=== PATIENT | female | born 1945 | race Caucasian/White ===

== ENCOUNTER 2016-10-18 11:57 | Inpatient (IN) | payer OTHER ==
[~2016-10-18] VITALS: Ht 162.6 cm; Wt 90.0 kg
[2016-10-18 09:30] VITALS: BP 124/61; PULSE 76
--- NOTE | 2016-10-18 12:21 | EMERGENCY ROOM VISIT NOTE ---
History Report prepared by Dar: Henrik Patel Under the Supervision of: Dr. Vadim Hernandez M.D. First contact with patient: 12:12 Chief Complaint: WOUND INFECTION Stated Complaint: WOUND ON RT FOOT History of Present Illness The patient is a 71 year old female who presents to the Emergency Room with complaints of a persistent left foot infection that started a month ago. Per the patient's family, the patient just arrived from [place] 3 days ago. The patient has been on an antibiotic (Ceftin) for 15 days, but the infection is not getting any better. The patient has the foot wrapped, and the last time it was re-wrapped was 5 days ago. She is diabetic. The patient's blood sugar this morning was 300, and she states that this is very high for her. She has been using her insulin twice per day. Source of History: patient, family Onset: A month ago Position: foot (left) Quality: other (infection) Timing: other (persistent) Note: Associated symptoms: High blood sugar this morning. Otherwise, no symptoms noted. Review of Systems See HPI for pertinent positives & negatives. A total of 10 systems reviewed and were otherwise negative. Past Medical & Surgical Medical Problems: (1) Diabetes (2) Diabetes mellitus, type II (3) Hyperlipidemia (4) Hypertension (5) Obesity (BMI 30.0-34.9) (6) Osteomyelitis Family History Diabetes mellitus Social History Smoking Status: Never Smoker Smokeless Tobacco Use: No Alcohol Use: none Occupation Status: unemployed Current/Historical Medications Scheduled Amlodipine Besylate (Amlodipine Besylate), 5 MG PO DAILY Atorvastatin (Lipitor), 1 TAB PO DAILY Cefuroxime Axetil (Cefuroxime Axetil), 1 TAB PO BID Hydrochlorothiazide (Hctz), 1 CAP PO DAILY Insulin Isophan/Regular (Novolin 70/30), 0 SC BID Lisinopril (Lisinopril), 5 MG PO DAILY Simvastatin (Simvastatin), 20 MG PO HS Scheduled PRN Ibuprofen (Motrin), 800 MG PO Q8 PRN for Pain Allergies Coded Allergies: No Known Allergies (Unverified , 10/18/16) Physical Exam Vital Signs Date Time Temp Pulse Resp B/P Pulse Ox O2 Delivery O2 Flow Rate FiO2 10/18/16 14:02 68 16 157/71 Room Air 10/18/16 12:00 36.6 74 20 172/85 98 Physical Exam GENERAL: Patient is chronically unwell appearing, overweight, in mild distress. HEENT: No acute trauma, normocephalic atraumatic, mucous membranes moist, no nasal congestion, no scleral icterus. NECK: No stridor, no adenopathy, no meningismus, trachea is midline. LUNGS: No dyspnea. Clear to auscultation and equal bilaterally. No wheeze, no rhonchi. HEART: Regular rate and rhythm. No murmurs, rubs, gallops appreciated. ABDOMEN: Soft, nontender, bowel sounds positive, no masses appreciated, no peritonitis. BACK: No midline tenderness, no CVA tenderness EXTREMITIES: Severely malodorous wound between 4th and 5th digits of right foot with active drainage, gangrenous findings and swelling of entire right foot. Erythema over most of right foot. NEUROLOGIC: Alert and oriented, no acute motor or sensory deficits, no focal weakness, cranial nerves grossly intact. SKIN: No rash, no jaundice, no diaphoresis. Medical Decision & Procedures ER Provider Diagnostic Interpretation: X ray results are stated below per my interpretation and the radiologist's interpretation. RIGHT FOOT MIN 3 VIEWS ROUTINE CLINICAL HISTORY: right foot infection (4th/5th digits) Right infection. Pain. COMPARISON: None. DISCUSSION: Destructive changes involving the metatarsophalangeal joint of the fourth toe. Generalized soft tissue edema about the fifth toe considerable degenerative change throughout all remaining osseous structures. Pars planus deformity of the ankle. Heel spur. Generalized soft tissue edema. IMPRESSION: Destructive changes involving the distal aspect of the fourth metatarsal as well as metatarsophalangeal joint. 2. No definite bony destructive change involving the fifth toe, although a component of osteopenia involving the distal fifth metatarsals present. 3. The appearance is consistent with that of degenerative change with superimposed osteomyelitis of the fourth toe. Electronically signed by: Florentino Maurice M.D. 10/18/2016 1:39 PM Dictated Date/Time: 10/18/2016 1:37 PM Laboratory Results 10/18/16 12:50 Red Blood Count 4.71, Mean Corpuscular Volume 78.6, Mean Corpuscular Hemoglobin 25.1, Mean Corpuscular Hemoglobin Concent 31.9, Mean Platelet Volume 10.5, Neutrophils (%) (Auto) 56.2, Lymphocytes (%) (Auto) 29.9, Monocytes (%) (Auto) 8.2, Eosinophils (%) (Auto) 4.5, Basophils (%) (Auto) 0.9, Neutrophils # (Auto) 3.79, Lymphocytes # (Auto) 2.01, Monocytes # (Auto) 0.55, Eosinophils # (Auto) 0.30, Basophils # (Auto) 0.06 10/18/16 12:50 Test 10/18/16 12:32 10/18/16 12:50 10/18/16 13:17 Bedside Glucose 250 mg/dl (70-90) White Blood Count 6.73 K/uL (4.8-10.8) Red Blood Count 4.71 M/uL (4.2-5.4) Hemoglobin 11.8 g/dL (12.0-16.0) Hematocrit 37.0 % (37-47) Mean Corpuscular Volume 78.6 fL (80-100) Mean Corpuscular Hemoglobin 25.1 pg (25-34) Mean Corpuscular Hemoglobin Concent 31.9 g/dl (32-36) Platelet Count 501 K/uL (130-400) Mean Platelet Volume 10.5 fL (7.4-10.4) Neutrophils (%) (Auto) 56.2 % Lymphocytes (%) (Auto) 29.9 % Monocytes (%) (Auto) 8.2 % Eosinophils (%) (Auto) 4.5 % Basophils (%) (Auto) 0.9 % Neutrophils # (Auto) 3.79 K/uL (1.4-6.5) Lymphocytes # (Auto) 2.01 K/uL (1.2-3.4) Monocytes # (Auto) 0.55 K/uL (0.11-0.59) Eosinophils # (Auto) 0.30 K/uL (0-0.5) Basophils # (Auto) 0.06 K/uL (0-0.2) RDW Standard Deviation 47.7 fL (36.4-46.3) RDW Coefficient of Variation 16.7 % (11.5-14.5) Immature Granulocyte % (Auto) 0.3 % Immature Granulocyte # (Auto) 0.02 K/uL (0.00-0.02) Erythrocyte Sedimentation Rate 62 mm/hr (0-21) Prothrombin Time 10.9 SECONDS (9.0-12.0) Prothromb Time International Ratio 1.0 (0.9-1.1) Activated Partial Thromboplast Time 22.4 SECONDS (21.0-31.0) Partial Thromboplastin Ratio 0.9 Anion Gap 3.0 mmol/L (3-11) Est Creatinine Clear Calc Drug Dose 58.5 ml/min Estimated GFR () 71.7 Estimated GFR (Non- 61.9 BUN/Creatinine Ratio 10.7 (10-20) Estimated Average Glucose 212 mg/dl Hemoglobin A1c 9.0 % (4.5-5.6) Calcium Level 8.9 mg/dl (8.5-10.1) C-Reactive Protein 1.46 mg/dl (0-0.29) Bedside Lactic Acid Venous 1.84 mmol/L (0.90-1.70) Laboratory results as reviewed by me. Medications Administered Medications (Trade) Dose Ordered Sig/Christen Route Start Time Stop Time Status Last Admin Dose Admin Sodium Chloride (Nss 500ml) 500 ml @ 999 mls/hr Q31M STAT IV 10/18/16 13:33 10/18/16 14:03 DC 10/18/16 13:33 999 MLS/HR Piperacillin Sod/ Tazobactam Sod 4.5 gm 4.5 gm NOW STAT IV 10/18/16 13:51 10/18/16 13:53 DC 10/18/16 13:59 4.5 GM Vancomycin HCl/ Sodium Chloride (Vancomycin Inj/ Nss 500ml) 540 ml @ 200 mls/hr ONE STAT IV 10/18/16 13:51 10/18/16 16:32 DC 10/18/16 14:49 200 MLS/HR ED Course 1213: The patient was evaluated in room B3B. A complete history and physical exam was performed. 1333: Ordered NSS 500 ml @ 999 mls/hr IV. 1351: Ordered Vancomycin HCl 2000 mg/Sodium Chloride 540 ml @ 200 mls/hr IV, Zosyn IV 4.5 gm IV. 1353: Upon reevaluation, the patient is resting comfortably. Discussed results and treatment plan with the patient. She verbalized understanding and agreement with the treatment plan. The patient will be evaluated for further management. 1403: I discussed the patient with Dr. Duke - [facility] [place] laboratory machinist - he will evaluate the patient for further treatment. Medical Decision Differential: DVT, CHF, Arterial Occlusion, Infectious, Joint Effusion, Trauma, Lymphedema, Idiopathic, Trauma, amongst other pathologies entertained. 71 yr old female with uncontrolled DMII arrives with right 4th/5th digits of foot infection spreading up over foot. Wound in gangrenous and imaging reveals underlying osteomyelitis. On abx as outpatient for last 2 weeks with no improvement in symptoms. Empirically given broad spectrum abx. She has no outpatient follow up and will need admission for treatment of this. Consults Time Called: [phone] Consulting Physician: Dr. Srikanth BRONSON laboratory machinist Returned Call: [phone] I discussed the patient with Dr. Srikanth BRONSON laboratory machinist - he will evaluate the patient for further treatment. Impression Primary Impression: Gangrene of foot Additional Impressions: Osteomyelitis of right foot Diabetes mellitus, insulin dependent (IDDM), uncontrolled Scribe Attestation The scribe's documentation has been prepared under my direction and personally reviewed by me in its entirety. I confirm that the note above accurately reflects all work, treatment, procedures, and medical decision making performed by me. Departure Information Dispostion Being Evaluated By Hospitalist Referrals No Doctor, Assigned (PCP) Patient Instructions My [facility] Problem Qualifiers Additional Impressions: Osteomyelitis of right foot Osteomyelitis type: other acute Qualified Codes: M86.171 - Other acute osteomyelitis, right ankle and foot Diabetes mellitus, insulin dependent (IDDM), uncontrolled Diabetes mellitus complication status: with skin complications Diabetes mellitus complication detail: with foot ulcer Qualified Codes: E10.621 - Type 1 diabetes mellitus with foot ulcer; L97.509 - Non-pressure chronic ulcer of other part of unspecified foot with unspecified severity; E10.65 - Type 1 diabetes mellitus with hyperglycemia
[2016-10-18 13:23] LABS: BASO % 0.9 %; BASO ABS # 0.06 K/uL (0-0.2); COMPLETE YES; EOS % 4.5 %; IG% 0.3 %; LYMPH % 29.9 %; LYMPH ABS # 2.01 K/uL (1.2-3.4); MEAN CELL VOLUME 78.6 fL (80-100); MEAN CORPUSCULAR HEMOGLOBIN 25.1 pg (25-34); MEAN CORPUSCULAR HGB CONC 31.9 g/dl (32-36); MEAN PLATELET VOLUME 10.5 fL (7.4-10.4); MONO % 8.2 %; NEUT % 56.2 %; PLATELET COUNT 501 K/uL (130-400); RED BLOOD COUNT 4.71 M/uL (4.2-5.4); WHITE BLOOD COUNT 6.73 K/uL (4.8-10.8)
[2016-10-18] MEDS ORDERED: SODIUM CHLORIDE 0.9% 500ML 500 ML IV STA (13:33)
--- NOTE | 2016-10-18 13:41 | DIAGNOSTIC IMAGING REPORT ---
RIGHT FOOT MIN 3 VIEWS ROUTINE CLINICAL HISTORY: right foot infection (4th/5th digits) Right infection. Pain. COMPARISON: None. DISCUSSION: Destructive changes involving the metatarsophalangeal joint of the fourth toe. Generalized soft tissue edema about the fifth toe considerable degenerative change throughout all remaining osseous structures. Pars planus deformity of the ankle. Heel spur. Generalized soft tissue edema. IMPRESSION: Destructive changes involving the distal aspect of the fourth metatarsal as well as metatarsophalangeal joint. 2. No definite bony destructive change involving the fifth toe, although a component of osteopenia involving the distal fifth metatarsals present. 3. The appearance is consistent with that of degenerative change with superimposed osteomyelitis of the fourth toe. Electronically signed by: Florentino Maurice M.D. 10/18/2016 1:39 PM Dictated Date/Time: 10/18/2016 1:37 PM
[2016-10-18] MEDS ORDERED: INSU70IN2 SC (13:44)
[2016-10-18] MEDS ORDERED: CEFU1TAB36 PO (13:44)
[2016-10-18] MEDS ORDERED: PIPERACILLIN/TAZOBACTAM 4.5 GM/100ML D5W IV STA (13:51)
[2016-10-18] MEDS ORDERED: VANCOMYCIN INJ 2,000 MG in SODIUM CHLORIDE 0.9% 500ML 500 ML IV STA (13:51)
[2016-10-18 13:58] LABS: BLOOD UREA NITROGEN 10 mg/dl (7-18); BUN/CREATININE RATIO 10.7 (10-20); C-REACTIVE PROTEIN 1.46 mg/dl (0-0.29); CALCIUM 8.9 mg/dl (8.5-10.1); CARBON DIOXIDE 31 mmol/L (21-32); CHLORIDE 104 mmol/L (98-107); CREATININE 0.94 mg/dl (0.60-1.20); GLUCOSE 274 mg/dl (70-99); SODIUM 138 mmol/L (136-145)
[2016-10-18] MEDS ORDERED: DEXTROSE 50% 50 ML SYR IV PRN (14:45)
[2016-10-18] MEDS ORDERED: PHARMACY GLYCEMIC MGMT CONSULT PRN (14:45)
[2016-10-18] MEDS ORDERED: GLUCOSE 10 TABS/TUBE PO PRN (14:45)
[2016-10-18] MEDS ORDERED: GLUCAGON FOR INJ 1 MG VIAL SQ PRN (14:45)
[2016-10-18] MEDS ORDERED: GLUCOSE 40% GEL 15 GM TUBE PO PRN (14:45)
--- NOTE | 2016-10-18 15:07 | Pharmacy Progress Note ---
Glycemic Control Intl Consult Date of Service Oct 18, 2016. Scope Glycemic Pharmacist consulted by Dr Ghada Duke on 10/18/16 for glycemic control and to write orders per [facility] inpatient glycemic control protocol Objective Weight (Kilograms): 82.000 Accuchecks BSG (last 24hrs): Test 10/18/16 12:32 10/18/16 12:50 Bedside Glucose 250 mg/dl (70-90) Random Glucose 274 mg/dl (70-99) Laboratory Data (last 24hrs) Test 10/18/16 12:50 Anion Gap 3.0 mmol/L BUN/Creatinine Ratio 10.7 Blood Urea Nitrogen 10 mg/dl Creatinine 0.94 mg/dl Potassium Level mmol/L Sodium Level 138 mmol/L White Blood Count 6.73 K/uL Red Blood Count 4.71 M/uL Hemoglobin 11.8 g/dL Hematocrit 37.0 % Mean Corpuscular Volume 78.6 fL Mean Corpuscular Hemoglobin 25.1 pg Mean Corpuscular Hemoglobin Concent 31.9 g/dl Platelet Count 501 K/uL Mean Platelet Volume 10.5 fL Neutrophils (%) (Auto) 56.2 % Lymphocytes (%) (Auto) 29.9 % Monocytes (%) (Auto) 8.2 % Eosinophils (%) (Auto) 4.5 % Basophils (%) (Auto) 0.9 % Neutrophils # (Auto) 3.79 K/uL Lymphocytes # (Auto) 2.01 K/uL Monocytes # (Auto) 0.55 K/uL Eosinophils # (Auto) 0.30 K/uL Basophils # (Auto) 0.06 K/uL HbA1c Test 10/18/16 12:50 Recent Pertinent Medications Outpatient Anti-diabetic Regimen: * Novolin 70/30 BID w/ breakfast and dinner; 20 units if BSG in 200's; 30 units if BSG in the 300s * A1c = ? Results are pending Risk Factors for Insulin Resistance: * Steroids: n/a * Infection: R diabetic foot infection, osteomyelitis, possible gangrene; ordered Vancomycin + Zosyn in the ER * Pressors: n/a * IVF: none currently * Recent Surgery: n/a * Diet: has not yet been ordered * Mechanical Ventilation: n/a Assessment & Plan ASSESSMENT: 10/18/16 * Diabetic (type 2?) presented to the ER today for worsening R foot infection despite 15 days of treatment w/ Ceftin. Note, she is visiting from [place]. * Patient's Ukrainian limited and information obtained through conversation w/ patient via son interpreting. She states she uses only the 70/30 insulin for glycemic control, twice daily with doses ranging 20-30units per dose. It does not sound as though her BSGs are well controlled. A1c has been added to existing labs - awaiting results to be reported. * Will begin a basal/bolus regimen in this patient as it is unclear as to the type of DM she was diagnosed with. The regimen will be based upon an anticipated total daily insulin requirement of ~50-60 units based upon her reported outpt doses and likely poor control on this regimen. Lantus and Novolog will be used rather than split-mixed 70/30 insulin due to potential need for NPO status for procedures and higher hypoglycemia risk with this insulin while hospitalized. We can transition back to 70/30 insulin closer to discharge if this is desired. PLAN FOR INPATIENT GLYCEMIC CONTROL: * Basal insulin with LANTUS 13 units SQ BID * Correctional Insulin with NOVOLOG / REGULAR per scale ACHS or Q6hrs while NPO * Goal Range: Low 120 mg/dL - High 150 mg/dL * Correction Factor: 25 mg/dL/unit * Nutritional / Prandial insulin per carb ratio of 1 unit per 9 grams CHO consumed * Please note that the plan above was derived based on current level of insulin resistance and hospital stress. These recommendations are appropriate for inpatient admission only. Plan of care upon discharge will need to be reassessed to avoid potential outpatient hypo/hyperglycemia. Thank you.
[2016-10-18 15:23] LABS: ESTIMATED AVERAGE GLUCOSE 212 mg/dl; HA1C FLAG Normal (Normal)
[2016-10-18] MEDS ORDERED: ATOR-54 PO (15:27)
[2016-10-18] MEDS ORDERED: NRV5 PO (15:27)
[2016-10-18] MEDS ORDERED: IBUP-1428 PO (15:27)
[2016-10-18] MEDS ORDERED: LSN5 PO (15:27)
[2016-10-18] MEDS ORDERED: SIMV-151 PO (15:27)
[2016-10-18] MEDS ORDERED: HYDR12.56 PO (15:27)
[2016-10-18] MEDS ORDERED: ACETAMINOPHEN 325 MG TAB PO PRN (15:30)
[2016-10-18] MEDS ORDERED: IBUPROFEN 800 MG TAB PO PRN (15:30)
[2016-10-18] MEDS ORDERED: ONDANSETRON INJ 2 MG/ML 2 ML VIAL IV PRN (15:30)
[2016-10-18] MEDS ORDERED: TRAMADOL HCL 50 MG TAB PO PRN (15:30)
--- NOTE | 2016-10-18 15:54 | History and Physical ---
History & Physical Date & Time of Service: Oct 18, 2016 at 15:33 Chief Complaint: Wound On Rt Foot Primary Care Physician: No Doctor, Assigned History of Present Illness Source: patient This is a 71-year-old female with a past medical history of hypertension, hyperlipidemia, diabetes type 2, and obesity who presents to the ER with a right foot wound between the fourth and fifth toe. States that she has recently traveled from [place] 3 days ago. Her son is present here with her and is acting as a painter foreman, as her [place] is minimal. Patient has a green card and had been visiting her daughter who lives in [place] a few weeks ago. The patient reports the wound between her toes has been present for 2 years now, and hasn't seen a physician regularly for this toe wound before. Her daughter works as a physician in [place], and pt got a prescription for Ceftin 500 mg BID when the toe wound opened approximately 2 weeks ago. She is on day 12 of antibiotics. Patient notes she has been wrapping it with a dry gauze, and that it was last wrapped 5 days ago. She normally and has been wearing sandals because a closed shoe was not tolerable due to pain. The pain has been well controlled, with ibuprofen 800 mg every 8 hours as needed. She denies diabetic neuropathy, and states her sensation to her feet bilaterally is present. Patient denies having any fevers, chills, sweats, lightheadedness, dizziness, shortness of breath, chest pain. Discussion was held with son and patient bedside regarding IV antibiotics and possibility of needing surgery, the patient is not presently wanting to have any surgical procedure. In the ER, labs to note are the following; no leukocytosis, Hgb =11.2, glucose is elevated > 250s, ESR=62, CRP= 1.46, POC lactic acid=1.84. X-ray R foot showing osteomyelitis of the fourth toe. Past Medical/Surgical History Medical Problems: (1) Diabetes Status: Chronic Family History Diabetes mellitus Social History Smoking Status: Never Smoker Smokeless Tobacco Use: No Alcohol Use: none Drug Use: none Marital Status: Housing status: lives with family Occupational Status: unemployed Allergies Coded Allergies: No Known Allergies (Unverified , 10/18/16) Home Medications Scheduled Amlodipine Besylate (Amlodipine Besylate), 5 MG PO DAILY Atorvastatin (Lipitor), 1 TAB PO DAILY Cefuroxime Axetil (Cefuroxime Axetil), 1 TAB PO BID Hydrochlorothiazide (Hctz), 1 CAP PO DAILY Insulin Isophan/Regular (Novolin 70/30), 0 SC BID Lisinopril (Lisinopril), 5 MG PO DAILY Simvastatin (Simvastatin), 20 MG PO HS Scheduled PRN Ibuprofen (Motrin), 800 MG PO Q8 PRN for Pain Review of Systems Constitutional: No chills, No fatigue, No fever, No sweats, No weakness Eyes: No diplopia, No worsening of vision ENT: No sore throat, No trouble swallowing Respiratory: No dyspnea at rest, No dyspnea on exertion, No shortness of breath Cardiovascular: No chest pain, No palpitations Abdomen: No constipation, No diarrhea, No nausea, No pain, No vomiting Musculoskeletal: No calf pain, No joint pain, No swelling Genitourinary - Female: No dysuria Neurologic: No balance problems, No numbness/tingling, No weakness Endocrine: No fatigue Integumentary: No itch, No rash Physical Exam Vital Signs Date Time Temp Pulse Resp B/P Pulse Ox O2 Delivery O2 Flow Rate FiO2 10/18/16 14:02 68 16 157/71 Room Air 10/18/16 12:00 36.6 74 20 172/85 98 General Appearance: WD/WN, no apparent distress, + obese, + pertinent finding ( ) Head: normocephalic, atraumatic Eyes: PERRL, EOMI ENT: hearing grossly normal, pharynx normal Neck: supple, no JVD Respiratory/Chest: chest non-tender, lungs clear, no respiratory distress, no accessory muscle use Cardiovascular: regular rate, rhythm, no JVD, normal peripheral pulses, + systolic murmur Abdomen/GI: normal bowel sounds, non tender, soft Extremities/Musculoskelatal: no calf tenderness, + pedal edema (2+ pitting in RLE, 1+ pitting in the LLE, +open toe wound on right foot between 4th and 5th toe, foul smelling, purulent material oozing from wound, no surrounding erythema.) Neurologic/Psych: alert, normal mood/affect, oriented x 3 Skin: normal color, warm/dry Diagnostics Laboratory Results Results Past 24 Hours Test 10/18/16 12:32 10/18/16 12:50 10/18/16 13:17 Range/Units Bedside Glucose 250 70-90 mg/dl White Blood Count 6.73 4.8-10.8 K/uL Red Blood Count 4.71 4.2-5.4 M/uL Hemoglobin 11.8 12.0-16.0 g/dL Hematocrit 37.0 37-47 % Mean Corpuscular Volume 78.6 80-100 fL Mean Corpuscular Hemoglobin 25.1 25-34 pg Mean Corpuscular Hemoglobin Concent 31.9 32-36 g/dl Platelet Count 501 130-400 K/uL Mean Platelet Volume 10.5 7.4-10.4 fL Neutrophils (%) (Auto) 56.2 % Lymphocytes (%) (Auto) 29.9 % Monocytes (%) (Auto) 8.2 % Eosinophils (%) (Auto) 4.5 % Basophils (%) (Auto) 0.9 % Neutrophils # (Auto) 3.79 1.4-6.5 K/uL Lymphocytes # (Auto) 2.01 1.2-3.4 K/uL Monocytes # (Auto) 0.55 0.11-0.59 K/uL Eosinophils # (Auto) 0.30 0-0.5 K/uL Basophils # (Auto) 0.06 0-0.2 K/uL RDW Standard Deviation 47.7 36.4-46.3 fL RDW Coefficient of Variation 16.7 11.5-14.5 % Immature Granulocyte % (Auto) 0.3 % Immature Granulocyte # (Auto) 0.02 0.00-0.02 K/uL Erythrocyte Sedimentation Rate 62 0-21 mm/hr Sodium Level 138 136-145 mmol/L Potassium Level 3.5-5.1 mmol/L Chloride Level 104 98-107 mmol/L Carbon Dioxide Level 31 21-32 mmol/L Anion Gap 3.0 3-11 mmol/L Blood Urea Nitrogen 10 7-18 mg/dl Creatinine 0.94 0.60-1.20 mg/dl Est Creatinine Clear Calc Drug Dose 58.5 ml/min Estimated GFR () 71.7 Estimated GFR (Non- 61.9 BUN/Creatinine Ratio 10.7 10-20 Random Glucose 274 70-99 mg/dl Estimated Average Glucose 212 mg/dl Hemoglobin A1c 9.0 4.5-5.6 % Calcium Level 8.9 8.5-10.1 mg/dl C-Reactive Protein 1.46 0-0.29 mg/dl Bedside Lactic Acid Venous 1.84 0.90-1.70 mmol/L Microbiology Results 10/18/16 Blood Culture, Received Pending 10/18/16 Blood Culture, Received Pending Diagnostic Radiology RIGHT FOOT MIN 3 VIEWS ROUTINE CLINICAL HISTORY: right foot infection (4th/5th digits) Right infection. Pain. COMPARISON: None. DISCUSSION: Destructive changes involving the metatarsophalangeal joint of the fourth toe. Generalized soft tissue edema about the fifth toe considerable degenerative change throughout all remaining osseous structures. Pars planus deformity of the ankle. Heel spur. Generalized soft tissue edema. IMPRESSION: Destructive changes involving the distal aspect of the fourth metatarsal as well as metatarsophalangeal joint. 2. No definite bony destructive change involving the fifth toe, although a component of osteopenia involving the distal fifth metatarsals present. 3. The appearance is consistent with that of degenerative change with superimposed osteomyelitis of the fourth toe. Impression Assessment and Plan This is a 71-year-old female with a past medical history of hypertension, hyperlipidemia, diabetes type 2, and obesity who presents to the ER with a right foot wound between the fourth and fifth toe. Osteomyelitis the right foot, fourth toe - Ad[facility] to [facility] - Ortho consulted - Patient has been taking Ceftin 500 mg twice a day 12 days, will hold; Started on vancomycin and Zosyn IV in the ER, will continue IV antibiotics. Patient has been afebrile and has no leukocytosis - X-ray reviewed showing osteomyelitis; MRI of the foot ordered, follow results for severity of osteomyelitis - ESR and CRP are elevated - Pain control with ibuprofen, Tylenol, [id number] mg Q4H prn - Will need PT and OT after/if surgical procedure - Will make nothing by mouth after midnight except for meds Diabetes type 2 - Check hemoglobin A1c - Takes NovoLog 70/30 mix as outpatient: 20 U for blood sugars in 200s and 30 U for blood sugar in the 300s, will hold for now diabetic regimen per pharmacy - Insulin sliding scale with Accu-Cheks before meals at bedtime Obesity - Encourage weight loss and exercise Hypertension - Systolic has been elevated around 150s, will order hydralazine 10 mg prn with holding parameters - Continue on lisinopril 5 mg daily, hydrochlorothiazide 12.5 mg daily, amlodipine 5 mg daily as per her outpatient regimen - may need adjusted as patient reports systolic chronically being between 120 and 170s Hyperlipidemia - Check a lipid panel in the morning - Continue atorvastatin 20 mg daily for now. Patient also takes simvastatin 20 mg daily QHS as an outpatient along with atorvastatin. DVT prophylaxis: Teds, SCDs, Lovenox 40 mg subq CODE STATUS: Full code Disposition: Patient living with son in [place], does not have a PCP and will need to have one established prior to discharge, CM to assist with discharge planning Level of Care Med/Surg Advanced Directives Existing Advance Directive: No Existing Living Will: No Existing Power of Railroad Hand: No Existing Health Care Proxy: No Resuscitation Status FULL RESUSCITATION VTE Prophylaxis VTE Risk Assessment Done? Y/N: Yes Risk Level: Low Given or contraindicated: Enoxaparin (Lovenox)SQ, T.E.D. Stockings, SCD's
[2016-10-18 16:01] LABS: PARTIAL THROMBOPLASTIN RATIO 0.9; PROTHROMBIN TIME (PATIENT) 10.9 SECONDS (9.0-12.0)
[2016-10-18 16:28] VITALS: BP 178/83; PULSE 74; TEMP 36.6; O2SAT 97; BMI 34.1
[2016-10-18] MEDS ORDERED: VANCOMYCIN CONSULT ACTIVE PRN (16:30)
[2016-10-18] MEDS ORDERED: PIPERACILL/TAZOBAC CONSULT ACTIVE PRN (16:30)
[2016-10-18] MEDS ORDERED: VANCOMYCIN INJ 2,050 MG in SODIUM CHLORIDE 0.9% 500ML 500 ML IV ONE (16:30)
--- NOTE | 2016-10-18 16:33 | Pharmacy Progress Note ---
Pharmacy Antibiotic Consult Date of Service: Oct 18, 2016. Pharmacy Dosing Scope Pharmacy is consulted to initiate Zosyn and Vancomycin IV dosing therapy, order appropriate labs and adjust drug dose/frequency. Subjective The patient is a 71 year old female admitted on . Objective Height (Feet): 5 Height (Inches): 4.00 Weight (Kilograms): 82.000 Lab Results (24hrs): Laboratory Tests Test 10/18/16 12:50 BUN/Creatinine Ratio 10.7 Blood Urea Nitrogen 10 mg/dl Creatinine 0.94 mg/dl White Blood Count 6.73 K/uL Red Blood Count 4.71 M/uL Hemoglobin 11.8 g/dL Hematocrit 37.0 % Mean Corpuscular Volume 78.6 fL Mean Corpuscular Hemoglobin 25.1 pg Mean Corpuscular Hemoglobin Concent 31.9 g/dl Platelet Count 501 K/uL Mean Platelet Volume 10.5 fL Neutrophils (%) (Auto) 56.2 % Lymphocytes (%) (Auto) 29.9 % Monocytes (%) (Auto) 8.2 % Eosinophils (%) (Auto) 4.5 % Basophils (%) (Auto) 0.9 % Neutrophils # (Auto) 3.79 K/uL Lymphocytes # (Auto) 2.01 K/uL Monocytes # (Auto) 0.55 K/uL Eosinophils # (Auto) 0.30 K/uL Basophils # (Auto) 0.06 K/uL Micro Results: Item Value Date Time Blood Culture Received 10/18/16 1235 Blood Pending Blood Culture Received 10/18/16 1235 Blood Pending Assessment & Plan * 71 yo female patient admitted with osteomyelitis of foot. Pt has uncontrolled DM (A1c = 9.0%) thus complicating wound healing. Vancomycin * Pt ordered a loading dose of Vancomycin 2gm IV x 1 in the ED * Pt's estimated half life is ~14 hours. * Will begin maintenance dose of Vancomycin 1200 mg IV [id number]. * Goal trough level is 15-20 mcg/ml. Will obtain a trough level prior to the 3rd maintenance dose on 10/20 at 0900. * Pt's body habitus increases the risk for Vancomycin drug accumulation. Zosyn * Pt received a bolus of Zosyn 4.5gm IV x 1 in the ED. * D/t severity of osteomyelitis infection will continue Zosyn 4.5gm IV q8 hours EI. Pharmacy will continue to follow and will adjust dose/frequency as necessary. Thank you
[2016-10-18] MEDS: INSULIN ASPART 100 UNITS/ML 3 ML PEN SC SCH ×2 (18:30→21:00)
[2016-10-18] MEDS ORDERED: GADAVIST IV PRN (19:30)
[2016-10-18] MEDS: PIPERACILL/TAZOBAC IV 4.5 GM in DEXTROSE 5% 100ML 100 ML IV SCH (20:00)
[2016-10-18 20:02] VITALS: BP_SYST 165; BP_SYST 182; BP_DIAS 82; BP_DIAS 90; PULSE 69; PULSE 73
[2016-10-18] MEDS: HydrALAZINE HCL 20 MG/ML VIAL IV. PRN (20:05)
--- NOTE | 2016-10-18 20:31 | DIAGNOSTIC IMAGING REPORT ---
MRI OF THE RIGHT FOREFOOT COMBO CLINICAL HISTORY: Fourth and fifth toe infections. COMPARISON STUDY: Radiographs of the right foot dated 10/18/2016. TECHNIQUE: MRI of the right forefoot is performed utilizing various T1 and T2-weighted sequences in the axial, sagittal, and coronal planes. Contrast-enhanced sequences were acquired following the IV administration of 8 cc of Gadavist. The examination is degraded by motion artifact. FINDINGS: There is erosion of the fourth metatarsal head as well as the base of the fourth proximal phalanx. There is significant drop in T1 signal involving the distal shaft of the fourth metatarsal and the fourth proximal phalanx with associated marrow edema on the STIR sequences. The appearance is consistent with osteomyelitis. The fourth middle and distal phalanges are diminutive and fused. These demonstrate normal marrow signal intensity. There is also marrow edema identified within the fifth proximal phalanx. This demonstrates drop in signal on the T1 sequences and is also consistent with osteomyelitis. Osteomyelitis also involves the fused fifth middle and distal phalanges. No marrow signal change is identified in the fifth metatarsal or the first through third toes. There is diffuse soft tissue edema identified in the lateral forefoot, greatest around the fourth and fifth toes. There is nonspecific patchy abnormal enhancement on the postcontrast images, and the appearance is consistent with overlying cellulitis. A small peripherally enhancing fluid collection is identified at the eroded fourth metatarsophalangeal joint. This measures up to 13 mm as seen on axial image 15 of 32, and likely represents an abscess. There is diffuse myositis of the musculature in the forefoot. IMPRESSION: 1. There is bony erosion identified involving the head of the fourth metatarsal and the base of the fourth proximal phalanx with marrow changes consistent with osteomyelitis involving both of these bones. 2. There is also evidence of osteomyelitis involving the phalanges of the fifth toe as detailed above. 3. Findings are consistent with cellulitis of the forefoot, greatest laterally. 4. A small abscess is suspected at the site of the eroded fourth metatarsophalangeal joint. Dictated: 10/18/2016 7:38 PM Transcribed: 10/18/2016 8:30 PM [place] Electronically signed by: Cash Chinchilla M.D. 10/18/2016 8:48 PM Dictated Date/Time: 10/18/2016 7:38 PM
[2016-10-18] MEDS ORDERED: INSULIN GLARGINE SOLOSTAR 100 UNITS/ML 3 ML PEN SC SCH (21:00)
[2016-10-18 21:30] VITALS: BP 124/61; PULSE 76
[2016-10-18] MEDS: ENOXAPARIN 40 MG/0.4 ML SYR SQ SCH (22:07)
[2016-10-18 23:25] VITALS: BP 122/64; PULSE 74; TEMP 36.9; O2SAT 95
[2016-10-18 23:35] VITALS: O2SAT 95
[2016-10-19] VITALS (9 sets, daily range): BP systolic 135–159; BP diastolic 61–84; PULSE 74–87; TEMP 36.6–36.9; O2SAT 90–96
[2016-10-19] MEDS ORDERED: INSULIN ASPART 100 UNITS/ML 3 ML PEN SC ONE (02:00)
[2016-10-19] MEDS: PIPERACILL/TAZOBAC IV 4.5 GM in DEXTROSE 5% 100ML 100 ML IV SCH ×3 (03:39→23:16)
[2016-10-19] MEDS: VANCOMYCIN INJ 1,200 MG in SODIUM CHLORIDE 0.9% 250ML 250 ML IV SCH ×2 (05:29→19:47)
[2016-10-19 06:05] LABS: BASO % 0.7 %; BASO ABS # 0.05 K/uL (0-0.2); COMPLETE YES; EOS % 4.8 %; IG% 0.3 %; LYMPH % 24.6 %; LYMPH ABS # 1.64 K/uL (1.2-3.4); MEAN CORPUSCULAR HEMOGLOBIN 24.3 pg (25-34); MEAN CORPUSCULAR HGB CONC 31.1 g/dl (32-36); MEAN PLATELET VOLUME 10.2 fL (7.4-10.4); MONO % 7.2 %; NEUT % 62.4 %; PLATELET COUNT 481 K/uL (130-400); RED BLOOD COUNT 4.49 M/uL (4.2-5.4); WHITE BLOOD COUNT 6.67 K/uL (4.8-10.8)
[2016-10-19 06:32] LABS: BUN/CREATININE RATIO 9.3 (10-20); CALCIUM 8.2 mg/dl (8.5-10.1); CREATININE 0.79 mg/dl (0.60-1.20); POTASSIUM 3.8 mmol/L (3.5-5.1)
[2016-10-19 06:35] LABS: CHOLESTEROL/HDL RATIO 4.8
[2016-10-19] MEDS ORDERED: NURSING VERBAL MED ORDER ONE (07:00)
[2016-10-19] MEDS: INSULIN ASPART 100 UNITS/ML 3 ML PEN SC SCH ×3 (08:33→21:18)
[2016-10-19] MEDS: HYDROCHLOROTHIAZIDE 25 MG TAB PO SCH (09:00)
[2016-10-19] MEDS: ATORVASTATIN 20 MG TAB PO SCH (09:00)
[2016-10-19] MEDS: AMLODIPINE BESYLATE 5 MG TAB PO SCH (09:32)
[2016-10-19] MEDS: LISINOPRIL 5 MG TAB PO SCH (09:32)
--- NOTE | 2016-10-19 09:38 | Medical Consult ---
Consultation Date of Consultation: Oct 19, 2016. Attending Physician: Hood Duke D.O. Reason for Consultation: Right foot osteomyelitis History of Present Illness Patient is a pleasant 71 year old female with a history of diabetes complaining of changes to the right foot over the past 2 years. Recently prescribed oral antibiotics after an open wound appeared in the 4th webspace of the right foot. Denies improvements with treatment. Denies any specific injury or significant pain. No numbness or tingling. Denies any calf pain. Past Medical/Surgical History Medical Problems: (1) Diabetes Status: Chronic (2) Diabetes mellitus, insulin dependent (IDDM), uncontrolled Status: Acute (3) Gangrene of foot Status: Acute (4) Osteomyelitis of right foot Status: Acute Family History Diabetes mellitus Social History Smoking Status: Never Smoker Smokeless Tobacco Use: No Alcohol Use: none Drug Use: none Marital Status: Occupation Status: unemployed Allergies Coded Allergies: No Known Allergies (Unverified , 10/18/16) Home Medications Home Meds and Scripts Medications Dose Route/Sig Max Daily Dose Days Date Category Dose Instructions Motrin (Ibuprofen) 800 Mg Tab 800 Mg PO Q8 PRN 10/18/16 Reported Amlodipine Besylate 5 Mg Tab 5 Mg PO DAILY 10/18/16 Reported Hctz (Hydrochlorothiazide) 12.5 Mg Cap 1 Cap PO DAILY 90 10/18/16 Reported Simvastatin 20 Mg Tab 20 Mg PO HS 10/18/16 Reported Lipitor (Atorvastatin) 20 Mg Tab 1 Tab PO DAILY 90 10/18/16 Reported Lisinopril 5 Mg Tab 5 Mg PO DAILY 10/18/16 Reported Novolin 70/30 (Insulin Human Isoph/Insulin Regular) Susp 0 SC BID 10/18/16 Reported 20 units if BSG in 200's 30 units if BSG in 300's Cefuroxime Axetil 500 Mg Tab 1 Tab PO BID 7 10/18/16 Reported Current Inpatient Medications Current Inpatient Medications Medications (Trade) Dose Ordered Sig/Christen Route Start Time Stop Time Status Last Admin Dose Admin Miscellaneous Information (Consult Glycemic Management Pharmacy) 1 ea UD PRN N/A 10/18/16 14:45 11/17/16 14:44 Insulin Glargine (Lantus Solostar Pen) 13 unit BID SC 10/18/16 21:00 11/17/16 20:59 Future Hold 10/18/16 22:03 13 UNIT Glucose (Glucose 40% Gel) 15-30 GRAMS 15 GRAMS... UD PRN PO 10/18/16 14:45 11/17/16 14:44 Glucose (Glucose Chew Tab) 4-8 Tablets 4 Tabl... UD PRN PO 10/18/16 14:45 11/17/16 14:44 Dextrose (Dextrose 50% 50ML Syringe) 25-50ML OF 50% DW IV FOR... UD PRN IV 10/18/16 14:45 11/17/16 14:44 Glucagon (Glucagon Inj) 1 mg UD PRN SQ 10/18/16 14:45 11/17/16 14:44 Enoxaparin Sodium (Lovenox Inj) 40 mg HS SQ 10/18/16 21:00 11/17/16 20:59 10/18/16 22:07 40 MG Acetaminophen (Tylenol Tab) 650 mg Q4H PRN PO 10/18/16 15:30 11/17/16 15:29 Ondansetron HCl (Zofran Inj) 4 mg Q6H PRN IV 10/18/16 15:30 11/17/16 15:29 Amlodipine Besylate (Norvasc Tab) 5 mg DAILY PO 10/19/16 09:00 11/18/16 08:59 Atorvastatin Calcium (Lipitor Tab) 20 mg DAILY PO 10/19/16 09:00 11/18/16 08:59 Hydrochlorothiazide (Hydrochlorothiazide Tab) 12.5 mg DAILY PO 10/19/16 09:00 11/18/16 08:59 Ibuprofen (Motrin Tab) 800 mg Q8 PRN PO 10/18/16 15:30 11/17/16 15:29 Lisinopril 5 mg 5 mg DAILY PO 10/19/16 09:00 11/18/16 08:59 Vancomycin HCl 1200 mg/Sodium Chloride 274 ml @ 125 mls/hr Q14H IV 10/19/16 05:00 11/30/16 04:59 10/19/16 05:29 125 MLS/HR Piperacillin Sod/ Tazobactam Sod/ Dextrose (Zosyn Iv/D5 100ml) 120 ml @ 30 mls/hr Q8H IV 10/18/16 20:00 11/29/16 19:59 10/19/16 03:39 30 MLS/HR Tramadol HCl (Ultram Tab) 50 mg Q4H PRN PO 10/18/16 15:30 11/17/16 15:29 Hydralazine HCl (HydrALAZINE INJ) 10 mg Q4 PRN IV. 10/18/16 16:00 11/17/16 15:59 10/18/16 20:05 10 MG Vancomycin HCl (Consult) 1 ea UD PRN N/A 10/18/16 16:30 11/17/16 16:29 Piperacillin Sod/ Tazobactam Sod (Consult) 1 ea UD PRN N/A 10/18/16 16:30 11/17/16 16:29 Gadobutrol (Gadavist) 8 mmol UD PRN IV 10/18/16 19:30 10/22/16 19:29 Insulin Aspart (novoLOG ASPART) SLIDING SCALE Q6H SC 10/19/16 12:00 11/18/16 11:59 Review of Systems Constitutional: No chills, No fatigue, No fever, No problem reported, No sweats , No weakness, No weight loss Respiratory: No cough, No dyspnea at rest, No dyspnea on exertion, No hemoptysis, No problem reported, No shortness of breath, No sputum, No wheezing Cardiovascular: No PND, No chest pain, No claudication, No edema, No orthopnea , No palpitations, No problem reported Abdomen: No GI bleeding, No constipation, No diarrhea, No nausea, No pain, No problem reported, No vomiting Musculoskeletal: + problem reported (wound of the right foot), No calf pain, No joint pain, No muscle pain, No swelling Neurologic: No numbness/tingling, No weakness Integumentary: + problem reported (right foot wound 4th webspace ) Physical Exam Date Time Temp Pulse Resp B/P Pulse Ox O2 Delivery O2 Flow Rate FiO2 10/19/16 07:03 36.8 74 16 154/78 96 Room Air 10/18/16 23:35 95 Room Air 10/18/16 23:25 36.9 74 18 122/64 95 Room Air 10/18/16 21:30 76 124/61 10/18/16 20:02 69 165/82 10/18/16 20:02 73 182/90 10/18/16 16:40 Room Air 10/18/16 16:28 36.6 74 16 178/83 97 Room Air 10/18/16 16:09 78 12 184/87 95 10/18/16 14:02 68 16 157/71 Room Air 10/18/16 12:00 36.6 74 20 172/85 98 General Appearance: WD/WN, no apparent distress Head: normocephalic, atraumatic Eyes: normal inspection ENT: hearing grossly normal Respiratory/Chest: lungs clear, normal breath sounds, no respiratory distress Cardiovascular: regular rate, rhythm, + systolic murmur Abdomen/GI: normal bowel sounds, non tender, soft Extremities/Musculoskelatal: no calf tenderness, + pertinent finding (the is a wound noted of the 4th webspace of the right foot, skin appears to be sloughing off in this location, maceration and mild swelling noted) Neurologic/Psych: no motor/sensory deficits, alert, normal mood/affect, oriented x 3 Laboratory Results Last 24 Hours Test 10/18/16 12:32 10/18/16 12:50 10/18/16 13:17 10/18/16 17:15 Bedside Glucose 250 mg/dl 125 mg/dl White Blood Count 6.73 K/uL Red Blood Count 4.71 M/uL Hemoglobin 11.8 g/dL Hematocrit 37.0 % Mean Corpuscular Volume 78.6 fL Mean Corpuscular Hemoglobin 25.1 pg Mean Corpuscular Hemoglobin Concent 31.9 g/dl Platelet Count 501 K/uL Mean Platelet Volume 10.5 fL Neutrophils (%) (Auto) 56.2 % Lymphocytes (%) (Auto) 29.9 % Monocytes (%) (Auto) 8.2 % Eosinophils (%) (Auto) 4.5 % Basophils (%) (Auto) 0.9 % Neutrophils # (Auto) 3.79 K/uL Lymphocytes # (Auto) 2.01 K/uL Monocytes # (Auto) 0.55 K/uL Eosinophils # (Auto) 0.30 K/uL Basophils # (Auto) 0.06 K/uL RDW Standard Deviation 47.7 fL RDW Coefficient of Variation 16.7 % Immature Granulocyte % (Auto) 0.3 % Immature Granulocyte # (Auto) 0.02 K/uL Erythrocyte Sedimentation Rate 62 mm/hr Prothrombin Time 10.9 SECONDS Prothromb Time International Ratio 1.0 Activated Partial Thromboplast Time 22.4 SECONDS Partial Thromboplastin Ratio 0.9 Sodium Level 138 mmol/L Potassium Level mmol/L Chloride Level 104 mmol/L Carbon Dioxide Level 31 mmol/L Anion Gap 3.0 mmol/L Blood Urea Nitrogen 10 mg/dl Creatinine 0.94 mg/dl Est Creatinine Clear Calc Drug Dose 58.5 ml/min Estimated GFR () 71.7 Estimated GFR (Non- 61.9 BUN/Creatinine Ratio 10.7 Random Glucose 274 mg/dl Estimated Average Glucose 212 mg/dl Hemoglobin A1c 9.0 % Calcium Level 8.9 mg/dl C-Reactive Protein 1.46 mg/dl Bedside Lactic Acid Venous 1.84 mmol/L Test 10/18/16 20:59 10/19/16 01:51 10/19/16 05:26 10/19/16 08:05 Bedside Glucose 114 mg/dl 109 mg/dl 105 mg/dl White Blood Count 6.67 K/uL Red Blood Count 4.49 M/uL Hemoglobin 10.9 g/dL Hematocrit 35.0 % Mean Corpuscular Volume 78.0 fL Mean Corpuscular Hemoglobin 24.3 pg Mean Corpuscular Hemoglobin Concent 31.1 g/dl Platelet Count 481 K/uL Mean Platelet Volume 10.2 fL Neutrophils (%) (Auto) 62.4 % Lymphocytes (%) (Auto) 24.6 % Monocytes (%) (Auto) 7.2 % Eosinophils (%) (Auto) 4.8 % Basophils (%) (Auto) 0.7 % Neutrophils # (Auto) 4.16 K/uL Lymphocytes # (Auto) 1.64 K/uL Monocytes # (Auto) 0.48 K/uL Eosinophils # (Auto) 0.32 K/uL Basophils # (Auto) 0.05 K/uL RDW Standard Deviation 47.8 fL RDW Coefficient of Variation 16.9 % Immature Granulocyte % (Auto) 0.3 % Immature Granulocyte # (Auto) 0.02 K/uL Sodium Level 143 mmol/L Potassium Level 3.8 mmol/L Chloride Level 107 mmol/L Carbon Dioxide Level 29 mmol/L Anion Gap 7.0 mmol/L Blood Urea Nitrogen 7 mg/dl Creatinine 0.79 mg/dl Est Creatinine Clear Calc Drug Dose 73.0 ml/min Estimated GFR () 88.5 Estimated GFR (Non- 76.4 BUN/Creatinine Ratio 9.3 Random Glucose 108 mg/dl Calcium Level 8.2 mg/dl Triglycerides Level 90 mg/dl Cholesterol Level 143 mg/dl HDL Cholesterol 30 mg/dl LDL Cholesterol, Calculated 95 mg/dl VLDL Cholesterol, Calculated 18 mg/dl Cholesterol/HDL Ratio 4.8 Hepatitis C Antibody Screen NEG Assessment & Plan IMPRESSION: Right foot 4th ray osteomyelitis PLAN: Awatif will undergo a Right foot, irrigation and debridement, possible fourth ray resection, possible wound vac placement by Dr. Donis from [facility] that is scheduled for 10/19/16 at the [facility]. All consents and forms completed and singed. Patient and her family are aware of the risks of surgery. The patient has been NPO except meds. All findings have been discussed with the patient and her son and agree to proceed accordingly. We will continue to follow post-operatively. No other questions or concerns, if so, please notify [facility] at [phone], thank you. I, Dr. Donis, saw and examined the patient and agree with the above findings and plan of care.
--- NOTE | 2016-10-19 10:28 | Medical Consult ---
Consultation Date of Consultation: Oct 19, 2016. Attending Physician: Hood Duke D.O. Reason for Consultation: osteo r foot, uncontrolled osteo History of Present Illness Patient is a 71-year-old female that speaks Danish and very limited Monegasque who presented to the emergency department with complaints persistent right foot infection that started approximately 2 years ago. She states that she has had problems with this foot for 2 years. Her Monegasque is broken, so conversation is limited. The eye pad dice manager was not working well in her room. Her son was not available at the time of my exam. Her records were however reviewed, and further information was taken previous records and admission H&P. The patient does have history of diabetes as well. She recently traveled from [place] 3 days ago. The patient apparently has been on 12 days of antibiotic therapy with p.o. Ceftin. On admission, the patient did have a lower extremity MRI done of the right foot which showed bony erosion of the head of the 4th metatarsal and base of the 4th proximal phalanx with marrow changes consistent with osteomyelitis and evidence of osteomyelitis involving the 5th phalanges as well. Findings of cellulitis of the forefoot and a small abscess is suspected at the site of the eroded 4th MTP joint Were also noted. Her white blood cell count on admission was 6.73. ESR was 62. C reactive protein was 0.46. Her creatinine was noted to be 0.79. She was started on IV vancomycin and Zosyn. She is anticipated to have a 4th and 5th ray resection or I and D of the area. I did discuss this patient briefly with Chao Del Valle PA-C as well. Past Medical/Surgical History Medical Problems: (1) Diabetes Status: Chronic (2) Diabetes mellitus, insulin dependent (IDDM), uncontrolled Status: Acute (3) Gangrene of foot Status: Acute (4) Osteomyelitis of right foot Status: Acute Medical Problems: (1) Diabetes (2) Diabetes mellitus, type II (3) Hyperlipidemia (4) Hypertension (5) Obesity (BMI 30.0-34.9) (6) Osteomyelitis Family History Diabetes mellitus Noncontributory Social History Smoking Status: Never Smoker Smokeless Tobacco Use: No Alcohol Use: none Drug Use: none Marital Status: Occupation Status: unemployed Allergies Coded Allergies: No Known Allergies (Unverified , 10/18/16) Home Medications Reported Home Medications Medications Dose Route/Sig Max Daily Dose Days Date Category Dose Instructions Motrin (Ibuprofen) 800 Mg Tab 800 Mg PO Q8 PRN 10/18/16 Reported Amlodipine Besylate 5 Mg Tab 5 Mg PO DAILY 10/18/16 Reported Hctz (Hydrochlorothiazide) 12.5 Mg Cap 1 Cap PO DAILY 90 10/18/16 Reported Simvastatin 20 Mg Tab 20 Mg PO HS 10/18/16 Reported Lipitor (Atorvastatin) 20 Mg Tab 1 Tab PO DAILY 90 10/18/16 Reported Lisinopril 5 Mg Tab 5 Mg PO DAILY 10/18/16 Reported Novolin 70/30 (Insulin Human Isoph/Insulin Regular) Susp 0 SC BID 10/18/16 Reported 20 units if BSG in 200's 30 units if BSG in 300's Cefuroxime Axetil 500 Mg Tab 1 Tab PO BID 7 10/18/16 Reported Current Inpatient Medications Current Inpatient Medications Medications (Trade) Dose Ordered Sig/Christen Route Start Time Stop Time Status Last Admin Dose Admin Miscellaneous Information (Consult Glycemic Management Pharmacy) 1 ea UD PRN N/A 10/18/16 14:45 11/17/16 14:44 Insulin Glargine (Lantus Solostar Pen) 13 unit BID SC 10/18/16 21:00 11/17/16 20:59 Future Hold 10/18/16 22:03 13 UNIT Glucose (Glucose 40% Gel) 15-30 GRAMS 15 GRAMS... UD PRN PO 10/18/16 14:45 11/17/16 14:44 Glucose (Glucose Chew Tab) 4-8 Tablets 4 Tabl... UD PRN PO 10/18/16 14:45 11/17/16 14:44 Dextrose (Dextrose 50% 50ML Syringe) 25-50ML OF 50% DW IV FOR... UD PRN IV 10/18/16 14:45 11/17/16 14:44 Glucagon (Glucagon Inj) 1 mg UD PRN SQ 10/18/16 14:45 11/17/16 14:44 Enoxaparin Sodium (Lovenox Inj) 40 mg HS SQ 10/18/16 21:00 11/17/16 20:59 10/18/16 22:07 40 MG Acetaminophen (Tylenol Tab) 650 mg Q4H PRN PO 10/18/16 15:30 11/17/16 15:29 Ondansetron HCl (Zofran Inj) 4 mg Q6H PRN IV 10/18/16 15:30 11/17/16 15:29 Amlodipine Besylate (Norvasc Tab) 5 mg DAILY PO 10/19/16 09:00 11/18/16 08:59 10/19/16 09:32 5 MG Atorvastatin Calcium (Lipitor Tab) 20 mg DAILY PO 10/19/16 09:00 11/18/16 08:59 Hydrochlorothiazide (Hydrochlorothiazide Tab) 12.5 mg DAILY PO 10/19/16 09:00 11/18/16 08:59 Ibuprofen (Motrin Tab) 800 mg Q8 PRN PO 10/18/16 15:30 11/17/16 15:29 Lisinopril 5 mg 5 mg DAILY PO 10/19/16 09:00 11/18/16 08:59 10/19/16 09:32 5 MG Vancomycin HCl 1200 mg/Sodium Chloride 274 ml @ 125 mls/hr Q14H IV 10/19/16 05:00 11/30/16 04:59 10/19/16 05:29 125 MLS/HR Piperacillin Sod/ Tazobactam Sod/ Dextrose (Zosyn Iv/D5 100ml) 120 ml @ 30 mls/hr Q8H IV 10/18/16 20:00 11/29/16 19:59 10/19/16 03:39 30 MLS/HR Tramadol HCl (Ultram Tab) 50 mg Q4H PRN PO 10/18/16 15:30 11/17/16 15:29 Hydralazine HCl (HydrALAZINE INJ) 10 mg Q4 PRN IV. 10/18/16 16:00 11/17/16 15:59 10/18/16 20:05 10 MG Vancomycin HCl (Consult) 1 ea UD PRN N/A 10/18/16 16:30 11/17/16 16:29 Piperacillin Sod/ Tazobactam Sod (Consult) 1 ea UD PRN N/A 10/18/16 16:30 11/17/16 16:29 Gadobutrol (Gadavist) 8 mmol UD PRN IV 10/18/16 19:30 10/22/16 19:29 Insulin Aspart (novoLOG ASPART) SLIDING SCALE Q6H SC 10/19/16 12:00 11/18/16 11:59 Review of Systems ROS limited due to language barrier- dice manager Ipad was not working well in room, so minimal meaningful review of systems obtained. Physical Exam Date Time Temp Pulse Resp B/P Pulse Ox O2 Delivery O2 Flow Rate FiO2 10/19/16 09:31 76 142/84 10/19/16 07:03 36.8 74 16 154/78 96 Room Air 10/18/16 23:35 95 Room Air 10/18/16 23:25 36.9 74 18 122/64 95 Room Air 10/18/16 21:30 76 124/61 10/18/16 20:02 69 165/82 10/18/16 20:02 73 182/90 10/18/16 16:40 Room Air 10/18/16 16:28 36.6 74 16 178/83 97 Room Air 10/18/16 16:09 78 12 184/87 95 10/18/16 14:02 68 16 157/71 Room Air 10/18/16 12:00 36.6 74 20 172/85 98 General Appearance: no apparent distress, + obese Head: normocephalic, atraumatic Eyes: normal inspection, sclerae normal ENT: hearing grossly normal Neck: supple, trachea midline Respiratory/Chest: chest non-tender, no respiratory distress, no accessory muscle use, + crackles (very mild right base) Cardiovascular: regular rate, rhythm, + systolic murmur Abdomen/GI: normal bowel sounds, non tender, soft Back: normal inspection Extremities/Musculoskelatal: + pertinent finding (right foot with induration, edema, and large ulceration between the 4th and 5th toes) Neurologic/Psych: alert, normal mood/affect Skin: warm/dry, no rash, + pertinent finding (yellow drainage noted on exam of right toe ulceration, surrounding edema/erythema) Laboratory Results MRI OF THE RIGHT FOREFOOT COMBO CLINICAL HISTORY: Fourth and fifth toe infections. COMPARISON STUDY: Radiographs of the right foot dated 10/18/2016. TECHNIQUE: MRI of the right forefoot is performed utilizing various T1 and T2-weighted sequences in the axial, sagittal, and coronal planes. Contrast-enhanced sequences were acquired following the IV administration of 8 cc of Gadavist. The examination is degraded by motion artifact. FINDINGS: There is erosion of the fourth metatarsal head as well as the base of the fourth proximal phalanx. There is significant drop in T1 signal involving the distal shaft of the fourth metatarsal and the fourth proximal phalanx with associated marrow edema on the STIR sequences. The appearance is consistent with osteomyelitis. The fourth middle and distal phalanges are diminutive and fused. These demonstrate normal marrow signal intensity. There is also marrow edema identified within the fifth proximal phalanx. This demonstrates drop in signal on the T1 sequences and is also consistent with osteomyelitis. Osteomyelitis also involves the fused fifth middle and distal phalanges. No marrow signal change is identified in the fifth metatarsal or the first through third toes. There is diffuse soft tissue edema identified in the lateral forefoot, greatest around the fourth and fifth toes. There is nonspecific patchy abnormal enhancement on the postcontrast images, and the appearance is consistent with overlying cellulitis. A small peripherally enhancing fluid collection is identified at the eroded fourth metatarsophalangeal joint. This measures up to 13 mm as seen on axial image 15 of 32, and likely represents an abscess. There is diffuse myositis of the musculature in the forefoot. IMPRESSION: 1. There is bony erosion identified involving the head of the fourth metatarsal and the base of the fourth proximal phalanx with marrow changes consistent with osteomyelitis involving both of these bones. 2. There is also evidence of osteomyelitis involving the phalanges of the fifth toe as detailed above. 3. Findings are consistent with cellulitis of the forefoot, greatest laterally. 4. A small abscess is suspected at the site of the eroded fourth metatarsophalangeal joint. Item Value Date Time Blood Culture Received 10/18/16 1235 Blood Pending Blood Culture Received 10/18/16 1235 Blood Pending Last 24 Hours Test 10/18/16 12:32 10/18/16 12:50 10/18/16 13:17 10/18/16 17:15 Bedside Glucose 250 mg/dl 125 mg/dl White Blood Count 6.73 K/uL Red Blood Count 4.71 M/uL Hemoglobin 11.8 g/dL Hematocrit 37.0 % Mean Corpuscular Volume 78.6 fL Mean Corpuscular Hemoglobin 25.1 pg Mean Corpuscular Hemoglobin Concent 31.9 g/dl Platelet Count 501 K/uL Mean Platelet Volume 10.5 fL Neutrophils (%) (Auto) 56.2 % Lymphocytes (%) (Auto) 29.9 % Monocytes (%) (Auto) 8.2 % Eosinophils (%) (Auto) 4.5 % Basophils (%) (Auto) 0.9 % Neutrophils # (Auto) 3.79 K/uL Lymphocytes # (Auto) 2.01 K/uL Monocytes # (Auto) 0.55 K/uL Eosinophils # (Auto) 0.30 K/uL Basophils # (Auto) 0.06 K/uL RDW Standard Deviation 47.7 fL RDW Coefficient of Variation 16.7 % Immature Granulocyte % (Auto) 0.3 % Immature Granulocyte # (Auto) 0.02 K/uL Erythrocyte Sedimentation Rate 62 mm/hr Prothrombin Time 10.9 SECONDS Prothromb Time International Ratio 1.0 Activated Partial Thromboplast Time 22.4 SECONDS Partial Thromboplastin Ratio 0.9 Sodium Level 138 mmol/L Potassium Level mmol/L Chloride Level 104 mmol/L Carbon Dioxide Level 31 mmol/L Anion Gap 3.0 mmol/L Blood Urea Nitrogen 10 mg/dl Creatinine 0.94 mg/dl Est Creatinine Clear Calc Drug Dose 58.5 ml/min Estimated GFR () 71.7 Estimated GFR (Non- 61.9 BUN/Creatinine Ratio 10.7 Random Glucose 274 mg/dl Estimated Average Glucose 212 mg/dl Hemoglobin A1c 9.0 % Calcium Level 8.9 mg/dl C-Reactive Protein 1.46 mg/dl Bedside Lactic Acid Venous 1.84 mmol/L Test 10/18/16 20:59 10/19/16 01:51 10/19/16 05:26 10/19/16 08:05 Bedside Glucose 114 mg/dl 109 mg/dl 105 mg/dl White Blood Count 6.67 K/uL Red Blood Count 4.49 M/uL Hemoglobin 10.9 g/dL Hematocrit 35.0 % Mean Corpuscular Volume 78.0 fL Mean Corpuscular Hemoglobin 24.3 pg Mean Corpuscular Hemoglobin Concent 31.1 g/dl Platelet Count 481 K/uL Mean Platelet Volume 10.2 fL Neutrophils (%) (Auto) 62.4 % Lymphocytes (%) (Auto) 24.6 % Monocytes (%) (Auto) 7.2 % Eosinophils (%) (Auto) 4.8 % Basophils (%) (Auto) 0.7 % Neutrophils # (Auto) 4.16 K/uL Lymphocytes # (Auto) 1.64 K/uL Monocytes # (Auto) 0.48 K/uL Eosinophils # (Auto) 0.32 K/uL Basophils # (Auto) 0.05 K/uL RDW Standard Deviation 47.8 fL RDW Coefficient of Variation 16.9 % Immature Granulocyte % (Auto) 0.3 % Immature Granulocyte # (Auto) 0.02 K/uL Sodium Level 143 mmol/L Potassium Level 3.8 mmol/L Chloride Level 107 mmol/L Carbon Dioxide Level 29 mmol/L Anion Gap 7.0 mmol/L Blood Urea Nitrogen 7 mg/dl Creatinine 0.79 mg/dl Est Creatinine Clear Calc Drug Dose 73.0 ml/min Estimated GFR () 88.5 Estimated GFR (Non- 76.4 BUN/Creatinine Ratio 9.3 Random Glucose 108 mg/dl Calcium Level 8.2 mg/dl Triglycerides Level 90 mg/dl Cholesterol Level 143 mg/dl HDL Cholesterol 30 mg/dl LDL Cholesterol, Calculated 95 mg/dl VLDL Cholesterol, Calculated 18 mg/dl Cholesterol/HDL Ratio 4.8 Hepatitis C Antibody Screen NEG Assessment & Plan Diabetic female with osteomyelitis of the 4th and 5th right distal metatarsal and phalanges with chronic ulceration between the 4th and 5th toes along with surrounding cellulitis. Blood cultures pending. Will order wound culture as well. Anticipating surgical debridement this afternoon potentially. She is currently on IV Vancomycin and Zosyn which is appropriate pending workup. We will follow. PROVIDER ADDENDUM: Pt. examined and reviewed with Ms. Giraldo. Agree with above assessment and Rx.
[2016-10-19] MEDS ORDERED: DEXAMETHASONE SOD INJ 4 MG/ML VIAL ONE (10:55)
[2016-10-19] MEDS ORDERED: LIDOCAINE HCL 2% 2 ML VIAL (20MG/ML) ONE (10:55)
[2016-10-19] MEDS ORDERED: PROPOFOL IV EMULSION 10 MG/ML 20 ML VIAL IV ONE ×2 (10:55→13:23)
[2016-10-19] MEDS ORDERED: ONDANSETRON INJ 2 MG/ML 2 ML VIAL ONE (10:55)
[2016-10-19] MEDS ORDERED: MIDAZOLAM HCL 1 MG/ML 2ML VIAL ONE (10:56)
[2016-10-19] MEDS ORDERED: FENTANYL CITRATE INJ 50 MCG/1 ML 2 ML VIAL ONE ×3 (10:56→14:06)
[2016-10-19] MEDS ORDERED: LIDOCAINE/EPINEPHRINE 1% 20 ML VIAL ONE (11:10)
[2016-10-19] MEDS ORDERED: BUPIVACAINE 0.5 % 5 MG/1 ML MPF 30ML VIAL ONE (11:10)
--- NOTE | 2016-10-19 11:54 | Pharmacy Progress Note ---
Glycemic Control: Progress Nt Date of Service Oct 19, 2016. Scope Glycemic Pharmacist consulted by Dr Breanne Duke on 10/18/16 for glycemic control and to write orders per [facility] inpatient glycemic control protocol. Objective Accuchecks BSG (last 24hrs): Test 10/18/16 12:32 10/18/16 12:50 10/18/16 17:15 10/18/16 20:59 Bedside Glucose 250 mg/dl (70-90) 125 mg/dl (70-90) 114 mg/dl (70-90) Random Glucose 274 mg/dl (70-99) Test 10/19/16 01:51 10/19/16 05:26 10/19/16 08:05 Bedside Glucose 109 mg/dl (70-90) 105 mg/dl (70-90) Random Glucose 108 mg/dl (70-99) HbA1c: Test 10/18/16 12:50 Hemoglobin A1c 9.0 % (4.5-5.6) H Recent Pertinent Medications Outpatient Anti-diabetic Regimen: * Novolin 70/30 BID w/ breakfast and dinner; 20 units if BSG in 200's; 30 units if BSG in the 300s * A1c = ? Results are pending The patient is currently receiving: * Basal insulin: Lantus 13 units every 12 hours * Correctional Insulin: Novolog Correction per scale ACHS Goal Range: Low 120 mg/dL - High 150 mg/dL Correction Factor: 25 mg/dL/unit * Prandial insulin: Per carb ratio of 1 unit per 9 grams CHO consumed Risk Factors for Insulin Resistance: * Infection: R diabetic foot infection, osteomyelitis, possible gangrene; ordered Vancomycin + Zosyn in the ER * Recent Surgery: POD#0 s/p I&D * Diet: NPO Assessment & Plan ASSESSMENT: 10/18/16 * Diabetic (type 2?) presented to the ER today for worsening R foot infection despite 15 days of treatment w/ Ceftin. Note, she is visiting from [place]. * Patient's Bangladeshi limited and information obtained through conversation w/ patient via son interpreting. She states she uses only the 70/30 insulin for glycemic control, twice daily with doses ranging 20-30units per dose. It does not sound as though her BSGs are well controlled. A1c has been added to existing labs - awaiting results to be reported. * Will begin a basal/bolus regimen in this patient as it is unclear as to the type of DM she was diagnosed with. The regimen will be based upon an anticipated total daily insulin requirement of ~50-60 units based upon her reported outpt doses and likely poor control on this regimen. Lantus and Novolog will be used rather than split-mixed 70/30 insulin due to potential need for NPO status for procedures and higher hypoglycemia risk with this insulin while hospitalized. We can transition back to 70/30 insulin closer to discharge if this is desired. 10/19/16: * Patient is currently receiving ~20 units of insulin per day * 13 units of basal insulin * 7 units of prandial/correctional insulin * BSGs ranging 105- 125mg/dl over the past 24hrs * Anticipating insulin regimen will need adjusted for the next 24hrs d/t : * AM Fasting BSG = 105mg/dl, this is slightly below goal range for inpatient targets. Additionally, Pt is NPO for OR this morning. Will hold basal insulin this morning to prevent hypo in OR and re-evaluate dosing post-operatively based on BSG trends. * Post-prandial BSGs are in range --> no changes needed to Novolog parameters ( CF/CR). Current NovoLog parameters are weight based and consistent with total daily outpatient dosing of ~ 50-60 units per day. No need to adjust these parameters for NPO as CHO coverage will be omitted when not consuming any carbs PLAN FOR INPATIENT GLYCEMIC CONTROL: * Pt NPO this AM for OR; AM fasting BSG = 105mg/dl * HOLD basal insulin this morning. Will resume this evening after surgery. May need reduced dosing if diet not fully resumed/tolerated. Consider Lantus 10 units SQ BID starting tomorrow AM * NovoLog per scale ACHS or Q6hrs while NPO * Goal Range: Low 120 mg/dL - High 150 mg/dL * Correction Factor: 25 mg/dL/unit * Nutritional / Prandial insulin per carb ratio of 1 unit per 9 grams CHO consumed * Please note that the plan above was derived based on current level of insulin resistance and hospital stress. These recommendations are appropriate for inpatient admission only. Plan of care upon discharge will need to be reassessed to avoid potential outpatient hypo/hyperglycemia. Thank you.
[2016-10-19] MEDS ORDERED: INSULIN ASPART 100 UNITS/ML 3 ML PEN SC SCH (12:00)
[2016-10-19] MEDS ORDERED: VANCOMYCIN HCL 1000MG/20ML VIAL ONE (12:03)
[2016-10-19] MEDS ORDERED: LABETALOL HCL IV 5 MG/ML 20ML IV ONE (12:05)
[2016-10-19] MEDS ORDERED: EpHEDrine SULFATE 50MG/5ML SYR ONE (12:05)
--- NOTE | 2016-10-19 13:15 | Hospitalist Progress Note ---
Hospitalist Progress Note Date of Service Oct 19, 2016. (Edwige Clements, NADEGE) Medications Current Inpatient Medications Medications (Trade) Dose Ordered Sig/Christen Route Start Time Stop Time Status Last Admin Dose Admin Miscellaneous Information (Consult Glycemic Management Pharmacy) 1 ea UD PRN N/A 10/18/16 14:45 11/17/16 14:44 Insulin Glargine (Lantus Solostar Pen) 13 unit BID SC 10/18/16 21:00 11/17/16 20:59 Future Hold 10/18/16 22:03 13 UNIT Glucose (Glucose 40% Gel) 15-30 GRAMS 15 GRAMS... UD PRN PO 10/18/16 14:45 11/17/16 14:44 Glucose (Glucose Chew Tab) 4-8 Tablets 4 Tabl... UD PRN PO 10/18/16 14:45 11/17/16 14:44 Dextrose (Dextrose 50% 50ML Syringe) 25-50ML OF 50% DW IV FOR... UD PRN IV 10/18/16 14:45 11/17/16 14:44 Glucagon (Glucagon Inj) 1 mg UD PRN SQ 10/18/16 14:45 11/17/16 14:44 Enoxaparin Sodium (Lovenox Inj) 40 mg HS SQ 10/18/16 21:00 11/17/16 20:59 10/18/16 22:07 40 MG Acetaminophen (Tylenol Tab) 650 mg Q4H PRN PO 10/18/16 15:30 11/17/16 15:29 Ondansetron HCl (Zofran Inj) 4 mg Q6H PRN IV 10/18/16 15:30 11/17/16 15:29 Amlodipine Besylate (Norvasc Tab) 5 mg DAILY PO 10/19/16 09:00 11/18/16 08:59 10/19/16 09:32 5 MG Atorvastatin Calcium (Lipitor Tab) 20 mg DAILY PO 10/19/16 09:00 11/18/16 08:59 Hydrochlorothiazide (Hydrochlorothiazide Tab) 12.5 mg DAILY PO 10/19/16 09:00 11/18/16 08:59 Ibuprofen (Motrin Tab) 800 mg Q8 PRN PO 10/18/16 15:30 11/17/16 15:29 Lisinopril 5 mg 5 mg DAILY PO 10/19/16 09:00 11/18/16 08:59 10/19/16 09:32 5 MG Vancomycin HCl 1200 mg/Sodium Chloride 274 ml @ 125 mls/hr Q14H IV 10/19/16 05:00 11/30/16 04:59 10/19/16 05:29 125 MLS/HR Piperacillin Sod/ Tazobactam Sod/ Dextrose (Zosyn Iv/D5 100ml) 120 ml @ 30 mls/hr Q8H IV 10/18/16 20:00 11/29/16 19:59 10/19/16 03:39 30 MLS/HR Tramadol HCl (Ultram Tab) 50 mg Q4H PRN PO 10/18/16 15:30 11/17/16 15:29 Hydralazine HCl (HydrALAZINE INJ) 10 mg Q4 PRN IV. 10/18/16 16:00 11/17/16 15:59 10/18/16 20:05 10 MG Vancomycin HCl (Consult) 1 ea UD PRN N/A 10/18/16 16:30 11/17/16 16:29 Piperacillin Sod/ Tazobactam Sod (Consult) 1 ea UD PRN N/A 10/18/16 16:30 11/17/16 16:29 Gadobutrol (Gadavist) 8 mmol UD PRN IV 10/18/16 19:30 10/22/16 19:29 Insulin Aspart (novoLOG ASPART) SLIDING SCALE Q6H SC 10/19/16 12:00 11/18/16 11:59 (Edwige Clements, PALilianeC) Objective Vital Signs Date Time Temp Pulse Resp B/P Pulse Ox O2 Delivery O2 Flow Rate FiO2 10/19/16 11:14 36.8 70 18 192/73 96 Room Air 10/19/16 09:31 76 142/84 10/19/16 08:00 Room Air 10/19/16 07:03 36.8 74 16 154/78 96 Room Air 10/18/16 23:35 95 Room Air 10/18/16 23:25 36.9 74 18 122/64 95 Room Air 10/18/16 21:30 76 124/61 10/18/16 20:02 69 165/82 10/18/16 20:02 73 182/90 4/18/17 16:40 Room Air 10/18/16 16:28 36.6 74 16 178/83 97 Room Air 10/18/16 16:09 78 12 184/87 95 10/18/16 14:02 68 16 157/71 Room Air (Edwige Clements PA-C) Laboratory Results Last 24 Hours Test 10/18/16 13:17 10/18/16 17:15 10/18/16 20:59 10/19/16 01:51 Bedside Lactic Acid Venous 1.84 mmol/L Bedside Glucose 125 mg/dl 114 mg/dl 109 mg/dl Test 10/19/16 05:26 10/19/16 08:05 White Blood Count 6.67 K/uL Red Blood Count 4.49 M/uL Hemoglobin 10.9 g/dL Hematocrit 35.0 % Mean Corpuscular Volume 78.0 fL Mean Corpuscular Hemoglobin 24.3 pg Mean Corpuscular Hemoglobin Concent 31.1 g/dl Platelet Count 481 K/uL Mean Platelet Volume 10.2 fL Neutrophils (%) (Auto) 62.4 % Lymphocytes (%) (Auto) 24.6 % Monocytes (%) (Auto) 7.2 % Eosinophils (%) (Auto) 4.8 % Basophils (%) (Auto) 0.7 % Neutrophils # (Auto) 4.16 K/uL Lymphocytes # (Auto) 1.64 K/uL Monocytes # (Auto) 0.48 K/uL Eosinophils # (Auto) 0.32 K/uL Basophils # (Auto) 0.05 K/uL RDW Standard Deviation 47.8 fL RDW Coefficient of Variation 16.9 % Immature Granulocyte % (Auto) 0.3 % Immature Granulocyte # (Auto) 0.02 K/uL Sodium Level 143 mmol/L Potassium Level 3.8 mmol/L Chloride Level 107 mmol/L Carbon Dioxide Level 29 mmol/L Anion Gap 7.0 mmol/L Blood Urea Nitrogen 7 mg/dl Creatinine 0.79 mg/dl Est Creatinine Clear Calc Drug Dose 73.0 ml/min Estimated GFR () 88.5 Estimated GFR (Non- 76.4 BUN/Creatinine Ratio 9.3 Random Glucose 108 mg/dl Calcium Level 8.2 mg/dl Triglycerides Level 90 mg/dl Cholesterol Level 143 mg/dl HDL Cholesterol 30 mg/dl LDL Cholesterol, Calculated 95 mg/dl VLDL Cholesterol, Calculated 18 mg/dl Cholesterol/HDL Ratio 4.8 Hepatitis C Antibody Screen NEG Bedside Glucose 105 mg/dl (Edwige Clements PA-C) Assessment and Plan This is a 71-year-old female with a past medical history of hypertension, hyperlipidemia, diabetes type 2, and obesity who presents to the ER with a right foot wound between the fourth and fifth toe. R 4-5th Toe Osteomyelitis and Abscess: - Outpatient Ceftin 500 mg BID x 12 days - D/C - Zosyn and vancomycin per pharmacy dosing - Pain management with ibuprofen, Tylenol, tramadol - Orthopedic surgery following - reviewed recommendations - plan for irrigation/ debridement and possible dissection and wound vac - Infectious disease following - reviewed recommendations - obtain culture and continue antibiotic therapy as is until reevaluation - Wound care - appreciate recommendations T2DM: HbA1c 9 - Pharmacy for assistance with glycemic control - Current recommendations of Lantus 10 units SC BID pending diet and SSI 120-150 ; correction factor 25; CR 1:9 Obesity: - Encourage weight loss and exercise Hypertension: - Norvasc 5 mg daily, HCTZ 12.5 mg daily, Lisinopril 5 mg daily - Hydralazine 10 mg IV PRN Hyperlipidemia: - Lipid panel - WNL - Atorvastatin 20 mg daily -- Patient also takes simvastatin 20 mg daily QHS as an outpatient along with atorvastatin DVT Prophylaxis: DEB/SCDs, Lovenox 40 mg SC daily Code Status: FULL RESUSCITATION Disposition: - PT/OT evaluations - Patient living with son in [place] - discussed with nurse navigator to establish PCP - Need to discuss her medications - question on who the prescribing provider is... Possibly daughter? - Pending culture results - question of need of PICC line - need to establish medical assistance - patient here on green card Continued [facility] stay due to: multiple IV medications needed (Edwige Clements PA-C) PA Physician Supervision Note: I interviewed and examined the patient. Discussed with Edwige Clements PAC and agree with findings and plan as documented in the note. Any exceptions or clarifications are listed here: None PT admitted with a diabetic foot infection and osteomyelitis, taken to the OR for wound debridement will continue on vancomycin and zosyn with ID evaluation for duration and route of antibiotic treatment glucose is high, will have to have better control to promote healing Documented By: Srikanth Michel (Srikanth Michel M.D.)
--- NOTE | 2016-10-19 14:13 | [facility] Post Operative Brief Note ---
Immediate Operative Summary Operative Date Oct 19, 2016. Pre-Operative Diagnosis Osteomyelitis Right foot Post-Operative Diagnosis Same as preoperative Procedure(s) Performed 1) Right Foot Incision and Drainage. 2) Fourth Ray resection. 3) Fourth and Fifth toe amputation. 4) Incisional Wound Vac Placement. Surgeon Dr. Donis Bear Keeper Surgeon(s) Chao Del Valle-PAC Estimated Blood Loss 40 cc Findings Full thickness skin loss 4th & 5th webspace, 4th & 5th toes. Edematous soft tissues and granulation tissue surrounding the 4th Metatarsal. [place] skin. Soft 4th Metatarsal with purulent drainage, soft proximal phalanx 4th digit. Fluids (cc crystalloids) 700 Specimens B: Fourth and Fifth toes of Right Foot Drains Incisional Wound vac Anesthesia GEN Complication(s) None Disposition Recovery Room / PACU (Stable)
--- NOTE | 2016-10-19 14:14 | [facility] Operative Report ---
Operative Report Operative Date Oct 19, 2016. Pre-Operative Diagnosis Osteomyelitis Right foot Post-Operative Diagnosis Same Procedure(s) Performed 1) Right Foot Incision and Drainage. 2) Fourth Ray resection. 3) Fourth and Fifth toe amputation. 4) Incisional Wound Vac Placement. Surgeon Dr. Donis Geophysical Prospecting Surveyor Surgeon(s) Chao Del Valle-PAC Estimated Blood Loss 40 cc Findings Full thickness skin loss 4th & 5th webspace, 4th & 5th toes. Edematous soft tissues and granulation tissue surrounding the 4th Metatarsal. [place] skin. Soft 4th Metatarsal with purulent drainage, soft proximal phalanx 4th digit. Fluids 700 Specimens B: Fourth and Fifth toes of Right Foot Drains Incisional Wound vac Anesthesia GEN Complication(s) None Disposition Recovery Room / PACU (Stable) Indications The patient has a draining wound from there right foot for the last 2 weeks and had been started on antibiotics by her daughter who is a physician in [place]. She was admitted last evening and made nothing by mouth after having x-rays and MRI which were concerning for osteomyelitis of the fourth metatarsal as well as involving the fourth and fifth digits. The patient and her family understands the risks of surgery, which include but are not limited to: bleeding, infection , re-operation, damage to nerves and arteries, continued pain and DVT. The patient understands all of these instructions and explanations, all of their questions have been satisfactorily addressed. The patient and her family has elected to proceed with surgery and the informed consent was signed. Description of Procedure The patient was taken to the Operating Room and placed in the supine position on the operating table. After general anesthetic was administered a multidisciplinary time-out was performed identifying my initials on the [right] limb as the correct and operative limb. Antibiotics were held until cultures were obtained. The right leg was prepped and draped in the usual Orthopaedic sterile fashion. The planned incision overlying the fourth metatarsal and racquet-type incisions around the fourth and later the fifth digit were marked. The skin edges were injected with a 50:50 mixture of 1% lidocaine and 0.5 % Marcaine with epi for a total of 6cc. The skin edges near the open wounds between the fourth and fifth webspace as well as the fifth toe were freshened up and excised with a scalpel. The wound over the fifth toe was full-thickness and exposed the PIP joint and bone which felt soft. It was decided at that point to also amputate the fifth toe as well as. There was significant soft tissue hypertrophy, and devitalized granulation tissue near the fourth metatarsal head and continued into the fourth and fifth webspace. There also appeared to be purulent drainage which was cultured from the soft fourth metatarsal. The fourth ray was removed. Deep cultures were also obtained. The non-viable skin, soft tissue down and including the fourth metatarsal was removed with a combination of sharp dissection with the scalpel, curette, rongeur, the Versajet rontori. The wound was copiously irrigated with 6 L normal saline. Following irrigation and debridement there was healthy viable red beefy tissue that was bleeding. The skin were closed with 0 & 2-0 Prolene. The wound was covered incisional wound VAC, ABDs, sterile cast padding, and an ADRIANO. The sponge and needle counts were correct. POST-OP: Patient will be re-admitted to the medicine service, continued on IV antibiotic regime until seen by Dr. Odonnell, infectious diseases. She will be weightbearing as tolerated through her heel. I attest to the content of the Intraoperative Record and any orders documented therein. Any exceptions are noted below.
[2016-10-19] MEDS ORDERED: ONDANSETRON INJ 2 MG/ML 2 ML VIAL IV PRN (14:30)
[2016-10-19] MEDS ORDERED: ATROPINE SULFATE 0.1 MG/ML 5ML SYR IV PRN (14:30)
[2016-10-19] MEDS ORDERED: PROMETHAZINE HCL INJ 12.5 MG in SODIUM CHLORIDE 0.9% 50ML 50 ML IV PRN (14:30)
[2016-10-19] MEDS ORDERED: LABETALOL HCL IV 5 MG/ML 20ML IV PRN (14:30)
[2016-10-19] MEDS ORDERED: NALOXONE HCL 0.4 MG/1 ML VIAL/CARP IV PRN (14:30)
[2016-10-19] MEDS ORDERED: EpHEDrine SULFATE INJ 50 MG/ML AMP IV PRN (14:30)
[2016-10-19] MEDS ORDERED: FENTANYL CITRATE INJ 50 MCG/1 ML 2 ML VIAL IV PRN (14:30)
[2016-10-19] MEDS ORDERED: MoRPHine SULFATE 2 MG/ML CARP IV PRN (14:45)
--- NOTE | 2016-10-19 14:55 | [facility] Operative Report ---
Operative Report Operative Date Oct 19, 2016. Pre-Operative Diagnosis Osteomyelitis Right foot Post-Operative Diagnosis Same Procedure(s) Performed Right foot 4th and 5th toe removal, 4th ray resection, I&D, wound vac application Surgeon Dr. Donis Barrel Rifler Operator Surgeon(s) Chao Del Valle-PAC Estimated Blood Loss 40 cc Findings same Fluids 700 Specimens B: Fourth and Fifth toes of Right Foot Drains Incisional Wound vac Anesthesia GEN Complication(s) None Disposition Recovery Room / PACU (Stable) Indications failed conservative management of right foot wound, MRI and xrays obtained, surgery recommended, consents signed Description of Procedure taken to the OR, prepped and draped, I was present the entire case, please see Dr. Donis's op note for further detail. I attest to the content of the Intraoperative Record and any orders documented therein. Any exceptions are noted below.
--- NOTE | 2016-10-19 14:58 | Anesthesiology Progress Note ---
Anesthesia Post Op Note Date & Time Oct 19, 2016 at 14:57 Vital Signs Pain Intensity: 0 Vital Signs Past 12 Hours Date Time Temp Pulse Resp B/P Pulse Ox O2 Delivery O2 Flow Rate FiO2 10/19/16 14:48 36.3 75 20 155/59 94 Nasal Cannula 2 10/19/16 14:41 75 19 148/62 93 10/19/16 14:41 75 19 10/19/16 14:36 75 22 94 10/19/16 14:36 76 22 10/19/16 14:35 145/61 10/19/16 14:31 76 22 10/19/16 14:31 76 22 94 10/19/16 14:30 136/87 10/19/16 14:26 76 27 10/19/16 14:26 76 27 142/54 94 10/19/16 14:21 75 23 142/53 94 10/19/16 14:21 76 23 10/19/16 14:17 142/59 10/19/16 14:16 76 24 10/19/16 14:16 36.0 75 16 142/59 95 Mask 10 10/19/16 14:16 75 24 94 10/19/16 11:14 36.8 70 18 192/73 96 Room Air 10/19/16 09:31 76 142/84 10/19/16 08:00 Room Air 10/19/16 07:03 36.8 74 16 154/78 96 Room Air Notes Mental Status: alert / awake / arousable, participated in evaluation Pt Amnestic to Procedure: Yes Nausea / Vomiting: adequately controlled Pain: adequately controlled Airway Patency, RR, SpO2: stable & adequate BP & HR: stable & adequate Hydration State: stable & adequate Anesthetic Complications: no major complications apparent
[2016-10-19] MEDS ORDERED: INSULIN GLARGINE SOLOSTAR 100 UNITS/ML 3 ML PEN SC SCH (16:45)
--- NOTE | 2016-10-19 18:12 | DIAGNOSTIC IMAGING REPORT ---
RIGHT FOOT MIN 3 VIEWS ROUTINE CLINICAL HISTORY: s/p right foot, 4th/5th toe amp, 4th ray resection Right postoperative evaluation COMPARISON: None. DISCUSSION: Evidence for resection of the fourth metatarsal and associated phalanges. Resection of the phalanges of the fifth toe. Expected soft tissue postoperative change. There is no evidence for soft tissue swelling. IMPRESSION: Postoperative resection at the level of the fourth and fifth toes as described. Electronically signed by: Florentino Maurice M.D. 10/19/2016 6:10 PM Dictated Date/Time: 10/19/2016 6:09 PM
[2016-10-19] MEDS: POTASSIUM CHLORIDE INJ 10 MEQ in SODIUM CHLORIDE 0.9% 1000ML 1,000 ML IV SCH (18:23)
[2016-10-19] MEDS: DOCUSATE SODIUM 100 MG CAP PO SCH (21:00)
[2016-10-19] MEDS: SENNA 8.6 MG TAB PO SCH (21:00)
[2016-10-19] MEDS ORDERED: INSULIN GLARGINE SOLOSTAR 100 UNITS/ML 3 ML PEN SC ONE (21:15)
[2016-10-19] MEDS: ENOXAPARIN 40 MG/0.4 ML SYR SQ SCH (21:23)
[2016-10-20] VITALS (7 sets, daily range): BP systolic 136–178; BP diastolic 69–83; PULSE 73–78; TEMP 36.4–36.8; O2SAT 88–95; Ht 162.6 cm; Wt 90.0 kg
[2016-10-20] MEDS: INSULIN ASPART 100 UNITS/ML 3 ML PEN SC SCH ×6 (00:51→20:45)
[2016-10-20] MEDS: PIPERACILL/TAZOBAC IV 4.5 GM in DEXTROSE 5% 100ML 100 ML IV SCH ×3 (03:56→20:39)
[2016-10-20] MEDS: POTASSIUM CHLORIDE INJ 10 MEQ in SODIUM CHLORIDE 0.9% 1000ML 1,000 ML IV SCH ×2 (05:48→14:07)
--- NOTE | 2016-10-20 07:44 | Orthopedic Progress Note ---
Orthopedic Progress Note Date of Service Oct 20, 2016. Subjective Post OP Day: 1 Reports: feeling well, Denies: complaints Objective calves soft nontender, dressing C/D/I, A&O x3 Date Time Temp Pulse Resp B/P Pulse Ox O2 Delivery O2 Flow Rate FiO2 10/20/16 00:57 95 Nasal Cannula 2.0 10/20/16 00:55 Room Air 10/20/16 00:55 88 Room Air 10/19/16 23:25 36.9 83 16 138/71 90 Room Air 10/19/16 18:34 36.6 80 20 135/62 93 Nasal Cannula 3.0 10/19/16 17:37 36.6 87 20 149/61 93 Nasal Cannula 3.0 10/19/16 16:31 36.6 76 20 159/62 93 Nasal Cannula 3.0 10/19/16 16:30 93 Nasal Cannula 3.0 10/19/16 16:00 36.7 76 20 154/63 93 Nasal Cannula 3.0 10/19/16 15:44 92 Nasal Cannula 3.0 10/19/16 15:22 75 21 10/19/16 15:22 75 21 91 10/19/16 15:20 139/66 10/19/16 15:17 75 21 90 10/19/16 15:17 75 21 10/19/16 15:15 139/61 10/19/16 15:12 74 18 91 10/19/16 15:12 75 18 10/19/16 15:11 137/65 10/19/16 15:07 75 22 10/19/16 15:07 75 22 91 10/19/16 15:05 143/61 10/19/16 15:02 75 23 10/19/16 15:02 75 23 91 10/19/16 15:00 144/56 10/19/16 14:57 75 22 91 10/19/16 14:57 75 22 10/19/16 14:55 140/70 10/19/16 14:52 75 23 91 10/19/16 14:52 75 23 10/19/16 14:51 144/58 10/19/16 14:48 36.3 75 20 155/59 94 Nasal Cannula 2 10/19/16 14:47 75 22 10/19/16 14:47 75 22 91 10/19/16 14:45 155/59 10/19/16 14:42 75 22 93 10/19/16 14:42 75 22 10/19/16 14:41 75 19 148/62 93 10/19/16 14:41 75 19 10/19/16 14:36 75 22 94 10/19/16 14:36 76 22 10/19/16 14:35 145/61 10/19/16 14:31 76 22 10/19/16 14:31 76 22 94 10/19/16 14:30 136/87 10/19/16 14:26 76 27 10/19/16 14:26 76 27 142/54 94 10/19/16 14:21 75 23 142/53 94 10/19/16 14:21 76 23 10/19/16 14:17 142/59 10/19/16 14:16 76 24 10/19/16 14:16 36.0 75 16 142/59 95 Mask 10 10/19/16 14:16 75 24 94 10/19/16 11:14 36.8 70 18 192/73 96 Room Air 10/19/16 09:31 76 142/84 10/19/16 08:00 Room Air Laboratory Results 24 Hours: Test 10/20/16 04:44 Additional Notes: RADIOGRAPHS: 3 Views Right foot show post-surgical changes of 4th & 5th toe amputation & 4th metatarsal resection. Small portion of proximal aspect 4th metatarsal remains noted on oblique. Assessment & Plan Assessment: POD #1 s/p right 4th ray resection and 4th & 5th toe amputation secondarily to osteomyelitis, doing well. Plan: Continue pain control. WBAT through heel. Continue IV Abx per ID, awaiting C&S results. Check labs. Continue Wound vac. Will evaluate foot tomorrow will remove wound vac and consider changing vs repeat I&D vs D/C wound vac. NPO after midnight. DVT Prophylaxis: Lovenox 40 mg subq daily. Continue Care per primary service.
--- NOTE | 2016-10-20 08:15 | Anesthesiology Progress Note ---
Anesthesia Post Op Note Date & Time Oct 20, 2016 at 08:14 Vital Signs Pain Intensity: 0.0 Vital Signs Past 12 Hours Date Time Temp Pulse Resp B/P Pulse Ox O2 Delivery O2 Flow Rate FiO2 10/20/16 07:40 36.8 75 17 147/69 94 Room Air 10/20/16 00:57 95 Nasal Cannula 2.0 10/20/16 00:55 Room Air 10/20/16 00:55 88 Room Air 10/19/16 23:25 36.9 83 16 138/71 90 Room Air Notes Mental Status: alert / awake / arousable, participated in evaluation Pt Amnestic to Procedure: Yes Nausea / Vomiting: adequately controlled Pain: adequately controlled Airway Patency, RR, SpO2: stable & adequate BP & HR: stable & adequate Hydration State: stable & adequate Anesthetic Complications: no major complications apparent
[2016-10-20 08:27] LABS: BASO % 0.2 %; BASO ABS # 0.02 K/uL (0-0.2); COMPLETE YES; EOS % 0.3 %; HEMATOCRIT 32.1 % (37-47); IG% 0.3 %; LYMPH % 10.1 %; LYMPH ABS # 1.17 K/uL (1.2-3.4); MEAN CELL VOLUME 77.5 fL (80-100); MEAN CORPUSCULAR HEMOGLOBIN 25.4 pg (25-34); MEAN CORPUSCULAR HGB CONC 32.7 g/dl (32-36); MEAN PLATELET VOLUME 10.3 fL (7.4-10.4); MONO % 7.1 %; PLATELET COUNT 474 K/uL (130-400); RED BLOOD COUNT 4.14 M/uL (4.2-5.4); WHITE BLOOD COUNT 11.62 K/uL (4.8-10.8)
[2016-10-20] MEDS ORDERED: VANCOMYCIN TROUGH ONE ×2 (08:30→09:30)
[2016-10-20] MEDS: LISINOPRIL 5 MG TAB PO SCH (08:44)
[2016-10-20] MEDS: ATORVASTATIN 20 MG TAB PO SCH (08:44)
[2016-10-20] MEDS: AMLODIPINE BESYLATE 5 MG TAB PO SCH (08:44)
[2016-10-20] MEDS: HYDROCHLOROTHIAZIDE 25 MG TAB PO SCH (08:44)
[2016-10-20] MEDS: DOCUSATE SODIUM 100 MG CAP PO SCH ×2 (08:45→20:39)
[2016-10-20] MEDS: VANCOMYCIN INJ 1,200 MG in SODIUM CHLORIDE 0.9% 250ML 250 ML IV SCH (08:45)
[2016-10-20 08:48] LABS: BUN/CREATININE RATIO 10.6 (10-20); CREATININE 0.98 mg/dl (0.60-1.20); POTASSIUM 4.1 mmol/L (3.5-5.1)
[2016-10-20 08:49] LABS: CALCIUM 8.2 mg/dl (8.5-10.1)
[2016-10-20] MEDS ORDERED: ENOXAPARIN 40 MG/0.4 ML SYR SQ SCH (09:00)
[2016-10-20] MEDS ORDERED: INSULIN GLARGINE SOLOSTAR 100 UNITS/ML 3 ML PEN SC SCH (09:00)
--- NOTE | 2016-10-20 09:40 | Pharmacy Progress Note ---
Pharmacy Antibiotic Prog Note Date of Service Oct 20, 2016. Subjective The patient is currently receiving vancomycin 1200 mg iv q 14 hrs and zosyn 4.5 gm iv q 8 hrs for osteomyelitis infection. The patient is currently on day # 3 of IV therapy. Objective Height (Feet): 5 Height (Inches): 4.00 Weight (Kilograms): 90.000 Levels: Item Value Date Time Vancomycin Level Trough 20.1 mcg/ml 10/20/16 0815 Lab Results (24hrs): Laboratory Tests Test 10/20/16 08:15 BUN/Creatinine Ratio 10.6 Blood Urea Nitrogen 10 mg/dl Creatinine 0.98 mg/dl White Blood Count 11.62 K/uL Red Blood Count 4.14 M/uL Hemoglobin 10.5 g/dL Hematocrit 32.1 % Mean Corpuscular Volume 77.5 fL Mean Corpuscular Hemoglobin 25.4 pg Mean Corpuscular Hemoglobin Concent 32.7 g/dl Platelet Count 474 K/uL Mean Platelet Volume 10.3 fL Neutrophils (%) (Auto) 82.0 % Lymphocytes (%) (Auto) 10.1 % Monocytes (%) (Auto) 7.1 % Eosinophils (%) (Auto) 0.3 % Basophils (%) (Auto) 0.2 % Neutrophils # (Auto) 9.54 K/uL Lymphocytes # (Auto) 1.17 K/uL Monocytes # (Auto) 0.82 K/uL Eosinophils # (Auto) 0.04 K/uL Basophils # (Auto) 0.02 K/uL Assessment & Plan Patient receiving vancomycin and zosyn for osteomyelitis. BC on 10/18 are no growth, drainage/bone cultures are pending. ID is following the patient. Vancomycin: * Trough this am was therapeutic at ~20 mcg/ml (goal 15-20 mcg/ml for osteomyelitis) ; however level collected before steady state so true level probably higher * Will slightly decrease dose to 1000 mg to ensure true trough 15-20 mcg/ml * Will plan to obtain repeat trough prior to the 1700 dose on 10/22 * Scr slight increase today from 0.79 to 0.98 mg/dL (CrCl ~59 ml/min) ; could consider rechecking trough sooner if Scr continues to rise Zosyn: * 4.5 gm iv q 8 hrs ; appropriate for CrCl >20 ml/min/dose appropriate for more severe infections - no changes necessary Pharmacy will continue to follow and will adjust dose/frequency as necessary. Thank you
--- NOTE | 2016-10-20 12:11 | Infectious Disease Progress Nt ---
Progress Note Date of Service Oct 20, 2016. Subjective Pt evaluation today including: conversation w/ patient, conversation w/ family , physical exam, chart review, lab review, review of studies, conversation w/ finance consultant (Chao Del Valle PA-C- ortho), review of inpatient medication list Patient's white blood cell count this morning was 11.62. Her creatinine was stable at 0.98. She continues on IV vancomycin and Zosyn. Multiple surgical cultures were taken yesterday during her operation and are pending. Her bone culture is growing gram-negative bacilli, and 1 of her wound cultures is growing a Staph species pending identification. Her blood cultures are showing no growth date. She states that she is doing well, and she overall complains of no pain. Her operative record was reviewed today as well. It is noted that she had a 4th ray resection, 4th and 5th toe amputation, and wound VAC placement. I did also talk to the patient's son today. All Other Systems: Reviewed and Negative Medications Current Inpatient Medications Medications (Trade) Dose Ordered Sig/Christen Route Start Time Stop Time Status Last Admin Dose Admin Miscellaneous Information (Consult Glycemic Management Pharmacy) 1 ea UD PRN N/A 10/18/16 14:45 11/17/16 14:44 Glucose (Glucose 40% Gel) 15-30 GRAMS 15 GRAMS... UD PRN PO 10/18/16 14:45 11/17/16 14:44 Glucose (Glucose Chew Tab) 4-8 Tablets 4 Tabl... UD PRN PO 10/18/16 14:45 11/17/16 14:44 Dextrose (Dextrose 50% 50ML Syringe) 25-50ML OF 50% DW IV FOR... UD PRN IV 10/18/16 14:45 11/17/16 14:44 Glucagon (Glucagon Inj) 1 mg UD PRN SQ 10/18/16 14:45 11/17/16 14:44 Enoxaparin Sodium (Lovenox Inj) 40 mg HS SQ 10/18/16 21:00 11/17/16 20:59 10/19/16 21:23 40 MG Acetaminophen (Tylenol Tab) 650 mg Q4H PRN PO 10/18/16 15:30 11/17/16 15:29 Ondansetron HCl (Zofran Inj) 4 mg Q6H PRN IV 10/18/16 15:30 11/17/16 15:29 Amlodipine Besylate (Norvasc Tab) 5 mg DAILY PO 10/19/16 09:00 11/18/16 08:59 10/20/16 08:44 5 MG Atorvastatin Calcium (Lipitor Tab) 20 mg DAILY PO 10/19/16 09:00 11/18/16 08:59 10/20/16 08:44 20 MG Hydrochlorothiazide (Hydrochlorothiazide Tab) 12.5 mg DAILY PO 10/19/16 09:00 11/18/16 08:59 10/20/16 08:44 12.5 MG Ibuprofen (Motrin Tab) 800 mg Q8 PRN PO 10/18/16 15:30 11/17/16 15:29 Lisinopril 5 mg 5 mg DAILY PO 10/19/16 09:00 11/18/16 08:59 10/20/16 08:44 5 MG Piperacillin Sod/ Tazobactam Sod/ Dextrose (Zosyn Iv/D5 100ml) 120 ml @ 30 mls/hr Q8H IV 10/18/16 20:00 11/29/16 19:59 10/20/16 03:56 30 MLS/HR Tramadol HCl (Ultram Tab) 50 mg Q4H PRN PO 10/18/16 15:30 11/17/16 15:29 Hydralazine HCl (HydrALAZINE INJ) 10 mg Q4 PRN IV. 10/18/16 16:00 11/17/16 15:59 10/18/16 20:05 10 MG Vancomycin HCl (Consult) 1 ea UD PRN N/A 10/18/16 16:30 11/17/16 16:29 Piperacillin Sod/ Tazobactam Sod (Consult) 1 ea UD PRN N/A 10/18/16 16:30 11/17/16 16:29 Gadobutrol (Gadavist) 8 mmol UD PRN IV 10/18/16 19:30 10/22/16 19:29 Insulin Glargine (Lantus Solostar Pen) 10 unit BID SC 10/20/16 09:00 11/19/16 08:59 10/20/16 08:51 10 UNIT Insulin Aspart SLIDING SCALE ACHS SC 10/19/16 17:15 5/19/17 17:14 10/20/16 08:52 7 UNITS Potassium Chloride/Sodium Chloride (KCl Inj/Nss 1000ml) 1,005 ml @ 100 mls/hr Q10H3M IV 10/19/16 18:30 11/18/16 18:29 10/20/16 05:48 100 MLS/HR Oxycodone HCl (Roxicodone Immediate Rel Tab) 1-2 TABS FOR PAIN 1 TABLET ... Q4H PRN PO 10/19/16 14:45 11/02/16 14:44 Morphine Sulfate (MoRPHine SULFATE INJ) 2 mg Q2HWA PRN IV 10/19/16 14:45 11/02/16 14:44 Senna (Senokot Tab) 17.2 mg HS PO 10/19/16 21:00 11/18/16 20:59 Docusate Sodium 100 mg 100 mg BID PO 10/19/16 21:00 11/18/16 20:59 10/20/16 08:45 100 MG Vancomycin HCl/ Sodium Chloride (Vancomycin Inj/ Nss 250ml) 270 ml @ 125 mls/hr Q14H IV 10/20/16 23:00 11/30/16 22:59 Objective Vital Signs Date Time Temp Pulse Resp B/P Pulse Ox O2 Delivery O2 Flow Rate FiO2 10/20/16 07:50 Room Air 10/20/16 07:40 36.8 75 17 147/69 94 Room Air 10/20/16 00:57 95 Nasal Cannula 2.0 10/20/16 00:55 Room Air 10/20/16 00:55 88 Room Air 10/19/16 23:25 36.9 83 16 138/71 90 Room Air 10/19/16 18:34 36.6 80 20 135/62 93 Nasal Cannula 3.0 10/19/16 17:37 36.6 87 20 149/61 93 Nasal Cannula 3.0 10/19/16 16:31 36.6 76 20 159/62 93 Nasal Cannula 3.0 10/19/16 16:30 93 Nasal Cannula 3.0 10/19/16 16:00 36.7 76 20 154/63 93 Nasal Cannula 3.0 10/19/16 15:44 92 Nasal Cannula 3.0 10/19/16 15:22 75 21 10/19/16 15:22 75 21 91 10/19/16 15:20 139/66 10/19/16 15:17 75 21 90 10/19/16 15:17 75 21 10/19/16 15:15 139/61 10/19/16 15:12 74 18 91 10/19/16 15:12 75 18 10/19/16 15:11 137/65 10/19/16 15:07 75 22 10/19/16 15:07 75 22 91 10/19/16 15:05 143/61 10/19/16 15:02 75 23 10/19/16 15:02 75 23 91 10/19/16 15:00 144/56 10/19/16 14:57 75 22 91 10/19/16 14:57 75 22 10/19/16 14:55 140/70 10/19/16 14:52 75 23 91 10/19/16 14:52 75 23 10/19/16 14:51 144/58 10/19/16 14:48 36.3 75 20 155/59 94 Nasal Cannula 2 10/19/16 14:47 75 22 10/19/16 14:47 75 22 91 10/19/16 14:45 155/59 10/19/16 14:42 75 22 93 10/19/16 14:42 75 22 10/19/16 14:41 75 19 148/62 93 10/19/16 14:41 75 19 10/19/16 14:36 75 22 94 10/19/16 14:36 76 22 10/19/16 14:35 145/61 10/19/16 14:31 76 22 10/19/16 14:31 76 22 94 10/19/16 14:30 136/87 10/19/16 14:26 76 27 10/19/16 14:26 76 27 142/54 94 10/19/16 14:21 75 23 142/53 94 10/19/16 14:21 76 23 10/19/16 14:17 142/59 10/19/16 14:16 76 24 10/19/16 14:16 36.0 75 16 142/59 95 Mask 10 10/19/16 14:16 75 24 94 Physical Exam General Appearance: no apparent distress, + obese Eyes: normal inspection, sclerae normal ENT: hearing grossly normal Neck: supple, trachea midline Respiratory/Chest: no respiratory distress, no accessory muscle use Cardiovascular: regular rate, rhythm Extremities: + pertinent finding (Wound VAC and a large dressing on right foot currently. Mild edema of the right lower extremity otherwise) Neurologic/Psychiatric: alert, normal mood/affect Skin: normal color, warm/dry, no rash Laboratory Results Item Value Date Time Gram Stain - Final Resulted 10/19/16 1329 Drainage-Deep Toe Right 4 Gram Stain - Final Resulted 10/19/16 1230 Bone Foot Right Gram Stain - Final Resulted 10/19/16 1225 Drainage-Deep Toe Right 4 Gram Stain - Final Resulted 10/19/16 1222 Abscess Toe Right 4 Gram Stain - Final Resulted 10/19/16 1108 Ulcer Toe Right 5 Blood Culture - Preliminary Resulted 10/18/16 1235 Blood NO GROWTH TO DATE. Blood Culture - Preliminary Resulted 10/18/16 1235 Blood NO GROWTH TO DATE. Last 24 Hours Test 10/19/16 14:25 10/19/16 17:05 10/19/16 20:39 10/20/16 00:46 Bedside Glucose 207 mg/dl 292 mg/dl 357 mg/dl 293 mg/dl Test 10/20/16 04:01 10/20/16 08:15 10/20/16 08:18 10/20/16 11:56 Bedside Glucose 267 mg/dl 161 mg/dl 248 mg/dl White Blood Count 11.62 K/uL Red Blood Count 4.14 M/uL Hemoglobin 10.5 g/dL Hematocrit 32.1 % Mean Corpuscular Volume 77.5 fL Mean Corpuscular Hemoglobin 25.4 pg Mean Corpuscular Hemoglobin Concent 32.7 g/dl Platelet Count 474 K/uL Mean Platelet Volume 10.3 fL Neutrophils (%) (Auto) 82.0 % Lymphocytes (%) (Auto) 10.1 % Monocytes (%) (Auto) 7.1 % Eosinophils (%) (Auto) 0.3 % Basophils (%) (Auto) 0.2 % Neutrophils # (Auto) 9.54 K/uL Lymphocytes # (Auto) 1.17 K/uL Monocytes # (Auto) 0.82 K/uL Eosinophils # (Auto) 0.04 K/uL Basophils # (Auto) 0.02 K/uL RDW Standard Deviation 48.6 fL RDW Coefficient of Variation 17.1 % Immature Granulocyte % (Auto) 0.3 % Immature Granulocyte # (Auto) 0.03 K/uL Sodium Level 141 mmol/L Potassium Level 4.1 mmol/L Chloride Level 106 mmol/L Carbon Dioxide Level 25 mmol/L Anion Gap 10.0 mmol/L Blood Urea Nitrogen 10 mg/dl Creatinine 0.98 mg/dl Est Creatinine Clear Calc Drug Dose 58.9 ml/min Estimated GFR () 68.2 Estimated GFR (Non- 58.9 BUN/Creatinine Ratio 10.6 Random Glucose 172 mg/dl Calcium Level 8.2 mg/dl Vancomycin Level Trough 20.1 mcg/ml Assessment and Plan Diabetic female with osteomyelitis of the 4th and 5th right distal metatarsal and phalanges with chronic ulceration between the 4th and 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 Surgical cultures pending. She is currently on IV Vancomycin and Zosyn which is appropriate pending culture results. Patient likely will need a couple days of IV therapy pending wound healing, but may be able to transition to PO therapy if major improvement is seen. We will follow. PROVIDER ADDENDUM: Patient reviewed with Ms. Giraldo. Agree with above assessment.
--- NOTE | 2016-10-20 12:44 | Hospitalist Progress Note ---
Hospitalist Progress Note Date of Service Oct 20, 2016. (Edwige Clements PA-C) Subjective Pt evaluation today including: conversation w/ patient, conversation w/ family , physical exam, chart review, lab review, review of studies, review of inpatient medication list Patient seen and evaluated. She is S/P 4th-5th toe amputation and I&D of right foot. She is with limited Romansh & son largely translates. Discussed medications in which he reports a doctor in [place] prescribes. She verbalizes no acute complaints. Pain is adequately controlled. Plan is for foot evaluation tomorrow. Cultures largely pending with one growing gram-negative bacilli Additional Comments: REVIEW OF SYSTEMS: General/Constitutional: Denies fever/chills, fatigue, weakness, weight gain/loss ENT: Denies visual changes, nasal drainage, hearing loss, sore throat, trouble swallowing Cardiovascular: Denies chest pain, palpitations, edema Respiratory: Denies cough, sputum, SOB, wheezing, orthopnea GI: Denies nausea, vomiting, abdominal pain, constipation, diarrhea, melena/ hematochezia : Denies dysuria, frequency, hematuria Musculoskeletal: Denies joint/muscle aches, weakness, swelling Neurologic: Denies dizziness/lightheadedness, numbness/tingling, weakness Psychiatric: Deferred Endocrine: Deferred Hematologic/Lymphatic: Denies bleeding/clotting abnormalities Skin: Denies rash, itch, new skin changes, easy bruising Allergy/Immunologic: Deferred (Edwige Clements, PA-C) Medications Current Inpatient Medications Medications (Trade) Dose Ordered Sig/Christen Route Start Time Stop Time Status Last Admin Dose Admin Miscellaneous Information (Consult Glycemic Management Pharmacy) 1 ea UD PRN N/A 10/18/16 14:45 11/17/16 14:44 Glucose (Glucose 40% Gel) 15-30 GRAMS 15 GRAMS... UD PRN PO 10/18/16 14:45 11/17/16 14:44 Glucose (Glucose Chew Tab) 4-8 Tablets 4 Tabl... UD PRN PO 10/18/16 14:45 11/17/16 14:44 Dextrose (Dextrose 50% 50ML Syringe) 25-50ML OF 50% DW IV FOR... UD PRN IV 10/18/16 14:45 11/17/16 14:44 Glucagon (Glucagon Inj) 1 mg UD PRN SQ 10/18/16 14:45 11/17/16 14:44 Enoxaparin Sodium (Lovenox Inj) 40 mg HS SQ 10/18/16 21:00 11/17/16 20:59 10/19/16 21:23 40 MG Acetaminophen (Tylenol Tab) 650 mg Q4H PRN PO 10/18/16 15:30 11/17/16 15:29 Ondansetron HCl (Zofran Inj) 4 mg Q6H PRN IV 10/18/16 15:30 11/17/16 15:29 Amlodipine Besylate (Norvasc Tab) 5 mg DAILY PO 10/19/16 09:00 11/18/16 08:59 10/20/16 08:44 5 MG Atorvastatin Calcium (Lipitor Tab) 20 mg DAILY PO 10/19/16 09:00 11/18/16 08:59 10/20/16 08:44 20 MG Hydrochlorothiazide (Hydrochlorothiazide Tab) 12.5 mg DAILY PO 10/19/16 09:00 11/18/16 08:59 10/20/16 08:44 12.5 MG Ibuprofen (Motrin Tab) 800 mg Q8 PRN PO 10/18/16 15:30 11/17/16 15:29 Lisinopril 5 mg 5 mg DAILY PO 10/19/16 09:00 11/18/16 08:59 10/20/16 08:44 5 MG Piperacillin Sod/ Tazobactam Sod/ Dextrose (Zosyn Iv/D5 100ml) 120 ml @ 30 mls/hr Q8H IV 10/18/16 20:00 11/29/16 19:59 10/20/16 03:56 30 MLS/HR Tramadol HCl (Ultram Tab) 50 mg Q4H PRN PO 10/18/16 15:30 11/17/16 15:29 Hydralazine HCl (HydrALAZINE INJ) 10 mg Q4 PRN IV. 10/18/16 16:00 11/17/16 15:59 10/18/16 20:05 10 MG Vancomycin HCl (Consult) 1 ea UD PRN N/A 10/18/16 16:30 11/17/16 16:29 Piperacillin Sod/ Tazobactam Sod (Consult) 1 ea UD PRN N/A 10/18/16 16:30 11/17/16 16:29 Gadobutrol (Gadavist) 8 mmol UD PRN IV 10/18/16 19:30 10/22/16 19:29 Insulin Glargine (Lantus Solostar Pen) 10 unit BID SC 10/20/16 09:00 11/19/16 08:59 10/20/16 08:51 10 UNIT Insulin Aspart SLIDING SCALE ACHS SC 10/19/16 17:15 11/18/16 17:14 10/20/16 08:52 7 UNITS Potassium Chloride/Sodium Chloride (KCl Inj/Nss 1000ml) 1,005 ml @ 100 mls/hr Q10H3M IV 10/19/16 18:30 11/18/16 18:29 10/20/16 05:48 100 MLS/HR Oxycodone HCl (Roxicodone Immediate Rel Tab) 1-2 TABS FOR PAIN 1 TABLET ... Q4H PRN PO 10/19/16 14:45 11/02/16 14:44 Morphine Sulfate (MoRPHine SULFATE INJ) 2 mg Q2HWA PRN IV 10/19/16 14:45 11/02/16 14:44 Senna (Senokot Tab) 17.2 mg HS PO 10/19/16 21:00 11/18/16 20:59 Docusate Sodium 100 mg 100 mg BID PO 10/19/16 21:00 11/18/16 20:59 10/20/16 08:45 100 MG Vancomycin HCl/ Sodium Chloride (Vancomycin Inj/ Nss 250ml) 270 ml @ 125 mls/hr Q14H IV 10/20/16 23:00 11/30/16 22:59 (Edwige Clements, PA-C) Objective Vital Signs Date Time Temp Pulse Resp B/P Pulse Ox O2 Delivery O2 Flow Rate FiO2 10/20/16 12:23 36.4 73 16 161/75 94 Room Air 10/20/16 07:50 Room Air 10/20/16 07:40 36.8 75 17 147/69 94 Room Air 10/20/16 00:57 95 Nasal Cannula 2.0 10/20/16 00:55 Room Air 10/20/16 00:55 88 Room Air 10/19/16 23:25 36.9 83 16 138/71 90 Room Air 10/19/16 18:34 36.6 80 20 135/62 93 Nasal Cannula 3.0 10/19/16 17:37 36.6 87 20 149/61 93 Nasal Cannula 3.0 10/19/16 16:31 36.6 76 20 159/62 93 Nasal Cannula 3.0 10/19/16 16:30 93 Nasal Cannula 3.0 10/19/16 16:00 36.7 76 20 154/63 93 Nasal Cannula 3.0 10/19/16 15:44 92 Nasal Cannula 3.0 10/19/16 15:22 75 21 10/19/16 15:22 75 21 91 10/19/16 15:20 139/66 10/19/16 15:17 75 21 90 10/19/16 15:17 75 21 10/19/16 15:15 139/61 10/19/16 15:12 74 18 91 10/19/16 15:12 75 18 10/19/16 15:11 137/65 10/19/16 15:07 75 22 10/19/16 15:07 75 22 91 10/19/16 15:05 143/61 10/19/16 15:02 75 23 10/19/16 15:02 75 23 91 10/19/16 15:00 144/56 10/19/16 14:57 75 22 91 10/19/16 14:57 75 22 10/19/16 14:55 140/70 10/19/16 14:52 75 23 91 10/19/16 14:52 75 23 10/19/16 14:51 144/58 10/19/16 14:48 36.3 75 20 155/59 94 Nasal Cannula 2 10/19/16 14:47 75 22 10/19/16 14:47 75 22 91 10/19/16 14:45 155/59 10/19/16 14:42 75 22 93 10/19/16 14:42 75 22 10/19/16 14:41 75 19 148/62 93 10/19/16 14:41 75 19 10/19/16 14:36 75 22 94 10/19/16 14:36 76 22 10/19/16 14:35 145/61 10/19/16 14:31 76 22 10/19/16 14:31 76 22 94 10/19/16 14:30 136/87 10/19/16 14:26 76 27 10/19/16 14:26 76 27 142/54 94 10/19/16 14:21 75 23 142/53 94 10/19/16 14:21 76 23 10/19/16 14:17 142/59 10/19/16 14:16 76 24 10/19/16 14:16 36.0 75 16 142/59 95 Mask 10 10/19/16 14:16 75 24 94 (Edwige Clements PALilianeC) Physical Exam Notes: PHYSICAL EXAM:: General Appearance: WDWN in NAD who is A&O x 3 HEENT: Head is normocephalic/atraumatic; EOMI; PERRLA; Hearing grossly intact; Mucous membranes moist; Pharynx negative for exudate/lesions Neck: Supple; Trachea midline; Neg JVD; Neg lymphadenopathy Heart: RRR with systolic murmur but no M/G/R Lungs: CTA in all lung rowell bilaterally; Respirations unlabored; Neg accessory muscle use Abdomen: Soft, non-tender, non-distended; Positive BS x 4 quadrants; Neg organomegaly Extremities: R foot with jesse bandage that appears clean/dry/intact with wound vac in place and boot Neurological: Speech clear; Gross motor/sensory function intact; Neg focal neurologic deficits Psychiatric: Appropriate mood/affect Skin: Normal Color; Warm/Dry; Neg rashes, ecchymosis, lacerations/ulcerations (Edwige Clements, PA-C) Laboratory Results Last 24 Hours Test 10/19/16 14:25 10/19/16 17:05 10/19/16 20:39 10/20/16 00:46 Bedside Glucose 207 mg/dl 292 mg/dl 357 mg/dl 293 mg/dl Test 10/20/16 04:01 10/20/16 08:15 10/20/16 08:18 10/20/16 11:56 Bedside Glucose 267 mg/dl 161 mg/dl 248 mg/dl White Blood Count 11.62 K/uL Red Blood Count 4.14 M/uL Hemoglobin 10.5 g/dL Hematocrit 32.1 % Mean Corpuscular Volume 77.5 fL Mean Corpuscular Hemoglobin 25.4 pg Mean Corpuscular Hemoglobin Concent 32.7 g/dl Platelet Count 474 K/uL Mean Platelet Volume 10.3 fL Neutrophils (%) (Auto) 82.0 % Lymphocytes (%) (Auto) 10.1 % Monocytes (%) (Auto) 7.1 % Eosinophils (%) (Auto) 0.3 % Basophils (%) (Auto) 0.2 % Neutrophils # (Auto) 9.54 K/uL Lymphocytes # (Auto) 1.17 K/uL Monocytes # (Auto) 0.82 K/uL Eosinophils # (Auto) 0.04 K/uL Basophils # (Auto) 0.02 K/uL RDW Standard Deviation 48.6 fL RDW Coefficient of Variation 17.1 % Immature Granulocyte % (Auto) 0.3 % Immature Granulocyte # (Auto) 0.03 K/uL Sodium Level 141 mmol/L Potassium Level 4.1 mmol/L Chloride Level 106 mmol/L Carbon Dioxide Level 25 mmol/L Anion Gap 10.0 mmol/L Blood Urea Nitrogen 10 mg/dl Creatinine 0.98 mg/dl Est Creatinine Clear Calc Drug Dose 58.9 ml/min Estimated GFR () 68.2 Estimated GFR (Non- 58.9 BUN/Creatinine Ratio 10.6 Random Glucose 172 mg/dl Calcium Level 8.2 mg/dl Vancomycin Level Trough 20.1 mcg/ml (Edwige Clements, ROSEANNC) Assessment and Plan This is a 71-year-old female with a past medical history of hypertension, hyperlipidemia, diabetes type 2, and obesity who presents to the ER with a right foot wound between the fourth and fifth toe. R 4-5th Toe Osteomyelitis and Abscess S/P I&D/Amputation: Failed Outpatient Ceftin 500 mg BID x 12 days - Zosyn and vancomycin per pharmacy dosing - Pain management with ibuprofen, Tylenol, tramadol - Orthopedic surgery following - reviewed recommendations - foot evacuation tomorrow - nothing by mouth at midnight - Infectious disease following - reviewed recommendations - awaiting culture results for further antibiotic adjustments T2DM: HbA1c 9 - Pharmacy for assistance with glycemic control - Current recommendations of Lantus 10 units SC BID and SSI 120-150; correction factor 20; CR 1:9 Hypertension: - Norvasc 5 mg daily, HCTZ 12.5 mg daily, Lisinopril 5 mg daily - Hydralazine 10 mg IV PRN Hyperlipidemia: - Lipid panel - WNL - Atorvastatin 20 mg daily -- Patient also takes simvastatin 20 mg daily QHS as an outpatient along with atorvastatin - plan to just continue Atorvastatin DVT Prophylaxis: DEB/SCDs, Lovenox 40 mg SC daily Code Status: FULL RESUSCITATION Disposition: - PT/OT evaluations - Patient living with son in [place] - discussed with nurse navigator to establish PCP - Medications prescribed by doctor in [place] per patient with son translating - Pending culture results - question of need of PICC line - need to establish medical assistance - patient here on green card Continued [facility] stay due to: multiple IV medications needed Discharge planning: uncertain (Edwige Clements, PA-C) PA Physician Supervision Note: I interviewed and examined the patient. Discussed with Edwige Clements PAC and agree with findings and plan as documented in the note. Any exceptions or clarifications are listed here: None PT admitted with a diabetic foot infection and osteomyelitis, taken to the OR for wound debridement, has wound vac and will return to the or 10/21 will continue on vancomycin and zosyn with ID evaluation for duration and route of antibiotic treatment based on culture results Pt has understanding of course will require prolongued attention to blood glucose and wound care vitals stable car reg lungs clear continue antibiotics and glucose management and teaching pending further surgical revision of wound Documented By: Srikanth Michel (Srikanth Michel M.D.)
[2016-10-20] MEDS ORDERED: NURSING DECISION MEDICATION ORDER SCH ×2 (14:00→15:45)
[2016-10-20] MEDS ORDERED: CHLORASEPTIC 1.4% SOLN 180 ML BTL MT PRN (14:15)
--- NOTE | 2016-10-20 15:31 | Pharmacy Progress Note ---
Glycemic Control: Progress Nt Date of Service Oct 20, 2016. Scope Glycemic Pharmacist consulted by Dr Duke on 10/18/16 for glycemic control and to write orders per [facility] inpatient glycemic control protocol. Objective Accuchecks BSG (last 24hrs): Test 10/19/16 17:05 10/19/16 20:39 10/20/16 00:46 10/20/16 04:01 Bedside Glucose 292 mg/dl (70-90) 357 mg/dl (70-90) 293 mg/dl (70-90) 267 mg/dl (70-90) Test 10/20/16 08:15 10/20/16 08:18 10/20/16 11:56 Random Glucose 172 mg/dl (70-99) Bedside Glucose 161 mg/dl (70-90) 248 mg/dl (70-90) Laboratory Data (last 24hrs) Test 10/20/16 08:15 Anion Gap 10.0 mmol/L BUN/Creatinine Ratio 10.6 Blood Urea Nitrogen 10 mg/dl Creatinine 0.98 mg/dl Potassium Level 4.1 mmol/L Sodium Level 141 mmol/L White Blood Count 11.62 K/uL Red Blood Count 4.14 M/uL Hemoglobin 10.5 g/dL Hematocrit 32.1 % Mean Corpuscular Volume 77.5 fL Mean Corpuscular Hemoglobin 25.4 pg Mean Corpuscular Hemoglobin Concent 32.7 g/dl Platelet Count 474 K/uL Mean Platelet Volume 10.3 fL Neutrophils (%) (Auto) 82.0 % Lymphocytes (%) (Auto) 10.1 % Monocytes (%) (Auto) 7.1 % Eosinophils (%) (Auto) 0.3 % Basophils (%) (Auto) 0.2 % Neutrophils # (Auto) 9.54 K/uL Lymphocytes # (Auto) 1.17 K/uL Monocytes # (Auto) 0.82 K/uL Eosinophils # (Auto) 0.04 K/uL Basophils # (Auto) 0.02 K/uL HbA1c: Test 10/18/16 12:50 Hemoglobin A1c 9.0 % (4.5-5.6) H Recent Pertinent Medications Outpatient Anti-diabetic Regimen: * Novolin 70/30 BID w/ breakfast and dinner; 20 units if BSG in 200's; 30 units if BSG in the 300s * A1c = 9.0% Risk Factors for Insulin Resistance: * Infection * Recent Surgery * Diet Assessment & Plan ASSESSMENT: 10/20/16 * 71 yo diabetic F visiting from [place], admitted on 10/18 with worsening R foot infection despite ~2 weeks of antibiotic treatment * Patient's Russian limited and information obtained through conversation w/ patient via son interpreting. * She states she uses only the 70/30 insulin for glycemic control, twice daily with doses ranging 20-30units per dose. It does not sound as though her BSGs are well controlled. * A1c of 9.0% indicative of suboptimal glycemic control as an outpatient * Given patient's age, comorbidities, and other factors, an A1c of ~8.0 % would be a realistic goal for her * Pre-mixed insulin is difficult to titrate since it is already in a fixed distribution of basal:prandial insulin. Continuing pre-mixed insulin for admission typically lead to hypoglycemia d/t changing PO status but rapid acting insulin is unable to be held. * Home regimen will be held for admission per pharmacy consult. Will utilize recommended regimen of SQ basal bolus insulin regimen with Lantus + NovoLog (CF+ CR) * On 10/18: patient was initiated on a basal/bolus regimen that was both weight- based and took into consideration outpatient insulin requirements * On 10/19: patient was NPO for I&D, Lantus was held, and PO Decadron given * Patient then experienced severe hyperglycemia with BSGs >350 mg/dL due to lack of basal and steroids * Additional Lantus given and Novolog tightened * Fasting BSG this AM 161 mg/dL (after two additional checks overnight requiring insulin) * Further tighten Novolog * Increase Lantus 20% * I hesitate to be much more aggressive as effects of Decadron should start to dissipate this evening into tomorrow PLAN FOR INPATIENT GLYCEMIC CONTROL: * Increase Basal insulin to Lantus 12 units BID starting tonight * Tighten NovoLog per scale ACHS or Q6hrs while NPO * Goal Range: Low 110 mg/dL - High 140 mg/dL * Correction Factor: 20 mg/dL/unit * Nutritional / Prandial insulin per carb ratio of 1 unit per 7 grams CHO consumed * Please note that the plan above was derived based on current level of insulin resistance and hospital stress. These recommendations are appropriate for inpatient admission only. Plan of care upon discharge will need to be reassessed to avoid potential outpatient hypo/hyperglycemia. Thank you.
[2016-10-20] MEDS: OXYCODONE HCL IR 5 MG TAB (IMMEDIATE RELEASE) PO PRN (17:56)
[2016-10-20] MEDS: SENNA 8.6 MG TAB PO SCH (20:39)
[2016-10-20] MEDS: ENOXAPARIN 40 MG/0.4 ML SYR SQ SCH (20:40)
[2016-10-20] MEDS: INSULIN GLARGINE SOLOSTAR 100 UNITS/ML 3 ML PEN SC SCH (20:44)
[2016-10-21] MEDS: POTASSIUM CHLORIDE INJ 10 MEQ in SODIUM CHLORIDE 0.9% 1000ML 1,000 ML IV SCH ×3 (00:19→21:11)
[2016-10-21] MEDS: VANCOMYCIN INJ 1,000 MG in SODIUM CHLORIDE 0.9% 250ML 250 ML IV SCH ×2 (01:00→12:56)
[2016-10-21] MEDS ORDERED: INSULIN ASPART 100 UNITS/ML 3 ML PEN SC SCH (02:00)
[2016-10-21] MEDS: PIPERACILL/TAZOBAC IV 4.5 GM in DEXTROSE 5% 100ML 100 ML IV SCH (04:02)
[2016-10-21 06:30] VITALS: BP 172/75; PULSE 73; TEMP 36.7; O2SAT 95
[2016-10-21] MEDS: HydrALAZINE HCL 20 MG/ML VIAL IV. PRN (06:34)
[2016-10-21 06:42] VITALS: BP 147/73
--- NOTE | 2016-10-21 07:05 | Orthopedic Progress Note ---
Orthopedic Progress Note Date of Service Oct 21, 2016. Subjective Post OP Day: 2 Reports: feeling well, Denies: complaints Objective calves soft nontender, A&O x3 Incision/Wound: C/I with minimal bloody ooze from distal aspect. unable to express or feel any fluid collection. Date Time Temp Pulse Resp B/P Pulse Ox O2 Delivery O2 Flow Rate FiO2 10/21/16 06:42 147/73 10/21/16 06:30 36.7 73 16 172/75 95 Room Air 10/21/16 01:00 Room Air 10/20/16 23:31 36.4 73 16 155/83 93 Room Air 10/20/16 20:45 Room Air 10/20/16 15:52 136/70 10/20/16 15:25 Room Air 10/20/16 15:16 36.7 78 18 178/73 93 Room Air 10/20/16 12:23 36.4 73 16 161/75 94 Room Air 10/20/16 07:50 Room Air 10/20/16 07:40 36.8 75 17 147/69 94 Room Air Laboratory Results 24 Hours: Test 10/20/16 08:15 10/21/16 04:44 White Blood Count 11.62 K/uL Red Blood Count 4.14 M/uL Hemoglobin 10.5 g/dL Hematocrit 32.1 % Mean Corpuscular Volume 77.5 fL Mean Corpuscular Hemoglobin 25.4 pg Mean Corpuscular Hemoglobin Concent 32.7 g/dl Platelet Count 474 K/uL Mean Platelet Volume 10.3 fL Neutrophils (%) (Auto) 82.0 % Lymphocytes (%) (Auto) 10.1 % Monocytes (%) (Auto) 7.1 % Eosinophils (%) (Auto) 0.3 % Basophils (%) (Auto) 0.2 % Neutrophils # (Auto) 9.54 K/uL Lymphocytes # (Auto) 1.17 K/uL Monocytes # (Auto) 0.82 K/uL Eosinophils # (Auto) 0.04 K/uL Basophils # (Auto) 0.02 K/uL Additional Notes: GRAM STAIN Final 10/20/16 RESULT FEW WBCs SEEN RARE GRAM POSITIVE COCCI OR AER/ANGELIQUE CULT Preliminary 10/20/16 Organism 1 GRAM NEGATIVE BACILLI QUANITY FEW SENS SENSITIVITY TO FOLLOW GRAM STAIN Final 10/20/16 RESULT RARE WBCs SEEN NO ORGANISMS SEEN OR AER/ANGELIQUE CULT Preliminary 10/20/16-1420 Organism 1 COAG NEG STAPHYLOCOCCUS QUANITY FEW SENS NO SENSITIVITY TO FOLLOW Organism 2 COAG NEG STAPHYLOCOCCUS#2 QUANITY FEW SENS NO SENSITIVITY TO FOLLOW Assessment & Plan Assessment: POD #2 s/p right 4th ray resection and 4th & 5th toe amputation secondarily to osteomyelitis, doing well. Plan: Continue pain control. WBAT through heel. Continue IV Abx per ID, awaiting Sensitives results. Check labs. D/C Wound vac, keep wound covered, change daily/PRN. Resume diet. DVT Prophylaxis: Lovenox 40 mg subq daily. Continue Care per primary service.
[2016-10-21 07:28] VITALS: BP 148/80; PULSE 76; TEMP 36.9; O2SAT 93
[2016-10-21] MEDS: LISINOPRIL 5 MG TAB PO SCH (09:00)
[2016-10-21] MEDS: AMLODIPINE BESYLATE 5 MG TAB PO SCH (09:01)
[2016-10-21] MEDS: HYDROCHLOROTHIAZIDE 25 MG TAB PO SCH (09:01)
[2016-10-21] MEDS: DOCUSATE SODIUM 100 MG CAP PO SCH ×2 (09:02→21:05)
[2016-10-21] MEDS: ATORVASTATIN 20 MG TAB PO SCH (09:02)
[2016-10-21] MEDS: INSULIN ASPART 100 UNITS/ML 3 ML PEN SC SCH ×4 (09:11→21:04)
[2016-10-21] MEDS: INSULIN GLARGINE SOLOSTAR 100 UNITS/ML 3 ML PEN SC SCH ×2 (09:12→21:03)
--- NOTE | 2016-10-21 09:49 | Pharmacy Progress Note ---
Glycemic Control: Progress Nt Date of Service Oct 21, 2016. Scope Glycemic Pharmacist consulted by Dr Ghada Duke on 10/18/16 for glycemic control and to write orders per [facility] inpatient glycemic control protocol. Objective Accuchecks BSG (last 24hrs): Test 10/20/16 11:56 10/20/16 16:56 10/20/16 20:40 10/21/16 01:58 Bedside Glucose 248 mg/dl (70-90) 219 mg/dl (70-90) 220 mg/dl (70-90) 193 mg/dl (70-90) Test 10/21/16 08:02 Bedside Glucose 141 mg/dl (70-90) Laboratory Data (last 24hrs) Test 10/21/16 04:44 HbA1c: Test 10/18/16 12:50 Hemoglobin A1c 9.0 % (4.5-5.6) H Recent Pertinent Medications Outpatient Anti-diabetic Regimen: * Novolin 70/30 BID w/ breakfast and dinner; 20 units if BSG in 200's; 30 units if BSG in the 300s * A1c = 9% 10/18/16 Risk Factors for Insulin Resistance: * Steroids: n/a * Infection: R diabetic foot infection, osteomyelitis; ordered Vancomycin + Zosyn * Pressors: n/a * IVF: NS + 10mEq KCl @100cc/hr * Recent Surgery: POD #2 * Diet: ordered T2DM / AHA diet and tolerating well * Mechanical Ventilation: n/a Assessment & Plan ASSESSMENT: 10/18/16 * Diabetic (type 2?) presented to the ER today for worsening R foot infection despite 15 days of treatment w/ Ceftin. Note, she is visiting from [place]. * Patient's Mauritanian limited and information obtained through conversation w/ patient via son interpreting. She states she uses only the 70/30 insulin for glycemic control, twice daily with doses ranging 20-30units per dose. It does not sound as though her BSGs are well controlled. A1c has been added to existing labs - awaiting results to be reported. * Will begin a basal/bolus regimen in this patient as it is unclear as to the type of DM she was diagnosed with. The regimen will be based upon an anticipated total daily insulin requirement of ~50-60 units based upon her reported outpt doses and likely poor control on this regimen. Lantus and Novolog will be used rather than split-mixed 70/30 insulin due to potential need for NPO status for procedures and higher hypoglycemia risk with this insulin while hospitalized. We can transition back to 70/30 insulin closer to discharge if this is desired. 10/19/16 * Fasting BSG 105 w/ 13 units of Lantus on hold from prior evening; Lantus was held secondary to scheduled OR, but then restarted at a reduced dose later in the day * The patient received dexamethasone IV in the ER which led to significant insulin resistance and hyperglycemia the remainder of the day - additional BSG checks and Novolog coverage were added along w/ increased correctional insulin doses 10/20/16 * BSGs improved overnight w/ additional correctional insulin; effects of pre-op dexamethasone likely beginning to wear off in the next 24-48 hrs * Basal insulin dose titrated upward again given last 24 hr insulin requirements and elevated fasting BSGs despite correctional insulin * Post-prandial BSGs were elevated the prior day, CR was adjusted to allow for larger prandial doses 10/21/16 * Insulin sensitivity continues to improve; BSGs ranged 141-248 over the last 24 hrs; Dexamethasone given over 48 hrs ago * Fasting BSG 141 this AM w/ 22 units of Lantus on board as well as 2 units of correctional insulin given overnight. Will continue the current Lantus dose for another 24 hrs, however would have a low threshold for increasing the dose tomorrow if FBS again elevated * Carb ratio was changed w/ dinner yesterday to allow for larger doses; will continue the adjusted dose this AM and follow post-prandial trend * Consider converting back to 70/30 insulin tomorrow? PLAN FOR INPATIENT GLYCEMIC CONTROL: * Basal insulin with LANTUS 12 units SQ BID * Correctional Insulin with NOVOLOG per scale ACHS or Q6hrs while NPO * Goal Range: Low 110 mg/dL - High 140 mg/dL * Correction Factor: 20 mg/dL/unit * Nutritional / Prandial insulin per carb ratio of 1 unit per 7 grams CHO consumed * Please note that the plan above was derived based on current level of insulin resistance and hospital stress. These recommendations are appropriate for inpatient admission only. Plan of care upon discharge will need to be reassessed to avoid potential outpatient hypo/hyperglycemia. Thank you.
[2016-10-21 11:03] LABS: HEMATOCRIT 31.5 % (37-47); MEAN CELL VOLUME 78.6 fL (80-100); MEAN CORPUSCULAR HEMOGLOBIN 24.4 pg (25-34); MEAN CORPUSCULAR HGB CONC 31.1 g/dl (32-36); MEAN PLATELET VOLUME 10.2 fL (7.4-10.4); PLATELET COUNT 439 K/uL (130-400); RED BLOOD COUNT 4.01 M/uL (4.2-5.4); WHITE BLOOD COUNT 7.17 K/uL (4.8-10.8)
[2016-10-21 11:29] LABS: CREATININE 0.78 mg/dl (0.60-1.20)
[2016-10-21 11:30] LABS: ANISOCYTOSIS PRESENT; BASO % 1.1 %; BASO ABS # 0.08 K/uL (0-0.2); COMPLETE YES; EOS % 6.3 %; HYPOCHROMIA PRESENT; IG% 0.1 %; LYMPH % 30.5 %; LYMPH ABS # 2.19 K/uL (1.2-3.4); MONO % 7.4 %; NEUT % 54.6 %
--- NOTE | 2016-10-21 12:46 | Infectious Disease Progress Nt ---
Progress Note Date of Service Oct 21, 2016. Subjective Pt evaluation today including: conversation w/ patient, conversation w/ family (son), physical exam, chart review, lab review, review of studies, conversation w/ outside sales consultant, review of inpatient medication list Patient's WBC count this morning was 7.17. She states that she is "good". Her son states that she is feeling better. Her operative cultures are growing many different bacteria including very resistant Proteus, staph aureus, and strep species pending sensitivies. She is currently on IV Zosyn and Vancomycin. Reviewed ortho note, discontinued wound vac and recommended daily dressing changes. Blood cultures continue to show no growth. I did also discuss this patient with Dr. Michel. All Other Systems: Reviewed and Negative Medications Current Inpatient Medications Medications (Trade) Dose Ordered Sig/Christen Route Start Time Stop Time Status Last Admin Dose Admin Miscellaneous Information (Consult Glycemic Management Pharmacy) 1 ea UD PRN N/A 10/18/16 14:45 11/17/16 14:44 Glucose (Glucose 40% Gel) 15-30 GRAMS 15 GRAMS... UD PRN PO 10/18/16 14:45 11/17/16 14:44 Glucose (Glucose Chew Tab) 4-8 Tablets 4 Tabl... UD PRN PO 10/18/16 14:45 11/17/16 14:44 Dextrose (Dextrose 50% 50ML Syringe) 25-50ML OF 50% DW IV FOR... UD PRN IV 10/18/16 14:45 11/17/16 14:44 Glucagon (Glucagon Inj) 1 mg UD PRN SQ 10/18/16 14:45 11/17/16 14:44 Enoxaparin Sodium (Lovenox Inj) 40 mg HS SQ 10/18/16 21:00 11/17/16 20:59 10/20/16 20:40 40 MG Acetaminophen (Tylenol Tab) 650 mg Q4H PRN PO 10/18/16 15:30 11/17/16 15:29 Ondansetron HCl (Zofran Inj) 4 mg Q6H PRN IV 10/18/16 15:30 11/17/16 15:29 Amlodipine Besylate (Norvasc Tab) 5 mg DAILY PO 10/19/16 09:00 11/18/16 08:59 10/21/16 09:01 5 MG Atorvastatin Calcium (Lipitor Tab) 20 mg DAILY PO 10/19/16 09:00 11/18/16 08:59 10/21/16 09:02 20 MG Hydrochlorothiazide (Hydrochlorothiazide Tab) 12.5 mg DAILY PO 10/19/16 09:00 11/18/16 08:59 10/21/16 09:01 12.5 MG Ibuprofen (Motrin Tab) 800 mg Q8 PRN PO 10/18/16 15:30 11/17/16 15:29 Lisinopril (Zestril Tab) 5 mg DAILY PO 10/19/16 09:00 11/18/16 08:59 10/21/16 09:00 5 MG Tramadol HCl (Ultram Tab) 50 mg Q4H PRN PO 10/18/16 15:30 11/17/16 15:29 Hydralazine HCl (HydrALAZINE INJ) 10 mg Q4 PRN IV. 10/18/16 16:00 11/17/16 15:59 10/21/16 06:34 10 MG Vancomycin HCl (Consult) 1 ea UD PRN N/A 10/18/16 16:30 11/17/16 16:29 Gadobutrol (Gadavist) 8 mmol UD PRN IV 10/18/16 19:30 10/22/16 19:29 Insulin Aspart SLIDING SCALE ACHS SC 10/19/16 17:15 11/18/16 17:14 10/21/16 09:11 6 UNITS Potassium Chloride/Sodium Chloride (KCl Inj/Nss 1000ml) 1,005 ml @ 100 mls/hr Q10H3M IV 10/19/16 18:30 11/18/16 18:29 10/21/16 10:34 100 MLS/HR Oxycodone HCl (Roxicodone Immediate Rel Tab) 1-2 TABS FOR PAIN 1 TABLET ... Q4H PRN PO 10/19/16 14:45 11/02/16 14:44 10/20/16 17:56 5 MG Morphine Sulfate (MoRPHine SULFATE INJ) 2 mg Q2HWA PRN IV 10/19/16 14:45 11/02/16 14:44 Senna (Senokot Tab) 17.2 mg HS PO 10/19/16 21:00 11/18/16 20:59 10/20/16 20:39 17.2 MG Docusate Sodium 100 mg 100 mg BID PO 10/19/16 21:00 11/18/16 20:59 10/21/16 09:02 100 MG Vancomycin HCl/ Sodium Chloride (Vancomycin Inj/ Nss 250ml) 270 ml @ 125 mls/hr Q14H IV 10/20/16 23:00 11/30/16 22:59 10/21/16 01:00 125 MLS/HR Insulin Glargine 12 unit 12 unit BID SC 10/20/16 21:00 11/19/16 20:59 10/21/16 09:12 12 UNIT Ertapenem/Sodium Chloride (Invanz Iv/Nss Ad-Van 50ml) 50 ml @ 120 mls/hr DAILY IV 10/21/16 13:00 12/02/16 12:59 Objective Vital Signs Date Time Temp Pulse Resp B/P Pulse Ox O2 Delivery O2 Flow Rate FiO2 10/21/16 07:50 Room Air 10/21/16 07:28 36.9 76 18 148/80 93 Room Air 10/21/16 06:42 147/73 10/21/16 06:30 36.7 73 16 172/75 95 Room Air 10/21/16 01:00 Room Air 10/20/16 23:31 36.4 73 16 155/83 93 Room Air 10/20/16 20:45 Room Air 10/20/16 15:52 136/70 10/20/16 15:25 Room Air 10/20/16 15:16 36.7 78 18 178/73 93 Room Air Physical Exam General Appearance: no apparent distress, + obese Eyes: normal inspection, sclerae normal ENT: hearing grossly normal Neck: supple, trachea midline Respiratory/Chest: no respiratory distress, no accessory muscle use Cardiovascular: regular rate, rhythm Extremities: + pertinent finding (dressing in place on right foot.) Neurologic/Psychiatric: alert, normal mood/affect Skin: warm/dry, no rash Laboratory Results RUN DATE: 10/21/16 [facility] PAGE 1 RUN TIME: 948 Specimen Inquiry PATIENT: MORENA LOJA LOC: DONALDO U # : [id number] AGE/SX: 71/F ROOM: [facility], [place] REG : 10/18/[address]: Srikanth Michel M : 1945 BED: 1 DIS : STATUS: ADM IN TLOC: SPEC #: [id number] AVA: 10/19/16 STATUS: RES REQ #: [id number] RECD: 10/19/161401 RADHA DR: Annmarie Giraldo PA-C SOURCE: [facility]LCER ENTR: 10/19/16-[address] [facility] [address]: Etinene Donis MD SPDESC: TOE R5 No Doctor, Assigned Hood Duke D.OShannan ORDERED: SURF JAMES DE JESUS/REENA COMMENTS: Has Specimen Been Obtained/Collected? Y Procedure Result Verified Site GRAM STAIN Final 10/20/16-701 RESULT FEW WBCs SEEN FEW GRAM POSITIVE COCCI RARE GRAM POSITIVE BACILLI SURFACE WOUND CULTURE Preliminary 10/21/16-948 Organism 1 PROTEUS MIRABILIS QUANITY FEW SENS SENSITIVITY TO FOLLOW Organism 2 STAPHYLOCOCCUS AUREUS QUANITY FEW SENS SENSITIVITY TO FOLLOW Organism 3 STREPTOCOCCUS SPECIES QUANITY FEW SENS SENSITIVITY TO FOLLOW SENSITIVITY RESULT INDICATES AN ORGANISM WITH AN EXTENDED SPECTRUM BETA LACTAMASE.THIS IS CONSIDERED A MULTIDRUG RESISTANT ORGANISM.PHONED TO OLVIN MINOR ON 10/21/16 AT 0711 BY Miguel Baeza. Results were verbalized back to NAKUL. RESULTS WERE ALSO CALLED TO [facility] INFECTION CONTROL ANSWERING MACHINE ON 10/21/16 BY NAKUL. 1. PROTEUS MIRABILIS Target Route Dose RX AB Cost M.I.C. IQ ------ ----- ------ -- ------ -------- - ------ TRIMET/SULFA R >2/38 AMPICILLIN R >16 AMPICILLIN/SUL S <=8/4 CEFAZOLIN R >16 CEFOTAXIME R >32 CEFTRIAXONE R >32 CEFEPIME R >16 CEFUROXIME R >16 GENTAMICIN R >8 TOBRAMYCIN R >8 AMIKACIN S <=16 CONTINUED ON NEXT PAGE RUN DATE: 10/21/16 [facility] PAGE 2 RUN TIME: 948 Specimen Inquiry SPEC: [id number] PATIENT: MORENA LOJA [id number] ( Continued) Procedure Result Verified Site SURFACE WOUND CULTURE Preliminary (continued) 10/21/16-948 1. PROTEUS MIRABILIS (continued) Target Route Dose RX AB Cost M.I.C. IQ ------ ----- ------ -- ------ -------- - ------ CIPROFLOXACIN R >2 LEVOFLOXACIN R >4 ERTAPENEM S <=1 PIP/TAZO S <=16 S = SENSITIVE I = INTERMEDIATE R = RESISTANT Item Value Date Time Gram Stain - Final Resulted 10/19/16 1329 Drainage-Deep Toe Right 4 Gram Stain - Final Resulted 10/19/16 1230 Bone Foot Right Gram Stain - Final Resulted 10/19/16 1225 Drainage-Deep Toe Right 4 Gram Stain - Final Resulted 10/19/16 1222 Abscess Toe Right 4 Gram Stain - Final Resulted 10/19/16 1108 Ulcer Toe Right 5 Blood Culture - Preliminary Resulted 10/18/16 1235 Blood NO GROWTH TO DATE. Blood Culture - Preliminary Resulted 10/18/16 1235 Blood NO GROWTH TO DATE. Last 24 Hours Test 10/20/16 16:56 10/20/16 20:40 10/21/16 01:58 10/21/16 08:02 Bedside Glucose 219 mg/dl 220 mg/dl 193 mg/dl 141 mg/dl Test 10/21/16 10:45 10/21/16 12:21 White Blood Count 7.17 K/uL Red Blood Count 4.01 M/uL Hemoglobin 9.8 g/dL Hematocrit 31.5 % Mean Corpuscular Volume 78.6 fL Mean Corpuscular Hemoglobin 24.4 pg Mean Corpuscular Hemoglobin Concent 31.1 g/dl Platelet Count 439 K/uL Mean Platelet Volume 10.2 fL Neutrophils (%) (Auto) 54.6 % Lymphocytes (%) (Auto) 30.5 % Monocytes (%) (Auto) 7.4 % Eosinophils (%) (Auto) 6.3 % Basophils (%) (Auto) 1.1 % Neutrophils # (Auto) 3.91 K/uL Lymphocytes # (Auto) 2.19 K/uL Monocytes # (Auto) 0.53 K/uL Eosinophils # (Auto) 0.45 K/uL Basophils # (Auto) 0.08 K/uL RDW Standard Deviation 49.5 fL RDW Coefficient of Variation 17.4 % Immature Granulocyte % (Auto) 0.1 % Immature Granulocyte # (Auto) 0.01 K/uL Hypochromasia PRESENT Anisocytosis PRESENT Creatinine 0.78 mg/dl Est Creatinine Clear Calc Drug Dose 74.0 ml/min Estimated GFR () 89.9 Estimated GFR (Non- 77.6 Bedside Glucose 127 mg/dl Assessment and Plan Diabetic female 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 Surgical cultures final identification and sensitivities. She is currently on IV Vancomycin and Zosyn. Zosyn is appropriate for Proteus, but will change to IV Ertapenem in anticipation that she will be going home with IV therapy for ease of use. Pending other cultures, likely will also transition to IV Daptomycin for once daily therapy. Because this patient was on PO abx therapy prior to admission, it's difficult to say whether or not she could have previously had positive blood cultures. With the severity and chronicity of her disease, recommend at least 2 weeks of continued IV therapy but ultimately she may require up to 6. She will need a PICC line. We will follow. Plan: 1. Continue IV Vanco pending cultures 2. Transition from IV Zosyn to IV Ertapenem (ease of use) 3. PICC line PROVIDER ADDENDUM: Patient reviewed with Ms. Giraldo. Agree with above assessment.
[2016-10-21] MEDS: ERTAPENEM IV 1 GM in SODIUM CHLOR 0.9% AD-VAN 50ML 50 ML IV SCH (13:13)
[2016-10-21 15:14] VITALS: BP 136/80; PULSE 101; TEMP 36.6; O2SAT 93
[2016-10-21] MEDS: OXYCODONE HCL IR 5 MG TAB (IMMEDIATE RELEASE) PO PRN (15:50)
--- NOTE | 2016-10-21 16:24 | Progress Note ---
Subjective Date of Service: Oct 21, 2016. 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 Problem List Medical Problems: (1) Diabetes Status: Chronic (2) Diabetes mellitus, insulin dependent (IDDM), uncontrolled Status: Acute (3) Gangrene of foot Status: Acute (4) Osteomyelitis of right foot Status: Acute Review of Systems Constitutional: No chills, No fatigue, No fever, No weakness Respiratory: No cough, No shortness of breath Cardiac: No chest pain, No edema Abdomen: No diarrhea, No nausea, No pain, No vomiting Musculoskeletal: + calf pain, + joint pain, + muscle pain, + swelling Female : No dysuria, No urinary frequency Psychiatric: No anhedonism, No depression symptoms Objective Vital Signs Date Time Temp Pulse Resp B/P Pulse Ox O2 Delivery O2 Flow Rate FiO2 10/21/16 15:14 36.6 101 18 136/80 93 Room Air 10/21/16 07:50 Room Air 10/21/16 07:28 36.9 76 18 148/80 93 Room Air 10/21/16 06:42 147/73 10/21/16 06:30 36.7 73 16 172/75 95 Room Air 10/21/16 01:00 Room Air 10/20/16 23:31 36.4 73 16 155/83 93 Room Air 10/20/16 20:45 Room Air Physical Exam General Appearance: WD/WN, + mild distress Eyes: PERRL, EOMI Neck: supple, no JVD Respiratory/Chest: chest non-tender, lungs clear, normal breath sounds Cardiovascular: regular rate, rhythm, no murmur Abdomen: normal bowel sounds, non tender, soft Extremities: no pedal edema, no calf tenderness Neurologic/Psychiatric: alert, oriented x 3 Laboratory Results Last 24 Hours Test 10/20/16 16:56 10/20/16 20:40 10/21/16 01:58 10/21/16 08:02 Bedside Glucose 219 mg/dl 220 mg/dl 193 mg/dl 141 mg/dl Test 10/21/16 10:45 10/21/16 12:21 White Blood Count 7.17 K/uL Red Blood Count 4.01 M/uL Hemoglobin 9.8 g/dL Hematocrit 31.5 % Mean Corpuscular Volume 78.6 fL Mean Corpuscular Hemoglobin 24.4 pg Mean Corpuscular Hemoglobin Concent 31.1 g/dl Platelet Count 439 K/uL Mean Platelet Volume 10.2 fL Neutrophils (%) (Auto) 54.6 % Lymphocytes (%) (Auto) 30.5 % Monocytes (%) (Auto) 7.4 % Eosinophils (%) (Auto) 6.3 % Basophils (%) (Auto) 1.1 % Neutrophils # (Auto) 3.91 K/uL Lymphocytes # (Auto) 2.19 K/uL Monocytes # (Auto) 0.53 K/uL Eosinophils # (Auto) 0.45 K/uL Basophils # (Auto) 0.08 K/uL RDW Standard Deviation 49.5 fL RDW Coefficient of Variation 17.4 % Immature Granulocyte % (Auto) 0.1 % Immature Granulocyte # (Auto) 0.01 K/uL Hypochromasia PRESENT Anisocytosis PRESENT Creatinine 0.78 mg/dl Est Creatinine Clear Calc Drug Dose 74.0 ml/min Estimated GFR () 89.9 Estimated GFR (Non- 77.6 Bedside Glucose 127 mg/dl Assessment and Plan This is a 71-year-old female with a past medical history of hypertension, hyperlipidemia, diabetes type 2, and obesity who presents to the ER with a right foot wound between the fourth and fifth toe. R 4-5th Toe Osteomyelitis and Abscess S/P I&D/Amputation: Failed Outpatient Ceftin - Zosyn and vancomycin per pharmacy dosing, MDR proteus and awaiting strep/ staph sensitivities, hopeful daptomycin may be a unifying med - Orthopedic surgery following - did have local debridement - Infectious disease following -recommend picc placement will perfrom T2DM: HbA1c 9 Lantus 10 units SC BID and SSI 120-150; correction factor 20; CR 1 :9 Hypertension:- Norvasc 5 mg daily, HCTZ 12.5 mg daily, Lisinopril 5 mg daily - Hydralazine 10 mg IV PRN Hyperlipidemia: - Atorvastatin 20 mg daily DVT Prophylaxis: DEB/SCDs, Lovenox 40 mg SC daily Code Status: FULL RESUSCITATION Documented By: Srikanth Michel Continued [facility] stay due to: multiple IV medications needed Discharge planning: uncertain
[2016-10-21] MEDS: ENOXAPARIN 40 MG/0.4 ML SYR SQ SCH (21:05)
[2016-10-21] MEDS: SENNA 8.6 MG TAB PO SCH (21:05)
[2016-10-22 00:28] VITALS: BP 128/64; PULSE 75; TEMP 37.1; O2SAT 94
[2016-10-22] MEDS: VANCOMYCIN INJ 1,000 MG in SODIUM CHLORIDE 0.9% 250ML 250 ML IV SCH ×2 (03:01→17:11)
[2016-10-22] MEDS: POTASSIUM CHLORIDE INJ 10 MEQ in SODIUM CHLORIDE 0.9% 1000ML 1,000 ML IV SCH ×2 (05:47→16:16)
[2016-10-22 06:24] LABS: CREATININE 0.72 mg/dl (0.60-1.20)
[2016-10-22 07:20] VITALS: BP 158/61; PULSE 73; TEMP 36.9; O2SAT 92
[2016-10-22] MEDS: ERTAPENEM IV 1 GM in SODIUM CHLOR 0.9% AD-VAN 50ML 50 ML IV SCH (08:55)
[2016-10-22] MEDS: DOCUSATE SODIUM 100 MG CAP PO SCH ×2 (08:56→20:57)
[2016-10-22] MEDS: ATORVASTATIN 20 MG TAB PO SCH (08:56)
[2016-10-22] MEDS: LISINOPRIL 5 MG TAB PO SCH (08:56)
[2016-10-22] MEDS: HYDROCHLOROTHIAZIDE 25 MG TAB PO SCH (08:56)
[2016-10-22] MEDS: AMLODIPINE BESYLATE 5 MG TAB PO SCH (08:56)
[2016-10-22] MEDS: INSULIN ASPART 100 UNITS/ML 3 ML PEN SC SCH ×4 (09:09→20:45)
[2016-10-22] MEDS: INSULIN GLARGINE SOLOSTAR 100 UNITS/ML 3 ML PEN SC SCH ×2 (09:12→20:52)
--- NOTE | 2016-10-22 09:16 | Orthopedic Progress Note ---
Orthopedic Progress Note Date of Service Oct 22, 2016. Subjective Post OP Day: 3 Denies: complaints Objective calves soft nontender, incision C/D/I, A&O x3 Date Time Temp Pulse Resp B/P Pulse Ox O2 Delivery O2 Flow Rate FiO2 10/22/16 07:20 36.9 73 16 158/61 92 Room Air 10/22/16 00:28 37.1 75 16 128/64 94 Room Air 10/22/16 00:20 Room Air 10/21/16 15:30 Room Air 10/21/16 15:14 36.6 101 18 136/80 93 Room Air Laboratory Results 24 Hours: Test 10/21/16 10:45 White Blood Count 7.17 K/uL Red Blood Count 4.01 M/uL Hemoglobin 9.8 g/dL Hematocrit 31.5 % Mean Corpuscular Volume 78.6 fL Mean Corpuscular Hemoglobin 24.4 pg Mean Corpuscular Hemoglobin Concent 31.1 g/dl Platelet Count 439 K/uL Mean Platelet Volume 10.2 fL Neutrophils (%) (Auto) 54.6 % Lymphocytes (%) (Auto) 30.5 % Monocytes (%) (Auto) 7.4 % Eosinophils (%) (Auto) 6.3 % Basophils (%) (Auto) 1.1 % Neutrophils # (Auto) 3.91 K/uL Lymphocytes # (Auto) 2.19 K/uL Monocytes # (Auto) 0.53 K/uL Eosinophils # (Auto) 0.45 K/uL Basophils # (Auto) 0.08 K/uL Assessment & Plan Assessment: POD #3 s/p right 4th ray resection and 4th & 5th toe amputation secondarily to osteomyelitis, doing well. Plan: Continue pain control. WBAT through heel. Continue IV Abx per ID, awaiting remaining Sensitives results on polymicrobial infection. PICC line in place. D/C Wound vac on 10/21/16, keep wound covered, change daily/PRN. Resume ADA diet. DVT Prophylaxis: Lovenox 40 mg subq daily. Continue Care per primary service.
--- NOTE | 2016-10-22 13:11 | Pharmacy Progress Note ---
Glycemic: Assessment & Plan Date of Service Oct 22, 2016. Assessment & Plan The patient is currently receiving 43 units of insulin per day. BSGs ranging 80 - 169 mg/dl over the past 24hrs. * Basal insulin: Lantus 12 units every 12 hours * Correctional Insulin: Novolog Correction per scale ACHS Goal Range: Low 110 mg/dL - High 140 mg/dL Correction Factor: 20 mg/dL/unit * Prandial insulin: Per carb ratio of 1 unit per 7 grams CHO consumed ASSESSMENT: * BSGs looked great yesterday but fasting has fallen further this AM (161 -> 141 -> 80) * I rec'd a call from the nurse this AM about her fasting BSG so I reduced the basal dose by ~20% * No change necessary for CF/CR at this time since it has continued to work well w/o steroids on board PLAN FOR INPATIENT GLYCEMIC CONTROL: * Decrease Lantus to 10 units BID * Continue Novolog ACHS * Goal 110-140 * CF 20 * CR 7 RECOMMENDATIONS FOR DISCHARGE: * A1c elevated but per CDE note, patient reports reasonable BSGs - unsure if A1c inaccurate or patient not reporting true BSGs * Since patient already takes set doses depending on BSG, would recommend for patient to continue outpatient regimen w/ close f/u on discharge * Of note, since Lantus being dosed BID, will be able to transition back to 70/ 30 on discharge without altering regimen Pharmacy will continue to monitor patient daily and write orders per [facility] inpatient glycemic control protocol. Thanks.
[2016-10-22 15:10] VITALS: BP 165/86; PULSE 76; TEMP 36.7; O2SAT 97
[2016-10-22 15:26] VITALS: BP 153/48
--- NOTE | 2016-10-22 15:33 | Progress Note ---
Subjective Date of Service: Oct 22, 2016. Subjective pt has no complaints, she seems unphased by her issue and i wonder if she comprehends the seriousness of her infection Problem List Medical Problems: (1) Diabetes Status: Chronic (2) Diabetes mellitus, insulin dependent (IDDM), uncontrolled Status: Acute (3) Gangrene of foot Status: Acute (4) Osteomyelitis of right foot Status: Acute Review of Systems Constitutional: + weakness, No chills, No fever Respiratory: No cough, No shortness of breath Cardiac: + edema, No chest pain Abdomen: No diarrhea, No nausea, No pain Female : No dysuria, No urinary frequency Objective Vital Signs Date Time Temp Pulse Resp B/P Pulse Ox O2 Delivery O2 Flow Rate FiO2 10/22/16 15:26 153/48 10/22/16 15:10 36.7 76 16 165/86 97 Room Air 10/22/16 07:20 36.9 73 16 158/61 92 Room Air 10/22/16 00:28 37.1 75 16 128/64 94 Room Air 10/22/16 00:20 Room Air 10/21/16 15:30 Room Air Physical Exam General Appearance: WD/WN, + mild distress Eyes: PERRL, EOMI Neck: supple, no JVD Respiratory/Chest: chest non-tender, lungs clear, normal breath sounds Cardiovascular: regular rate, rhythm, no murmur Abdomen: soft Extremities: + pedal edema, + swelling Neurologic/Psychiatric: alert, oriented x 3 Laboratory Results Last 24 Hours Test 10/21/16 17:08 10/21/16 20:40 10/22/16 05:21 10/22/16 08:18 Bedside Glucose 120 mg/dl 169 mg/dl 80 mg/dl Creatinine 0.72 mg/dl Est Creatinine Clear Calc Drug Dose 80.1 ml/min Estimated GFR () 99.0 Estimated GFR (Non- 85.4 Test 10/22/16 12:10 Bedside Glucose 143 mg/dl Assessment and Plan This is a 71-year-old female with a past medical history of hypertension, hyperlipidemia, diabetes type 2, and obesity who presents to the ER with a right foot wound between the fourth and fifth toe. Infection is MDR proteus, MRSA and enterococcus R 4-5th Toe Osteomyelitis and Abscess S/P I&D/Amputation: Failed Outpatient Ceftin - Zosyn and vancomycin per pharmacy dosing, MDR proteus and awaiting enterococcus plus MRSA will discuss with ID but hopeful daptomycin may be a unifying med - Orthopedic surgery following - did have local debridement - Infectious disease following picc placement final duration and med choice to come T2DM: HbA1c 9 , inpatient bsg controlled, Lantus 10 units SC BID and SSI 120-150 ; correction factor 20; CR 1:9 Hypertension:-stable Norvasc 5 mg daily, HCTZ 12.5 mg daily, Lisinopril 5 mg daily - Hydralazine 10 mg IV PRN Hyperlipidemia: - Atorvastatin 20 mg daily DVT Prophylaxis: DEB/SCDs, Lovenox 40 mg SC daily Code Status: FULL RESUSCITATION Documented By: Srikanth Michel Continued [facility] stay due to: multiple IV medications needed Discharge planning: uncertain
[2016-10-22] MEDS ORDERED: VANCOMYCIN TROUGH ONE (16:30)
[2016-10-22] MEDS: ENOXAPARIN 40 MG/0.4 ML SYR SQ SCH (20:56)
[2016-10-22] MEDS: SENNA 8.6 MG TAB PO SCH (20:56)
[2016-10-22 22:52] VITALS: BP 151/78; PULSE 81; TEMP 36.7; O2SAT 93
[2016-10-23] MEDS: POTASSIUM CHLORIDE INJ 10 MEQ in SODIUM CHLORIDE 0.9% 1000ML 1,000 ML IV SCH ×3 (02:08→22:48)
[2016-10-23 06:44] LABS: CREATININE 0.68 mg/dl (0.60-1.20)
[2016-10-23 07:39] VITALS: BP 166/78; PULSE 82; TEMP 37.2; O2SAT 93
--- NOTE | 2016-10-23 09:04 | Pharmacy Progress Note ---
Pharmacy Antibiotic Prog Note Date of Service Oct 23, 2016. Subjective The patient is currently receiving Vancomycin 1gm IV q14h. The patient is currently on day #6 of IV therapy (level was drawn on day #5). Objective Height (Feet): 5 Height (Inches): 4.00 Weight (Kilograms): 90.000 Levels: Item Value Date Time Vancomycin Level Trough 20.9 mcg/ml 10/22/16 1615 Vancomycin Level Trough 20.1 mcg/ml 10/20/16 0815 Lab Results (24hrs): Laboratory Tests Test 10/23/16 06:00 Creatinine 0.68 mg/dl Micro Results: Item Value Date Time Blood Culture - Preliminary Resulted 10/18/16 1235 Blood NO GROWTH TO DATE. Blood Culture - Preliminary Resulted 10/18/16 1235 Blood NO GROWTH TO DATE. Gram Stain - Final Complete 10/19/16 1108 Ulcer Toe Right 5 RUN DATE: 10/22/16 [facility] PAGE 1 RUN TIME: 1256 Specimen Inquiry PATIENT: MORENA LOJA LOC: W U # : [id number] AGE/SX: 71/F ROOM: [facility] REG : 10/18/[address]: Srikanth Michel M : 1945 BED: 1 DIS : STATUS: ADM IN TLOC: SPEC #: [id number] AVA: 10/19/16 STATUS: COMP REQ #: [id number] RECD: 10/19/[address]: Annmarie Giraldo , NADEGE SOURCE: ULCER ENTR: 10/19/[address]: Etienne Donis MD SPDESC: TOE R5 No Doctor, Hood Ramos D.OShannan ORDERED: SURF JAMES DE JESUS/REENA COMMENTS: Has Specimen Been Obtained/Collected? Y Procedure Result Verified Site GRAM STAIN Final 10/20/16-07 RESULT FEW WBCs SEEN FEW GRAM POSITIVE COCCI RARE GRAM POSITIVE BACILLI SURFACE WOUND CULTURE Final 10/22/16-1256 Organism 1 PROTEUS MIRABILIS QUANITY FEW SENS SENSITIVITY TO FOLLOW Organism 2 STAPHYLOCOCCUS AUREUS QUANITY FEW SENS SENSITIVITY TO FOLLOW Organism 3 ENTEROCOCCUS FAECALIS QUANITY FEW SENS SENSITIVITY TO FOLLOW SENSITIVITY RESULT INDICATES AN ORGANISM WITH AN EXTENDED SPECTRUM BETA LACTAMASE.THIS IS CONSIDERED A MULTIDRUG RESISTANT ORGANISM.PHONED TO OLVIN MINOR ON 10/21/16 AT 0711 BY Miguel Baeza. Results were verbalized back to WALKRA. RESULTS WERE ALSO CALLED TO [facility] INFECTION CONTROL ANSWERING MACHINE ON 10/21/16 BY NAKUL. SENSITIVITY RESULT INDICATES A METHICILLIN RESISTANT STAPH. AUREUS. PHONED TO [facility] (HERMILA MINOR) ON 10/22/16 AT 0983 BY Antonio Thornton. Results were verbalized back to KATIE. RESULTS WERE ALSO CALLED TO [facility] INFECTION CONTROL ANSWERING MACHINE ON 10/22/16 BY KATIE. CONTINUED ON NEXT PAGE RUN DATE: 10/22/16 [facility] PAGE 2 RUN TIME: 1256 Specimen Inquiry SPEC: [id number] PATIENT: MORENA LOJA [id number] ( Continued) Procedure Result Verified Site SURFACE WOUND CULTURE Final (continued) 10/22/16-1256 P. MIRABIL STAPH AUR E FAECALIS M.I.C. RX M.I.C. RX M.I.C. RX --------- ------ --------- ------ --------- ------ TRIMET/SULFA >2/38 R <=0.5/9.5 S AMPICILLIN >16 R <=2 S * OXACILLIN >2 R AMPICILLIN/SUL <=8/4 S CEFAZOLIN >16 R CEFOTAXIME >32 R CEFTRIAXONE >32 R CEFEPIME >16 R CEFUROXIME >16 R GENT SYNERGY <=500 S VANCOMYCIN 1 S 2 S PENICILLIN 2 S GENTAMICIN >8 R TOBRAMYCIN >8 R ERYTHROMYCIN <=0.5 S TETRACYCLINE >8 R AMIKACIN <=16 S CIPROFLOXACIN >2 R LEVOFLOXACIN >4 R CLINDAMYCIN <=0.5 S ERTAPENEM <=1 S DAPTOMYCIN 1 S 2 S PIP/TAZO <=16 S RIFAMPIN <=1 S STREP SYNERGY <=1000 S ENTEROCOCCUS FAECALIS: POSITIVE COMBO 33 Streptomycin Synergy Screen S Gentamicin Synergy Screen S 1. PROTEUS MIRABILIS Target Route Dose RX AB Cost M.I.C. IQ ------ ----- ------ -- ------ -------- - ------ TRIMET/SULFA R >2/38 AMPICILLIN R >16 AMPICILLIN/SUL S <=8/4 CEFAZOLIN R >16 CEFOTAXIME R >32 CEFTRIAXONE R >32 CEFEPIME R >16 CEFUROXIME R >16 GENTAMICIN R >8 TOBRAMYCIN R >8 AMIKACIN S <=16 CIPROFLOXACIN R >2 LEVOFLOXACIN R >4 CONTINUED ON NEXT PAGE RUN DATE: 10/22/16 [facility] PAGE 3 RUN TIME: 1256 Specimen Inquiry SPEC: [id number] PATIENT: MORENA LOJA [id number] ( Continued) Procedure Result Verified Site SURFACE WOUND CULTURE Final (continued) 10/22/16-1256 1. PROTEUS MIRABILIS (continued) Target Route Dose RX AB Cost M.I.C. IQ ------ ----- ------ -- ------ -------- - ------ ERTAPENEM S <=1 PIP/TAZO S <=16 2. STAPHYLOCOCCUS AUREUS Target Route Dose RX AB Cost M.I.C. IQ ------ ----- ------ -- ------ -------- - ------ TRIMET/SULFA S <=0.5/ 9.5 * OXACILLIN R * >2 VANCOMYCIN S 1 ERYTHROMYCIN S <=0.5 TETRACYCLINE R >8 CLINDAMYCIN S <=0.5 DAPTOMYCIN S 1 RIFAMPIN S <=1 3. ENTEROCOCCUS FAECALIS Target Route Dose RX AB Cost M.I.C. IQ ------ ----- ------ -- ------ -------- - ------ AMPICILLIN S <=2 GENT SYNERGY S <=500 VANCOMYCIN S 2 PENICILLIN S 2 DAPTOMYCIN S 2 STREP SYNERGY S <=1000 Streptomycin Synergy Screen S Gentamicin Synergy Screen S S = SENSITIVE I = INTERMEDIATE R = RESISTANT Item Value Date Time Gram Stain - Final Resulted 10/19/16 1222 Abscess Toe Right 4 Gram Stain - Final Resulted 10/19/16 1225 Drainage-Deep Toe Right 4 Gram Stain - Final Resulted 10/19/16 1230 Bone Foot Right RUN DATE: 10/22/16 [facility] PAGE 1 RUN TIME: 1603 Specimen Inquiry PATIENT: MORENA LOJA LOC: DONALDO U # : [id number] AGE/SX: 71/F ROOM: [facility] REG : 10/18/[address]: Srikanth Michel M : 1945 BED: 1 DIS : STATUS: ADM IN TLOC: SPEC #: [id number] AVA: 10/19/16-1230 STATUS: RES REQ #: [id number] RECD: 10/19/[address]: Hood Duke, D.O. SOURCE: BONE ENTR: 10/19/[address]: Etienne Donis MD [facility]: FOOT RIGHT Annmarie Giraldo . , PALilianeC No Doctor, Assigned ORDERED: AER/ANGELIQUE CULTSMR COMMENTS: CULTURE #3 RIGHT FOOT DEEP TISSUE AND BONE Procedure Result Verified Site GRAM STAIN Final 10/20/16-916 RESULT FEW WBCs SEEN RARE GRAM POSITIVE COCCI OR AER/ANGELIQUE CULT Preliminary 10/22/16-1602 Organism 1 PROTEUS MIRABILIS QUANITY FEW SENS SENSITIVITY TO FOLLOW Organism 2 STREPTOCOCCUS SPECIES QUANITY RARE SENS SENSITIVITY TO FOLLOW Organism 3 COAG NEG STAPHYLOCOCCUS QUANITY FEW SENS NO SENSITIVITY TO FOLLOW Organism 4 STAPH SPECIES QUANITY RARE SENS SENSITIVITY TO FOLLOW SENSITIVITY RESULT INDICATES AN ORGANISM WITH AN EXTENDED SPECTRUM BETA LACTAMASE.THIS IS CONSIDERED A MULTIDRUG RESISTANT ORGANISM.PHONED TO OLVIN MINOR ON 10/21/16 AT 0711 BY Miguel Baeza. Results were verbalized back to NAKUL. RESULTS WERE ALSO CALLED TO [facility] INFECTION CONTROL ANSWERING MACHINE ON 10/21/16 BY NAKUL. 1. PROTEUS MIRABILIS Target Route Dose RX AB Cost M.I.C. IQ ------ ----- ------ -- ------ -------- - ------ TRIMET/SULFA R >2/38 AMPICILLIN R >16 AMPICILLIN/SUL S <=8/4 CEFAZOLIN R >16 CEFOTAXIME R >32 CEFTRIAXONE R >32 CEFEPIME R >16 CEFUROXIME R >16 GENTAMICIN R >8 CONTINUED ON NEXT PAGE RUN DATE: 10/22/16 [facility] PAGE 2 RUN TIME: 1603 Specimen Inquiry SPEC: [id number] PATIENT: MORENA LOJA [id number] ( Continued) Procedure Result Verified Site OR AER/ANGELIQUE CULT Preliminary (continued) 10/22/16-160 1. PROTEUS MIRABILIS (continued) Target Route Dose RX AB Cost M.I.C. IQ ------ ----- ------ -- ------ -------- - ------ TOBRAMYCIN R >8 AMIKACIN S <=16 CIPROFLOXACIN R >2 LEVOFLOXACIN R >4 ERTAPENEM S <=1 PIP/TAZO S <=16 S = SENSITIVE I = INTERMEDIATE R = RESISTANT Item Value Date Time Gram Stain - Final Resulted 10/19/16 1329 Drainage-Deep Toe Right 4 Recent Pertinent Medications Item Value Date Time Vancomycin HCl 540 ml @ 200 mls/hr 10/18/16 1351 2000 mg/Sodium ONE STAT/IV 10/18/16 1449 Chloride Vancomycin HCl 274 ml @ 125 mls/hr 10/19/16 0500 1200 mg/Sodium Q14H/IV 10/20/16 0845 Chloride Vancomycin HCl 270 ml @ 125 mls/hr 10/20/16 2300 1000 mg/Sodium Q14H/IV 10/22/16 1711 Chloride Vancomycin HCl 270 ml @ 125 mls/hr 10/23/16 1200 1000 mg/Sodium Q18H/IV Chloride Item Value Date Time Piperacillin Sod/ 4.5 gm 10/18/16 1351 Tazobactam Sod NOW STAT/IV 10/18/16 1359 (Zosyn Iv) Piperacillin Sod/ 120 ml @ 30 mls/hr 10/18/16 2000 Tazobactam Sod Q8H/IV 10/21/16 0402 4.5 gm/Dextrose Item Value Date Time Ertapenem 1 gm/ 50 ml @ 120 mls/hr 10/21/16 1300 Sodium Chloride DAILY/IV 10/22/16 0855 Assessment & Plan Vancomycin * 71 yo F with osteomyelitis of R 4th & 5th toe s/p I&D & amputation * Goal trough level: 15-20mcg/mL * Last 2 levels slightly above goal range * Decrease dose again to Vancomycin 1gm IV q18h * Repeat trough level ordered for: 10/25/16 midnight dose Pharmacy will continue to follow and will adjust dose/frequency as necessary. Thank you
[2016-10-23] MEDS: INSULIN ASPART 100 UNITS/ML 3 ML PEN SC SCH ×4 (09:31→21:00)
[2016-10-23] MEDS: INSULIN GLARGINE SOLOSTAR 100 UNITS/ML 3 ML PEN SC SCH ×2 (09:32→21:38)
[2016-10-23] MEDS: DOCUSATE SODIUM 100 MG CAP PO SCH ×2 (09:33→21:26)
[2016-10-23] MEDS: ERTAPENEM IV 1 GM in SODIUM CHLOR 0.9% AD-VAN 50ML 50 ML IV SCH (09:33)
[2016-10-23] MEDS: ATORVASTATIN 20 MG TAB PO SCH (09:33)
[2016-10-23] MEDS: HYDROCHLOROTHIAZIDE 25 MG TAB PO SCH (09:34)
[2016-10-23] MEDS: AMLODIPINE BESYLATE 5 MG TAB PO SCH (09:35)
[2016-10-23] MEDS: LISINOPRIL 5 MG TAB PO SCH (09:35)
--- NOTE | 2016-10-23 09:46 | Pharmacy Progress Note ---
Glycemic: Assessment & Plan Date of Service Oct 23, 2016. Assessment & Plan The patient is currently receiving an ave of 40 units of insulin per day. BSGs ranging 80 - 143 mg/dl over the past 24hrs. * Basal insulin: Lantus 10 units every 12 hours * Correctional Insulin: Novolog Correction per scale ACHS Goal Range: Low 110 mg/dL - High 140 mg/dL Correction Factor: 20 mg/dL/unit * Prandial insulin: Per carb ratio of 1 unit per 7 grams CHO consumed BSGs continue to improve on reduced basal dose, no changes needed to inpatient regimen at this time. Pharmacy will continue to monitor patient daily and write orders per [facility] inpatient glycemic control protocol. Thanks. DISCHARGE RECOMMENDATIONS: * Please refer to note on 10/22
--- NOTE | 2016-10-23 10:27 | Orthopedic Progress Note ---
Orthopedic Progress Note Date of Service Oct 23, 2016. Subjective Post OP Day: 4 Denies: complaints Objective calves soft nontender, incision C/D/I, A&O x3 Dressing with mild serous & bloody drainage. Date Time Temp Pulse Resp B/P Pulse Ox O2 Delivery O2 Flow Rate FiO2 10/23/16 07:39 37.2 82 16 166/78 93 Room Air 10/22/16 23:50 Room Air 10/22/16 22:52 36.7 81 16 151/78 93 Room Air 10/22/16 15:26 153/48 10/22/16 15:15 Room Air 10/22/16 15:10 36.7 76 16 165/86 97 Room Air Assessment & Plan Assessment: POD #4 s/p right 4th ray resection and 4th & 5th toe amputation secondarily to osteomyelitis, doing well. Plan: Continue pain control. WBAT through heel. Continue IV Abx per ID, awaiting remaining Sensitives results on polymicrobial infection. OK to discharge from Ortho stand point once Abx coverage is established. F/U with Dr. Donis later this week for wound check. Will continue to follow while in hospital. PICC line in place. D/C Wound vac on 10/21/16, keep wound covered, change daily/PRN. Resume ADA diet. DVT Prophylaxis: Lovenox 40 mg subq daily. Continue Care per primary service.
[2016-10-23] MEDS: VANCOMYCIN INJ 1,000 MG in SODIUM CHLORIDE 0.9% 250ML 250 ML IV SCH (13:18)
[2016-10-23 15:39] VITALS: BP 162/85; PULSE 83; TEMP 36.7; O2SAT 99
--- NOTE | 2016-10-23 15:45 | Progress Note ---
Subjective Date of Service: Oct 23, 2016. Subjective pt is in good spirits, ortho will follow up as outpt, disposition will rely on ability to secure outpt antibiotic treatment, will discuss with case management Problem List Medical Problems: (1) Diabetes Status: Chronic (2) Diabetes mellitus, insulin dependent (IDDM), uncontrolled Status: Acute (3) Gangrene of foot Status: Acute (4) Osteomyelitis of right foot Status: Acute Review of Systems Constitutional: No chills, No fever ENT: No hearing loss, No sore throat Respiratory: No cough, No shortness of breath Cardiac: + edema, No chest pain Abdomen: No diarrhea, No nausea, No pain, No vomiting Musculoskeletal: + joint pain, + muscle pain Neurologic: No memory loss, No paralysis Objective Vital Signs Date Time Temp Pulse Resp B/P Pulse Ox O2 Delivery O2 Flow Rate FiO2 10/23/16 15:39 36.7 83 16 162/85 99 Room Air 10/23/16 07:39 37.2 82 16 166/78 93 Room Air 10/22/16 23:50 Room Air 10/22/16 22:52 36.7 81 16 151/78 93 Room Air Physical Exam General Appearance: WD/WN, + mild distress Eyes: PERRL, EOMI Neck: supple, thyroid normal Respiratory/Chest: chest non-tender, lungs clear, normal breath sounds Cardiovascular: regular rate, rhythm, no JVD, no murmur Abdomen: normal bowel sounds, non tender, soft Neurologic/Psychiatric: alert, oriented x 3 Laboratory Results Last 24 Hours Test 10/22/16 16:15 10/22/16 17:21 10/22/16 20:30 10/23/16 06:00 Vancomycin Level Trough 20.9 mcg/ml Bedside Glucose 80 mg/dl 133 mg/dl Creatinine 0.68 mg/dl Est Creatinine Clear Calc Drug Dose 84.9 ml/min Estimated GFR () 103.4 Estimated GFR (Non- 89.2 Test 10/23/16 07:37 10/23/16 12:01 Bedside Glucose 108 mg/dl 124 mg/dl Assessment and Plan This is a 71-year-old female with a past medical history of hypertension, hyperlipidemia, diabetes type 2, and obesity who presents to the ER with a right foot wound between the fourth and fifth toe. Infection is MDR proteus, MRSA and enterococcus R 4-5th Toe Osteomyelitis and Abscess S/P I&D/Amputation: Failed Outpatient Ceftin - ertapenem and vancomycin per pharmacy dosing, MDR proteus and awaiting case management to determine if able to secure outpt treatment payment, will discuss with ID but hopeful daptomycin may be a unifying med along with ertapenem - Orthopedic surgery following - did have local debridement, will request office follow up this week - Infectious disease following picc placement final duration and med choice to come T2DM: HbA1c 9 , inpatient bsg controlled, Lantus 10 units SC BID and SSI 120-150 ; correction factor 20; CR 1:9, pt requests to consider return to 70/30 as outpt Hypertension:-continues to be stable Norvasc 5 mg daily, HCTZ 12.5 mg daily, Lisinopril 5 mg daily - Hydralazine 10 mg IV PRN Hyperlipidemia: - Atorvastatin 20 mg daily DVT Prophylaxis: DEB/SCDs, Lovenox 40 mg SC daily Code Status: FULL RESUSCITATION Documented By: Srikanth Michel Continued [facility] stay due to: multiple IV medications needed Discharge planning: uncertain
[2016-10-23 18:29] VITALS: BP 152/81
[2016-10-23] MEDS: ENOXAPARIN 40 MG/0.4 ML SYR SQ SCH (21:26)
[2016-10-23] MEDS: SENNA 8.6 MG TAB PO SCH (21:26)
[2016-10-23 23:02] VITALS: BP 167/73; PULSE 81; TEMP 36.7; O2SAT 96
[2016-10-24 01:31] VITALS: BP 149/70
[2016-10-24] MEDS: VANCOMYCIN INJ 1,000 MG in SODIUM CHLORIDE 0.9% 250ML 250 ML IV SCH (05:57)
[2016-10-24 06:54] LABS: CREATININE 0.75 mg/dl (0.60-1.20)
[2016-10-24 07:13] VITALS: BP 158/61; PULSE 80; TEMP 37; O2SAT 94
[2016-10-24] MEDS: POTASSIUM CHLORIDE INJ 10 MEQ in SODIUM CHLORIDE 0.9% 1000ML 1,000 ML IV SCH ×2 (08:44→19:06)
[2016-10-24] MEDS: INSULIN ASPART 100 UNITS/ML 3 ML PEN SC SCH ×4 (08:49→21:25)
[2016-10-24] MEDS: INSULIN GLARGINE SOLOSTAR 100 UNITS/ML 3 ML PEN SC SCH ×2 (08:50→21:26)
[2016-10-24] MEDS: AMLODIPINE BESYLATE 5 MG TAB PO SCH (08:51)
[2016-10-24] MEDS: ATORVASTATIN 20 MG TAB PO SCH (08:51)
[2016-10-24] MEDS: DOCUSATE SODIUM 100 MG CAP PO SCH ×2 (08:51→21:27)
[2016-10-24] MEDS: LISINOPRIL 5 MG TAB PO SCH (08:52)
[2016-10-24] MEDS: HYDROCHLOROTHIAZIDE 25 MG TAB PO SCH (08:52)
--- NOTE | 2016-10-24 08:59 | Pharmacy Progress Note ---
Glycemic: Assessment & Plan Date of Service Oct 24, 2016. Assessment & Plan The patient is currently receiving 40 units of insulin per day. BSGs ranging 107 - 185 mg/dl over the past 24hrs. * Basal insulin: Lantus 10 units every 12 hours * Correctional Insulin: Novolog Correction per scale ACHS Goal Range: Low 110 mg/dL - High 140 mg/dL Correction Factor: 20 mg/dL/unit * Prandial insulin: Per carb ratio of 1 unit per 7 grams CHO consumed BSGs remain stable, no changes needed to inpatient regimen at this time. Pharmacy will continue to monitor patient daily and write orders per [facility] inpatient glycemic control protocol. Thanks. RECOMMENDATIONS FOR DISCHARGE: * A1c elevated but per CDE note, patient reports reasonable BSGs - unsure if A1c inaccurate or patient not reporting true BSGs * Since patient already takes set doses depending on BSG, would recommend for patient to continue outpatient regimen w/ close f/u on discharge * Of note, since Lantus being dosed BID, will be able to transition back to 70/ 30 on discharge without altering regimen
[2016-10-24] MEDS: ERTAPENEM IV 1 GM in SODIUM CHLOR 0.9% AD-VAN 50ML 50 ML IV SCH (10:50)
[2016-10-24 15:08] VITALS: BP 155/81; PULSE 81; TEMP 36.8; O2SAT 97
--- NOTE | 2016-10-24 16:12 | Infectious Disease Progress Nt ---
Progress Note Date of Service Oct 24, 2016. Subjective Pt evaluation today including: conversation w/ patient, physical exam, chart review, lab review, review of studies, review of inpatient medication list Patients final cultures growing Enterococcus Faecalis, Proteus, Coag-negative staph, alpha strep, and MRSA. Her son is not in the room during my exam, so the conversation is limited but the patients states that she is OK and good. She also states that she has no pain. She is currently on IV Vancomycin and Ertapenem. Note that OK for D/C from ortho perspective All Other Systems: Reviewed and Negative Medications Current Inpatient Medications Medications (Trade) Dose Ordered Sig/Christen Route Start Time Stop Time Status Last Admin Dose Admin Miscellaneous Information (Consult Glycemic Management Pharmacy) 1 ea UD PRN N/A 10/18/16 14:45 11/17/16 14:44 Glucose (Glucose 40% Gel) 15-30 GRAMS 15 GRAMS... UD PRN PO 10/18/16 14:45 11/17/16 14:44 Glucose (Glucose Chew Tab) 4-8 Tablets 4 Tabl... UD PRN PO 10/18/16 14:45 11/17/16 14:44 Dextrose (Dextrose 50% 50ML Syringe) 25-50ML OF 50% DW IV FOR... UD PRN IV 10/18/16 14:45 11/17/16 14:44 Glucagon (Glucagon Inj) 1 mg UD PRN SQ 10/18/16 14:45 11/17/16 14:44 Enoxaparin Sodium (Lovenox Inj) 40 mg HS SQ 10/18/16 21:00 11/17/16 20:59 10/23/16 21:26 40 MG Acetaminophen (Tylenol Tab) 650 mg Q4H PRN PO 10/18/16 15:30 11/17/16 15:29 Ondansetron HCl (Zofran Inj) 4 mg Q6H PRN IV 10/18/16 15:30 11/17/16 15:29 Amlodipine Besylate (Norvasc Tab) 5 mg DAILY PO 10/19/16 09:00 11/18/16 08:59 10/24/16 08:51 5 MG Atorvastatin Calcium (Lipitor Tab) 20 mg DAILY PO 10/19/16 09:00 11/18/16 08:59 10/24/16 08:51 20 MG Hydrochlorothiazide (Hydrochlorothiazide Tab) 12.5 mg DAILY PO 10/19/16 09:00 11/18/16 08:59 10/24/16 08:52 12.5 MG Ibuprofen (Motrin Tab) 800 mg Q8 PRN PO 10/18/16 15:30 11/17/16 15:29 Lisinopril (Zestril Tab) 5 mg DAILY PO 10/19/16 09:00 11/18/16 08:59 10/24/16 08:52 5 MG Tramadol HCl (Ultram Tab) 50 mg Q4H PRN PO 10/18/16 15:30 11/17/16 15:29 Hydralazine HCl (HydrALAZINE INJ) 10 mg Q4 PRN IV. 10/18/16 16:00 11/17/16 15:59 10/21/16 06:34 10 MG Vancomycin HCl (Consult) 1 ea UD PRN N/A 10/18/16 16:30 11/17/16 16:29 Insulin Aspart SLIDING SCALE ACHS SC 10/19/16 17:15 11/18/16 17:14 10/24/16 13:20 6 UNITS Potassium Chloride/Sodium Chloride (KCl Inj/Nss 1000ml) 1,005 ml @ 100 mls/hr Q10H3M IV 10/19/16 18:30 11/18/16 18:29 10/24/16 08:44 100 MLS/HR Oxycodone HCl (Roxicodone Immediate Rel Tab) 1-2 TABS FOR PAIN 1 TABLET ... Q4H PRN PO 10/19/16 14:45 11/02/16 14:44 10/21/16 15:50 10 MG Morphine Sulfate (MoRPHine SULFATE INJ) 2 mg Q2HWA PRN IV 10/19/16 14:45 11/02/16 14:44 Senna (Senokot Tab) 17.2 mg HS PO 10/19/16 21:00 11/18/16 20:59 10/23/16 21:26 17.2 MG Docusate Sodium 100 mg 100 mg BID PO 10/19/16 21:00 11/18/16 20:59 10/24/16 08:51 100 MG Ertapenem/Sodium Chloride (Invanz Iv/Nss Ad-Van 50ml) 50 ml @ 120 mls/hr DAILY IV 10/21/16 13:00 12/02/16 12:59 10/24/16 10:50 120 MLS/HR Insulin Glargine 10 unit 10 unit BID SC 10/22/16 09:00 11/21/16 08:59 10/24/16 08:50 10 UNIT Vancomycin HCl/ Sodium Chloride (Vancomycin Inj/ Nss 250ml) 270 ml @ 125 mls/hr Q18H IV 10/23/16 12:00 11/30/16 23:59 10/24/16 05:57 125 MLS/HR Objective Vital Signs Date Time Temp Pulse Resp B/P Pulse Ox O2 Delivery O2 Flow Rate FiO2 10/24/16 15:08 36.8 81 18 155/81 97 Room Air 10/24/16 07:51 Room Air 10/24/16 07:13 37.0 80 18 158/61 94 Room Air 10/24/16 01:31 149/70 10/23/16 23:55 Room Air 10/23/16 23:02 36.7 81 16 167/73 96 Room Air 10/23/16 18:29 152/81 Physical Exam General Appearance: no apparent distress, + obese Eyes: normal inspection, sclerae normal ENT: hearing grossly normal Neck: supple, trachea midline Respiratory/Chest: no respiratory distress, no accessory muscle use Cardiovascular: regular rate, rhythm Neurologic/Psychiatric: alert, normal mood/affect Skin: normal color, warm/dry, no rash Laboratory Results RUN DATE: 10/24/16 [facility] PAGE 1 RUN TIME: 7290 Specimen Inquiry PATIENT: MORENA LOJA LOC: DONALDO U # : [id number] AGE/SX: 71/F ROOM: [facility] REG : 10/18/[address]: Srikanth Michel M : 1945 BED: 1 DIS : STATUS: ADM IN TLOC: SPEC #: [id number] AVA: 10/19/16 STATUS: COMP REQ #: [id number] RECD: 10/19/[address]: Hood Duke, D.OShannan SOURCE: BONE ENTR: 10/19/[address]: Etienne Donis MD SPDESC: FOOT RIGHT Annmarie Giraldo , NADEGE No Doctor, Assigned ORDERED: AER/ANGELIQUE CULTSMR COMMENTS: CULTURE #3 RIGHT FOOT DEEP TISSUE AND BONE Procedure Result Verified Site GRAM STAIN Final 10/20/16-0917 RESULT FEW WBCs SEEN RARE GRAM POSITIVE COCCI OR AER/ANGELIQUE CULT Final 10/24/16-1235 Organism 1 PROTEUS MIRABILIS QUANITY FEW SENS SENSITIVITY TO FOLLOW ANAS NO ANAEROBES ISOLATED. Organism 2 ENTEROCOCCUS FAECALIS QUANITY RARE SENS SENSITIVITY TO FOLLOW Organism 3 COAG NEG STAPHYLOCOCCUS QUANITY FEW SENS NO SENSITIVITY TO FOLLOW Organism 4 STAPHYLOCOCCUS AUREUS QUANITY RARE SENS SENSITIVITY TO FOLLOW SENSITIVITY RESULT INDICATES A METHICILLIN RESISTANT STAPH. AUREUS. PHONED TO Astrid COLEMAN ON 10/24/16 AT 0752 BY Graciela Delgado. Results were verbalized back to ALEYDA. RESULTS WERE ALSO CALLED TO [facility] INFECTION CONTROL ANSWERING MACHINE ON 10/24/16 BY ALEYDA. SENSITIVITY RESULT INDICATES AN ORGANISM WITH AN EXTENDED SPECTRUM BETA LACTAMASE.THIS IS CONSIDERED A MULTIDRUG RESISTANT ORGANISM.PHONED TO OLVIN MINOR ON 10/21/16 AT 0706 BY Miguel Baeza. Results were verbalized back to NAKUL. RESULTS WERE ALSO CALLED TO [facility] INFECTION CONTROL ANSWERING MACHINE ON 10/21/16 BY NAKUL. CONTINUED ON NEXT PAGE RUN DATE: 10/24/16 [facility] PAGE 2 RUN TIME: 1235 Specimen Inquiry SPEC: [id number] PATIENT: MORENA LOJA [id number] ( Continued) Procedure Result Verified Site OR AER/ANGELIQUE CULT Final (continued) 10/24/16-1235 P. MIRABIL E FAECALIS FREDERICK TILLMAN M.I.C. RX M.I.C. RX M.I.C. RX --------- ------ --------- ------ --------- ------ TRIMET/SULFA >2/38 R <=0.5/9.5 S AMPICILLIN >16 R <=2 S * OXACILLIN >2 R AMPICILLIN/SUL <=8/4 S CEFAZOLIN >16 R CEFOTAXIME >32 R CEFTRIAXONE >32 R CEFEPIME >16 R CEFUROXIME >16 R GENT SYNERGY <=500 S VANCOMYCIN 2 S 1 S PENICILLIN 2 S GENTAMICIN >8 R TOBRAMYCIN >8 R ERYTHROMYCIN <=0.5 S TETRACYCLINE >8 R AMIKACIN <=16 S CIPROFLOXACIN >2 R LEVOFLOXACIN >4 R CLINDAMYCIN <=0.5 S ERTAPENEM <=1 S DAPTOMYCIN 1 S 1 S PIP/TAZO <=16 S RIFAMPIN <=1 S STREP SYNERGY <=1000 S ENTEROCOCCUS FAECALIS: POSITIVE COMBO 33 Streptomycin Synergy Screen S Gentamicin Synergy Screen S 1. PROTEUS MIRABILIS Target Route Dose RX AB Cost M.I.C. IQ ------ ----- ------ -- ------ -------- - ------ TRIMET/SULFA R >2/38 AMPICILLIN R >16 AMPICILLIN/SUL S <=8/4 CEFAZOLIN R >16 CEFOTAXIME R >32 CEFTRIAXONE R >32 CEFEPIME R >16 CEFUROXIME R >16 GENTAMICIN R >8 TOBRAMYCIN R >8 AMIKACIN S <=16 CIPROFLOXACIN R >2 LEVOFLOXACIN R >4 CONTINUED ON NEXT PAGE RUN DATE: 10/24/16 [facility] PAGE 3 RUN TIME: 1235 Specimen Inquiry SPEC: [id number] PATIENT: MORENA LOJA [id number] ( Continued) Procedure Result Verified Site OR AER/ANGELIQUE [place] Final (continued) 10/24/16-1235 1. PROTEUS MIRABILIS (continued) Target Route Dose RX AB Cost M.I.C. IQ ------ ----- ------ -- ------ -------- - ------ ERTAPENEM S <=1 PIP/TAZO S <=16 2. ENTEROCOCCUS FAECALIS Target Route Dose RX AB Cost M.I.C. IQ ------ ----- ------ -- ------ -------- - ------ AMPICILLIN S <=2 GENT SYNERGY S <=500 VANCOMYCIN S 2 PENICILLIN S 2 DAPTOMYCIN S 1 STREP SYNERGY S <=1000 Streptomycin Synergy Screen S Gentamicin Synergy Screen S 4. STAPHYLOCOCCUS AUREUS Target Route Dose RX AB Cost M.I.C. IQ ------ ----- ------ -- ------ -------- - ------ TRIMET/SULFA S <=0.5/ 9.5 * OXACILLIN R * >2 VANCOMYCIN S 1 ERYTHROMYCIN S <=0.5 TETRACYCLINE R >8 CLINDAMYCIN S <=0.5 DAPTOMYCIN S 1 RIFAMPIN S <=1 S = SENSITIVE I = INTERMEDIATE R = RESISTANT END OF REPORT Item Value Date Time Gram Stain - Final Complete 10/19/16 1329 Drainage-Deep Toe Right 4 Gram Stain - Final Complete 10/19/16 1230 Bone Foot Right Gram Stain - Final Complete 10/19/16 1225 Drainage-Deep Toe Right 4 Gram Stain - Final Complete 10/19/16 1222 Abscess Toe Right 4 Gram Stain - Final Complete 10/19/16 1108 Ulcer Toe Right 5 Last 24 Hours Test 10/23/16 17:22 10/23/16 20:44 10/24/16 05:59 10/24/16 08:04 Bedside Glucose 185 mg/dl 114 mg/dl 107 mg/dl Creatinine 0.75 mg/dl Est Creatinine Clear Calc Drug Dose 76.9 ml/min Estimated GFR () 94.3 Estimated GFR (Non- 81.3 Test 10/24/16 11:52 Bedside Glucose 138 mg/dl Assessment and Plan Diabetic female 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 Surgical cultures growing multiple organisms including Enterococcus, MRSA, and MDR proteus. She is currently on IV Vancomycin and Ertapenem. Will transition to IV Daptomycin so that she has IV Daptomycin and IV Ertapenem which will both be once daily dosing for MTU. She likely will need at least 2-4 more weeks of abx therapy pending improvement of wound and probably repeat MRI/imaging of her foot. Once abx are in place, patient will be OK for D/C from ID perspective as well. We will follow as outpatient. PROVIDER ADDENDUM: Pt. reviewed with Ms. Giraldo. Agree with above assessment.
--- NOTE | 2016-10-24 17:18 | Progress Note ---
Orthopedic SOAP Note Subjective Date of Service: Oct 24, 2016. Post OP Day: 5 Reports: feeling well, pain controlled w PO medications, Denies: SOB, calf pain , chest pain, complaints, light headedness, nausea / vomiting, using [employer] Problem List Medical Problems: (1) Diabetes Status: Chronic (2) Diabetes mellitus, insulin dependent (IDDM), uncontrolled Status: Acute (3) Gangrene of foot Status: Acute (4) Osteomyelitis of right foot Status: Acute Objective calves soft nontender, N/V intact, capillary refill less than 2 sec. (remaining toes 1-3), dressing C/D/I (some bloody drainage on dressing but nothing infectious in appearance), incision C/D/I, A&O x3, toes mobile (remaining toes) I changed dressing. Tolerated well. Date Time Temp Pulse Resp B/P Pulse Ox O2 Delivery O2 Flow Rate FiO2 10/24/16 15:08 36.8 81 18 155/81 97 Room Air 10/24/16 07:51 Room Air 10/24/16 07:13 37.0 80 18 158/61 94 Room Air 10/24/16 01:31 149/70 10/23/16 23:55 Room Air 10/23/16 23:02 36.7 81 16 167/73 96 Room Air 10/23/16 18:29 152/81 Assessment POD #5 s/p right 4th ray resection and 4th & 5th toe amputation secondarily to osteomyelitis, doing well. Plan Continue pain control. WBAT through heel. Continue IV Abx per ID, awaiting remaining Sensitives results on polymicrobial infection. OK to discharge from Ortho stand point once Abx coverage is established. F/U with Dr. Donis later this week for wound check. Will continue to follow while in hospital. PICC line in place. D/C Wound vac on 10/21/16, keep wound covered, change daily/PRN. Resume ADA diet. DVT Prophylaxis: Lovenox 40 mg subq daily. Continue Care per primary service. Will discuss further with Dr. Donis I, Dr. Donis, saw and examined the patient and discussed the management with my PA. I reviewed my PAs note and agree with the documented findings and the plan of care I developed.
--- NOTE | 2016-10-24 19:30 | Hospitalist Progress Note ---
Hospitalist Progress Note Date of Service Oct 24, 2016. Subjective Pt evaluation today including: conversation w/ patient, physical exam, chart review Objective Vital Signs Date Time Temp Pulse Resp B/P Pulse Ox O2 Delivery O2 Flow Rate FiO2 10/24/16 16:15 Room Air 10/24/16 15:08 36.8 81 18 155/81 97 Room Air 10/24/16 07:51 Room Air 10/24/16 07:13 37.0 80 18 158/61 94 Room Air 10/24/16 01:31 149/70 10/23/16 23:55 Room Air 10/23/16 23:02 36.7 81 16 167/73 96 Room Air Physical Exam General Appearance: WD/WN Eyes: normal inspection ENT: normal ENT inspection Neck: supple, thyroid normal Respiratory/Chest: chest non-tender, lungs clear Cardiovascular: regular rate, rhythm, no edema, no gallop, no murmur Abdomen: normal bowel sounds, non tender, soft Extremities: normal range of motion Neurologic/Psychiatric: software engineer II-XII nml as tested, alert, oriented x 3 Laboratory Results Last 24 Hours Test 10/23/16 20:44 10/24/16 05:59 10/24/16 08:04 10/24/16 11:52 Bedside Glucose 114 mg/dl 107 mg/dl 138 mg/dl Creatinine 0.75 mg/dl Est Creatinine Clear Calc Drug Dose 76.9 ml/min Estimated GFR () 94.3 Estimated GFR (Non- 81.3 Test 10/24/16 17:09 Bedside Glucose 105 mg/dl Assessment and Plan This is a 71-year-old female with a past medical history of hypertension, hyperlipidemia, diabetes type 2, and obesity who presents to the ER with a right foot wound between the fourth and fifth toe. Infection is MDR proteus, MRSA and enterococcus R 4-5th Toe Osteomyelitis and Abscess S/P I&D/Amputation: Failed Outpatient Ceftin - ertapenem and Daptomycin per ID, MDR proteus and awaiting case management to determine if able to secure outpt treatment payment, will discuss with ID but hopeful daptomycin may be a unifying med along with ertapenem. Likely dc tomorrow with IV antibiotic administration as OP at infusion center. - Orthopedic surgery following - did have local debridement, will request office follow up this week - Infectious disease following picc placement final duration and med choice to come T2DM: HbA1c 9 , inpatient bsg controlled, Lantus 10 units SC BID and SSI 120-150 ; correction factor 20; CR 1:9, pt requests to consider return to 70/30 as outpt Hypertension:-continues to be stable Norvasc 5 mg daily, HCTZ 12.5 mg daily, Lisinopril 5 mg daily - Hydralazine 10 mg IV PRN Hyperlipidemia: - Atorvastatin 20 mg daily DVT Prophylaxis: DEB/SCDs, Lovenox 40 mg SC daily Code Status: FULL RESUSCITATION
[2016-10-24] MEDS: ENOXAPARIN 40 MG/0.4 ML SYR SQ SCH (21:27)
[2016-10-24] MEDS: SENNA 8.6 MG TAB PO SCH (21:27)
[2016-10-24 22:55] VITALS: BP 139/77; PULSE 74; TEMP 36.9; O2SAT 93
[2016-10-24] MEDS ORDERED: VANCOMYCIN TROUGH SCH (23:30)
[2016-10-25] MEDS: POTASSIUM CHLORIDE INJ 10 MEQ in SODIUM CHLORIDE 0.9% 1000ML 1,000 ML IV SCH (04:55)
[2016-10-25 06:02] LABS: BASO % 0.7 %; BASO ABS # 0.05 K/uL (0-0.2); COMPLETE YES; EOS % 6.6 %; HEMATOCRIT 32.3 % (37-47); IG% 0.3 %; LYMPH % 26.3 %; LYMPH ABS # 1.87 K/uL (1.2-3.4); MEAN CORPUSCULAR HEMOGLOBIN 24.9 pg (25-34); MEAN CORPUSCULAR HGB CONC 31.6 g/dl (32-36); MEAN PLATELET VOLUME 10.3 fL (7.4-10.4); MONO % 6.9 %; NEUT % 59.2 %; PLATELET COUNT 404 K/uL (130-400); RED BLOOD COUNT 4.09 M/uL (4.2-5.4); WHITE BLOOD COUNT 7.11 K/uL (4.8-10.8)
[2016-10-25 06:40] LABS: CREATININE 0.88 mg/dl (0.60-1.20)
[2016-10-25 06:45] VITALS: BP 181/116; PULSE 77; TEMP 36.9; O2SAT 94
[2016-10-25 08:40] VITALS: BP 146/84; PULSE 81
[2016-10-25] MEDS: DOCUSATE SODIUM 100 MG CAP PO SCH ×2 (09:00→10:09)
[2016-10-25] MEDS ORDERED: DAPTOmycin IV 540 MG in SODIUM CHLORIDE 0.9% 50ML 50 ML IV SCH (09:00)
[2016-10-25] MEDS: INSULIN ASPART 100 UNITS/ML 3 ML PEN SC SCH ×2 (10:07→13:28)
[2016-10-25] MEDS: INSULIN GLARGINE SOLOSTAR 100 UNITS/ML 3 ML PEN SC SCH (10:08)
[2016-10-25] MEDS: AMLODIPINE BESYLATE 5 MG TAB PO SCH (10:09)
[2016-10-25] MEDS: HYDROCHLOROTHIAZIDE 25 MG TAB PO SCH (10:10)
[2016-10-25] MEDS: LISINOPRIL 5 MG TAB PO SCH (10:10)
[2016-10-25] MEDS: ATORVASTATIN 20 MG TAB PO SCH (10:10)
[2016-10-25] MEDS: ERTAPENEM IV 1 GM in SODIUM CHLOR 0.9% AD-VAN 50ML 50 ML IV SCH (10:18)
--- NOTE | 2016-10-25 11:45 | Infectious Disease Progress Nt ---
Progress Note Date of Service Oct 25, 2016. Subjective Pt evaluation today including: conversation w/ patient, conversation w/ family (son), physical exam, chart review, lab review, review of studies, conversation w/ database reporting consultant (NICHOLAS Angeles), review of inpatient medication list Patient's WBC count today was 7.11. Noted that orthopedics changed her dressing and noted bloody drainage but no purulence from the wound. The patient states that she is "good". She offers no complaints. Denies N/V/D. Cultures showing polymicrobial infection. She is tolerating IV abx well. All Other Systems: Reviewed and Negative Medications Current Inpatient Medications Medications (Trade) Dose Ordered Sig/Christen Route Start Time Stop Time Status Last Admin Dose Admin Miscellaneous Information (Consult Glycemic Management Pharmacy) 1 ea UD PRN N/A 10/18/16 14:45 11/17/16 14:44 Glucose (Glucose 40% Gel) 15-30 GRAMS 15 GRAMS... UD PRN PO 10/18/16 14:45 11/17/16 14:44 Glucose (Glucose Chew Tab) 4-8 Tablets 4 Tabl... UD PRN PO 10/18/16 14:45 11/17/16 14:44 Dextrose (Dextrose 50% 50ML Syringe) 25-50ML OF 50% DW IV FOR... UD PRN IV 10/18/16 14:45 11/17/16 14:44 Glucagon (Glucagon Inj) 1 mg UD PRN SQ 10/18/16 14:45 11/17/16 14:44 Enoxaparin Sodium (Lovenox Inj) 40 mg HS SQ 10/18/16 21:00 11/17/16 20:59 10/24/16 21:27 40 MG Acetaminophen (Tylenol Tab) 650 mg Q4H PRN PO 10/18/16 15:30 11/17/16 15:29 Ondansetron HCl (Zofran Inj) 4 mg Q6H PRN IV 10/18/16 15:30 11/17/16 15:29 Amlodipine Besylate (Norvasc Tab) 5 mg DAILY PO 10/19/16 09:00 11/18/16 08:59 10/25/16 10:09 5 MG Atorvastatin Calcium (Lipitor Tab) 20 mg DAILY PO 10/19/16 09:00 11/18/16 08:59 10/25/16 10:10 20 MG Hydrochlorothiazide (Hydrochlorothiazide Tab) 12.5 mg DAILY PO 10/19/16 09:00 11/18/16 08:59 10/25/16 10:10 12.5 MG Ibuprofen (Motrin Tab) 800 mg Q8 PRN PO 10/18/16 15:30 11/17/16 15:29 Lisinopril (Zestril Tab) 5 mg DAILY PO 10/19/16 09:00 11/18/16 08:59 10/25/16 10:10 5 MG Tramadol HCl (Ultram Tab) 50 mg Q4H PRN PO 10/18/16 15:30 11/17/16 15:29 Hydralazine HCl (HydrALAZINE INJ) 10 mg Q4 PRN IV. 10/18/16 16:00 11/17/16 15:59 10/21/16 06:34 10 MG Insulin Aspart SLIDING SCALE ACHS SC 10/19/16 17:15 11/18/16 17:14 10/25/16 10:07 12 UNITS Potassium Chloride/Sodium Chloride (KCl Inj/Nss 1000ml) 1,005 ml @ 100 mls/hr Q10H3M IV 10/19/16 18:30 11/18/16 18:29 10/25/16 04:55 100 MLS/HR Oxycodone HCl (Roxicodone Immediate Rel Tab) 1-2 TABS FOR PAIN 1 TABLET ... Q4H PRN PO 10/19/16 14:45 11/02/16 14:44 10/21/16 15:50 10 MG Morphine Sulfate (MoRPHine SULFATE INJ) 2 mg Q2HWA PRN IV 10/19/16 14:45 11/02/16 14:44 Senna (Senokot Tab) 17.2 mg HS PO 10/19/16 21:00 11/18/16 20:59 10/24/16 21:27 17.2 MG Docusate Sodium 100 mg 100 mg BID PO 10/19/16 21:00 11/18/16 20:59 10/24/16 21:27 100 MG Ertapenem/Sodium Chloride (Invanz Iv/Nss Ad-Van 50ml) 50 ml @ 120 mls/hr DAILY IV 10/21/16 13:00 12/02/16 12:59 10/25/16 10:18 120 MLS/HR Insulin Glargine 10 unit 10 unit BID SC 10/22/16 09:00 11/21/16 08:59 10/25/16 10:08 10 UNIT Daptomycin/Sodium Chloride (Cubicin IV/Nss 50ml) 60.8 ml @ 100 mls/hr DAILY IV 10/25/16 09:00 12/06/16 08:59 10/25/16 10:18 100 MLS/HR Objective Vital Signs Date Time Temp Pulse Resp B/P Pulse Ox O2 Delivery O2 Flow Rate FiO2 10/25/16 08:40 81 146/84 10/25/16 06:45 36.9 77 16 181/116 94 Room Air 10/24/16 23:50 Room Air 10/24/16 22:55 36.9 74 16 139/77 93 Room Air 10/24/16 16:15 Room Air 10/24/16 15:08 36.8 81 18 155/81 97 Room Air Physical Exam General Appearance: no apparent distress, + obese Eyes: normal inspection, sclerae normal ENT: hearing grossly normal Neck: supple, trachea midline Respiratory/Chest: no respiratory distress, no accessory muscle use Cardiovascular: regular rate, rhythm Extremities: + swelling (trace to 1+ pitting edema right lower extremity), + pertinent finding (right foot with dressing in place C/D/I) Neurologic/Psychiatric: alert, normal mood/affect Skin: warm/dry, no rash Laboratory Results Item Value Date Time Gram Stain - Final Complete 10/19/16 1329 Drainage-Deep Toe Right 4 Gram Stain - Final Complete 10/19/16 1230 Bone Foot Right Gram Stain - Final Complete 10/19/16 1225 Drainage-Deep Toe Right 4 Gram Stain - Final Complete 10/19/16 1108 Ulcer Toe Right 5 Gram Stain - Final Complete 10/19/16 1222 Abscess Toe Right 4 Last 24 Hours Test 10/24/16 11:52 10/24/16 17:09 10/24/16 20:35 10/25/16 05:05 Bedside Glucose 138 mg/dl 105 mg/dl 188 mg/dl White Blood Count 7.11 K/uL Red Blood Count 4.09 M/uL Hemoglobin 10.2 g/dL Hematocrit 32.3 % Mean Corpuscular Volume 79.0 fL Mean Corpuscular Hemoglobin 24.9 pg Mean Corpuscular Hemoglobin Concent 31.6 g/dl Platelet Count 404 K/uL Mean Platelet Volume 10.3 fL Neutrophils (%) (Auto) 59.2 % Lymphocytes (%) (Auto) 26.3 % Monocytes (%) (Auto) 6.9 % Eosinophils (%) (Auto) 6.6 % Basophils (%) (Auto) 0.7 % Neutrophils # (Auto) 4.21 K/uL Lymphocytes # (Auto) 1.87 K/uL Monocytes # (Auto) 0.49 K/uL Eosinophils # (Auto) 0.47 K/uL Basophils # (Auto) 0.05 K/uL RDW Standard Deviation 50.2 fL RDW Coefficient of Variation 17.7 % Immature Granulocyte % (Auto) 0.3 % Immature Granulocyte # (Auto) 0.02 K/uL Creatinine 0.88 mg/dl Est Creatinine Clear Calc Drug Dose 65.6 ml/min Estimated GFR () 77.7 Estimated GFR (Non- 67.0 Test 10/25/16 06:52 Bedside Glucose 170 mg/dl Assessment and Plan Diabetic female 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 Surgical cultures growing multiple organisms including Enterococcus, MRSA, and MDR proteus. She is currently on IV Daptomycin and Ertapenem. She likely will need at least 2-4 more weeks of abx therapy pending improvement of wound and probably repeat MRI/imaging of her foot. Once abx are in place, patient will be OK for D/C from ID perspective as well. We will follow as outpatient. PROVIDER ADDENDUM: Pt. reviewed with Ms. Giraldo. Agree with above assessment.
--- NOTE | 2016-10-25 12:57 | Progress Note ---
Orthopedic SOAP Note Subjective Date of Service: Oct 25, 2016. Post OP Day: 6 Reports: feeling well, pain controlled w PO medications, Denies: SOB, calf pain , chest pain, complaints, light headedness, nausea / vomiting, using [employer] Problem List Medical Problems: (1) Diabetes Status: Chronic (2) Diabetes mellitus, insulin dependent (IDDM), uncontrolled Status: Acute (3) Gangrene of foot Status: Acute (4) Osteomyelitis of right foot Status: Acute Objective calves soft nontender, N/V intact, capillary refill less than 2 sec., dressing C /D/I (some serous drainage on outter bandage but inner ABD is blood only. Appears patient has been sitting bedside only and not elevating, creating more drainage. Discussed with patient and son in depth about elevating. Understands and agrees. ), incision C/D/I (looks great, small amount of blood around incision which looks healthy, nothing overly serous, no active drainage.) , A&O x3, toes mobile (toes 1-3), CMS intact (toes 1-3 ) spoke with patient's son and advised an appointment is to be scheduled this week with Dr. Donis for post-operative check and evaluation. Information has been provided to call for appointment, aware and agrees. Date Time Temp Pulse Resp B/P Pulse Ox O2 Delivery O2 Flow Rate FiO2 10/25/16 10:00 Room Air 10/25/16 08:40 81 146/84 10/25/16 06:45 36.9 77 16 181/116 94 Room Air 10/24/16 23:50 Room Air 10/24/16 22:55 36.9 74 16 139/77 93 Room Air 10/24/16 16:15 Room Air 10/24/16 15:08 36.8 81 18 155/81 97 Room Air Laboratory Results 24 Hours: Test 10/25/16 05:05 White Blood Count 7.11 K/uL Red Blood Count 4.09 M/uL Hemoglobin 10.2 g/dL Hematocrit 32.3 % Mean Corpuscular Volume 79.0 fL Mean Corpuscular Hemoglobin 24.9 pg Mean Corpuscular Hemoglobin Concent 31.6 g/dl Platelet Count 404 K/uL Mean Platelet Volume 10.3 fL Neutrophils (%) (Auto) 59.2 % Lymphocytes (%) (Auto) 26.3 % Monocytes (%) (Auto) 6.9 % Eosinophils (%) (Auto) 6.6 % Basophils (%) (Auto) 0.7 % Neutrophils # (Auto) 4.21 K/uL Lymphocytes # (Auto) 1.87 K/uL Monocytes # (Auto) 0.49 K/uL Eosinophils # (Auto) 0.47 K/uL Basophils # (Auto) 0.05 K/uL Assessment POD #6 s/p right 4th ray resection and 4th & 5th toe amputation secondarily to osteomyelitis, doing well. Plan Continue pain control. WBAT through heel. Continue IV Abx per ID, awaiting remaining Sensitives results on polymicrobial infection. OK to discharge from Ortho stand point once Abx coverage is established. F/U with Dr. Donis later this week for wound check. Please call [facility] for appt [phone] D/C Wound vac on 10/21/16, keep wound covered, change daily/PRN. Resume ADA diet. DVT Prophylaxis: Lovenox 40 mg subq daily. Continue Care per primary service. Patient being discharged today. Reinforced elevating. Will discuss further with Dr. Donis
--- NOTE | 2016-10-25 13:39 | Discharge Instructions ---
Discharge Instructions Date of Service Oct 25, 2016. Admission Reason for Admission: Osteomyelitis Discharge Discharge Diagnosis / Problem: Osteomyelitis foot. Diabetes mellitus type 2. Discharge Goals Goal(s): Improve function Activity Recommendations Activity Limitations: per Instructions/Follow-up section Lifting Limitations: gradually increase as tolerated Exercise/Sports Limitations: until after follow-up appointment Shower/Bathe: keep incision dry . Current Hospital Diet Patient's current hospital diet: AHA Diet (Heart Healthy), Diabetes Type 2 Diet Discharge Diet Recommended Diet: AHA Diet (Heart Healthy), Diabetes Type 2 Diet Procedures Procedures Performed: 1) Right Foot Incision and Drainage. 2) Fourth Ray resection. 3) Fourth and Fifth toe amputation. 4) Incisional Wound Vac Placement. Pending Studies Studies pending at discharge: no Laboratory Results Hemoglobin A1c Test 10/18/16 12:50 Range/Units Estimated Average Glucose 212 mg/dl Hemoglobin A1c 9.0 H 4.5-5.6 % Lipid Panel Test 10/19/16 05:26 Range/Units Triglycerides Level 90 0-150 mg/dl Cholesterol Level 143 0-200 mg/dl HDL Cholesterol 30 mg/dl Cholesterol/HDL Ratio 4.8 LDL Cholesterol, Calculated 95 mg/dl Medical Emergencies . Who to Call and When: Medical Emergencies: If at any time you feel your situation is an emergency, please call 911 immediately. . Non-Emergent Contact Non-Emergency issues call your: Primary Care Provider . Past History Medical & Surgical History: (1) Gangrene of foot (2) Osteomyelitis of right foot (3) Hypertension (4) Hyperlipidemia (5) Obesity (BMI 30.0-34.9) (6) Diabetes mellitus, type II . "Provider Documentation" section prepared by Cheyenne Lee. . Associate Manager Affiliate Marketing Recommendations Associate Manager Affiliate Marketing Recommendations: FOLLOW-UP APPOINTMENT: *Please call Dr. Donis's office at [facility] for an appointment next week, either 10/25/16 or 10/26/16, for a post-operative wound check. Call [phone] for appointment. WEIGHTBEARING: *You are permitted to weightbear through your heal while walking. Please use your walker and post-op shoe. DRESSING CHANGES: *Please perform daily dry sterile dressing changes to the right foot. DIET: * Resume previous diet. MEDICATIONS: * Please take your prescriptions as instructed, see medication discharge instructions listed above. * Lovenox is an injectable blood thinner that is to be used daily for 2 weeks after surgery to reduce your risk of blood clots after surgery. After 2 weeks of using Lovenox, please use Aspirin 325mg every AM & PM for an additional 2 weeks. * If concerns develop, call your physician's office at . SPECIAL CARE INSTRUCTIONS: * Ice/Elevate as instructed. * Keep dressing clean, dry, intact. * Your surgical extremity may be discolored due to prepping agents used on the skin. A bluish-green tint is a normal variant and should not cause alarm. Call your doctor at [phone] if: * Temperature above 101 degrees * Pain not relieved by pain medicine ordered * There is increased drainage or redness from any incision * You have any unanswered questions, problems or concerns. VTE Core Measure Inpt VTE Proph given/why not?: Enoxaparin (Lovenox)SQ, T.E.D. Stockings, SCD's
[2016-10-25 14:50] VITALS: BP 146/84; PULSE 81; TEMP 36.9; O2SAT 94
--- NOTE | 2016-10-26 16:15 | Discharge Summary ---
Discharge Summary Date of Service Oct 25, 2016. Discharge Summary Admission Date: Oct 18, 2016 at 15:32 Discharge Date: Oct 25, 2016 Discharge Disposition: Home Principal Diagnosis: Osteomyelitis foot Problems/Secondary Diagnoses: (1) Diabetes Status: Chronic Consultations: Infectious diseases Orthopedics Medication Reconciliation Continued Medications: Amlodipine Besylate (Amlodipine Besylate) 5 Mg Tab 5 MG PO DAILY, TAB Atorvastatin (Lipitor) 20 Mg Tab 1 TAB PO DAILY for 90 Days, #90 TAB 1 Refill Hydrochlorothiazide (Hctz) 12.5 Mg Cap 1 CAP PO DAILY for 90 Days, #90 CAP 1 Refill Ibuprofen (Motrin) 800 Mg Tab 800 MG PO Q8 PRN for Pain, TAB Insulin Isophan/Regular (Novolin 70/30) Susp 0 SC BID, BTL 20 units if BSG in 200's 30 units if BSG in 300's Lisinopril (Lisinopril) 5 Mg Tab 5 MG PO DAILY Simvastatin (Simvastatin) 20 Mg Tab 20 MG PO HS Discontinued Medications: Cefuroxime Axetil (Cefuroxime Axetil) 500 Mg Tab 1 TAB PO BID for 7 Days, #14 TAB Discharge Exam Physical Exam: General Appearance: WD/WN Eyes: PERRL ENT: normal ENT inspection Neck: supple, no JVD Respiratory/Chest: chest non-tender, lungs clear Cardiovascular: regular rate, rhythm, + systolic murmur Abdomen / GI: normal bowel sounds, non tender, soft Extremities: normal inspection, no calf tenderness Neurologic/Psychiatric: grade recorder II-XII nml as tested, oriented x 3 Skin: normal color Hospital Course This is a 71-year-old female with a past medical history of hypertension, hyperlipidemia, diabetes type 2, and obesity who presents to the ER with a right foot wound between the fourth and fifth toe. Infection is MDR proteus, MRSA and enterococcus R 4-5th Toe Osteomyelitis and Abscess S/P I&D/Amputation: Failed Outpatient Ceftin - ertapenem and Daptomycin per ID, MDR proteus and awaiting case management to determine if able to secure outpt treatment payment, will discuss with ID but hopeful daptomycin may be a unifying med along with ertapenem. Likely dc tomorrow with IV antibiotic administration as OP at infusion center. - Orthopedic surgery following - did have local debridement, will request office follow up this week - Infectious disease following picc placement final duration and med choice to come T2DM: HbA1c 9 , inpatient bsg controlled, Lantus 10 units SC BID and SSI 120-150 ; correction factor 20; CR 1:9, pt requests to consider return to 70/30 as outpt Hypertension:-continues to be stable Norvasc 5 mg daily, HCTZ 12.5 mg daily, Lisinopril 5 mg daily - Hydralazine 10 mg IV PRN Hyperlipidemia: - Atorvastatin 20 mg daily DVT Prophylaxis: DEB/SCDs, Lovenox 40 mg SC daily Code Status: FULL RESUSCITATION Total Time Spent: Greater than 30 minutes This includes examination of the patient, discharge planning, medication reconciliation, and communication with other providers. Discharge Instructions Please refer to the electronic Patient Visit Report (Discharge Instructions) for additional information.
== END 2016-10-25 16:05 | disposition home or self-care (01) | DRG 617 ==
LOC: ENRESERVDT → ENRESERVTM → C.EDB 11:59 → C.MSW 15:32 → EDBEDREQ 15:37
PROVIDERS: ADMIT Internal Medicine; ATTEND Internal Medicine
PROC: 02HV33Z Insertion of Infusion Device into Superior Vena Cava, Percutaneous Approach (ICD-10-PCS; 2016-10-17)
PROC: 0Y6X0Z0 Detachment at Right 5th Toe, Complete, Open Approach (ICD-10-PCS; principal; 2016-10-19 11:30)
PROC: 0JBQ0ZZ Excision of Right Foot Subcutaneous Tissue and Fascia, Open Approach (ICD-10-PCS; principal; 2016-10-19 11:30)
PROC: 0Y6V0Z0 Detachment at Right 4th Toe, Complete, Open Approach (ICD-10-PCS; principal; 2016-10-19 11:30)
DX: E11.69 Type 2 diabetes mellitus with other specified complication (principal); M86.171 Other acute osteomyelitis, right ankle and foot; L03.116 Cellulitis of left lower limb; I10 Essential (primary) hypertension; E11.52 Type 2 diabetes mellitus with diabetic peripheral angiopathy with gangrene; E66.9 Obesity, unspecified; Z68.30 Body mass index [BMI] 30.0-30.9, adult; E78.5 Hyperlipidemia, unspecified

== ENCOUNTER 2016-11-15 11:00 | Emergency (ER) | payer OTHER ==
[~2016-11-15 11:00] MED LIST: ATOR-54 PO; HYDR12.56 PO; IBUP-1428 PO; INSU70IN2 SC; LSN5 PO; NRV5 PO; SIMV-151 PO
[2016-11-15 11:05] VITALS: TEMP 36.7
--- NOTE | 2016-11-15 12:25 | DIAGNOSTIC IMAGING REPORT ---
RIGHT HAND 3 VIEWS CLINICAL HISTORY: Fall with right hand pain. FINDINGS: 3 views of the right hand are obtained. No prior studies are available for comparison at the time of dictation. The skeletal structures are osteopenic. No fracture is seen. Moderate osteoarthritic change is present at the first carpometacarpal joint. Osteoarthritic change is also present at the first metacarpophalangeal joint and the interphalangeal joints. No bony erosion is identified. The overlying soft tissues are within normal limits. IMPRESSION: Osteopenia and arthritic change as above. No fracture is seen. Electronically signed by: Cash Chinchilla M.D. 11/15/2016 12:24 PM Dictated Date/Time: 11/15/2016 12:22 PM
--- NOTE | 2016-11-15 12:27 | DIAGNOSTIC IMAGING REPORT ---
LEFT WRIST MIN 3 VIEWS ROUTINE CLINICAL HISTORY: mild pain l distal rad COMPARISON: None. DISCUSSION: The bones and joint spaces appear intact. There is no evidence of fracture, dislocation or bony disease. There is no evidence for soft tissue swelling. IMPRESSION: Negative study. Electronically signed by: Florentino Maurice M.D. 11/15/2016 12:25 PM Dictated Date/Time: 11/15/2016 12:25 PM
--- NOTE | 2016-11-15 12:29 | DIAGNOSTIC IMAGING REPORT ---
LEFT HAND MIN 3 VIEWS ROUTINE CLINICAL HISTORY: 2/3 mc pain. Trauma. COMPARISON: None. DISCUSSION: Moderate generalized degenerative change throughout. Mild soft tissue edema. No evidence for acute bony abnormality. IMPRESSION: Moderate degenerative change. No acute bony abnormality. Electronically signed by: Florentino Maurice M.D. 11/15/2016 12:27 PM Dictated Date/Time: 11/15/2016 12:26 PM
[2016-11-15 12:40] VITALS: BP 149/71; PULSE 75; O2SAT 97
--- NOTE | 2016-11-15 14:09 | EMERGENCY ROOM VISIT NOTE ---
History Report prepared by Dar: Anayeli Pereyra Under the Supervision of: Dr. Bogdan Negrete D.O. First contact with patient: 11:08 Chief Complaint: FALL Stated Complaint: FALL YESTERDAY HIT HEAD, BILATERAL HANDS HURT History of Present Illness The patient is a 71 year old female who presents to the Emergency Room with complaints of a sudden fall that occurred yesterday. The patient understands some [place], but her son is at bedside translating for her. The patient's son states that the patient fell in the bathroom yesterday and landed on her hands. She hit the left side of her head, but states that it is not painful and she denies any headaches. She never had a headache you when she initially hit her head. She also denies any neck pain. The patient is experiencing pain in her bilateral hands and fingers. The pain in her hands is worse with movement of her fingers. The patient has a walking boot on her right foot because she had surgery done 3 weeks ago. She states that the boot is what caused her to fall. The patient is not on any blood thinners. Source of History: patient, family (son) Onset: yesterday Position: other (global) Quality: other (fall) Timing: other (sudden) Associated Symptoms: No headache, No neck pain Note: pain in bilateral hands and fingers, no head pain Review of Systems See HPI for pertinent positives & negatives. A total of 10 systems reviewed and were otherwise negative. Past Medical & Surgical Medical Problems: (1) Diabetes (2) Diabetes mellitus, type II (3) Hyperlipidemia (4) Hypertension (5) Obesity (BMI 30.0-34.9) (6) Osteomyelitis Family History Diabetes mellitus Social History Smoking Status: Never Smoker Alcohol Use: none Drug Use: none Marital Status: Occupation Status: unemployed Current/Historical Medications Scheduled Amlodipine Besylate (Amlodipine Besylate), 5 MG PO DAILY Atorvastatin (Lipitor), 1 TAB PO DAILY Hydrochlorothiazide (Hctz), 1 CAP PO DAILY Insulin Isophan/Regular (Novolin 70/30), 0 SC BID Scheduled PRN Ibuprofen (Motrin), 800 MG PO Q8 PRN for Pain Allergies Coded Allergies: No Known Allergies (Unverified , 11/08/16) Physical Exam Vital Signs Date Time Temp Pulse Resp B/P Pulse Ox O2 Delivery O2 Flow Rate FiO2 11/15/16 12:40 75 16 149/71 97 11/15/16 11:05 36.7 80 18 158/83 98 Room Air Physical Exam GENERAL: alert, well appearing, well nourished, no distress, non-toxic HEAD: normal cephalic, atraumatic EYE EXAM: normal conjunctiva, PERRL and EOM's grossly intact OROPHARYNX: no exudate, no erythema, lips, buccal mucosa, and tongue normal and mucous membranes are moist EARS: TMs clear b/l NECK: supple, no nuchal rigidity, no adenopathy, non-tender CHEST: stable to compression anteriorly and posteriorly LUNGS: clear to auscultation. Normal chest wall mechanics HEART: no murmurs, S1 normal and S2 normal ABDOMEN: abdomen soft, non-tender, normo-active bowel sounds, no masses, no rebound or guarding. PELVIS: stable to compression anteriorly and posteriorly BACK: Back is symmetrical on inspection and there is no deformity, no midline tenderness, no CVA tenderness. UPPER EXTREMITIES: minimal tenderness over left distal radius, right second through fourth MCPs, and throughout the right digits, faint bruising over right dorsal MCPs, radial pulse 2/4 bilaterally, tenderness over left dorsal surface and left third and fourth MCPs, abduction of digits along with grasp and gross sensation intact bilaterally, full active and passive range of motion of wrist, elbow, and shoulder LOWER EXTREMITIES: full active and passive range of motion of all joints without tenderness to palpation NEURO EXAM: Normal sensorium, cranial nerves II-XII grossly intact, normal speech interpreted through son, no gross weakness of arms, no gross weakness of legs with the exception of plantar and dorsiflexion in the right lower extremity secondary to foot immobilizer. GCS: 15. Medical Decision & Procedures ER Provider Diagnostic Interpretation: Radiology results as stated below per my review and the radiologist's interpretation: RIGHT HAND 3 VIEWS FINDINGS: 3 views of the right hand are obtained. No prior studies are available for comparison at the time of dictation. The skeletal structures are osteopenic. No fracture is seen. Moderate osteoarthritic change is present at the first carpometacarpal joint. Osteoarthritic change is also present at the first metacarpophalangeal joint and the interphalangeal joints. No bony erosion is identified. The overlying soft tissues are within normal limits. IMPRESSION: Osteopenia and arthritic change as above. No fracture is seen. Electronically signed by: Cash Chinchilla M.D. 11/15/2016 12:24 PM Dictated Date/Time: 11/15/2016 12:22 PM LEFT HAND MIN 3 VIEWS ROUTINE DISCUSSION: Moderate generalized degenerative change throughout. Mild soft tissue edema. No evidence for acute bony abnormality. IMPRESSION: Moderate degenerative change. No acute bony abnormality. Electronically signed by: Florentino Maurice M.D. 11/15/2016 12:27 PM Dictated Date/Time: 11/15/2016 12:26 PM LEFT WRIST MIN 3 VIEWS ROUTINE DISCUSSION: The bones and joint spaces appear intact. There is no evidence of fracture, dislocation or bony disease. There is no evidence for soft tissue swelling. IMPRESSION: Negative study. Electronically signed by: Florentino Maurice M.D. 11/15/2016 12:25 PM Dictated Date/Time: 11/15/2016 12:25 PM ED Course ED COURSE: Vital signs were reviewed and showed normal. The patients medical record was reviewed The above diagnostic studies were performed and reviewed. ED treatments and interventions as stated above. 1115: The patient was evaluated in room B9. A complete history and physical examination was performed. 1244: Upon reevaluation, the patient is doing well. I discussed my findings with the patient and she understands and agrees with the treatment plan. Based on the patients age, coexisting illnesses, exam and lab findings the decision to treat as an outpatient was made. The patient remained stable while under my care. The patient appeared well at the time of discharge. Medical Decision Differential diagnoses include major intracranial, cervical, spinal, thoracic, abdominal, pelvic and neurologic injury. Fracture, contusion, sprain, strain, laceration, abrasions included as well. Patient is a 71-year-old female who presents the ER following a mechanical fall yesterday. She notes that she did hit her head but did not lose consciousness and notes that her head just grazed the ground. There is no signs of trauma on her head. She denied any headache from the impact and has no complaints at this time. She has no neck pain. She has minimal tenderness in her bilateral hands which were x-rayed and showed no acute fractures. She was updated in regards to these findings. She was discharged to follow-up with primary care doctor. She had no scaphoid tenderness and consequently no splint was placed. Discussed with Pt concerning signs and symptoms to watch out for. Pt was instructed to follow up with their PCP and discussed with the patient their option to return to the ED at anytime for persistent or worsening symptoms. The appropriate anticipatory guidance and out-patient management, including indications for return to the emergency department, were explained at length to the patient and understood. Impression Primary Impression: Contusion of hand(s) Scribe Attestation The scribe's documentation has been prepared under my direction and personally reviewed by me in its entirety. I confirm that the note above accurately reflects all work, treatment, procedures, and medical decision making performed by me. Departure Information Dispostion Home / Self-Care Referrals No Doctor, Assigned (PCP) Forms HOME CARE DOCUMENTATION FORM, IMPORTANT VISIT INFORMATION Patient Instructions ED Contusion Hand, [facility] Additional Instructions Please follow up with your primary care doctor with in the next 24 hours. Any worsening of your symptoms, please return to the ED immediately. This includes any worsening pain, weakness or numbness in your arms or legs, confusion, or any other concerning signs or symptoms from your standpoint. If you continue to have pain over the next 5 days she will need repeat x-rays to make sure there is no occult fracture.
== END 2016-11-15 12:50 | disposition home or self-care (01) ==
LOC: C.EDB 11:03
DX: S60.221A Contusion of right hand, initial encounter (principal); S60.222A Contusion of left hand, initial encounter; W18.30XA Fall on same level, unspecified, initial encounter; W22.8XXA Striking against or struck by other objects, initial encounter; E11.9 Type 2 diabetes mellitus without complications; E78.5 Hyperlipidemia, unspecified; I10 Essential (primary) hypertension; Z79.899 Other long term (current) drug therapy

== ENCOUNTER → 2017-01-23 | Outpatient (CLI) | payer OTHER ==
[~2017-01-23] MED LIST changes: -LSN5 PO; -SIMV-151 PO
--- NOTE | 2017-01-26 09:23 | POLYSOMNOGRAPH REPORT ---
CLINICAL DATA: A 71-year-old female with BMI of 37.24 referred for evaluation of sleep apnea. The patient had a recent hospital stay and the nursing staff noted gasping episodes while sleeping. Her daughter who is a physician stated she has witnessed the same thing associated with snoring at night. On the evening of 01/24/2017, home sleep apnea test was performed using a Phenomix type 3 monitor. RECORDING RESULTS: Total recording time was 10 hours. The patient's monitoring time and estimated sleep time was 5.8 hours. RESPIRATORY DATA: Severe sleep apnea was documented. The BIGG was 37. There were 87 obstructive and 23 mixed apneic episodes. There were 103 hypopneic episodes. The longest respiratory event was 76 seconds. OXIMETRY DATA: Severe nocturnal hypoxemia was seen. Oxygen addie was 56%. Mean saturation was 91%. Time below 89% was 70 minutes. HEART RATE DATA: Heart rates ranged from 60-73 beats per minute. MILKING MACHINE MECHANIC'S COMMENTS: The patient had snoring throughout the test. There were hypopneas and apneas seen frequently with profound desaturations throughout the entire test. IMPRESSION: Severe sleep apnea/hypopnea with severe nocturnal hypoxemia. RECOMMENDATIONS: The patient may benefit from a repeat sleep study with CPAP or use of auto CPAP. MTDD
== END | disposition home or self-care (01) ==
LOC: C.NEUR 14:49
PROVIDERS: ATTEND Physician Assistant Medical
DX: R06.83 Snoring (principal); R06.81 Apnea, not elsewhere classified

== ENCOUNTER → 2017-02-02 | Outpatient (CLI) | payer OTHER ==
--- NOTE | 2017-02-03 13:21 | MAMMOGRAPHY REPORT ---
BILATERAL DIGITAL SCREENING MAMMOGRAM WITH CAD: 02/02/2017 CLINICAL HISTORY: Routine screening. Baseline exam. Patient has no complaints. TECHNIQUE: Current study was also evaluated with a Computer Aided Detection (CAD) system. Bilateral CC and MLO views were obtained. COMPARISON: No prior exams were available for comparison. BREAST COMPOSITION: There are scattered areas of fibroglandular density in both breasts. FINDINGS: No suspicious masses, calcifications, or areas of architectural distortion are noted in ei ther breast. Scattered bilateral benign-appearing calcifications are noted. IMPRESSION: ACR BI-RADS CATEGORY 2: BENIGN There is no mammographic evidence of malignancy. A 1 year screening mammogram is recommended. The pa tient will receive written notification of the results. Approximately 10% of breast cancers are not detected with mammography. A negative mammographic report should not delay biopsy if a clinically suggestive mass is present. Halle Main M.D. ah/:02/02/2017 15:30:39 Attending Technologist: Mindy Alston, [facility] Vp Scientific: Holly ARNOLD,R, M, [facility] letter sent: Normal 1/2 BI-RADS Code: ACR BI-RADS Category 2: Benign
== END | disposition home or self-care (01) ==
LOC: C.MAMM 14:47
PROVIDERS: ATTEND Family Medicine
DX: Z12.31 Encounter for screening mammogram for malignant neoplasm of breast (principal); M85.851 Other specified disorders of bone density and structure, right thigh; M85.852 Other specified disorders of bone density and structure, left thigh

== ENCOUNTER → 2017-03-09 | Outpatient (CLI) | payer OTHER ==
--- NOTE | 2017-03-10 05:54 | PAP/PSG TECHNICIAN REPORT ---
[facility] Guard Sergeant Polysomnogram Report Study name: None Report date: 03/10/2017 Study date: 03/09/2017 Referring Physician: Mandeep Messina M.D. Name: MORENA JOSEPH Interpreting Physician: Mandeep Messina M.D. Date of : 1945 Guard Sergeant: Ena Sen RPSGT. Sex: Female Age: 71 Study Type: PSG PAP Weight: 217 lbs 15.5 in Height: 71 years, Height 5' 4" Neck Circum: BMI: 37.24 Medications: ASPIRIN 81 MG, HYDROCHLOROTHIAZIDE 12.5 MG, LANTUS 100 UNIT/ML, LIPITOR 20 MG, LISINOPRIL 5 MG, METFORMIN 500 MG, NOVOLOG 100 UNIT/ML, SIMVASTATIN 20 MG Patient History 71 yr-old female here for a new CPAP treatment study. She was found to be positive for ALEXANDRA via a home sleep study. She chose a Mirage FX Soft edge nasal mask size wide from [employer]. The test was started on room air and 4 CMH2O. ETCO2 testing was not utilized during this study. Room 7 Parameters Monitored NPSG: E1-M2, E2-M1, Fp1-M2, Fp2-M1, F3-M2, F4-M2, F4-M1, C3-M2, C4-M2, C4-M1, O1-M2, O2-M2, O2-M1, T3-M2, T4-M1, P3-M2, P4-M1, CHIN1, CHIN2, HR, EKG, Legs, PFLOW, SNOR, FLOW, CFLOW, Tidal Volume, THOR, ABDO, SpO2, PLTH, CPRESS, ETCO2 Wave, ETCO2, pH Sleep Architecture Sleep Stages Time at Lights Off 11:07:04 PM STAGES Time (min.) TST (%) Time at Lights On 5:30:04 AM Wake 67.5 -- Total Recording Time (TRT) 383.00 min. N1 16.0 5 Total Sleep Period (TSP) 329.5 min. N2 196.0 62 Total Sleep Time (TST) 315.5min. N3 36.0 11 Awake Time 67.5 min. REM 67.5 21 Wake after Sleep Onset 14.0 min. Sleep Efficiency (SE) 82 % Sleep Onset Latency (KARI) 53.5 min. Number of Stage 1 Shifts None Awakenings 5 Stage Changes 57 Number of REM periods 4 REM 67.5 21 REM Latency 67.0 min. NREM 248.0 79 Body Position Analysis Supine Right Left Side Prone Vertical Total Sleep Time (min.) 383.0 0.0 0.0 0.00 0.0 0.0 Total Sleep Time (%) 100% 0% 0% 0 0% N/A% Total Sleep Time REM (min.) 67.5 0.0 0.0 None 0.0 0.0 Total Sleep Time NREM (min.) 248.0 0.0 0.0 None 0.0 0.0 Intermittent Wake (min.) 67.5 0.0 0.0 None 0.0 0.0 Total Sleep Period (%) 100% None None None None None Arousals Myoclonus (PLM) * Events Count Index Events Count Index Spontaneous 13 2 Events Awake (PLMW) 45 40.0 Respiratory 4 1.0 Events Asleep w/ Arousal (PLMA) 11 2.1 PLM 11 2 Events Asleep w/o Arousal (PLMS) 349 66.4 Snoring 0 0 Total Asleep 360 68.5 Total 28 5 Total 405 63 Respiratory Analysis * CA OA MA CH H RERA Total Count 7 14 0 0 37 1 58 Index 1.3 2.7 0.0 0 7.0 0 11.2 Mean Duration 15.7 15.9 0.0 0.00 19.2 17.5 17.9 Longest Duration 21.2 25.4 0.0 0.00 0.0 17.5 29.0 Respiratory Event Summary Total Supine ~Supine Right Left Prone REM NREM Apneas Count 21 21 N/A N/A N/A N/A 0 21 Index 4.0 4 N/A N/A N/A N/A 0 5 Hypopneas (4% Desat) Count 37 37 N/A N/A N/A N/A 2 35 Index 7.0 7.0 N/A N/A N/A N/A 1.8 8.5 Apneas & All Hypopneas Count 58 58 N/A N/A N/A N/A 2 56 Index 11.0 11 N/A N/A N/A N/A 1.8 13.5 Respiratory Events (Ball Truing Machine Operator+All Hyp+RERA) Count 58 59 N/A N/A N/A N/A 2 56 Index 11.2 11 N/A N/A N/A N/A 1.8 13.8 Respiratory Related Arousal Count 4 59 N/A N/A N/A N/A 0 5 Index 1.0 1 N/A N/A N/A N/A 0 1 Snoring Analysis Supine Right Left Prone REM NREM Total Snore duration 0.7 min Snores count 34 N/A N/A N/A 1 33 34 Snore mean duration 1.3 Sec Snores index 6 N/A N/A N/A 0.9 8.0 6.5 TST with snoring (%) 0.2% Desaturation Event Summary: Minimum %SpO2 Event Count Mean/Min/Max Duration(sec.) Desaturation Index % Time In Bed > 90 74 23.3 / 9.0 / 55.5 15.6 75.1 86 - 90 3 25.1 / 14.3 / 31.5 1.9 24.5 81 - 85 0 N/A 0.0 0.3 76 - 80 0 N/A 0.0 0.0 71 - 75 0 N/A 0.0 0.1 66 - 70 0 N/A 0.0 0.0 61 - 65 0 N/A 0.0 0.0 56 - 60 0 N/A 0.0 0.0 51 - 55 0 N/A 0.0 0.0 < 50 0 N/A 0.0 0.0 Total REM NREM Awake <50% 0.0 min. 0.0 min. 0.0 min. 0.0 min. 51 - 60% 0.0 min. 0.0 min. 0.0 min. 0.0 min. 61 - 70% 0.0 min. 0.0 min. 0.0 min. 0.0 min. 71 - 80% 0.4 min. 0.4 min. 0.0 min. 0.0 min. 81 - 90% 93.7 min. 21.7 min. 71.5 min. 0.6 min. 91 - 100% 283.7 min. 45.4 min. 176.5 min. 61.8 min. Average 92 91 92 97 Minimum SpO2 71 71 81 81 Desaturation Event Index 11.9 2.7 16.5 4.4 # Desat. Events below 89% 10 3 7 0 Time(%) with Saturation below 89% 2.7 1.5 1.1 0.1 Time(min.) with Saturation below 89% 10.3 5.7 4.1 0.5 Time (mins) REM (mins) NREM (mins) % of TST SpO2 Below 90% 33 3 N30 11.3 SpO2 Below 88% 5 0 0 2 Heart Rate Analysis Min (bpm) Max (bpm) Average (bpm) Awake 63 75 67 NREM 59 71 63 REM 60 74 65 Overall 59 74 63 Supplemental O2 Values Minimum O2 level: None Value Start Time End Time Guard Sergeant Comments Ms. Joseph slept only in the supine position with the head of the bed slightly elevated. No cardiac arrhythmias were noted. PLMs were noted. No bruxism noted. CPAP was initiated at +4 CMH2O and up-titrated to a level of +10 CMH2O, Cflex 2. A Mirage FX Soft edge nasal mask size wide from [employer] was used during titration. She awoke to use the restroom one time during the night. Ms. Joseph stated that she slept ok. The final report will be interpreted and signed by a sleep physician. The completed physician report will then be placed in the patient medical record. Therapy Event: Therapy (cm H20) 4 6 8 9 10 Total Time at Pressure (min.) 81.1 13.0 75.0 106.6 107.3 TST at Pressure (min.) 22.6 13.0 67.5 106.6 105.8 # Periods 1 1 1 1 1 Sleep Onset (min.) 53.5 0.0 0.0 0.0 0.0 REM Onset (min.) N/A N/A 26.5 85.4 0.0 Sleep Efficiency % 27 100 90 100 98 Wakefulness (%) 72.2 0.0 10.0 0.0 1.4 Wakefulness (min.) 58.5 0.0 7.5 0.0 1.5 NREM 1 (%) 9.3 3.9 4.0 0.0 4.7 NREM 1 (min.) 7.5 0.5 3.0 0.0 5.0 NREM 2 (%) 18.6 96.1 42.7 60.9 66.6 NREM 2 (min.) 15.1 12.5 32.0 64.9 71.5 NREM 3 (%) 0.0 0.0 16.7 19.2 2.8 NREM 3 (min.) 0.0 0.0 12.5 20.5 3.0 REM (%) 0.0 0.0 26.6 19.9 24.5 REM (min.) 0.0 0.0 20.0 21.2 26.3 # Arousals 11 4 2 4 7 Arousal Index 29.2 18.5 1.8 2.3 4.0 # Snore 10 16 3 2 3 Snore Index 26.6 74.1 2.7 1.1 1.7 AHI 53.2 55.6 8.9 5.1 4.0 AHI Supine 53.2 55.6 8.9 5.1 4.0 AHI Non-Supine N/A N/A N/A N/A N/A NREM AHI 53.2 55.6 10.1 6.3 5.3 REM AHI N/A N/A 6.0 0.0 0.0 RDI 53.2 60.2 8.9 5.1 4.0 # Obstructive 9 2 0 0 3 # Central Ap 1 1 3 1 1 # Mixed 0 0 0 0 0 # Hypopneas 10 9 7 8 3 RERAS 0 1 0 0 0 Total Respiratory Events 20 13 10 9 7 Time Below SpO2 89.00% (min.) 0.1 0.2 8.6 0.6 0.3 Mean NREM SpO2 (%) 95 95 91 90 92 Mean REM SpO2 (%) N/A N/A 89 91 92 Mean Sleep SpO2 (%) 95 95 91 91 92 Min NREM SpO2 (%) 88 84 88 81 81 Min REM SpO2 (%) N/A N/A 71 89 89 Position Supine (min.) 22.6 13.0 67.5 106.6 105.8 Position Non-supine (min.) 0.0 0.0 0.0 0.0 0.0 LM Index Sleep 95.7 50.9 60.4 103.6 34.6 LM Index NREM 95.7 50.9 77.0 127.1 43.8 LM Index REM N/A N/A 21.0 8.5 6.8 Mean Heart Rate (bpm) 64 63 64 62 64 Min Heart Rate (bpm) 61 61 60 59 60
--- NOTE | 2017-03-11 13:25 | POLYSOMNOGRAPH REPORT ---
CLINICAL DATA: A 71-year-old female with BMI of 37.3 referred for a CPAP titration study. She had a home sleep study which showed severe sleep apnea. She used a Mirage FX soft nasal mask size wide from [employer]. SLEEP ARCHITECTURE: Total recording time was 383 minutes. Total sleep period was 329.5 minutes. Total sleep time was 315.5 minutes divided between 248 minutes of non-REM sleep and 67.5 minutes of REM sleep. Sleep onset latency was 53.5 minutes. REM latency was 7 minutes. Sleep efficiency was 82%. Wake after sleep onset was 14 minutes. Sleep consisted of stage N1 5%, N2 62%, N3 11%, and REM 21%. AROUSAL DATA: Twenty-eight arousals were recorded for an index of 5 per hour. PLM DATA: Significantly elevated limb movements during sleep were noted. There were 360 limb movements during sleep noted for an index of 68.5 per hour with arousal index of 2.1 per hour. RESPIRATORY DATA: The AHI was 11. There were 7 central and 14 obstructive apneic episodes. The longest apneic episode was 25.4 seconds. There were 37 hypopneic episodes with a mean duration of 19.2 seconds. OXIMETRY DATA: Nocturnal hypoxemia was seen. The oxygen addie of 71% during REM. The mean saturation was 92%. Time below 88% was 5 minutes. EKG: Heart rates ranged from 59 to 74 beats per minute. No arrhythmias were noted. FLOOR INSTALLATION MECHANIC'S COMMENTS: The patient slept supine with head of the bed elevated. She was started on CPAP using a Mirage FX soft edge nasal mask size wide from [employer] and was titrated up to her final pressure setting CPAP 10 cm of water, C-Flex setting #2. At her final pressure setting, the patient slept for 105.8 minutes with an AHI of 4 with resolution of her nocturnal hypoxemia. IMPRESSION: Severe sleep apnea/hypopnea corrected with CPAP 10 cm of water pressure, C-Flex setting #2 utilizing a Mirage FX soft edge nasal mask size wide from [employer]. RECOMMENDATIONS: The patient should be seen back in followup and started on CPAP at the above noted pressure settings. Followup within 90 days to document efficacy and compliance was recommended. [facility]
== END | disposition home or self-care (01) ==
LOC: C.NEUR 20:00
PROVIDERS: ATTEND Physician Assistant Medical
DX: G47.33 Obstructive sleep apnea (adult) (pediatric) (principal)

== ENCOUNTER 2017-11-04 10:57 | Emergency (ER) | payer OTHER ==
[~2017-11-04] VITALS: Ht 165.1 cm; Wt 90.0 kg
[2017-11-04 11:06] VITALS: TEMP 37; Ht 165.1 cm; Wt 90.0 kg
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
--- NOTE | 2017-11-04 11:56 | EMERGENCY ROOM VISIT NOTE ---
ED Visit Note First contact with patient: 11:09 I did evaluate and examine this patient myself. I did guide management for the patient. I agree with the PA's assessment as discussed. Please see the PAs dictation for further details. I did independently review the x-rays, ultrasound and blood work.
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
--- NOTE | 2017-11-04 13:19 | DIAGNOSTIC IMAGING REPORT ---
L VENOUS DOPP LOWER EXT UNILAT CLINICAL HISTORY: 72 years-old Female presenting with left calf pain, swelling, recent long travel. TECHNIQUE: Real-time grayscale and color and spectral Doppler ultrasound imaging of the veins of the left lower extremity was performed. Compression and augmentation were also utilized. COMPARISON: None. FINDINGS: Left: Common femoral vein: Patent. Greater saphenous vein: Patent. Deep femoral vein: Patent. Femoral vein: Patent. Popliteal vein: Patent. Calf veins: Limited visualization. Other: None. IMPRESSION: No evidence of deep venous thrombosis. Electronically signed by: Tera Kerr M.D. 11/04/2017 1:17 PM Dictated Date/Time: 11/04/2017 1:17 PM
[2017-11-04 14:05] LABS: BASO % 0.5 %; BASO ABS # 0.04 K/uL (0-0.2); EOS % 4.8 %; EOS ABS # 0.37 K/uL (0-0.5); HEMATOCRIT 33.7 % (37-47); HEMOGLOBIN 10.9 g/dL (12.0-16.0); IG# 0.02 K/uL (0.00-0.02); LYMPH % 20.8 %; LYMPH ABS # 1.59 K/uL (1.2-3.4); MEAN CELL VOLUME 76.6 fL (80-100); MEAN CORPUSCULAR HEMOGLOBIN 24.8 pg (25-34); MEAN CORPUSCULAR HGB CONC 32.3 g/dl (32-36); MEAN PLATELET VOLUME 10.3 fL (7.4-10.4); MONO % 9.3 %; MONO ABS # 0.71 K/uL (0.11-0.59); NEUT % 64.3 %; NEUT ABS # 4.91 K/uL (1.4-6.5); PLATELET COUNT 456 K/uL (130-400); RED CELL DISTRIBUTION WIDTH CV 17.1 % (11.5-14.5); RED CELL DISTRIBUTION WIDTH SD 48.5 fL (36.4-46.3); WHITE BLOOD COUNT 7.64 K/uL (4.8-10.8)
[2017-11-04 14:26] LABS: ALBUMIN 3.5 gm/dl (3.4-5.0); CALCIUM 9.3 mg/dl (8.5-10.1); CREATININE 0.91 mg/dl (0.60-1.20)
[2017-11-04 14:29] LABS: TOTAL PROTEIN 8.6 gm/dl (6.4-8.2)
[2017-11-04 16:02] VITALS: BP 196/81; PULSE 75; O2SAT 98
== END 2017-11-04 16:02 | disposition home or self-care (01) ==
LOC: C.EDB 10:59 → C.EDC 16:02
DX: M79.672 Pain in left foot (principal); M79.605 Pain in left leg; E11.9 Type 2 diabetes mellitus without complications; I10 Essential (primary) hypertension; E78.5 Hyperlipidemia, unspecified

== ENCOUNTER 2020-11-26 21:43 | Inpatient (IN) ==
[2020-11-26] MEDS ORDERED: fentaNYL citrate 100 MCG/2 ML VIAL IV PRN (22:02)
[2020-11-26 22:15] LABS: Mean Corpuscular Hgb Conc 31.9 g/dL (32-36); Mean Platelet Volume 10.2 fL (7.4-10.4); Platelet Count 414 K/uL (130-400)
[2020-11-26 22:22] LABS: Alanine Aminotransferase 12 U/L (12-78); Albumin Level 3.5 gm/dl (3.4-5.0); Aspartate Aminotransferase 13 U/L (15-37); BUN Creatinine Ratio 20.1 (10-20); Blood Urea Nitrogen 18 mg/dl (7-18); Calcium 9.3 mg/dl (8.5-10.1); Carbon Dioxide 27 mmol/L (21-32); Chloride 106 mmol/L (98-107); Creatinine Clr Calc Pharmacy 66.3 ml/min; Est GFR (African American) 75.5 ml/min; Est GFR (Non-African American) 65.2 ml/min; Glucose 140 mg/dl (70-99); Lipase 79 U/L (73-393); Potassium 3.9 mmol/L (3.5-5.1); Sodium 138 mmol/L (136-145)
[2020-11-26] MEDS ORDERED: MoRPHine SULFATE 2 MG/ML CARP IV PRN (22:22)
[2020-11-26 22:27] LABS: Albumin Globulin Ratio 0.7 (0.9-2); Alkaline Phosphatase 78 U/L (45-117); Bilirubin,Total 0.4 mg/dl (0.2-1); Total Protein 8.5 gm/dl (6.4-8.2); Troponin I < 0.015 ng/ml (0-0.045)
[2020-11-26] MEDS ORDERED: SODIUM CHLORIDE 0.9% 1000ML 1,000 ML IV SCH (22:30)
[2020-11-26 22:46] LABS: Hemoglobin 11.8 g/dL (12.0-16.0); Mean Corpuscular Hemoglobin 24.2 pg (25-34); RDW Coefficient of Variation 16.2 % (11.5-14.5); RDW Standard Deviation 44.9 fL (36.4-46.3); Red Blood Count 4.87 M/uL (4.2-5.4); White Blood Count 8.83 K/uL (4.8-10.8)
[2020-11-26 22:48] LABS: Partial Thromboplastin Ratio 0.8; Partial Thromboplastin Time 21.1 Seconds (21.0-31.0); Prothrombin Time 10.4 Seconds (9.0-12.0)
[2020-11-26 22:48] LABS: Basophils # (auto) 0.03 K/uL (0-0.2); Basophils % (auto) 0.3 %; Eosinophils # (auto) 0.34 K/uL (0-0.5); Eosinophils % (auto) 3.9 %; Immature Granulocytes # (auto) 0.04 K/uL (0.00-0.02); Immature Granulocytes % (auto) 0.5 %; Lymphocytes # (auto) 1.72 K/uL (1.2-3.4); Lymphocytes % (auto) 19.5 %; Monocytes # (auto) 0.49 K/uL (0.11-0.59); Monocytes % (auto) 5.5 %; Neutrophils # (auto) 6.21 K/uL (1.4-6.5); Neutrophils % (auto) 70.3 %
--- NOTE | 2020-11-26 22:57 | Emergency Department Note ---
History of Present Illness General Chief complaint: Fall Stated complaint: FALL, LEG/HIP PAIN Time Seen by Provider: 11/26/20 22:21 Source: patient and family Mode of arrival: EMS Limitations: language barrier History of Present Illness Provider complaint: Fall, right hip pain Onset (ago): hour(s) Location: hip Radiation: non-radiation Severity: severe Pain Consistency: + constant Maximum Pain Intensity: 9 Quality: + constant Relieved By: + none Exacerbated By: + movement Associated symptoms: + denies other symptoms This is a 75-year-old female brought in by ambulance from home after an accidental fall landing on her right hip. Patient complains of pain at the right hip. Son at bedside helps with history and states she had been reaching for her walker which was slightly beyond her grasp and in doing so became off balance and fell landing on the right side. She denies any head injury or loss of consciousness. She denies any other pain or concern for injury. No prior injury to the right hip or leg. Patient denies any coming numbness or tingling. Patient did receive morphine in route by EMS for pain. Son states she takes medication for blood pressure and diabetes. She also takes a low-dose aspirin daily, no other anticoagulation or antiplatelet therapy. Patient states she was otherwise feeling in her usual state of health prior to this. No other prodromal symptoms. Son believes she has previously seen an orthopedic doctor through [employer] system but cannot recall the name. Pt seen during a time of high acuity and national emergency pandemic while wearing PPE. Home Medications Medication Instructions Recorded Confirmed Type aspirin 81 mg tablet,delayed 81 mg PO DAILY 02/14/19 11/26/20 History release pen needle, diabetic 32 gauge x #10 ea 02/14/19 04/02/20 History " Accu-Chek Lisbeth Plus Meter #1 ea NS 04/08/20 Rx blood sugar diagnostic #400 ea 04/08/20 Rx lancets #400 ea 04/08/20 Rx OneTouch Verio test strips #400 ea NS 04/10/20 Rx atorvastatin 20 mg tablet 20 mg PO QPM 90 Days #90 tab 04/10/20 11/26/20 Rx metformin 500 mg tablet 1,000 mg PO BID 90 Days #360 tab 08/28/20 11/26/20 Rx insulin aspart U-100 [Novolog See Rx Instructions SQ DAILY PRN 11/26/20 11/26/20 History Flexpen U-100 Insulin] insulin glargine [Lantus Solostar 15 unit SQ QAM 11/26/20 11/26/20 History U-100 Insulin] losartan 25 mg PO DAILY 11/27/20 11/27/20 History Allergies Allergy/AdvReac Type Severity Reaction Status Date / Time No Known Allergies Allergy Verified 11/26/20 23:06 Past Med/Surg History Medical History (Updated 11/28/20 @ 14:44 by Lanny Craig DO) Acquired claw toe of left foot Acquired claw toe of right foot Anemia Callus Diabetes mellitus with diabetic polyneuropathy Hypertension Obesity Surgical History (Updated 11/27/20 @ 15:45 by Huang Brower MD) Amputated toe of right foot Social History Smoking Status: Never smoker Hx Alcohol Use: No Hx Substance Use: No Preferred Language: Korean Communication Ability: Effective Communication Tools: [employer] Transactions Attorney Required: Yes Beliefs That Will Affect Care: None Current Living Situation: Family Other Information That Helps Us Care for You: No Feels Safe at Home: Yes Assistive Devices: Walker Review of Systems See HPI for pertinent positives & negatives. and A total of 10 systems reviewed and were otherwise negative Physical Exam Vital Signs Vital Signs - 24 hr 11/26/20 21:55 11/26/20 22:01 11/26/20 22:09 Temperature 36.7 C Temperature Source Oral Pulse Rate 66 63 63 Pulse Rate from SpO2 Sensor 62 63 Respiratory Rate 18 15 15 Blood Pressure 243/89 H 207/79 H Blood Pressure Mean 140 121 Pulse Oximetry 99 93 91 Oxygen Delivery Method Oxygen Flow Rate Sepsis Recent Fever Within 48 Hours No Sepsis New/Unexplained Change in Mental Status No Sepsis Action Taken by Nursing No Action Required 11/26/20 22:10 11/26/20 22:15 11/26/20 22:20 Temperature Temperature Source Pulse Rate 63 64 Pulse Rate from SpO2 Sensor 63 64 66 Respiratory Rate 19 7 L 16 Blood Pressure 219/83 H Blood Pressure Mean 128 Pulse Oximetry 94 98 Oxygen Delivery Method Oxygen Flow Rate Sepsis Recent Fever Within 48 Hours Sepsis New/Unexplained Change in Mental Status Sepsis Action Taken by Nursing 11/26/20 22:30 11/26/20 22:39 11/26/20 22:41 Temperature Temperature Source Pulse Rate 64 Pulse Rate from SpO2 Sensor 64 Respiratory Rate 13 Blood Pressure 226/72 H Blood Pressure Mean 123 Pulse Oximetry 92 Oxygen Delivery Method Room Air Nasal Cannula Oxygen Flow Rate 2 Sepsis Recent Fever Within 48 Hours Sepsis New/Unexplained Change in Mental Status Sepsis Action Taken by Nursing GENERAL: alert, well appearing, well nourished, no distress, non-toxic EYE EXAM: normal conjunctiva, PERRL and EOM's grossly intact OROPHARYNX: no exudate, no erythema, lips, buccal mucosa, and tongue normal and mucous membranes are moist NECK: supple, no nuchal rigidity, no adenopathy, non-tender LUNGS: Clear to auscultation. Normal chest wall mechanics, no w/r/r HEART: no murmurs, S1 normal and S2 normal ABDOMEN: abdomen soft, non-tender, normo-active bowel sounds, no masses, no rebound or guarding. BACK: Back is symmetrical on inspection and there is no deformity, no midline tenderness, no CVA tenderness. SKIN: no rashes and no bruising UPPER EXTREMITIES: upper extremities are grossly normal. FROM, nml pulses b/l. LOWER EXTREMITIES: No pitting edema. nml pulses b/l. Pain with palpation over the right hip and proximal femur, decreased range of motion secondary to pain. No overlying ecchymosis. No other joint effusions, compartments soft. Sensation intact bilaterally. Patient able to wiggle toes on the right lower extremity and move the ankle. Normal range of motion and no evidence of trauma to the left lower extremity. NEURO EXAM: Normal sensorium, cranial nerves II-XII grossly intact, normal speech, no gross weakness of arms, no gross weakness of legs. Gross sensation intact. Course Administered Medications Aspirin (Aspirin 81 Mg Ectab) 81 mg PO DAILY [facility] Stop: 12/27/20 08:59 Last Admin: 11/28/20 09:52 Dose: 81 mg Documented by: [id number] Admin: 11/27/20 12:23 Dose: Not Given Documented by: [id number] Atorvastatin Calcium (Atorvastatin 20 Mg Tab) 20 mg PO QPM MARIAH Stop: 12/27/20 20:59 Last Admin: 11/27/20 23:22 Dose: 20 mg Documented by: [id number] Enoxaparin Sodium (Enoxaparin Inj 40 Mg/0.4 Ml Syr) 40 mg SQ Q24H MARIAH Stop: 12/28/20 08:59 Last Admin: 11/28/20 09:50 Dose: 40 mg Documented by: [id number] Hydralazine HCl (Hydralazine Hcl 20 Mg/Ml Vial) 7.5 mg IV Q6H PRN PRN Reason: Hypertension Stop: 12/27/20 02:24 Last Admin: 11/27/20 05:31 Dose: 7.5 mg Documented by: [id number] Hydromorphone HCl (Hydromorphone Inj 0.5 Mg/0.5 Ml Syr) 0.5 mg IV Q3H PRN PRN Reason: Pain Stop: 12/11/20 02:24 Last Admin: 11/28/20 08:42 Dose: 0.5 mg Documented by: [id number] Admin: 11/27/20 22:20 Dose: 0.5 mg Documented by: [id number] Admin: 11/27/20 15:08 Dose: 0.5 mg Documented by: [id number] Admin: 11/27/20 04:48 Dose: 0.5 mg Documented by: [id number] Sodium Chloride (Nss 1000ml) 1,000 mls @ 80 mls/hr IV .[id number] [facility] Stop: 12/27/20 02:24 Last Infusion: 11/28/20 01:41 Dose: 80 mls/hr Documented by: [id number] Infusion: 11/28/20 00:41 Dose: 0 mls/hr Documented by: [id number] Admin: 11/27/20 23:34 Dose: 80 mls/hr Documented by: [id number] Infusion: 11/27/20 23:34 Dose: 80 mls/hr Documented by: [id number] Admin: 11/27/20 14:11 Dose: 80 mls/hr Documented by: [id number] Infusion: 11/27/20 14:11 Dose: 80 mls/hr Documented by: [id number] Admin: 11/27/20 03:16 Dose: 80 mls/hr Documented by: [id number] Insulin Aspart (Insulin Aspart 100 Units/Ml 3 Ml Pen) 0 units SC ACHS MARIAH Stop: 12/27/20 07:29 Last Admin: 11/28/20 13:09 Dose: 8 units Documented by: [id number] Cosigned by: [id number] Admin: 11/28/20 09:47 Dose: 11 units Documented by: [id number] Cosigned by: [id number] Admin: 11/28/20 00:19 Dose: Not Given Documented by: [id number] Cosigned by: [id number] Admin: 11/27/20 16:44 Dose: Not Given Documented by: [id number] Cosigned by: [id number] Admin: 11/27/20 12:34 Dose: Not Given Documented by: [id number] Cosigned by: [id number] Admin: 11/27/20 09:18 Dose: 3 units Documented by: [id number] Cosigned by: [id number] Insulin Glargine (Insulin Glargine Solostar 100 Units/Ml 3 Ml Pen) 7 units SC DAILY [facility] Stop: 12/27/20 08:59 Last Admin: 11/28/20 08:15 Dose: 7 units Documented by: [id number] Cosigned by: [id number] Admin: 11/27/20 09:11 Dose: 7 units Documented by: [id number] Cosigned by: [id number] Oxycodone HCl (Oxycodone Hcl Ir 5 Mg Tab (Immediate Release)) 5 mg PO Q4H PRN PRN Reason: Pain Stop: 12/11/20 18:28 Last Admin: 11/28/20 02:48 Dose: 5 mg Documented by: [id number] Discontinued Medications Acetaminophen (Acetaminophen 325 Mg Tab) 650 mg PO NOW STA Stop: 11/28/20 06:37 Last Admin: 11/28/20 06:43 Dose: 650 mg Documented by: [id number] Bupivacaine HCl (Bupivacaine 0.5 % 5 Mg/1 Ml Mpf 30ml Vial) Confirm Administered Dose 30 ml .ROUTE .STK-MED ONE Stop: 11/27/20 17:23 Last Admin: 11/27/20 20:31 Dose: 30 ml Documented by: [id number] Cefazolin Sodium (Cefazolin 250 Mg/Ml 1 Gm Vial) Confirm Administered Dose 1,000 mg .ROUTE .STK-MED ONE Stop: 11/27/20 16:59 Last Admin: 11/27/20 17:07 Dose: 2,000 mg Documented by: [id number] Diphenhydramine HCl (Diphenhydramine 50 Mg/Ml Vial) 25 mg IV NOW STA Stop: 11/27/20 03:07 Last Admin: 11/27/20 03:19 Dose: 25 mg Documented by: [id number] Fentanyl Citrate (Fentanyl Citrate 100 Mcg/2 Ml Vial) 50 mcg IV Q15M PRN PRN Reason: Pain Stop: 12/10/20 22:01 Last Admin: 11/26/20 22:15 Dose: 50 mcg Documented by: [id number] Hydralazine HCl (Hydralazine Hcl 20 Mg/Ml Vial) 5 mg IV NOW ONE Stop: 11/27/20 00:19 Last Admin: 11/27/20 00:23 Dose: 5 mg Documented by: [id number] Sodium Chloride (Nss 1000ml) 1,000 mls @ 150 mls/hr IV .Q6H40M MARIAH Stop: 11/27/20 05:09 Last Infusion: 11/27/20 12:56 Dose: 150 mls/hr Documented by: [id number] Admin: 11/26/20 22:58 Dose: 150 mls/hr Documented by: [id number] Cefazolin Sodium (Ancef 1000mg) 1,000 mg in 7.5 mls @ 2.5 mls/min IV ONCE ONE Stop: 11/27/20 19:37 Last Admin: 11/27/20 19:23 Dose: 2.5 mls/min Documented by: [id number] Sodium Chloride (Nss) 500 mls @ 500 mls/hr IV .Q1H MARIAH Stop: 11/28/20 01:29 Last Infusion: 11/28/20 01:42 Dose: 0 mls/hr Documented by: [id number] Admin: 11/28/20 00:41 Dose: 500 mls/hr Documented by: [id number] Furosemide 20 mg/ Syringe 2 mls @ 4 mls/min IV 1000 MARIAH Stop: 11/28/20 12:00 Last Admin: 11/28/20 09:51 Dose: 4 mls/min Documented by: [id number] Morphine Sulfate (Morphine Sulfate 2 Mg/Ml Carp) 2 mg IV Q1H PRN PRN Reason: Moderate Pain (Rating 3,4,5,6) Stop: 12/10/20 22:21 Last Admin: 11/27/20 02:11 Dose: 2 mg Documented by: [id number] Medical Decision Making Differential Diagnosis Fracture, subluxation, dislocation, contusion, ligamentous injury, neurovascular, compartment syndrome, rhabdomyolysis, as well as other pathologies. Medical Records Attestation: I reviewed the patient's medical records. Home Medications Current Medication List: was personally reviewed by me Laboratory Data Attestation: I reviewed the patient's lab results. Result diagrams: 11/28/20 06:11 11/28/20 06:11 Lab Results 11/26/20 11/26/20 11/26/20 Range/Units 21:52 21:52 22:26 WBC 8.83 (4.8-10.8) K/uL RBC 4.87 (4.2-5.4) M/uL Hgb 11.8 L (12.0-16.0) g/dL Hct 37.0 (37-47) % MCV 76.0 L (80-100) fL MCH 24.2 L (25-34) pg MCHC 31.9 L (32-36) g/dL RDW Std Deviation 44.9 (36.4-46.3) fL RDW Coeff of Franny 16.2 H (11.5-14.5) % Plt Count 414 H (130-400) K/uL MPV 10.2 (7.4-10.4) fL Immature Gran % (Auto) 0.5 % Neut % (Auto) 70.3 % Lymph % (Auto) 19.5 % Guthrie % (Auto) 5.5 % Eos % (Auto) 3.9 % Baso % (Auto) 0.3 % Neut # (Auto) 6.21 (1.4-6.5) K/uL Lymph # (Auto) 1.72 (1.2-3.4) K/uL Guthrie # (Auto) 0.49 (0.11-0.59) K/uL Eos # (Auto) 0.34 (0-0.5) K/uL Baso # (Auto) 0.03 (0-0.2) K/uL Immature Gran # (Auto) 0.04 H (0.00-0.02) K/uL PT 10.4 (9.0-12.0) Seconds INR 1.0 (0.9-1.1) APTT 21.1 (21.0-31.0) Seconds PTT Ratio 0.8 Sodium 138 (136-145) mmol/L Potassium 3.9 (3.5-5.1) mmol/L Chloride 106 (98-107) mmol/L Carbon Dioxide 27 (21-32) mmol/L Anion Gap 5.0 (3-11) BUN 18 (7-18) mg/dl Creatinine 0.88 (0.6-1.2) mg/dl Est Cr Clr Drug Dosing 66.3 ml/min Est GFR ( Amer) 75.5 ml/min Est GFR (Non-Af Amer) 65.2 ml/min BUN/Creatinine Ratio 20.1 H (10-20) Glucose 140 H (70-99) mg/dl Calcium 9.3 (8.5-10.1) mg/dl Total Bilirubin 0.4 (0.2-1) mg/dl AST 13 L (15-37) U/L ALT 12 (12-78) U/L Alkaline Phosphatase 78 (45-117) U/L Troponin I < 0.015 (0-0.045) ng/ml Total Protein 8.5 H (6.4-8.2) gm/dl Albumin 3.5 (3.4-5.0) gm/dl Globulin 5.0 H (2.5-4.0) gm/dl Albumin/Globulin Ratio 0.7 L (0.9-2) Lipase 79 (73-393) U/L COVID-19 Eval Order SARS-CoV-2 (PCR) (Negative) Blood Type Blood Type Recheck Antibody Screen 11/26/20 11/26/20 11/26/20 Range/Units 22:35 22:35 23:27 WBC (4.8-10.8) K/uL RBC (4.2-5.4) M/uL Hgb (12.0-16.0) g/dL Hct (37-47) % MCV (80-100) fL MCH (25-34) pg MCHC (32-36) g/dL RDW Std Deviation (36.4-46.3) fL RDW Coeff of Franny (11.5-14.5) % Plt Count (130-400) K/uL MPV (7.4-10.4) fL Immature Gran % (Auto) % Neut % (Auto) % Lymph % (Auto) % Guthrie % (Auto) % Eos % (Auto) % Baso % (Auto) % Neut # (Auto) (1.4-6.5) K/uL Lymph # (Auto) (1.2-3.4) K/uL Guthrie # (Auto) (0.11-0.59) K/uL Eos # (Auto) (0-0.5) K/uL Baso # (Auto) (0-0.2) K/uL Immature Gran # (Auto) (0.00-0.02) K/uL PT (9.0-12.0) Seconds INR (0.9-1.1) APTT (21.0-31.0) Seconds PTT Ratio Sodium (136-145) mmol/L Potassium (3.5-5.1) mmol/L Chloride (98-107) mmol/L Carbon Dioxide (21-32) mmol/L Anion Gap (3-11) BUN (7-18) mg/dl Creatinine (0.6-1.2) mg/dl Est Cr Clr Drug Dosing ml/min Est GFR ( Amer) ml/min Est GFR (Non-Af Amer) ml/min BUN/Creatinine Ratio (10-20) Glucose (70-99) mg/dl Calcium (8.5-10.1) mg/dl Total Bilirubin (0.2-1) mg/dl AST (15-37) U/L ALT (12-78) U/L Alkaline Phosphatase (45-117) U/L Troponin I (0-0.045) ng/ml Total Protein (6.4-8.2) gm/dl Albumin (3.4-5.0) gm/dl Globulin (2.5-4.0) gm/dl Albumin/Globulin Ratio (0.9-2) Lipase (73-393) U/L COVID-19 Eval Order Covid19 at [facility] SARS-CoV-2 (PCR) (Negative) Blood Type Cancelled Blood Type Recheck A Positive Antibody Screen Cancelled 11/26/20 Range/Units 23:27 WBC (4.8-10.8) K/uL RBC (4.2-5.4) M/uL Hgb (12.0-16.0) g/dL Hct (37-47) % MCV (80-100) fL MCH (25-34) pg MCHC (32-36) g/dL RDW Std Deviation (36.4-46.3) fL RDW Coeff of Franny (11.5-14.5) % Plt Count (130-400) K/uL MPV (7.4-10.4) fL Immature Gran % (Auto) % Neut % (Auto) % Lymph % (Auto) % Guthrie % (Auto) % Eos % (Auto) % Baso % (Auto) % Neut # (Auto) (1.4-6.5) K/uL Lymph # (Auto) (1.2-3.4) K/uL Guthrie # (Auto) (0.11-0.59) K/uL Eos # (Auto) (0-0.5) K/uL Baso # (Auto) (0-0.2) K/uL Immature Gran # (Auto) (0.00-0.02) K/uL PT (9.0-12.0) Seconds INR (0.9-1.1) APTT (21.0-31.0) Seconds PTT Ratio Sodium (136-145) mmol/L Potassium (3.5-5.1) mmol/L Chloride (98-107) mmol/L Carbon Dioxide (21-32) mmol/L Anion Gap (3-11) BUN (7-18) mg/dl Creatinine (0.6-1.2) mg/dl Est Cr Clr Drug Dosing ml/min Est GFR ( Amer) ml/min Est GFR (Non-Af Amer) ml/min BUN/Creatinine Ratio (10-20) Glucose (70-99) mg/dl Calcium (8.5-10.1) mg/dl Total Bilirubin (0.2-1) mg/dl AST (15-37) U/L ALT (12-78) U/L Alkaline Phosphatase (45-117) U/L Troponin I (0-0.045) ng/ml Total Protein (6.4-8.2) gm/dl Albumin (3.4-5.0) gm/dl Globulin (2.5-4.0) gm/dl Albumin/Globulin Ratio (0.9-2) Lipase (73-393) U/L COVID-19 Eval Order SARS-CoV-2 (PCR) NEGATIVE (Negative) Blood Type Blood Type Recheck Antibody Screen Imaging Data My Impression: X-ray: I interpreted the following studies. Chest: A single view study of the chest was reviewed and was negative for cardiomegaly, focal infiltrate, effusion, pulmonary edema, or wide mediastinum. Slightly increased patchy interstitial markings bilaterally. Hip/Pelvis: Fracture noted to the proximal right femur from the lesser trochanter down through the proximal femur, no other additional fracture or dislocation noted. MDM Narrative History ofThis is a 75-year-old female brought in by EMS after an axonal fall at home. Patient does live with family. Patient complains of right hip pain and was found to have a fracture of the right proximal femur with mild displacement. Patient otherwise had no complaints of pain and no concern for injury. She denied any head injury or LOC. Diabetes and hypertension, takes a low-dose aspirin daily, no other anticoagulation. Labs drawn and sent per hip fracture protocol. Patient was given additional IV hydralazine due to hypertension after patient was given initially medication for pain. Results discussed with patient and son at bedside and need for additional inpatient management and orthopedic evaluation. They verbalized understanding were in agreement with plan. Case discussed with hospitalist. At this time I have a low suspicion for any additional occult traumatic injury. Patient was neurovascularly intact below the level of her injury. An order was placed for continuous cardiac monitoring. The monitor shows a rate of _80_ with _normal sinus_ rhythm. Impression & Plan Closed femur fracture, Hypertension, Diabetes mellitus, type II, Fall Discharge Plan Visit Data Chief Complaint: Fall Stated Complaint: FALL, LEG/HIP PAIN ED Provider: Lanny Craig Discharge Problem: Closed femur fracture, Hypertension, Diabetes mellitus, type II, Fall Patient Disposition: Admitted As Inpatient Discharge Instructions Interventions: ED Discharge Assessment Last Done: 11/27/20 02:13 Discharge Problem: Closed femur fracture Qualifiers: Encounter type: initial encounter Femur location: unspecified portion of femur Fracture morphology: unspecified fracture morphology Laterality: right Qualified Code(s): S72.91XA - Unspecified fracture of right femur, initial encounter for closed fracture Hypertension Qualifiers: Hypertension type: essential hypertension Qualified Code(s): I10 - Essential (primary) hypertension Diabetes mellitus, type II Qualifiers: Diabetes mellitus alf insulin use: with termite treater helper use Diabetes mellitus complication status: with hyperglycemia Qualified Code(s): E11.65 - Type 2 diabetes mellitus with hyperglycemia Fall Qualifiers: Encounter type: initial encounter Qualified Code(s): W19.XXXA - Unspecified fall, initial encounter
[2020-11-27] MEDS ORDERED: hydrALAZINE HCL 20 MG/ML VIAL IV ONE (00:18)
[2020-11-27] MEDS ORDERED: hydrALAZINE HCL 20 MG/ML VIAL IV PRN (02:25)
[2020-11-27] MEDS ORDERED: ONDANSETRON INJ 2 MG/ML 2 ML VIAL IV PRN ×2 (02:25→16:01)
[2020-11-27] MEDS ORDERED: POLYETHYLENE (MIRALAX) 17 GM PACK PO PRN (02:25)
--- NOTE | 2020-11-27 02:42 | History and Physical Report ---
DATE OF ADMISSION: 11/26/2020 CHIEF COMPLAINT: Status post fall and right hip fracture. HISTORY OF PRESENT ILLNESS: A 75-year-old female with past medical history significant for diabetes, hypertension. The patient ambulates with a walker since last 4 years. Lives with her son. Presents with mechanical fall. The patient was trying to get up and trying to walk with a walker, but the walker moved little forward and she fell on the right side of the hip. No head injury, no loss of consciousness and she was brought in here and found to have right hip fracture. Currently resting comfortably and hemodynamically stable. Complains of right hip pain. Denies any other complaints. The patient does not speak much Greenlandic. Her son is in the room helping with the history. No headache, no blurred vision, no earache, no runny nose, no sore throat, no cough. Appetite is okay. No difficulty swallowing. No fever, no chills, no chest pain, no shortness of breath, no nausea, no abdominal pain. Normal bowel and bladder movements. ALLERGIES: No known drug allergies. PAST MEDICAL HISTORY: As mentioned above. PAST SURGICAL HISTORY: Amputation of the right 4th and 5th toes. MEDICATIONS: The patient is on aspirin 81 mg p.o. daily, atorvastatin 20 mg p.o. daily, NovoLog FlexPen p.r.n., Lantus 15 units subcutaneous in a.m., losartan 25 mg p.o. daily, metformin 1000 mg p.o. b.i.d. FAMILY HISTORY: Significant for brother has diabetes, mother has diabetes, sister has diabetes, brother has hypertension, sister has hypertension, mother has cholesterol. SOCIAL HISTORY: , currently lives with her son. No smoking, no alcohol. REVIEW OF SYSTEMS: As per HPI. Rest of the review of systems negative. PHYSICAL EXAMINATION: GENERAL: The patient is of moderate build, not in acute distress. The patient is alert and oriented. VITAL SIGNS: Temperature 36.7, pulse 67, respiratory rate 16, blood pressure 212/91, oxygen 98% on room air. HEENT: Pupils equal, round, and reactive to light. Oral mucosa moist. NECK: No JVD. No neck masses. CARDIOVASCULAR: S1, S2 heard. Regular rate and rhythm. Ejection systolic murmur in the aortic area. RESPIRATORY SYSTEM: Normal AP diameter. No accessory muscle use. No wheezing, no crackles. ABDOMEN: Soft, bowel sounds present, nontender. No distention. CENTRAL NERVOUS SYSTEM: Cranial nerves II-XII grossly intact. Nonfocal. EXTREMITIES: Right lower extremity is shortened and externally rotated. No erythema seen. LABORATORY DATA: WBC 8, hemoglobin 11.8, hematocrit 37, platelets 414. PT 10.4, INR 1, APTT 21.1, PTT was 0.8. Sodium 138, potassium 3.9, chloride 106, bicarbonate 27, BUN 18, creatinine 0.8, serum glucose 140, calcium 9.3, total bilirubin 0.4, AST 13, ALT 12, alkaline phosphatase 78, troponin I less than 0.015. Lipase 79. SARS-CoV-2 PCR negative. IMAGING DATA: Chest x-ray, no acute findings. Hip x-ray, right hip fracture. EKG: Sinus rhythm with first-degree AV block at a rate of 65, no significant change was found. ASSESSMENT AND PLAN: A 75-year-old female who presents with mechanical fall, right hip fracture. 1. Mechanical fall, right hip fracture: Ekg and chest xray and labs okay. The patient has been acceptable risk to proceed with procedure. Will keep her n.p.o., IV fluids, IV pain medication p.r.n. Consult orthopedics in the a.m. 2. Diabetes: We will cut back on Lantus to 7 units in a.m. as the patient is n.p.o. currently and insulin sliding scale. Follow the HbA1c level. 3. Hyperlipidemia: Continue statin. 4. Hypertension: Hold losartan and restart after the surgery. We will place on IV hydralazine p.r.n. 5. Deep venous thrombosis prophylaxis: Cannot place her on any anticoagulation because of planned procedure and no sequential compressions devices because of the hip fracture. Further anticoagulation post-procedure as per orthopedics. DISPOSITION: Admit to medical floor. PT and OT prior to discharge. Social service to help with discharge planning. Level 1 full code. MTDD
[2020-11-27] MEDS ORDERED: GLUCOSE 40% GEL 15 GM TUBE PO PRN (03:00)
[2020-11-27] MEDS ORDERED: GLUCAGON FOR INJ 1 MG VIAL IM PRN (03:00)
[2020-11-27] MEDS ORDERED: CARBOHYDRATES FOR HYPOGLYCEMIA PO PRN (03:00)
[2020-11-27] MEDS ORDERED: DEXTROSE 50% 50 ML SYRINGE IV PRN (03:00)
[2020-11-27] MEDS ORDERED: GLUCOSE 10 TABS/TUBE PO PRN (03:00)
[2020-11-27] MEDS ORDERED: diphenhydrAMINE 50 MG/ML VIAL IV STA (03:06)
[2020-11-27] MEDS: SODIUM CHLORIDE 0.9% 1000ML 1,000 ML IV SCH ×3 (03:16→23:34)
[2020-11-27] MEDS: HYDROmorphone INJ 0.5 MG/0.5 ML SYR IV PRN ×3 (04:48→22:20)
[2020-11-27 05:54] LABS: Basophils # (auto) 0.02 K/uL (0-0.2); Basophils % (auto) 0.2 %; Eosinophils # (auto) 0.02 K/uL (0-0.5); Eosinophils % (auto) 0.2 %; Hematocrit (blood only) 34.9 % (37-47); Hemoglobin 11.2 g/dL (12.0-16.0); Immature Granulocytes # (auto) 0.02 K/uL (0.00-0.02); Immature Granulocytes % (auto) 0.2 %; Lymphocytes # (auto) 0.67 K/uL (1.2-3.4); Lymphocytes % (auto) 5.2 %; Mean Corpuscular Hemoglobin 24.7 pg (25-34); Mean Corpuscular Hgb Conc 32.1 g/dL (32-36); Mean Platelet Volume 10.8 fL (7.4-10.4); Monocytes # (auto) 0.51 K/uL (0.11-0.59); Neutrophils # (auto) 11.59 K/uL (1.4-6.5); Neutrophils % (auto) 90.2 %; Platelet Count 429 K/uL (130-400); RDW Coefficient of Variation 16.2 % (11.5-14.5); RDW Standard Deviation 45.8 fL (36.4-46.3); Red Blood Count 4.53 M/uL (4.2-5.4); White Blood Count 12.83 K/uL (4.8-10.8)
[2020-11-27 06:25] LABS: BUN Creatinine Ratio 21.5 (10-20); Calcium 8.7 mg/dl (8.5-10.1); Est GFR (African American) 84.8 ml/min; Est GFR (Non-African American) 73.1 ml/min; Magnesium 1.6 mg/dl (1.8-2.4)
[2020-11-27 06:42] LABS: Estimated Average Glucose 186 mg/dl; Hemoglobin A1C 8.1 % (4.5-5.6)
--- NOTE | 2020-11-27 08:23 | XRay Report ---
XR hip RT 2V w pelvis CLINICAL HISTORY: fall COMPARISON: None. DISCUSSION: Comminuted and displaced fracture of the right femur within its proximal metadiaphysis associated wit h lateral apex angulation. No evidence of dislocation within the hip joint. Severe vascular calcifications are seen. IMPRESSION: Acute fracture at the right proximal femur as detailed above. ACT 112: Negative or not required by law. The above report was generated using voice recognition software. It may contain grammatical, syntax o r spelling errors. Electronically signed by: Irasema Mendez DO 11/27/2020 8:21 AM
--- NOTE | 2020-11-27 08:26 | XRay Report ---
XR chest 1V portable CLINICAL HISTORY: Chest Pain COMPARISON STUDY: No previous studies for comparison. FINDINGS: No definite pneumothorax is seen however evaluation is limited because bilateral lung apices are obsc ured by patient's chin.. No pleural effusion. Nodular opacity is seen at the right infrahilar region. Few linear opacities are seen at the left ret rocardiac region. Cardiomediastinal silhouette is within normal limits in size. No significant pulmonary vascular congestion.. Aorta is calcified. Osseous structures: Degenerative changes of the spine and right shoulder. IMPRESSION: 1. Possible atelectasis within left retrocardiac region. Questionable nodular opacity at the right i nfrahilar region which might represent prominent vasculature, intrapulmonary lesion or related to sup erimposition of structures. Short-term follow-up with PA and lateral chest radiograph on an emergency basis is suggested. ACT 112: Negative or not required by law. The above report was generated using voice recognition software. It may contain grammatical, syntax o r spelling errors. Electronically signed by: Irasema Mendez DO 11/27/2020 8:24 AM
[2020-11-27] MEDS: INSULIN GLARGINE SOLOSTAR 100 UNITS/ML 3 ML PEN SC SCH (09:11)
[2020-11-27] MEDS: INSULIN ASPART 100 UNITS/ML 3 ML PEN SC SCH ×3 (09:18→16:44)
--- NOTE | 2020-11-27 11:11 | Orthopedic Consultation ---
Date of Consultation November 27, 2020 Assessment & Plan (1) Fracture of proximal end of right femur: Dr. Delaney is present during exam. X-rays have been reviewed. Patient will require a long trochanteric femoral nail with possibility of using a cable device to aid in fracture reduction. Surgery discussed with the patient and her son. Risks and benefits have been explained. They are in agreement to go ahead with surgery. Plan for right TFN later this afternoon. History of Present Illness Reason for Consultation: Right proximal femur fracture Attending Physician: Scar Thomas DO History of Present Illness Patient is a 75-year-old female who while at her son's house, was trying to ambulate with her walker. She usually uses a walker to ambulate around the home. She apparently was starting to ambulate with a walker when the walker moved a bit forward causing her to lose her balance. She ended up falling onto her right side. Her son is present and interpreting for her. He states that she did not hit her head. She did not lose consciousness. After the fall, the patient complained of right hip and thigh pain and was unable to ambulate. She was brought to [facility] emergency department and was seen by the staff. X-rays were taken and was found she had a comminuted proximal right femur fracture. She was admitted by the hospitalist service here and we have been asked to take care of her hip fracture. Currently she is lying in bed flat and is awake and alert. She is answering questions appropriately. Currently she only complains of right hip pain at this time. Allergies Allergy/AdvReac Type Severity Reaction Status Date / Time No Known Allergies Allergy Verified 11/26/20 23:06 Home Medications Medication Instructions Recorded Confirmed Type aspirin 81 mg tablet,delayed 81 mg PO DAILY 02/14/19 11/26/20 History release pen needle, diabetic 32 gauge x #10 ea 02/14/19 04/02/20 History " Accu-Chek Lisbeth Plus Meter #1 ea NS 04/08/20 Rx blood sugar diagnostic #400 ea 04/08/20 Rx lancets #400 ea 04/08/20 Rx OneTouch Verio test strips #400 ea NS 04/10/20 Rx atorvastatin 20 mg tablet 20 mg PO QPM 90 Days #90 tab 04/10/20 11/26/20 Rx metformin 500 mg tablet 1,000 mg PO BID 90 Days #360 tab 08/28/20 11/26/20 Rx insulin aspart U-100 [Novolog See Rx Instructions SQ DAILY PRN 11/26/20 11/26/20 History Flexpen U-100 Insulin] insulin glargine [Lantus Solostar 15 unit SQ QAM 11/26/20 11/26/20 History U-100 Insulin] losartan 25 mg PO DAILY 11/27/20 11/27/20 History Patient History Medical History Acquired claw toe of left foot Acquired claw toe of right foot Amputated toe of right foot Anemia Callus Diabetes mellitus with diabetic polyneuropathy Obesity Social History Smoking Status: Never smoker Hx Alcohol Use: No Hx Substance Use: No Preferred Language: Czech Communication Ability: language Communication Tools: [employer] Leader Required: Yes Beliefs That Will Affect Care: None Current Living Situation: Family Other Information That Helps Us Care for You: No Feels Safe at Home: Yes Assistive Devices: Walker Review of Systems Review of Systems: All systems reviewed & are unremarkable except as noted in HPI & below Physical Exam Physical Exam: Patient is a 75-year-old female who appears her stated age. She is awake and alert and is oriented x3. No acute distress. Pleasant and cooperative. She does not speak much [place] and her son is here to interpret. Examination of her right lower extremity, she has noted swelling around the right proximal thigh and hip. She is tender on palpation over the lateral hip. The right lower extremity is shortened and externally rotated compared to the left. She denies any knee pain on palpation and knee range of motion is defe rred secondary to fracture of the proximal femur. She has good range of motion of her right ankle and toes. Left lower extremity is unaffected and she is nontender at the left hip knee and ankle with range of motion intact. Upper extremities are nontender at the shoulders, elbows, and wrists. Range of motion is within normal limits. She denies any pain in the cervical neck, thoracic, and lumbar spine. She denies any decrease sensation in the right lower extremity. There is no gross motor or sensory loss seen at this time. Distal pulses are equal bilaterally of the upper and lower extremities. Results & Data ([facility]) Vital Signs (Past 12 Hours) Vital Signs Temp Pulse Pulse Resp BP BP Pulse Ox 11/27/20 08:05 78 16 11/27/20 07:57 36.5 C 82 16 145/82 H 96 11/27/20 05:25 36.4 C L 18 183/83 H 94 11/27/20 02:01 72 16 192/74 H 94 11/27/20 01:46 71 15 189/78 H 95 11/27/20 01:31 71 15 194/74 H 94 11/27/20 01:16 68 14 199/75 H 95 11/27/20 01:00 70 17 191/80 H 96 11/27/20 00:46 69 14 186/64 H 100 11/27/20 00:31 67 16 212/91 H 98 11/27/20 00:16 65 15 199/71 H 98 11/27/20 00:01 63 15 228/78 H 95 11/26/20 23:46 63 16 230/85 H 95 11/26/20 23:31 64 14 230/77 H 94 11/26/20 23:28 64 15 231/88 H 94 11/26/20 23:27 64 13 231/88 H 11/26/20 23:26 63 16 244/64 H 94 11/26/20 23:16 63 15 239/77 H 99 11/26/20 23:01 63 14 229/78 H 100 Diagnostic Findings Laboratory Results WBC 12.83 K/uL (4.8-10.8) H 11/27/20 05:30 RBC 4.53 M/uL (4.2-5.4) 11/27/20 05:30 Hgb 11.2 g/dL (12.0-16.0) L 11/27/20 05:30 Hct 34.9 % (37-47) L 11/27/20 05:30 MCV 77.0 fL (80-100) L 11/27/20 05:30 MCH 24.7 pg (25-34) L 11/27/20 05:30 MCHC 32.1 g/dL (32-36) 11/27/20 05:30 RDW Std Deviation 45.8 fL (36.4-46.3) 11/27/20 05:30 RDW Coeff of Franny 16.2 % (11.5-14.5) H 11/27/20 05:30 Plt Count 429 K/uL (130-400) H 11/27/20 05:30 MPV 10.8 fL (7.4-10.4) H 11/27/20 05:30 Immature Gran % (Auto) 0.2 % 11/27/20 05:30 Neut % (Auto) 90.2 % 11/27/20 05:30 Lymph % (Auto) 5.2 % 11/27/20 05:30 Duchesne % (Auto) 4.0 % 11/27/20 05:30 Eos % (Auto) 0.2 % 11/27/20 05:30 Baso % (Auto) 0.2 % 11/27/20 05:30 Neut # (Auto) 11.59 K/uL (1.4-6.5) H 11/27/20 05:30 Lymph # (Auto) 0.67 K/uL (1.2-3.4) L 11/27/20 05:30 Duchesne # (Auto) 0.51 K/uL (0.11-0.59) 11/27/20 05:30 Eos # (Auto) 0.02 K/uL (0-0.5) 11/27/20 05:30 Baso # (Auto) 0.02 K/uL (0-0.2) 11/27/20 05:30 Immature Gran # (Auto) 0.02 K/uL (0.00-0.02) 11/27/20 05:30 PT 10.4 Seconds (9.0-12.0) 11/26/20 22:26 INR 1.0 (0.9-1.1) 11/26/20 22: APTT 21.1 Seconds (21.0-31.0) 11/26/20 22: PTT Ratio 0.8 11/26/20 22: Sodium 136 mmol/L (136-145) 11/27/20 05:30 Potassium 4.0 mmol/L (3.5-5.1) 11/27/20 05:30 Chloride 105 mmol/L (98-107) 11/27/20 05:30 Carbon Dioxide 23 mmol/L (21-32) 11/27/20 05:30 Anion Gap 8.0 (3-11) 11/27/20 05:30 BUN 17 mg/dl (7-18) 11/27/20 05:30 Creatinine 0.80 mg/dl (0.6-1.2) 11/27/20 05:30 Est Cr Clr Drug Dosing 73.0 ml/min 11/27/20 05:30 Est GFR ( Amer) 84.8 ml/min 11/27/20 05:30 Est GFR (Non-Af Amer) 73.1 ml/min 11/27/20 05:30 BUN/Creatinine Ratio 21.5 (10-20) H 11/27/20 05:30 Glucose 223 mg/dl (70-99) H 11/27/20 05:30 POC Glucose 239 mg/dl (70-99) H 11/27/20 07:41 Estimat Average Glucose 186 mg/dl 11/27/20 05:30 Hemoglobin A1c 8.1 % (4.5-5.6) H 11/27/20 05:30 Calcium 8.7 mg/dl (8.5-10.1) 11/27/20 05:30 Magnesium 1.6 mg/dl (1.8-2.4) L 11/27/20 05:30 Total Bilirubin 0.4 mg/dl (0.2-1) 11/26/20 21:52 AST 13 U/L (15-37) L 11/26/20 21:52 ALT 12 U/L (12-78) 11/26/20 21:52 Alkaline Phosphatase 78 U/L (45-117) 11/26/20 21:52 Troponin I < 0.015 ng/ml (0-0.045) 11/26/20 21:52 Total Protein 8.5 gm/dl (6.4-8.2) H 11/26/20 21:52 Albumin 3.5 gm/dl (3.4-5.0) 11/26/20 21:52 Globulin 5.0 gm/dl (2.5-4.0) H 11/26/20 21:52 Albumin/Globulin Ratio 0.7 (0.9-2) L 11/26/20 21:52 Lipase 79 U/L (73-393) 11/26/20 21:52 COVID-19 Eval Order Covid19 at [facility] 11/26/20 23:27 SARS-CoV-2 (PCR) NEGATIVE (Negative) 11/26/20 23:27 Blood Type A Positive 11/27/20 05:30 Blood Type Recheck A Positive 11/26/20 22:35 Antibody Screen POSITIVE A 11/27/20 05:30 Antibody Identification Anti-K 11/27/20 05:30 Antigen Identification K Antigen - NEGATIVE 11/27/20 05:30 Impressions Chest X-Ray 11/26/20 22:02 XR chest 1V portable CLINICAL HISTORY: Chest Pain COMPARISON STUDY: No previous studies for comparison. FINDINGS: No definite pneumothorax is seen however evaluation is limited because bilateral lung apices are obscured by patient's chin.. No pleural effusion. Nodular opacity is seen at the right infrahilar region. Few linear opacities are seen at the left retrocardiac region. Cardiomediastinal silhouette is within normal limits in size. No significant pulmonary vascular congestion.. Aorta is calcified. Osseous structures: Degenerative changes of the spine and right shoulder. IMPRESSION: 1. Possible atelectasis within left retrocardiac region. Questionable nodular opacity at the right infrahilar region which might represent prominent vasculature, intrapulmonary lesion or related to superimposition of structures. Short-term follow-up with PA and lateral chest radiograph on an emergency basis is suggested. ACT 112: Negative or not required by law. The above report was generated using voice recognition software. It may contain grammatical, syntax or spelling errors. Electronically signed by: Irasema Mendez DO 11/27/2020 8:24 AM Hip/Pelvis X-Ray 11/26/20 22:02 XR hip RT 2V w pelvis CLINICAL HISTORY: fall COMPARISON: None. DISCUSSION: Comminuted and displaced fracture of the right femur within its proximal metadiaphysis associated with lateral apex angulation. No evidence of dislocation within the hip joint. Severe vascular calcifications are seen. IMPRESSION: Acute fracture at the right proximal femur as detailed above. ACT 112: Negative or not required by law. The above report was generated using voice recognition software. It may contain grammatical, syntax or spelling errors. Electronically signed by: Irasema Mendez DO 11/27/2020 8:21 AM
[2020-11-27] MEDS: ASPIRIN 81 MG ECTAB PO SCH (12:23)
--- NOTE | 2020-11-27 12:57 | History & Physical Bridge Note ---
Date of Service November 27, 2020 History & Physical Bridge Note I have examined the patient, reviewed the History & Physical and in the interval since the performance of the History & Physical I have noted the following changes of clinical significance: no changes noted
--- NOTE | 2020-11-27 15:46 | Anesthesiology Consultation ---
Date of Service November 27, 2020 Assessment & Plan (1) Encounter for pre-operative examination: Chart Review Chart Review: Acceptable Risk for Surgery (needs preop ecg) History Surgery Operation Date: 11/27/20 08:50 Proposed Procedures p Right Troch Nail - Jam Delaney DO Height/Weight Height: 5 ft 5 in Weight: 99 kg Allergies Allergy/AdvReac Type Severity Reaction Status Date / Time No Known Allergies Allergy Verified 11/26/20 23:06 Medications Home Medications Medication Instructions Recorded Confirmed Last Taken aspirin 81 mg tablet,delayed 81 mg PO DAILY 02/14/19 11/26/20 11/26/20 release pen needle, diabetic 32 gauge x #10 ea 02/14/19 04/02/20 Unknown " Accu-Chek Lisbeth Plus Meter #1 ea NS 04/08/20 Unknown blood sugar diagnostic #400 ea 04/08/20 Unknown lancets #400 ea 04/08/20 Unknown OneTouch Verio test strips #400 ea NS 04/10/20 Unknown atorvastatin 20 mg tablet 20 mg PO QPM 90 Days #90 tab 04/10/20 11/26/20 0 11/26/20 metformin 500 mg tablet 1,000 mg PO BID 90 Days #360 tab 08/28/20 11/26/20 11/26/20 insulin aspart U-100 [Novolog See Rx Instructions SQ DAILY PRN 11/26/20 11/26/20 Unknown Flexpen U-100 Insulin] insulin glargine [Lantus Solostar 15 unit SQ QAM 11/26/20 11/26/20 11/26/20 U-100 Insulin] losartan 25 mg PO DAILY 11/27/20 11/27/20 Unknown Active Medications Generic Name Dose Route Start Last Admin Trade Name Freq PRN Reason Stop Dose Admin Aspirin 81 mg 11/27/20 09:00 11/27/20 12:23 Aspirin 81 Mg Ectab PO 12/27/20 08:59 Not Given DAILY MARIAH Hydralazine HCl 7.5 mg 11/27/20 02:25 11/27/20 05:31 Hydralazine Hcl 20 Mg/Ml Vial IV 12/27/20 02:24 7.5 mg Q6H PRN Administration Hypertension Hydromorphone HCl 0.5 mg 11/27/20 02:25 11/27/20 15:08 Hydromorphone Inj 0.5 Mg/0.5 Ml Syr IV 12/11/20 02:24 0.5 mg Q3H PRN Administration Pain Sodium Chloride 1,000 mls @ 80 mls/hr 11/27/20 02:25 11/27/20 14:11 Nss 1000ml IV 12/27/20 02:24 80 mls/hr .[id number] MARIAH Administration Insulin Aspart 0 units 11/27/20 07:30 11/27/20 12:34 Insulin Aspart 100 Units/Ml 3 Ml Pen SC 12/27/20 07:29 Not Given ACHS MARIAH Insulin Glargine 7 units 11/27/20 09:00 11/27/20 09:11 Insulin Glargine Solostar 100 Units/Ml 3 Ml Pen SC 12/27/20 08:59 7 units DAILY MARIAH Administration Past Medical History Medical History (Updated 11/27/20 @ 15:47 by Huang Brower MD) Acquired claw toe of left foot Acquired claw toe of right foot Anemia Callus Diabetes mellitus with diabetic polyneuropathy Hypertension Obesity Past Surgical History Surgical History (Updated 11/27/20 @ 15:45 by Huang Brower MD) Amputated toe of right foot Social History Smoking Status: Never smoker Hx Alcohol Use: No Hx Substance Use: No Physical Exam Vital Signs Last Vital Signs Temp 36.8 C 11/27/20 15:33 Pulse 83 11/27/20 15:33 Resp 16 11/27/20 15:33 BP 162/80 H 11/27/20 15:33 Pulse Ox 92 11/27/20 15:33 Testing Laboratory Results 11/27/20 05:30 11/27/20 05:30 PT 10.4 Seconds (9.0-12.0) 11/26/20 22:26 INR 1.0 (0.9-1.1) 11/26/20 22:26 APTT 21.1 Seconds (21.0-31.0) 11/26/20 22:26 Hemoglobin A1c 8.1 % (4.5-5.6) H 11/27/20 05:30 Blood Type A Positive 11/27/20 05:30 Antibody Screen POSITIVE A 11/27/20 05:30 11/27/20 11/27/20 11:46 07:41 POC Glucose 197 H 239 H
[2020-11-27] MEDS ORDERED: ePHEDrine sulfate 50 MG/ML AMP IV PRN (16:01)
[2020-11-27] MEDS ORDERED: fentaNYL citrate 100 MCG/2 ML VIAL IV PRN (16:01)
[2020-11-27] MEDS ORDERED: ATROPINE SULFATE 0.1 MG/ML 10ML SYR IV PRN (16:01)
[2020-11-27] MEDS ORDERED: MIDAZOLAM HCL 1 MG/ML 2ML VIAL ONE (16:06)
[2020-11-27] MEDS ORDERED: ePHEDrine sulfate 50 MG/ML SYR ONE (17:13)
[2020-11-27] MEDS ORDERED: LIDOCAINE 2% 2 ML VIAL/AMP(20MG/ML) INFIL ONE (17:13)
[2020-11-27] MEDS ORDERED: PROPOFOL IV EMULSION 10 MG/ML 20 ML VIAL IV ONE ×3 (17:13→18:59)
[2020-11-27] MEDS ORDERED: PHENYLEPHRINE 100MCG/ML 5ML SYR ONE (17:13)
[2020-11-27] MEDS ORDERED: BUPIVACAINE 0.5 % 5 MG/1 ML MPF 30ML VIAL ONE (17:22)
[2020-11-27] MEDS ORDERED: PHENYLEPHRINE HCL 10 MG/ML VIAL ONE (17:42)
[2020-11-27] MEDS ORDERED: NALOXONE HCL 0.4 MG/1 ML VIAL/CARP IV PRN (18:29)
[2020-11-27 19:11] LABS: iSTAT Creatinine 1.1 mg/dl (0.6-1.3); iSTAT Hemoglobin 11.6 g/dl (12.0-16.0); iSTAT Ionized Calcium 1.18 mmol/l (1.12-1.32); iSTAT Potassium 5.1 mmol/L (3.3-5.0)
[2020-11-27] MEDS ORDERED: ceFAZolin 1000MG 1,000 MG/7.5 ML SYR IV ONE (19:35)
--- NOTE | 2020-11-27 20:50 | Post Operative Brief Note ---
Immediate Post Op Note v1 Date of Surgery November 27, 2020 Pre & Post Diagnosis Operation Date: 11/27/20 08:50 Pre-Op Diagnosis: Right comminuted, displaced subtrochanteric/intertrochanteric fracture of the proximal femur, fracture of proximal end of right femur Post-Op Diagnosis: Right comminuted, displaced subtrochanteric/intertrochanteric fracture of the proximal femur, fracture of proximal end of right femur I identified the patient and participated in the time-out.: Yes Procedure Operation Date: 11/27/20 08:50 Actual Procedures p open reduction internal fixation with right trochanteric femoral Nail and application of Synthes metallic cable of comminuted, displaced subtrochanteric/intertrochanteric right Proximal Femur Fracture(Right) - Jam Delaney DO Surgeon Jam Delaney DO [employer] Senior Executive Frederic Ellis PA-C; Mandeep Burk PA-C Estimated Blood Loss 250 Findings Consistent with Post-Op Diagnosis Specimens None Drains Lucio Catheter (in placed from inpatient floor, clear yellow urine noted. Anesthesia to monitor urine output during surgery) Anesthesia Type Spinal MAC Complications none Disposition Accompanied Patient To Recovery: No Disposition: Recovery Room
--- NOTE | 2020-11-27 21:00 | Fluoroscopy Report ---
INTRAOPERATIVE RADIOGRAPHS CLINICAL HISTORY: Open reduction and internal fixation of a right femoral fracture. Fluoroscopy time: 313 seconds. FINDINGS: 5 spot fluoroscopic views of the right femur are correlated with radiographs dated 1. Intertrochanteric and intramedullary nails have been placed transfixing a comminuted intertrochant ana/subtrochanteric fracture with samaritan of near-anatomic alignment. A single cerclage wire is present around the proximal end of the intramedullary nail. 2 cortical lag screws are present in the distal end of the intramedullary nail. Overlying soft tissue edema is noted. Degenerative change is s een in the right hip. IMPRESSION: Intraoperative images from open reduction and fixation of the right femur as above. Electronically signed by: Ana Chinchilla M.D. 11/27/2020 8:59 PM
[2020-11-27 21:20] LABS: Basophils # (auto) 0.04 K/uL (0-0.2); Basophils % (auto) 0.2 %; Eosinophils # (auto) 0.39 K/uL (0-0.5); Eosinophils % (auto) 2.2 %; Immature Granulocytes # (auto) 0.05 K/uL (0.00-0.02); Immature Granulocytes % (auto) 0.3 %; Lymphocytes # (auto) 1.76 K/uL (1.2-3.4); Lymphocytes % (auto) 9.9 %; Mean Corpuscular Hemoglobin 24.3 pg (25-34); Mean Corpuscular Volume 78.2 fL (80-100); Mean Platelet Volume 10.6 fL (7.4-10.4); Monocytes # (auto) 1.42 K/uL (0.11-0.59); Neutrophils # (auto) 14.15 K/uL (1.4-6.5); Neutrophils % (auto) 79.4 %; Platelet Count 457 K/uL (130-400); RDW Coefficient of Variation 16.4 % (11.5-14.5); RDW Standard Deviation 47.4 fL (36.4-46.3); Red Blood Count 3.71 M/uL (4.2-5.4); White Blood Count 17.81 K/uL (4.8-10.8)
--- NOTE | 2020-11-27 22:29 | XRay Report ---
SINGLE VIEW PELVIS; 2 VIEWS RIGHT HIP CLINICAL HISTORY: Postoperative examination. FINDINGS: An AP view of the pelvis with AP and crosstable lateral views of the right hip and femur ar e compared to study dated 11/26/2020. The skeletal structures are osteopenic. Intertrochanteric and in tramedullary nails have been placed transfixing a comminuted fracture of the intertrochanteric/subtro chanteric right femur. Near-anatomic alignment has been restored. A single cerclage wire surrounds th e proximal and of the intramedullary nail. 2 cortical lag screws transfix the distal end of the nail. No new fracture is seen. The bony pelvis and left hip appear intact. Moderate to advanced degenerati ve joint space narrowing seen in the hips. Skin clips, soft tissue swelling, and subcutaneous gas ove rlying the right hip are expected postoperative findings. There is advanced atherosclerotic calcifica tion of the femoral arteries. IMPRESSION: Expected postoperative findings status post open reduction and internal fixation of the r ight femur. No new fracture is seen. Electronically signed by: Cash Chinchilla M.D. 11/27/2020 10:27 PM
[2020-11-27] MEDS: ATORVASTATIN 20 MG TAB PO SCH (23:22)
--- NOTE | 2020-11-27 23:52 | Anesthesiology Progress Note ---
Date of Service November 27, 2020 Anesthesia Post Procedure Vital Signs Vital Signs: Temp Pulse Pulse Pulse Resp BP BP 11/27/20 22:45 36.2 C L 79 20 114/72 11/27/20 22:15 36.2 C L 81 20 104/66 11/27/20 21:45 36.6 C 81 110/69 11/27/20 21:30 36.3 C L 80 18 120/60 11/27/20 21:20 81 18 95/60 L 11/27/20 21:10 84 20 123/61 11/27/20 21:00 81 18 105/45 L 11/27/20 20:50 36.5 C 85 19 92/53 L 11/27/20 16:05 37.3 C 80 20 138/55 L 11/27/20 15:33 36.8 C 83 16 162/80 H 11/27/20 11:37 36.7 C 76 16 160/75 H 11/27/20 08:05 78 16 11/27/20 07:57 36.5 C 82 16 145/82 H 11/27/20 05:25 36.4 C L 18 183/83 H 11/27/20 02:01 72 16 192/74 H 11/27/20 01:46 71 15 189/78 H 11/27/20 01:31 71 15 194/74 H 11/27/20 01:16 68 14 199/75 H 11/27/20 01:00 70 17 191/80 H 11/27/20 00:46 69 14 186/64 H 11/27/20 00:31 67 16 212/91 H 11/27/20 00:16 65 15 199/71 H 11/27/20 00:01 63 15 228/78 H Pulse Ox 11/27/20 22:45 100 11/27/20 22:15 92 11/27/20 21:45 100 11/27/20 21:30 100 11/27/20 21:20 98 11/27/20 21:10 95 11/27/20 21:00 97 11/27/20 20:50 96 11/27/20 16:05 92 11/27/20 15:33 92 11/27/20 11:37 94 11/27/20 08:05 11/27/20 07:57 96 11/27/20 05:25 94 11/27/20 02:01 94 11/27/20 01:46 95 11/27/20 01:31 94 11/27/20 01:16 95 11/27/20 01:00 96 11/27/20 00:46 100 11/27/20 00:31 98 11/27/20 00:16 98 11/27/20 00:01 95 Pain Intensity Right Hip: Pain Intensity: 8 Back: Pain Intensity: 2 Transfer of Care Handoff Completed per policy Notes Mental Status: alert / awake / arousable Patient Amnestic to Procedure: Yes Nausea / Vomiting: adequately controlled Pain: adequately controlled Airway Patency, RR, SpO2: stable & adequate BP & HR: stable & adequate Hydration State: stable & adequate Neuraxial Anesthesia: was administered and sensory block is resolving Anesthetic Complications: no major complications apparent and Pt Satisfied with anesthetic care
[2020-11-28] MEDS: INSULIN ASPART 100 UNITS/ML 3 ML PEN SC SCH ×5 (00:19→21:11)
[2020-11-28] MEDS ORDERED: SODIUM CHLORIDE 0.9% 500 ML IV SCH (00:30)
[2020-11-28] MEDS: oxyCODONE HCL IR 5 MG TAB (IMMEDIATE RELEASE) PO PRN ×2 (02:48→19:42)
--- NOTE | 2020-11-28 05:31 | Operative Report (OR) ---
DATE OF OPERATION: 11/27/2020 PREOPERATIVE DIAGNOSIS: Right comminuted, displaced subtrochanteric/intertrochanteric fracture of the proximal femur. POSTOPERATIVE DIAGNOSIS: Right comminuted, displaced subtrochanteric/intertrochanteric fracture of the proximal femur. PROCEDURE: Open reduction internal fixation, right comminuted, displaced subtrochanteric/intertrochanteric fracture of the proximal femur with Synthes trochanteric fixation nail and Synthes metallic cable. SURGEON: Jam Delaney DO CLINICAL BIOCHEMIST: Frederic Ellis PA-C, and Mandeep Burk PA-C, who were present for patient positioning, sterile prep and drape, management of retractors and instruments. He was present through the critical portions of the case including wound closure, application of sterile dressing and transport of the patient to recovery. ANESTHESIA: Spinal MAC with local. SPECIMENS: None. DRAINS: None. COMPLICATIONS: None. BLOOD LOSS: 250 mL. PERTINENT HISTORY: This is a 75-year-old female who was attempting to ambulate with a walker. She tripped and fell, landed on her right hip. She had inability to ambulate. She had deformity of the lower extremity and she had excruciating pain. She was transported to [facility]. She was evaluated and noted to have a subtrochanteric/intertrochanteric displaced comminuted fracture of her right proximal femur. She was admitted to the hospitalist service, stabilized and optimized, and then scheduled for surgery as indicated. DESCRIPTION OF PROCEDURE: All potential risks, benefits, complications, alternatives, rehab, potential for incomplete relief of symptoms, need for further surgery, DVT, PE, , persistent pain, swelling, scarring, weakness, neurovascular injury, wound complications, hardware failure, nonunion, malunion, bone fracture were discussed with the patient and her son, they both decided to proceed with the procedure as indicated. The patient was transferred to the operative suite. The proper site was identified. The consent was reviewed, the patient was then administered sedation and spinal anesthetic. Once appropriate, the patient then transferred to the fracture table where the lower extremity was placed in fracture table traction and the nonoperative leg was placed in the well leg joaquin. All bony prominences were properly padded and protected. The padded post was placed in the peroneal and the patient was positioned appropriately. Next the left leg was placed on traction and reduction of the fracture was performed under fluoroscopic control. Next the operative hip was then sterilely prepped and draped in the usual fashion. Next a 10-blade scalpel incision was used to make an incision proximal to the greater trochanter. The incision was deep in the subcutaneous tissue and fascia and the tip of the greater trochanter was then palpated followed by placement of a guide pin under fluoroscopic control driven into the greater trochanter down to the level of the less trochanter. This was confirmed in AP and lateral projections followed by placement of the proximal reamer over the cannulated guide pin. Next the reamer was then removed using the soft tissue protector, which was also removed. Next the ball tip guide aleyda was placed into the proximal femur under fluoroscopic control confirmed with AP and lateral fluoroscope projections. A lateral incision was made with a 10 blade scalpel centered over the comminuted portion of the fracture. The incision was deepened to the fascia. The fascia was then incised to reveal the vastus lateralis. The vastus was split to reveal the fracture. The fracture was irrigated with saline until clear. The fracture was then aligned anatomically with bone clamps and a Lohmann clamp. Next the fracture was secured with a Synthes bone cable placed with fluoroscopic assistance. Next the trochanteric nail was then passed over the guide aleyda into the femur, the guide aleyda was removed and then under fluoroscopic control appropriate level of the femoral nail was then placed in AP projections. Next the targeting device was then fixed to the driving handle and 10-blade scalpel incision was made in the lateral aspect of the thigh. Next the tissue protector and cannulated guide system was then passed into the soft tissue until it was securely fixed against a lateral aspect of the femoral cortex. This was also confirmed under C-arm. Next the guide pin for the spiral blade was driven into the lateral aspect of the femur confirming this with AP lateral projections until the guide pin was in the center of the femoral neck and head approximately 5 mm from the subcortical bone of the femur. Next the spiral blade was then measured and then the lateral cortex was then drilled with the cortex reamer followed by use of the triple reamer with the depth stop set at appropriate depth. A spiral blade was then inserted over the cannulated guide aleyda under fluoroscopic control. This was seated appropriately then traction was reduced from the limb and the fracture was then gently compressed and then locked proximally with the flexible screwdriver. Next the spiral blade was then disengaged from its insertion handle, insertion handle was then removed and the guide pin was removed from the femoral neck and head. Next the lateral targeting arm was used to insert the distal locking screw. First a 10-blade scalpel incision was made in the lateral aspect of the thigh, captured drill sleeves were then tamped gently to the lateral aspect of the femoral cortex then the locking screw hole was then drilled, measured and then an appropriate length screw was placed to lock the distal aspect of the nail. Next targeting sleeves were then removed. The insertion arm was then removed from the nail and final x-rays were obtained in AP and lateral projections. All incisions were then copiously irrigated with sterile normal saline. The proximal gluteus fascia was then closed using interrupted #1 Vicryl, the dermis was closed using buried interrupted 2-0 Vicryl sutures in all three incisions and the skin was then closed using skin nahomi. A sterile compressive dressing consisting of Xeroform gauze, sterile 4 x 4's and Tegaderm was applied. The patient was then awakened and taken to recovery in stable condition. I attest to the content of the Intraoperative Record and any orders documented therein. Any exceptions are noted below. RED
[2020-11-28 06:32] LABS: Hematocrit (blood only) 24.4 % (37-47); Hemoglobin 7.6 g/dL (12.0-16.0); Mean Corpuscular Hemoglobin 24.3 pg (25-34); Mean Corpuscular Hgb Conc 31.1 g/dL (32-36); Mean Platelet Volume 10.7 fL (7.4-10.4); Platelet Count 346 K/uL (130-400); RDW Coefficient of Variation 16.7 % (11.5-14.5); RDW Standard Deviation 47.9 fL (36.4-46.3); Red Blood Count 3.13 M/uL (4.2-5.4); White Blood Count 10.85 K/uL (4.8-10.8)
[2020-11-28] MEDS ORDERED: SODIUM CHLORIDE 0.9% 250 ML IV PRN (06:36)
[2020-11-28] MEDS ORDERED: ACETAMINOPHEN 325 MG TAB PO STA (06:36)
[2020-11-28 06:39] LABS: Appearance Urine Turbid (Clear); Color Urine Dark Yellow
[2020-11-28 06:40] LABS: Bacteria Urine Automated 2+ (Negative); Bilirubin Urine Negative (Negative); Blood Urine 3+ (Negative); Epithelial Cell Urine Auto >30 /lpf (0-5); Glucose Urine UA Trace (Negative); Ketones Urine Trace (Negative); Leukocyte Esterase Urine 2+ (Negative); Nitrite Urine Negative (Negative); Protein Urine 1+ (Negative); Specific Gravity Urine 1.021 (1.000-1.030); Urobilinogen Urine Negative (Negative); WBC Urine Automated >30 /hpf (0-5)
[2020-11-28 07:03] LABS: Anisocytosis Present; Basophils # (auto) 0.01 K/uL (0-0.2); Basophils % (auto) 0.1 %; Eosinophils # (auto) 0.02 K/uL (0-0.5); Eosinophils % (auto) 0.2 %; Immature Granulocytes # (auto) 0.02 K/uL (0.00-0.02); Immature Granulocytes % (auto) 0.2 %; Lymphocytes # (auto) 1.05 K/uL (1.2-3.4); Lymphocytes % (auto) 9.7 %; Monocytes # (auto) 0.65 K/uL (0.11-0.59); Neutrophils % (auto) 83.8 %; Poikilocytosis Present
[2020-11-28 07:07] LABS: Calcium Oxalate Crystals Urine Present (None Prsent)
[2020-11-28 07:11] LABS: BUN Creatinine Ratio 17.3 (10-20); Calcium 7.6 mg/dl (8.5-10.1); Creatinine Clr Calc Pharmacy 36.7 ml/min; Est GFR (African American) 36.9 ml/min; Est GFR (Non-African American) 31.9 ml/min; Potassium 4.6 mmol/L (3.5-5.1)
[2020-11-28 07:31] LABS: Beta-Hydroxybutyrate 7.3 mg/dl (0.2-2.81)
--- NOTE | 2020-11-28 08:08 | Orthopedic Progress Note ---
Date of Service November 28, 2020 Assessment & Plan (1) Fracture of proximal end of right femur: POD#1 right trochanteric femoral nail -PT/OT-TTWB -Pain management -DVT prophylaxis-Lovenox -AM labs-hemoglobin drop to 7.6 this morning acute blood loss anemia likely due to surgical loss and dilutional effect. Transfuse per medicine. Creatinine elevated to 1.59 from 0.8 preop. Mild leukocytosis likely reactive due to surgical stress -D/C planning-discharge to inpatient rehab vs SNF when stable Admission and Anticipated Discharge Date Admission Date: November 27, 2020 Subjective POD#1 right troch nail. Patient resting in bed comfortably. Son is present to help translate. No complaints. Denies chest pain, sob, dizziness, n/v/d, fever, chills Review of Systems Review of Systems: All systems reviewed & are unremarkable except as noted in HPI & below Physical Exam Physical Exam: Right hip dressing is c/d/i. Toes mobile. No calf tenderness. Distally n/v status and sensation are intact. Distal pulses palpable. Constitutional: well developed and well nourished; no acute distress Results & Data ([facility]) Vital Signs (Past 12 Hours) Vital Signs Temp Pulse Pulse Resp BP Pulse Ox 11/28/20 07:55 36.7 C 89 18 138/75 99 11/28/20 04:06 36.4 C L 88 16 133/73 98 11/28/20 00:51 36.3 C L 76 16 128/75 99 11/28/20 00:45 36.3 C L 81 20 118/71 99 11/27/20 23:55 36.3 C L 82 16 115/74 99 11/27/20 22:45 36.2 C L 79 20 114/72 100 11/27/20 22:15 36.2 C L 81 20 104/66 92 11/27/20 21:45 36.6 C 81 110/69 100 11/27/20 21:30 36.3 C L 80 18 120/60 100 11/27/20 21:20 81 18 95/60 L 98 11/27/20 21:10 84 20 123/61 95 11/27/20 21:00 81 18 105/45 L 97 11/27/20 20:50 36.5 C 85 19 92/53 L 96 Laboratory Results H & H 11/26/20 11/27/20 11/27/20 Range/Units 21:52 05:30 21:07 Hgb 11.8 L 11.2 L 9.0 L (12.0-16.0) g/dL Hct 37.0 34.9 L 29.0 L (37-47) % 11/28/20 Range/Units 06:11 Hgb 7.6 L (12.0-16.0) g/dL Hct 24.4 L (37-47) % Coagulation 11/26/20 Range/Units 22:26 INR 1.0 (0.9-1.1) (1) Fracture of proximal end of right femur Encounter type: subsequent encounter Fracture type: closed
[2020-11-28] MEDS: INSULIN GLARGINE SOLOSTAR 100 UNITS/ML 3 ML PEN SC SCH (08:15)
[2020-11-28] MEDS: HYDROmorphone INJ 0.5 MG/0.5 ML SYR IV PRN (08:42)
--- NOTE | 2020-11-28 09:17 | Hospitalist Progress Note ---
Date of Service November 28, 2020 Assessment & Plan (1) Fracture of proximal end of right femur: (2) Obesity: (3) Anemia: (4) Diabetic peripheral neuropathy: (5) Type 2 diabetes mellitus with insulin therapy: (6) Hyperlipidemia: ASSESSMENT AND PLAN: A 75-year-old female who presents with mechanical fall, right hip fracture. 1. Mechanical fall, right hip fracture: s/p IC Nail 11/27 2. Diabetes: currently and insulin sliding scale. 3. Hyperlipidemia: Continue statin. 4. Hypertension: Hold losartan and restart after the surgery. We will place on IV hydralazine p.r.n. 5. Deep venous thrombosis prophylaxis: Resume Post Op Care per Surgery Protocol Incentive Spirometry 10x per Hour Resume Relative Home Meds Where Appropriate PT/OT with appropriate fall precautions Transition from IV to PO Pain control DVT Prophylaxis Per Surgery Protocol Monitor Daily Labs DISPOSITION: Medical floor. PT and OT prior to discharge. Social service to help with discharge planning. Level 1 full code. Labs Checked ROS-No Headache, No Visual Changes, No Nausea, No Vomiting, No Fever, No Chills, No Neck Pain or Stiffness, No Chest Pain, No Palpitations, No SOB, No WOO, No Cough, No Sputum, No Wheezing, No Abdominal Pain, No Diarrhea, No Hematemesis, No Hemoptysis, No Unexpected Weight Loss, No Flank pain, No Melena, No Hematochezia, No Frequency, No Urgency, No Burning, No Hematuria, No Rashes, No Diaphoresis. Appetite is Normal Physical Exam Gen-AAO x 3, NAD, Afebrile Head-NCAT, EOMI, PERRLA, Anicteric Sclera, No Posterior Pharyngeal Erythema Neck-Supple, No JVD, No Thyromegaly, No Masses, No LAD, No Bruits Lungs-Clear to Auscultation Bilaterally, No Rales, No Rhonchi, No Wheezing, No Crepitus Chest-No S4, +S1, +S2, No S3, No Murmurs, No Rubs, No Gallops, No Ectopy Abdomen-Soft, Bowel Sounds Present, Non Tender, Non Distended, No Hepatomegaly, No Splenomegaly, No Palpable Masses, No Rebound, No Rigidity, No Guarding Musculoskeletal-Full Range of Motion Bilaterally, No CVAT Extremities-No Cyanosis, No Clubbing, No Edema Nuero-Cranial Nerves II-XII grossly intact, Motor WNL, DTRs WNL, Strength WNL, Non Focal Psych-Normal Mood Admission and Anticipated Discharge Date Admission Date: November 27, 2020 Results & Data Results & Data ([facility]) Vital Signs (Past 12 Hours) Vital Signs Temp Pulse Pulse Pulse Resp BP BP 11/28/20 08:38 37.0 C 92 H 18 160/80 H 11/28/20 08:22 36.8 C 92 H 18 146/74 H 11/28/20 07:55 36.7 C 89 18 138/75 11/28/20 04:06 36.4 C L 88 16 133/73 11/28/20 00:51 36.3 C L 76 16 128/75 11/28/20 00:45 36.3 C L 81 20 118/71 11/27/20 23:55 36.3 C L 82 16 115/74 11/27/20 22:45 36.2 C L 79 20 114/72 11/27/20 22:15 36.2 C L 81 20 104/66 11/27/20 21:45 36.6 C 81 110/69 11/27/20 21:30 36.3 C L 80 18 120/60 11/27/20 21:20 81 18 95/60 L Pulse Ox 11/28/20 08:38 99 11/28/20 08:22 11/28/20 07:55 99 11/28/20 04:06 98 11/28/20 00:51 99 11/28/20 00:45 99 11/27/20 23:55 99 11/27/20 22:45 100 11/27/20 22:15 92 11/27/20 21:45 100 11/27/20 21:30 100 11/27/20 21:20 98 (1) Fracture of proximal end of right femur Encounter type: subsequent encounter Fracture type: closed
[2020-11-28] MEDS: ENOXAPARIN INJ 40 MG/0.4 ML SYR SQ SCH (09:50)
[2020-11-28] MEDS: ASPIRIN 81 MG ECTAB PO SCH (09:52)
[2020-11-28] MEDS ORDERED: FUROSEMIDE 20 MG in SYRINGE 0 ML IV SCH (10:00)
[2020-11-28] MEDS: SODIUM CHLORIDE 0.9% 1000ML 1,000 ML IV SCH (16:35)
--- NOTE | 2020-11-28 20:02 | XRay Report ---
XR chest 1V portable CLINICAL HISTORY: hypoxia COMPARISON STUDY: Chest radiograph November 26, 2020. FINDINGS: No pneumothorax or pleural effusion is noted. Mild cardiomegaly is noted. Linear left basil ar opacities represent atelectasis. No consolidation is identified. There is no evidence for pulmonar y edema. IMPRESSION: 1. Linear left basilar opacities suggestive of atelectasis. 2. Mild cardiomegaly without evidence for pulmonary edema. ACT 112: Negative or not required by law. Electronically signed by: Andrea Lockwood M.D. 11/28/2020 8:01 PM
[2020-11-28 20:13] LABS: Hematocrit (blood only) 28.7 % (37-47); Hemoglobin 9.5 g/dL (12.0-16.0)
[2020-11-28] MEDS: ATORVASTATIN 20 MG TAB PO SCH (20:57)
[2020-11-29] MEDS: SODIUM CHLORIDE 0.9% 1000ML 1,000 ML IV SCH ×2 (01:57→13:18)
[2020-11-29] MEDS: ACETAMINOPHEN 325 MG TAB PO PRN (03:53)
[2020-11-29] MEDS: cefTRIAXone SODIUM 2,000 MG in DEXTROSE 5% 50 ML IV SCH (06:04)
[2020-11-29 06:10] LABS: Hematocrit (blood only) 27.6 % (37-47); Mean Corpuscular Hgb Conc 32.6 g/dL (32-36); Mean Corpuscular Volume 79.8 fL (80-100); Mean Platelet Volume 10.7 fL (7.4-10.4); Platelet Count 259 K/uL (130-400); RDW Coefficient of Variation 17.6 % (11.5-14.5); RDW Standard Deviation 51.1 fL (36.4-46.3); Red Blood Count 3.46 M/uL (4.2-5.4); White Blood Count 9.46 K/uL (4.8-10.8)
[2020-11-29 06:44] LABS: BUN Creatinine Ratio 25.4 (10-20); Calcium 7.4 mg/dl (8.5-10.1); Creatinine Clr Calc Pharmacy 53.1 ml/min; Est GFR (African American) 57.7 ml/min; Est GFR (Non-African American) 49.8 ml/min; Potassium 4.2 mmol/L (3.5-5.1)
[2020-11-29 07:16] LABS: Microcytosis Present
--- NOTE | 2020-11-29 07:29 | Orthopedic Progress Note ---
Date of Service November 29, 2020 Assessment & Plan (1) Fracture of proximal end of right femur: POD#2 right trochanteric femoral nail -PT/OT-TTWB -Pain management -DVT prophylaxis-Lovenox -AM labs-hemoglobin up to 9 this morning acute blood loss anemia likely due to surgical loss and dilutional effect. received 2 units of PRBC yesterday. Creatinine improved. Leukocytosis likely reactive due to surgical stress, resolved -D/C planning-discharge to inpatient rehab vs SNF when stable Admission and Anticipated Discharge Date Admission Date: November 27, 2020 Subjective POD#2 right troch nail. Patient resting in bed comfortably. No complaints. Denies chest pain, sob, dizziness, n/v/d, fever, chills. Review of Systems Review of Systems: All systems reviewed & are unremarkable except as noted in Subjective Physical Exam Physical Exam: Right hip dressing is c/d/i. Toes mobile. No calf tenderness. Distally n/v status and sensation are intact. Distal pulses palpable. Constitutional: well developed and well nourished; no acute distress Results & Data ([facility]) Vital Signs (Past 12 Hours) Vital Signs Temp Pulse Resp BP BP Pulse Ox 11/29/20 07:26 37 C 87 16 137/75 95 11/29/20 06:08 37.1 C 11/29/20 03:07 38.3 C H 96 H 20 123/69 94 11/28/20 22:48 37.1 C 97 H 20 123/66 92 11/28/20 19:34 37.8 C H 100 H 20 124/76 92 Laboratory Results H & H 11/26/20 11/27/20 11/27/20 Range/Units 21:52 05:30 21:07 Hgb 11.8 L 11.2 L 9.0 L (12.0-16.0) g/dL Hct 37.0 34.9 L 29.0 L (37-47) % 11/28/20 11/28/20 11/29/20 Range/Units 06:11 19:52 05:44 Hgb 7.6 L 9.5 L 9.0 L (12.0-16.0) g/dL Hct 24.4 L 28.7 L 27.6 L (37-47) % Coagulation 11/26/20 Range/Units 22:26 INR 1.0 (0.9-1.1) (1) Fracture of proximal end of right femur Encounter type: subsequent encounter Fracture type: closed
[2020-11-29] MEDS: ASPIRIN 81 MG ECTAB PO SCH (09:07)
[2020-11-29] MEDS: INSULIN GLARGINE SOLOSTAR 100 UNITS/ML 3 ML PEN SC SCH (09:07)
[2020-11-29] MEDS: INSULIN ASPART 100 UNITS/ML 3 ML PEN SC SCH ×4 (09:08→21:26)
[2020-11-29] MEDS: oxyCODONE HCL IR 5 MG TAB (IMMEDIATE RELEASE) PO PRN (09:14)
--- NOTE | 2020-11-29 09:23 | Hospitalist Progress Note ---
Date of Service November 29, 2020 Assessment & Plan (1) Fracture of proximal end of right femur: (2) Obesity: (3) Anemia: (4) Diabetic peripheral neuropathy: (5) Type 2 diabetes mellitus with insulin therapy: (6) Hyperlipidemia: ASSESSMENT AND PLAN: A 75-year-old female who presents with mechanical fall, right hip fracture. 1. Mechanical fall, right hip fracture: s/p IC Nail 11/27 2. Diabetes: currently and insulin sliding scale. 3. Hyperlipidemia: Continue statin. 4. Hypertension: Hold losartan and restart after the surgery. We will place on IV hydralazine p.r.n. 5. Deep venous thrombosis prophylaxis: Resume Post Op Care per Surgery Protocol Incentive Spirometry 10x per Hour Resume Relative Home Meds Where Appropriate PT/OT with appropriate fall precautions Transition from IV to PO Pain control DVT Prophylaxis Per Surgery Protocol Monitor Daily Labs, IVFs-Patient Dry, Started Rocephin started by my partner for fever, WBCs normal, Panculture DISPOSITION: Medical floor. PT and OT prior to discharge. Social service to help with discharge planning. Level 1 full code. Labs Checked ROS-No Headache, No Visual Changes, No Nausea, No Vomiting, + Fever, No Chills, No Neck Pain or Stiffness, No Chest Pain, No Palpitations, No SOB, No WOO, No Cough, No Sputum, No Wheezing, No Abdominal Pain, No Diarrhea, No Hematemesis, No Hemoptysis, No Unexpected Weight Loss, No Flank pain, No Melena, No Hematochezia, No Frequency, No Urgency, No Burning, No Hematuria, No Rashes, No Diaphoresis. Appetite is Normal Physical Exam Gen-AAO x 3, NAD, febrile Head-NCAT, EOMI, PERRLA, Anicteric Sclera, No Posterior Pharyngeal Erythema Neck-Supple, No JVD, No Thyromegaly, No Masses, No LAD, No Bruits Lungs-Clear to Auscultation Bilaterally, No Rales, No Rhonchi, No Wheezing, No Crepitus Chest-No S4, +S1, +S2, No S3, No Murmurs, No Rubs, No Gallops, No Ectopy Abdomen-Soft, Bowel Sounds Present, Non Tender, Non Distended, No Hepatomegaly, No Splenomegaly, No Palpable Masses, No Rebound, No Rigidity, No Guarding Musculoskeletal-Full Range of Motion Bilaterally, No CVAT Extremities-No Cyanosis, No Clubbing, No Edema Nuero-Cranial Nerves II-XII grossly intact, Motor WNL, DTRs WNL, Strength WNL, Non Focal Psych-Normal Mood Admission and Anticipated Discharge Date Admission Date: November 27, 2020 Results & Data Results & Data ([facility]) Vital Signs (Past 12 Hours) Vital Signs Temp Pulse Resp BP BP Pulse Ox 11/29/20 07:26 37 C 87 16 137/75 95 11/29/20 06:08 37.1 C 11/29/20 03:07 38.3 C H 96 H 20 123/69 94 11/28/20 22:48 37.1 C 97 H 20 123/66 92 (1) Fracture of proximal end of right femur Encounter type: subsequent encounter Fracture type: closed
[2020-11-29] MEDS ORDERED: SODIUM CHLORIDE 0.9% 500 ML IV SCH (09:30)
[2020-11-29] MEDS: ENOXAPARIN INJ 40 MG/0.4 ML SYR SQ SCH (09:37)
[2020-11-29] MEDS: HYDROmorphone INJ 0.5 MG/0.5 ML SYR IV PRN (13:16)
[2020-11-29] MEDS: ATORVASTATIN 20 MG TAB PO SCH (21:26)
[2020-11-30] MEDS: SODIUM CHLORIDE 0.9% 1000ML 1,000 ML IV SCH ×3 (00:12→20:16)
[2020-11-30] MEDS: oxyCODONE HCL IR 5 MG TAB (IMMEDIATE RELEASE) PO PRN ×2 (05:36→18:37)
[2020-11-30] MEDS: cefTRIAXone SODIUM 2,000 MG in DEXTROSE 5% 50 ML IV SCH (05:36)
[2020-11-30 06:27] LABS: Basophils # (auto) 0.02 K/uL (0-0.2); Basophils % (auto) 0.2 %; Eosinophils # (auto) 0.34 K/uL (0-0.5); Eosinophils % (auto) 3.7 %; Hematocrit (blood only) 25.3 % (37-47); Hemoglobin 8.3 g/dL (12.0-16.0); Immature Granulocytes # (auto) 0.03 K/uL (0.00-0.02); Immature Granulocytes % (auto) 0.3 %; Lymphocytes # (auto) 1.07 K/uL (1.2-3.4); Lymphocytes % (auto) 11.6 %; Mean Corpuscular Hgb Conc 32.8 g/dL (32-36); Mean Corpuscular Volume 79.3 fL (80-100); Monocytes # (auto) 1.16 K/uL (0.11-0.59); Monocytes % (auto) 12.6 %; Neutrophils # (auto) 6.61 K/uL (1.4-6.5); Neutrophils % (auto) 71.6 %; Platelet Count 285 K/uL (130-400); RDW Coefficient of Variation 17.9 % (11.5-14.5); RDW Standard Deviation 52.2 fL (36.4-46.3); Red Blood Count 3.19 M/uL (4.2-5.4); White Blood Count 9.23 K/uL (4.8-10.8)
[2020-11-30 07:04] LABS: BUN Creatinine Ratio 20.9 (10-20); Calcium 6.8 mg/dl (8.5-10.1); Creatinine Clr Calc Pharmacy 69.5 ml/min; Est GFR (African American) 79.9 ml/min; Potassium 3.7 mmol/L (3.5-5.1)
--- NOTE | 2020-11-30 07:23 | Hospitalist Progress Note ---
Date of Service November 30, 2020 Assessment & Plan (1) Fracture of proximal end of right femur: (2) Obesity: (3) Anemia: (4) Diabetic peripheral neuropathy: (5) Type 2 diabetes mellitus with insulin therapy: (6) Hyperlipidemia: ASSESSMENT AND PLAN: A 75-year-old female who presents with mechanical fall, right hip fracture. 1. Mechanical fall, right hip fracture: s/p IC Nail 11/27 2. Diabetes: currently and insulin sliding scale. 3. Hyperlipidemia: Continue statin. 4. Hypertension: Hold losartan and restart after the surgery. We will place on IV hydralazine p.r.n. 5. Deep venous thrombosis prophylaxis: Resume Post Op Care per Surgery Protocol Incentive Spirometry 10x per Hour Resume Relative Home Meds Where Appropriate PT/OT with appropriate fall precautions Transition from IV to PO Pain control DVT Prophylaxis Per Surgery Protocol-SC Heparin Started 11/30 Monitor Daily Labs, IVFs-Patient Dry, Rocephin started by my partner for fever, WBCs normal, Panculture, UA+ for UTI DISPOSITION: Medical floor. PT and OT prior to discharge. Social service to help with discharge planning. Level 1 full code. Labs Checked ROS-No Headache, No Visual Changes, No Nausea, No Vomiting, + Fever, No Chills, No Neck Pain or Stiffness, No Chest Pain, No Palpitations, No SOB, No WOO, No Cough, No Sputum, No Wheezing, No Abdominal Pain, No Diarrhea, No Hematemesis, No Hemoptysis, No Unexpected Weight Loss, No Flank pain, No Melena, No Hematochezia, No Frequency, No Urgency, No Burning, No Hematuria, No Rashes, No Diaphoresis. Appetite is Normal Physical Exam Gen-AAO x 3, NAD, febrile Head-NCAT, EOMI, PERRLA, Anicteric Sclera, No Posterior Pharyngeal Erythema Neck-Supple, No JVD, No Thyromegaly, No Masses, No LAD, No Bruits Lungs-Clear to Auscultation Bilaterally, No Rales, No Rhonchi, No Wheezing, No Crepitus Chest-No S4, +S1, +S2, No S3, No Murmurs, No Rubs, No Gallops, No Ectopy Abdomen-Soft, Bowel Sounds Present, Non Tender, Non Distended, No Hepatomegaly, No Splenomegaly, No Palpable Masses, No Rebound, No Rigidity, No Guarding Musculoskeletal-Full Range of Motion Bilaterally, No CVAT Extremities-No Cyanosis, No Clubbing, No Edema Nuero-Cranial Nerves II-XII grossly intact, Motor WNL, DTRs WNL, Strength WNL, Non Focal Psych-Normal Mood Admission and Anticipated Discharge Date Admission Date: November 27, 2020 Results & Data Results & Data ([facility]) Vital Signs (Past 12 Hours) Vital Signs Temp Pulse Resp BP Pulse Ox 11/30/20 07:19 37.3 C 83 16 130/78 91 11/29/20 23:48 36.6 C 90 18 145/74 H 92 (1) Fracture of proximal end of right femur Encounter type: subsequent encounter Fracture type: closed
--- NOTE | 2020-11-30 07:57 | Orthopedic Progress Note ---
Date of Service November 30, 2020 Assessment & Plan (1) Fracture of proximal end of right femur: POD#3 right trochanteric femoral nail -PT/OT-TTWB -Pain management -DVT prophylaxis-Lovenox -AM labs-hemoglobin up to 8.3 this morning acute blood loss anemia likely due to surgical loss and dilutional effect. received 2 units of PRBC during this admission. Creatinine improved. Leukocytosis likely reactive due to surgical stress, resolved -D/C planning-discharge to inpatient rehab when stable Ortho will sign off at this time. Please call with any questions. Patient should follow up with Dr. Delaney 12-14 days post operatively. They can call [phone] for an appointment. Discharge instructions placed in chart. Admission and Anticipated Discharge Date Admission Date: November 27, 2020 Subjective POD#3 right troch nail. Patient resting in bed comfortably, sleeping on my arrival, easily awoken. No complaints. Not having any pain in her hip. Denies chest pain, sob, dizziness, n/v/d, fever, chills. Review of Systems Review of Systems: All systems reviewed & are unremarkable except as noted in Subjective Physical Exam Physical Exam: Right hip dressings are c/d/i, no drainage onto dressings. Toes mobile. No calf tenderness. Distally n/v status and sensation are intact. Distal pulses palpable. Constitutional: well developed and well nourished; no acute distress Results & Data ([facility]) Vital Signs (Past 12 Hours) Vital Signs Temp Pulse Resp BP Pulse Ox 11/30/20 07:19 37.3 C 83 16 130/78 91 11/29/20 23:48 36.6 C 90 18 145/74 H 92 (1) Fracture of proximal end of right femur Encounter type: subsequent encounter Fracture type: closed
[2020-11-30] MEDS: HYDROmorphone INJ 0.5 MG/0.5 ML SYR IV PRN (08:52)
[2020-11-30] MEDS: ASPIRIN 81 MG ECTAB PO SCH (08:52)
[2020-11-30] MEDS: ENOXAPARIN INJ 40 MG/0.4 ML SYR SQ SCH (08:52)
[2020-11-30] MEDS ORDERED: HEPARIN SOD 5,000 UNIT/0.5 ML VIAL SQ SCH (09:00)
[2020-11-30] MEDS: INSULIN ASPART 100 UNITS/ML 3 ML PEN SC SCH ×4 (09:19→21:11)
[2020-11-30] MEDS: INSULIN GLARGINE SOLOSTAR 100 UNITS/ML 3 ML PEN SC SCH (09:35)
[2020-11-30] MEDS ORDERED: methylPREDNISolone 40 MG in SYRINGE 0 ML IV SCH (16:00)
[2020-11-30] MEDS: ATORVASTATIN 20 MG TAB PO SCH (21:49)
[2020-12-01] MEDS: cefTRIAXone SODIUM 2,000 MG in DEXTROSE 5% 50 ML IV SCH (06:11)
[2020-12-01] MEDS: SODIUM CHLORIDE 0.9% 1000ML 1,000 ML IV SCH (06:12)
[2020-12-01 06:33] LABS: Basophils # (auto) 0.01 K/uL (0-0.2); Basophils % (auto) 0.1 %; Eosinophils % (auto) 4.8 %; Hematocrit (blood only) 23.7 % (37-47); Hemoglobin 7.9 g/dL (12.0-16.0); Immature Granulocytes # (auto) 0.03 K/uL (0.00-0.02); Immature Granulocytes % (auto) 0.4 %; Lymphocytes # (auto) 0.93 K/uL (1.2-3.4); Lymphocytes % (auto) 11.1 %; Mean Corpuscular Hemoglobin 26.1 pg (25-34); Mean Corpuscular Hgb Conc 33.3 g/dL (32-36); Mean Corpuscular Volume 78.2 fL (80-100); Mean Platelet Volume 10.3 fL (7.4-10.4); Monocytes # (auto) 1.21 K/uL (0.11-0.59); Monocytes % (auto) 14.4 %; Neutrophils # (auto) 5.82 K/uL (1.4-6.5); Neutrophils % (auto) 69.2 %; Nucleated RBC # (auto) 0.03 K/uL (0-0); Nucleated RBC % (auto) 0.4 %; Platelet Count 288 K/uL (130-400); RDW Coefficient of Variation 18.5 % (11.5-14.5); RDW Standard Deviation 52.7 fL (36.4-46.3); Red Blood Count 3.03 M/uL (4.2-5.4)
[2020-12-01 06:55] LABS: Echinocytes 2+
[2020-12-01 07:08] LABS: Albumin Globulin Ratio 0.6 (0.9-2); BUN Creatinine Ratio 17.5 (10-20); Bilirubin,Total 0.4 mg/dl (0.2-1); Calcium 6.8 mg/dl (8.5-10.1); Est GFR (African American) 94.7 ml/min; Est GFR (Non-African American) 81.7 ml/min; Globulin 3.6 gm/dl (2.5-4.0); Total Protein 5.6 gm/dl (6.4-8.2)
[2020-12-01] MEDS: ASPIRIN 81 MG ECTAB PO SCH (08:14)
[2020-12-01] MEDS: ENOXAPARIN INJ 40 MG/0.4 ML SYR SQ SCH (08:14)
[2020-12-01] MEDS: INSULIN GLARGINE SOLOSTAR 100 UNITS/ML 3 ML PEN SC SCH (09:20)
[2020-12-01] MEDS: INSULIN ASPART 100 UNITS/ML 3 ML PEN SC SCH ×2 (09:20→13:39)
[2020-12-01] MEDS: oxyCODONE HCL IR 5 MG TAB (IMMEDIATE RELEASE) PO PRN ×2 (09:52→17:31)
--- NOTE | 2020-12-01 09:59 | Discharge Summary ---
Date of Service December 01, 2020 Admission HPI Per Admitting Provider 75-year-old female with past medical history significant for diabetes, hypertension. The patient ambulates with a walker since last 4 years. Lives with her son. Presents with mechanical fall. The patient was trying to get up and trying to walk with a walker, but the walker moved little forward and she fell on the right side of the hip. No head injury, no loss of consciousness and she was brought in here and found to have right hip fracture. Currently resting comfortably and hemodynamically stable. Complains of right hip pain. Denies any other complaints. The patient does not speak much Maltese. Her son is in the room helping with the history. No headache, no blurred vision, no earache, no runny nose, no sore throat, no cough. Appetite is okay. No difficulty swallowing. No fever, no chills, no chest pain, no shortness of breath, no nausea, no abdominal pain. Normal bowel and bladder movements. Admission Exam Per Admitting Provider PHYSICAL EXAMINATION: GENERAL: The patient is of moderate build, not in acute distress. The patient is alert and oriented. VITAL SIGNS: Temperature 36.7, pulse 67, respiratory rate 16, blood pressure 212/91, oxygen 98% on room air. HEENT: Pupils equal, round, and reactive to light. Oral mucosa moist. NECK: No JVD. No neck masses. CARDIOVASCULAR: S1, S2 heard. Regular rate and rhythm. Ejection systolic murmur in the aortic area. RESPIRATORY SYSTEM: Normal AP diameter. No accessory muscle use. No wheezing, no crackles. ABDOMEN: Soft, bowel sounds present, nontender. No distention. CENTRAL NERVOUS SYSTEM: Cranial nerves II-XII grossly intact. Nonfocal. EXTREMITIES: Right lower extremity is shortened and externally rotated. No erythema seen. Principal Diagnosis (1) Fracture of proximal end of right femur: (2) Obesity: (3) Anemia: (4) Diabetic peripheral neuropathy: (5) Type 2 diabetes mellitus with insulin therapy: (6) Hyperlipidemia: (7) FROILAN and Post op Blood Loss Anemia Discharge Exam See below Discharge Data Allergies Allergy/AdvReac Type Severity Reaction Status Date / Time No Known Allergies Allergy Verified 11/26/20 23:06 Consultations 11/26/20 22:52 ED Decision to Admit Stat 11/27/20 08:00 Consult Orthopedic Surgery Routine Procedures Performed Operation Date: 11/27/20 08:50 Actual Procedures p Right Tronchanteric Femoral Nail of Right Proximal Femur Fracture(Right) - Jam Delaney, Ordered Studies 11/27/20 FL hip RT 2-3V Routine Current Diagnoses Anemia, unspecified (11/27/20) Type 2 diabetes mellitus with diabetic polyneuropathy (11/27/20) Type 2 diabetes mellitus without complications (11/27/20) Obesity, unspecified (11/27/20) Hyperlipidemia, unspecified (11/27/20) Fracture of unspecified part of neck of right femur, initial encounter for closed fracture (11/27/20) Encounter for other preprocedural examination (11/27/20) 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 11/29/20 05:44 Blood Anaerobic Blood Culture - Preliminary No growth in Anaerobic bottle after 48 hours. 11/29/20 05:52 Blood Aerobic Blood Culture - Preliminary No growth in Aerobic bottle after 48 hours. 11/29/20 05:52 Blood Anaerobic Blood Culture - Preliminary No growth in Anaerobic bottle after 48 hours. 11/28/20 06:11 Urine,Straight Cath Urine Culture - Final Escherichia coli Hospital Course (1) Fracture of proximal end of right femur: (2) Obesity: (3) Anemia: (4) Diabetic peripheral neuropathy: (5) Type 2 diabetes mellitus with insulin therapy: (6) Hyperlipidemia: ASSESSMENT AND PLAN: A 75-year-old female who presents with mechanical fall, right hip fracture. 1. Mechanical fall, right hip fracture: s/p IC Nail 11/27 2. Diabetes: currently and insulin sliding scale. 3. Hyperlipidemia: Continue statin. 4. Hypertension: Hold losartan and restart after the surgery. We will place on IV hydralazine p.r.n. 5. Deep venous thrombosis prophylaxis: 6. FROILAN and Post op Blood Loss Anemia Resume Post Op Care per Surgery Protocol Incentive Spirometry 10x per Hour Resume Relative Home Meds Where Appropriate PT/OT with appropriate fall precautions Transition from IV to PO Pain control DVT Prophylaxis Per Surgery Protocol-SC Heparin Started 11/30 Monitor Daily Labs, IVFs-Patient Dry, Rocephin started by my partner for fever, WBCs normal, Panculture, UA+ for UTI DISPOSITION: SNF today, TTWB Labs Checked ROS-No Headache, No Visual Changes, No Nausea, No Vomiting, + Fever, No Chills, No Neck Pain or Stiffness, No Chest Pain, No Palpitations, No SOB, No WOO, No Cough, No Sputum, No Wheezing, No Abdominal Pain, No Diarrhea, No Hematemesis, No Hemoptysis, No Unexpected Weight Loss, No Flank pain, No Melena, No Hematochezia, No Frequency, No Urgency, No Burning, No Hematuria, No Rashes, No Diaphoresis. Appetite is Normal Physical Exam Gen-AAO x 3, NAD, febrile Head-NCAT, EOMI, PERRLA, Anicteric Sclera, No Posterior Pharyngeal Erythema Neck-Supple, No JVD, No Thyromegaly, No Masses, No LAD, No Bruits Lungs-Clear to Auscultation Bilaterally, No Rales, No Rhonchi, No Wheezing, No Crepitus Chest-No S4, +S1, +S2, No S3, No Murmurs, No Rubs, No Gallops, No Ectopy Abdomen-Soft, Bowel Sounds Present, Non Tender, Non Distended, No Hepatomegaly, No Splenomegaly, No Palpable Masses, No Rebound, No Rigidity, No Guarding Musculoskeletal-Full Range of Motion Bilaterally, No CVAT Extremities-No Cyanosis, No Clubbing, No Edema Nuero-Cranial Nerves II-XII grossly intact, Motor WNL, DTRs WNL, Strength WNL, Non Focal Psych-Normal Mood Total Time Total Time Spent Total Time Spent (In Minutes): 45 mins Total Time Includes: Examination of the Patient, Discharge Planning, Medication Reconciliation and Communication With Other Providers Discharge Plan Discharge Items Patient Disposition: Transfer Inpatient Rehab Fac Reason For Visit: FALL Discharge Diagnosis: (1) Fracture of proximal end of right femur: (2) Obesity: (3) Anemia: (4) Diabetic peripheral neuropathy: (5) Type 2 diabetes mellitus with insulin therapy: (6) Hyperlipidemia: Condition on Discharge: Good Health Concerns: Participation Activity: As commented below Activity Comment: TTWB RLE Lifting: None Bathing: Keep incision dry Exercise/Sports: None Driving/Machine Use: None Weightbearing: Right partial and Right toe touch Non-emergency contact: Primary Care Provider and Surgeon Call non-emergency contact if: you have any medication questions and your symptoms worsen Follow-up/Referrals: Mandeep Deshpande MD [Primary Care Provider] - Diet: Carb Consistent or DM2 and Heart Healthy Addtl Attending Provider Instructions: none 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 You are to ambulate with a walker or crutches for approximately 6 weeks. B. You are TOE TOUCH WEIGHT BEARING on your operative lower extremity for at least 6 weeks. C. Wear low heeled shoes with non-slip soles D. Be sure that your floors are free of things that could trip you throw rugs, electrical cords, and small objects. Avoid wet and waxed floors, especially with crutches/walker/cane. E. Try to walk several times a day with rest periods between. F. You may shower 48 hours after surgery and get the incision area wet, but DO NOT soak or submerge incision area in water. (No baths, swimming pools, hot tubs) G. You may have a large, band-aid like dressing over your incision (Aquacel). This will remain on your incision for 7 days, and then can be removed. You CAN shower with this on. If incision is leaking through the dressing, please call the office . H. Do NOT apply soap or any ointment/lotions directly over incision. I. You may use ice as needed to operative site. SPECIAL CARE INSTRUCTIONS: VERY IMPORTANT TO READ AND REVIEW A. You may be at risk for phlebitis or blood clots. a. Wear surgical stockings (DEB hose) for 2 weeks after surgery to improve circulation and reduce swelling. b. LOVENOX 40mg SQ daily for 4 weeks or as directed. This is your blood thinner. c. If you are on Coumadin- you will have daily/weekly blood work to monitor your levels. This will be done by either your family physician/manager of organizational development (if you are on Coumadin chronically) versus your orthopedic surgeon. Expect a phone call the day of or the day after your blood work is drawn to adjust your dose accordingly. B. There are a few signs you need to watch for after you are home. Call [facility] at [phone] if you experience any of the following: a. If you have a temperature of 101 degrees or higher. b. Sudden increase in pain in your hip not relieved by rest or pain medication. c. Any fluid or drainage from the incision; redness of the incision. d. Shortness of breath or chest pain. B. Please call [facility] at [phone] if you have any questions or concerns about your operation or recovery. C. Call your physician if: a. Temperature is greater than 101 degrees (F). b. Pain is not relieved by prescribed pain medications. c. Increase drainage or redness from incision. d. Unanswered questions or concerns. D. Pain Medication: a. You will be prescribed pain medication upon discharge that should last till your first post-operative appointment. b. If you experience nausea and/or skin rash, discontinue this medication and contact our office for an alternative medication. c. Caution- narcotic pain medication can cause constipation. FOLLOW UP VISIT: Please call [facility] at [phone] to schedule a follow up appointment 12-14 days from the date of your surgery with Dr. Delaney. Pending Studies at Discharge: No Stand-Alone Forms: My [facility] Skilled Items Patient informed of condition?: Yes DNR: No Discharge Level of Care: Acute rehab Communicable Disease: No Discharge Prognosis: Improving Lines: None Urinary Catheter: No Medications and DC Order Prescriptions: New enoxaparin 40 mg/0.4 mL Syringe 40 mg subcut Q24H Qty: 4 RF: 0 acetaminophen 325 mg Tablet 650 mg PO Q4H PRN (Reason: fever or pain) Qty: 60 RF: 0 oxycodone 5 mg Tablet 5 mg PO Q4H PRN (Reason: pain) Qty: 10 RF: 0 polyethylene glycol 3350 [Miralax] 17 gram Powder In Packet 17 g PO DAILY PRN (Reason: constipation) Qty: 30 RF: 0 Continued (DME) blood-glucose meter [Accu-Chek Lisbeth Plus Meter] Misc See Rx Instructions .ROUTE .MEDSUPPLY Qty: 1 RF: 0 (DME) Accu-Chek Lisbeth Plus test strp Strip See Rx Instructions .ROUTE .MEDSUPPLY Qty: 400 RF: 3 (DME) lancets [Accu-Chek Fastclix Lancet Drum] Misc See Rx Instructions .ROUTE .MEDSUPPLY Qty: 400 RF: 3 (DME) OneTouch Verio test strips Strip See Rx Instructions .ROUTE .MEDSUPPLY Qty: 400 RF: 3 atorvastatin 20 mg tablet 20 mg PO QPM 90 Days Qty: 90 RF: 1 metformin 500 mg tablet 1,000 mg PO BID 90 Days Qty: 360 RF: 3 aspirin [Adult Low Dose Aspirin] 81 mg tablet,delayed release (DR/EC) 81 mg PO DAILY RF: 0 (DME) pen needle, diabetic [BD Ultra-Fine Mee Pen Needle] 32 gauge x 5/32" needle See Dose Instructions .ROUTE .MEDSUPPLY Qty: 10 RF: 0 insulin aspart U-100 [Novolog Flexpen U-100 Insulin] 100 unit/mL (3 mL) insulin pen See Rx Instructions SQ DAILY PRN (Reason: DEPENDS ON BSG WITH MEALS) RF: 0 Lantus Solostar U-100 Insulin 100 unit/mL (3 mL) insulin pen 15 unit SQ QAM RF: 0 losartan 25 mg tablet 25 mg PO DAILY RF: 0 Krames/Other Patient Handouts: High Blood Sugar (Hyperglycemia), Hypoglycemia (Low Blood Sugar), Managing Type 2 Diabetes, A1C Admission Data Admit Date/Time: 11/27/20 01:03 Attending Provider: Scar Thomas Admit Provider: Rick Lee Primary Care Provider: Mandeep Deshpande Other Providers: [facility] ; Rick Lee ; Joseph Daly ; Jam Delaney ; Brant Benitez ; Keisha Watson Thomas J ; Cynthia Andino ; Nj Clement ; Aj Franco ; Florentino Polanco Andrew J. ; Aj Lopez ; Wyatt Bray ; Darvin Puga ; Micthell Farrell ; Frederic Ellis ; Cynthia Lisa ; Daljit Bowling ; Godwin Mendoza ; Melva Ni ; Mandeep Burk ; Lizzie Garnica
[2020-12-01] MEDS: ACETAMINOPHEN 325 MG TAB PO PRN (17:31)
== END 2020-12-01 17:53 | DRG 481 ==
LOC: ED 21:43 → 3N 11-27 01:03 → SUATTDRO 11-27 01:03 → 3N 11-27 02:13

== ENCOUNTER 2020-12-06 13:30 | Observation (INO) ==
--- NOTE | 2020-12-06 13:48 | Emergency Department Note ---
History of Present Illness General Chief complaint: Chest Pain Stated complaint: Chest pain SOB Source: patient and family Limitations: language barrier (Daughter, who is a emergency physician, is trans lating) History of Present Illness Provider complaint: Chest pain Onset (ago): hour(s) Location: chest Radiation: non-radiation Severity: mild Pain Consistency: + constant Quality: + other ("Discomfort ") Relieved By: + medication (Nitroglycerin) Associated symptoms: + shortness of breath; no cough, no fever/chills and no nausea/vomiting This is a 75-year-old female with a history of CAD, hypertension, high cholesterol and diabetes presenting with chest pain starting at approximately 10:30 AM this morning. I did obtain history from the patient via her daughter who is a emergency physician. She is translating for her. She states that she has a discomfort in the middle of her chest. She states it does not radiate. She rates it a 2 out of 10 in severity. She states it got better with the nitroglycerin she was given in the ambulance. She was also given aspirin in the ambulance. She states currently she has no chest pain but is more short of breath. She denies any fever or cough. She had negative Covid test recently. She has been on Lovenox for DVT prophylaxis but she has had significant swelling of the right leg. She does not complain of pain to that leg other than at the fracture site. She denies any abdominal pain, vomiting or any other complaints. Home Medications Medication Instructions Recorded Confirmed Type aspirin 81 mg tablet,delayed 81 mg PO DAILY 02/14/19 12/06/20 History release pen needle, diabetic 32 gauge x #10 ea 02/14/19 04/02/20 History " Accu-Chek Lisbeth Plus Meter #1 ea NS 04/08/20 Rx blood sugar diagnostic #400 ea 04/08/20 Rx lancets #400 ea 04/08/20 Rx OneTouch Verio test strips #400 ea NS 04/10/20 Rx atorvastatin 20 mg tablet 20 mg PO QPM 90 Days #90 tab 04/10/20 12/06/20 Rx Lantus Solostar U-100 Insulin 15 unit SQ QAM 11/26/20 12/06/20 History insulin aspart U-100 [Novolog See Rx Instructions SQ DAILY PRN 11/26/20 12/06/20 History Flexpen U-100 Insulin] losartan 25 mg PO DAILY 11/27/20 12/06/20 History acetaminophen 650 mg PO Q4H PRN #60 tab 12/01/20 12/06/20 Rx cefdinir 300 mg PO BID 7 Days #14 cap 12/01/20 12/06/20 Rx enoxaparin 40 mg SUBCUT Q24H #4 ml 12/01/20 12/06/20 Rx oxycodone 5 mg PO Q4H PRN #10 tab 12/01/20 12/06/20 Rx polyethylene glycol 3350 [Miralax] 17 g PO DAILY PRN #30 ea 12/01/20 12/06/20 Rx bisacodyl 10 mg WA DAILY 12/06/20 12/06/20 History docusate sodium 100 mg PO BID 12/06/20 12/06/20 History ferrous sulfate 325 mg PO BIDM 12/06/20 12/06/20 History lidocaine 2 patch TOPICAL QAM 12/06/20 12/06/20 History magnesium hydroxide 30 ml PO DAILY 12/06/20 12/06/20 History metformin 1,000 mg PO BIDM 12/06/20 12/06/20 History sennosides-docusate sodium 1 tab-cap PO QDL 12/06/20 12/06/20 History [Senna-S] Allergies Allergy/AdvReac Type Severity Reaction Status Date / Time No Known Allergies Allergy Verified 11/26/20 23:06 Past Med/Surg History Medical History Acquired claw toe of left foot Acquired claw toe of right foot Anemia Callus Diabetes mellitus with diabetic polyneuropathy Hypertension Obesity Surgical History Amputated toe of right foot Social History Smoking Status: Never smoker Hx Alcohol Use: No Hx Substance Use: No Preferred Language: Slovenian Communication Ability: Effective Communication Tools: IPad Temporary Staff Accountant Required: Yes Beliefs That Will Affect Care: None Current Living Situation: Family Feels Safe at Home: Yes Assistive Devices: Walker Review of Systems See HPI for pertinent positives & negatives. and A total of 10 systems reviewed and were otherwise negative Physical Exam Vital Signs Vital Signs - 24 hr 12/06/20 13:34 12/06/20 13:37 12/06/20 13:40 Temperature 37 C Temperature Source Oral Pulse Rate 74 76 74 Pulse Rate from SpO2 Sensor 74 Pulse Rhythm Regular Pulse Strength Normal Respiratory Rate 17 20 Respiratory Effort / Characteristics Non-Labored Spontaneous Respiratory Depth Normal Respiratory Pattern Regular Blood Pressure 156/58 H 156/58 H Blood Pressure Mean 90 90 Blood Pressure Position Sitting Pulse Oximetry 97 95 95 Oxygen Delivery Method Room Air Room Air Sepsis Recent Fever Within 48 Hours No Sepsis New/Unexplained Change in Mental Status No Sepsis Action Taken by Nursing No Action Required 12/06/20 13:41 12/06/20 14:00 12/06/20 14:30 Temperature Temperature Source Pulse Rate 74 71 71 Pulse Rate from SpO2 Sensor 75 71 71 Pulse Rhythm Pulse Strength Respiratory Rate 13 14 16 Respiratory Effort / Characteristics Respiratory Depth Respiratory Pattern Blood Pressure Blood Pressure Mean Blood Pressure Position Pulse Oximetry 96 92 92 Oxygen Delivery Method Sepsis Recent Fever Within 48 Hours Sepsis New/Unexplained Change in Mental Status Sepsis Action Taken by Nursing 12/06/20 16:43 Temperature Temperature Source Pulse Rate 75 Pulse Rate from SpO2 Sensor 71 Pulse Rhythm Pulse Strength Respiratory Rate 20 Respiratory Effort / Characteristics Respiratory Depth Respiratory Pattern Blood Pressure 144/69 H Blood Pressure Mean 94 Blood Pressure Position Pulse Oximetry 94 Oxygen Delivery Method Sepsis Recent Fever Within 48 Hours Sepsis New/Unexplained Change in Mental Status Sepsis Action Taken by Nursing Constitutional: Vital signs reviewed. Eyes: Pupils are equal round reactive to light. Conjunctiva are noninjected. ENT: Pharynx is clear without erythema or exudate. Mucous membranes are moist. Neck supple without meningeal signs. Respiratory: Clear to auscultation bilaterally. Breath sounds are equal bilaterally. Cardiovascular: Regular rate and rhythm. No rubs or gallops. GI: Soft, nondistended and nontender. Bowel sounds are present. Musculoskeletal: Significant swelling to the right lower extremity compared to left. No calf tenderness. Normal distal capillary refill. Integumentary: No cyanosis. or jaundice. Neurological: The patient is awake and alert. No focal deficits. Psychiatric: Normal affect. Not anxious appearing. Course Administered Medications Discontinued Medications Ioversol (Optiray 350 500ml) 120 ml IV ONCE ONE Stop: 12/06/20 14:10 Last Admin: 12/06/20 14:10 Dose: 120 ml Documented by: [id number] Medical Decision Making Differential Diagnosis Pulmonary embolism, DVT, MO, unstable angina, pneumonia Medical Records Attestation: I reviewed the patient's medical records. I did perform a limited focused review of portions of the patient's old chart on the electronic medical record. The patient underwent right hip surgery by Dr. Delaney for a hip fracture after mechanical fall. She was discharged to [facility] on 01 December. Home Medications Current Medication List: was personally reviewed by me Laboratory Data Attestation: I reviewed the patient's lab results. Result diagrams: 12/06/20 13:45 12/06/20 13:45 Lab Results 12/06/20 12/06/20 12/06/20 Range/Units 13:45 13:45 13:45 WBC 11.44 H (4.8-10.8) K/uL RBC 3.49 L (4.2-5.4) M/uL Hgb 9.1 L (12.0-16.0) g/dL POC Hgb (12.0-16.0) g/dl Hct 29.0 L (37-47) % POC Hct (37-47) % MCV 83.1 (80-100) fL MCH 26.1 (25-34) pg MCHC 31.4 L (32-36) g/dL RDW Std Deviation 58.8 H (36.4-46.3) fL RDW Coeff of Franny 19.7 H (11.5-14.5) % Plt Count 653 H (130-400) K/uL MPV 9.6 (7.4-10.4) fL Immature Gran % (Auto) 0.9 % Neut % (Auto) 75.6 % Lymph % (Auto) 13.5 % [place] % (Auto) 5.9 % Eos % (Auto) 3.8 % Baso % (Auto) 0.3 % Neut # (Auto) 8.63 H (1.4-6.5) K/uL Lymph # (Auto) 1.55 (1.2-3.4) K/uL [place] # (Auto) 0.68 H (0.11-0.59) K/uL Eos # (Auto) 0.44 (0-0.5) K/uL Baso # (Auto) 0.04 (0-0.2) K/uL Immature Gran # (Auto) 0.10 H (0.00-0.02) K/uL PT 10.5 (9.0-12.0) Seconds INR 1.0 (0.9-1.1) APTT 23.9 (21.0-31.0) Seconds PTT Ratio 0.9 POC Sodium (135-144) mmol/L Sodium 140 (136-145) mmol/L POC Potassium (3.3-5.0) mmol/L Potassium 3.8 (3.5-5.1) mmol/L POC Chloride (101-112) mmol/L Chloride 103 (98-107) mmol/L Carbon Dioxide 30 (21-32) mmol/L POC Total CO2 (24-31) mmol/L Anion Gap 7.0 (3-11) POC Anion Gap (16-25) mmol/L POC BUN (7-18) mg/dl BUN 9 (7-18) mg/dl Creatinine 0.84 (0.6-1.2) mg/dl POC Creatinine (0.6-1.3) mg/dl Est Cr Clr Drug Dosing Not Reportable Est GFR ( Amer) 79.9 ml/min Est GFR (Non-Af Amer) 69.0 ml/min BUN/Creatinine Ratio 11.2 (10-20) Glucose 112 H (70-99) mg/dl POC Glucose (other) (70-99) mg/dl Calcium 7.9 L (8.5-10.1) mg/dl POC Ioniz Calcium Joseph (1.12-1.32) mmol/l Total Bilirubin 0.7 (0.2-1) mg/dl AST 40 H (15-37) U/L ALT 28 (12-78) U/L Alkaline Phosphatase 62 (45-117) U/L Troponin I 0.034 (0-0.045) ng/ml Total Protein 6.6 (6.4-8.2) gm/dl Albumin 2.5 L (3.4-5.0) gm/dl Globulin 4.1 H (2.5-4.0) gm/dl Albumin/Globulin Ratio 0.6 L (0.9-2) COVID-19 Eval Order SARS-CoV-2 (PCR) (Negative) 12/06/20 12/06/20 12/06/20 Range/Units 13:50 13:55 13:55 WBC (4.8-10.8) K/uL RBC (4.2-5.4) M/uL Hgb (12.0-16.0) g/dL POC Hgb 9.5 L (12.0-16.0) g/dl Hct (37-47) % POC Hct 28 L (37-47) % MCV (80-100) fL MCH (25-34) pg MCHC (32-36) g/dL RDW Std Deviation (36.4-46.3) fL RDW Coeff of Franny (11.5-14.5) % Plt Count (130-400) K/uL MPV (7.4-10.4) fL Immature Gran % (Auto) % Neut % (Auto) % Lymph % (Auto) % [place] % (Auto) % Eos % (Auto) % Baso % (Auto) % Neut # (Auto) (1.4-6.5) K/uL Lymph # (Auto) (1.2-3.4) K/uL [place] # (Auto) (0.11-0.59) K/uL Eos # (Auto) (0-0.5) K/uL Baso # (Auto) (0-0.2) K/uL Immature Gran # (Auto) (0.00-0.02) K/uL PT (9.0-12.0) Seconds INR (0.9-1.1) APTT (21.0-31.0) Seconds PTT Ratio POC Sodium 139 (135-144) mmol/L Sodium (136-145) mmol/L POC Potassium 3.8 (3.3-5.0) mmol/L Potassium (3.5-5.1) mmol/L POC Chloride 96 L (101-112) mmol/L Chloride (98-107) mmol/L Carbon Dioxide (21-32) mmol/L POC Total CO2 28 (24-31) mmol/L Anion Gap (3-11) POC Anion Gap 19.0 (16-25) mmol/L POC BUN 9 (7-18) mg/dl BUN (7-18) mg/dl Creatinine (0.6-1.2) mg/dl POC Creatinine 0.9 (0.6-1.3) mg/dl Est Cr Clr Drug Dosing Est GFR ( Amer) ml/min Est GFR (Non-Af Amer) ml/min BUN/Creatinine Ratio (10-20) Glucose (70-99) mg/dl POC Glucose (other) 118 H (70-99) mg/dl Calcium (8.5-10.1) mg/dl POC Ioniz Calcium Joseph 1.07 L (1.12-1.32) mmol/l Total Bilirubin (0.2-1) mg/dl AST (15-37) U/L ALT (12-78) U/L Alkaline Phosphatase (45-117) U/L Troponin I (0-0.045) ng/ml Total Protein (6.4-8.2) gm/dl Albumin (3.4-5.0) gm/dl Globulin (2.5-4.0) gm/dl Albumin/Globulin Ratio (0.9-2) COVID-19 Eval Order Covid19 at [facility] SARS-CoV-2 (PCR) NEGATIVE (Negative) Imaging Data Radiologist's Impression: Chest CTA 12/06/20 13:40 CT ANGIOGRAM OF THE CHEST CLINICAL HISTORY: CP/SOB s/p hip surgery eval for PE COMPARISON STUDY: No previous studies for comparison. TECHNIQUE: Following the IV administration of mL of Optiray, CT angiogram of the thorax was performed from the thoracic inlet to the lung bases utilizing the pulmonary embolus protocol. Images are reviewed in the axial, sagittal, and coronal planes. IV contrast was administered without complication. MIP imaging was performed. A dose lowering technique was utilized adhering to the principles of ALARA. CT DOSE: 620.45 mGy.cm FINDINGS: There is adequate opacification within main pulmonary artery. Evaluation of peripheral branches of pulmonary arteries limited due to respiratory motion artifact. No evidence of central pulmonary embolus is seen. Pulmonary artery is normal in caliber. There is no right heart strain. There is mild four-chamber cardiomegaly. No significant pericardial effusion is seen. Evaluation is limited due to motion artifact. There is no significant axillary, supra clavicle or internal mammary lymphadenopathy seen. No significant mediastinal lymphadenopathy seen. Small hilar lymph nodes are seen bilaterally. Limited evaluation of the thyroid gland shows ill-defined hypoattenuating nodule within left thyroid lobe. Esophagus is patulous within its proximal aspect. Small fat-containing hiatal hernia is seen. Tracheobronchial tree is patent. Mild atelectasis is seen at dependent portions of bilateral lower lobes. No large infiltrates or consolidative lesions are seen. Diffuse peribronchial thickening is seen bilaterally most prominent within left lower lobe. Patchy areas of groundglass attenuation are seen throughout lung parenchyma. Evaluation is significantly limited due to motion artifact. -Possible 8 mm nodule in subpleural aspect of the superior segment of the right lower lobe (4/178 was) Limited evaluation of upper abdominal viscera shows hyper attenuating material within dependent portion of the gallbladder likely representing cholelithiasis. No evidence of cholecystitis is seen on current exam. Small left adrenal nodule measuring 1.7 cm is seen. Evaluation of osseous structures shows multilevel degenerative changes of the spine. IMPRESSION: No definite central pulmonary embolus is seen. Evaluation of peripheral branches of pulmonary artery is limited due to motion artifact. No dilatation of the main pulmonary artery. No right heart strain. Diffuse peribronchial cuffing and patchy areas of groundglass attenuation throughout bilateral lungs might represent pulmonary edema or infectious/postinfectious etiology. Mild four-chamber cardiomegaly. There are ill-defined hypoattenuating nodule within left thyroid lobe. Possible 8mm nodule in subpleural aspect of the right lower lobe. Short-term follow-up in 4-6 weeks is suggested to document resolution. Possible cholelithiasis. No evidence of cholecystitis. Small left adrenal nodule. Attention on follow-up imaging. ACT 112: Negative or not required by law. The above report was generated using voice recognition software. It may contain grammatical, syntax or spelling errors. Electronically signed by: Irasema Mendez DO 12/06/2020 2:46 PM Venous Doppler Study 12/06/20 13:40 RIGHT LOWER EXTREMITY VENOUS DOPPLER CLINICAL HISTORY: Dyspnea COMPARISON STUDY: No previous studies for comparison. TECHNIQUE: Sonography of the deep venous system of the right lower extremity was performed. Compression and augmentation were evaluated. FINDINGS: Exam was technically compromised given difficulty positioning. The right common femoral, superficial femoral and popliteal veins were compressible. Augmentation was normal. Flow was shown within the deep calf vessels. IMPRESSION: Technically compromised exam but no evidence of deep venous thrombus within the right lower extremity. ACT 112: Negative or not required by law. Electronically signed by: Andrea Lockwood M.D. 12/06/2020 3:06 PM ECG Data Attestation: I personally reviewed and interpreted this ECG as follows: Indication: + chest pain and + SOB/dyspnea Rate (beats per minute): 75 Rhythm: + normal sinus ECG [place]: + Left axis deviation ECG ST segments: + T-wave inversions ECG Findings: no PVCs Comparison ECG Date: from (11/26/2020) Change: the following changes noted (T wave inversions in three and aVF are new) MDM Narrative I did evaluate the patient as noted above. I did obtain history from the patient as well as paramedics and her daughter who is translating for her. She is not currently having any chest discomfort but feels short of breath. IV access was established. I did place an order for continuous cardiac monitoring. The monitor showed normal sinus rhythm at a rate of 75 bpm. I did order and personally review the patient's 12-lead EKG as described above. She does have new T wave inversions in leads III and aVF. I did order and review the patient's blood work as noted in the electronic medical record. CBC demonstrates a hemoglobin of 9.1. This is improved from her previous value. Her white count is 11.4 and platelet count is 653. Electrolytes are unremarkable other than chronic hypocalcemia with a value of 7.9. Troponin is negative. I did order a CT angiogram of the chest. I did review the images myself as well as the radiology report as described above. There is no evidence of pulmonary embolism. Incidental findings were shown to the patient's daughter who is a physician. I also ordered an ultrasound of the right lower extremity which showed no evidence of DVT. On reexamination the patient states she is not feeling any chest pain. I did recommend hospitalization for further care and evaluation as well as repeat cardiac biomarkers. I did discuss the case with the hospitalist and insurance case manager. Covid testing was negative. Impression & Plan Chest pain, precordial, Anemia, Acute electrocardiogram changes, Hypocalcemia Discharge Plan Visit Data Chief Complaint: Chest Pain Stated Complaint: Chest pain SOB ED Provider: Srikanth Anna Discharge Problem: Chest pain, precordial, Anemia, Acute electrocardiogram changes, Hypocalcemia Patient Disposition: Home - Self-Care Condition: Good Forms Stand Alone Forms: My [facility], [facility] Emergency Department, Impor tant Visit Information Prescriptions Prescriptions: No Action (DME) blood-glucose meter [Accu-Chek Lisbeth Plus Meter] Misc See Rx Instructions .ROUTE .MEDSUPPLY Qty: 1 RF: 0 (DME) Accu-Chek Lisbeth Plus test strp Strip See Rx Instructions .ROUTE .MEDSUPPLY Qty: 400 RF: 3 (DME) lancets [Accu-Chek Fastclix Lancet Drum] Mis See Rx Instructions .ROUTE .MEDSUPPLY Qty: 400 RF: 3 (DME) OneTouch Verio test strips Strip See Rx Instructions .ROUTE .MEDSUPPLY Qty: 400 RF: 3 atorvastatin 20 mg tablet 20 mg PO QPM 90 Days Qty: 90 RF: 1 aspirin [Adult Low Dose Aspirin] 81 mg tablet,delayed release (DR/EC) 81 mg PO DAILY RF: 0 (DME) pen needle, diabetic [BD Ultra-Fine Mee Pen Needle] 32 gauge x 5/32" needle See Dose Instructions .ROUTE .MEDSUPPLY Qty: 10 RF: 0 insulin aspart U-100 [Novolog Flexpen U-100 Insulin] 100 unit/mL (3 mL) insulin pen See Rx Instructions SQ DAILY PRN (Reason: DEPENDS ON BSG WITH MEALS) RF: 0 Lantus Solostar U-100 Insulin 100 unit/mL (3 mL) insulin pen 15 unit SQ QAM RF: 0 losartan 25 mg tablet 25 mg PO DAILY RF: 0 enoxaparin 40 mg/0.4 mL Syringe 40 mg subcut Q24H Qty: 4 RF: 0 acetaminophen 325 mg Tablet 650 mg PO Q4H PRN (Reason: fever or pain) Qty: 60 RF: 0 oxycodone 5 mg Tablet 5 mg PO Q4H PRN (Reason: pain) Qty: 10 RF: 0 polyethylene glycol 3350 [Miralax] 17 gram Powder In Packet 17 g PO DAILY PRN (Reason: constipation) Qty: 30 RF: 0 cefdinir 300 mg capsule 300 mg PO BID 7 Days Qty: 14 RF: 0 sennosides-docusate sodium [Senna-S] 8.6-50 mg Tablet 1 tab-cap PO QDL RF: 0 bisacodyl 10 mg Suppository 10 mg WA DAILY RF: 0 ferrous sulfate 325 mg (65 mg iron) Tablet 325 mg PO BIDM RF: 0 lidocaine 5 % Adhesive Patch,Medicated 2 patch TOPICAL QAM RF: 0 docusate sodium 100 mg Capsule 100 mg PO BID RF: 0 magnesium hydroxide 2,400 mg/10 mL Suspension 30 ml PO DAILY RF: 0 metformin 500 mg tablet 1,000 mg PO BIDM RF: 0 Referrals Referrals: Mandeep Deshpande MD [Physician] -
[2020-12-06 14:00] LABS: Basophils # (auto) 0.04 K/uL (0-0.2); Basophils % (auto) 0.3 %; Eosinophils # (auto) 0.44 K/uL (0-0.5); Eosinophils % (auto) 3.8 %; Hemoglobin 9.1 g/dL (12.0-16.0); Immature Granulocytes % (auto) 0.9 %; Lymphocytes # (auto) 1.55 K/uL (1.2-3.4); Lymphocytes % (auto) 13.5 %; Mean Corpuscular Hemoglobin 26.1 pg (25-34); Mean Corpuscular Hgb Conc 31.4 g/dL (32-36); Mean Corpuscular Volume 83.1 fL (80-100); Mean Platelet Volume 9.6 fL (7.4-10.4); Monocytes # (auto) 0.68 K/uL (0.11-0.59); Monocytes % (auto) 5.9 %; Neutrophils # (auto) 8.63 K/uL (1.4-6.5); Neutrophils % (auto) 75.6 %; Platelet Count 653 K/uL (130-400); RDW Coefficient of Variation 19.7 % (11.5-14.5); RDW Standard Deviation 58.8 fL (36.4-46.3); Red Blood Count 3.49 M/uL (4.2-5.4); White Blood Count 11.44 K/uL (4.8-10.8)
[2020-12-06 14:04] LABS: iSTAT Creatinine 0.9 mg/dl (0.6-1.3); iSTAT Hemoglobin 9.5 g/dl (12.0-16.0); iSTAT Ionized Calcium 1.07 mmol/l (1.12-1.32); iSTAT Potassium 3.8 mmol/L (3.3-5.0)
[2020-12-06 14:05] LABS: Partial Thromboplastin Ratio 0.9; Partial Thromboplastin Time 23.9 Seconds (21.0-31.0); Prothrombin Time 10.5 Seconds (9.0-12.0)
[2020-12-06] MEDS ORDERED: OPTIRAY 350 500ml IV ONE (14:09)
[2020-12-06 14:14] LABS: Alanine Aminotransferase 28 U/L (12-78); Albumin Level 2.5 gm/dl (3.4-5.0); Aspartate Aminotransferase 40 U/L (15-37); BUN Creatinine Ratio 11.2 (10-20); Blood Urea Nitrogen 9 mg/dl (7-18); Calcium 7.9 mg/dl (8.5-10.1); Carbon Dioxide 30 mmol/L (21-32); Chloride 103 mmol/L (98-107); Est GFR (African American) 79.9 ml/min; Glucose 112 mg/dl (70-99); Potassium 3.8 mmol/L (3.5-5.1); Sodium 140 mmol/L (136-145)
[2020-12-06 14:18] LABS: Albumin Globulin Ratio 0.6 (0.9-2); Alkaline Phosphatase 62 U/L (45-117); Bilirubin,Total 0.7 mg/dl (0.2-1); Globulin 4.1 gm/dl (2.5-4.0); Total Protein 6.6 gm/dl (6.4-8.2); Troponin I 0.034 ng/ml (0-0.045)
--- NOTE | 2020-12-06 14:47 | CT Scan Report ---
CT ANGIOGRAM OF THE CHEST CLINICAL HISTORY: CP/SOB s/p hip surgery eval for PE COMPARISON STUDY: No previous studies for comparison. TECHNIQUE: Following the IV administration of mL of Optiray, CT angiogram of the thorax was performed from the thoracic inlet to the lung bases utilizing the pulmonary embolus protocol. Images are revie wed in the axial, sagittal, and coronal planes. IV contrast was administered without complication. [facility] P imaging was performed. A dose lowering technique was utilized adhering to the principles of ALARA. CT DOSE: 620.45 mGy.cm FINDINGS: There is adequate opacification within main pulmonary artery. Evaluation of peripheral branches of pu lmonary arteries limited due to respiratory motion artifact. No evidence of central pulmonary embolus is seen. Pulmonary artery is normal in caliber. There is no right heart strain. There is mild four-chamber cardiomegaly. No significant pericardial effusion is seen. Evaluation is l imited due to motion artifact. There is no significant axillary, supra clavicle or internal mammary lymphadenopathy seen. No significant mediastinal lymphadenopathy seen. Small hilar lymph nodes are seen bilaterally. Limited evaluation of the thyroid gland shows ill-defined hypoattenuating nodule within left thyroid lobe. Esophagus is patulous within its proximal aspect. Small fat-containing hiatal hernia is seen. Tracheobronchial tree is patent. Mild atelectasis is seen at dependent portions of bilateral lower lobes. No large infiltrates or cons olidative lesions are seen. Diffuse peribronchial thickening is seen bilaterally most prominent within left lower lobe. Patchy ar eas of groundglass attenuation are seen throughout lung parenchyma. Evaluation is significantly limited due to motion artifact. -Possible 8 mm nodule in subpleural aspect of the superior segment of the right lower lobe (4/178 was ) Limited evaluation of upper abdominal viscera shows hyper attenuating material within dependent porti on of the gallbladder likely representing cholelithiasis. No evidence of cholecystitis is seen on cur rent exam. Small left adrenal nodule measuring 1.7 cm is seen. Evaluation of osseous structures shows multilevel degenerative changes of the spine. IMPRESSION: No definite central pulmonary embolus is seen. Evaluation of peripheral branches of pulmonary artery is limited due to motion artifact. No dilatation of the main pulmonary artery. No right heart strain. Diffuse peribronchial cuffing and patchy areas of groundglass attenuation throughout bilateral lungs might represent pulmonary edema or infectious/postinfectious etiology. Mild four-chamber cardiomegaly. There are ill-defined hypoattenuating nodule within left thyroid lobe . Possible 8mm nodule in subpleural aspect of the right lower lobe. Short-term follow-up in 4-6 weeks i s suggested to document resolution. Possible cholelithiasis. No evidence of cholecystitis. Small left adrenal nodule. Attention on follow-up imaging. ACT 112: Negative or not required by law. The above report was generated using voice recognition software. It may contain grammatical, syntax o r spelling errors. Electronically signed by: Irasema Mendez DO 12/06/2020 2:46 PM
--- NOTE | 2020-12-06 15:07 | Ultrasound Report ---
RIGHT LOWER EXTREMITY VENOUS DOPPLER CLINICAL HISTORY: Dyspnea COMPARISON STUDY: No previous studies for comparison. TECHNIQUE: Sonography of the deep venous system of the right lower extremity was performed. Compress ion and augmentation were evaluated. FINDINGS: Exam was technically compromised given difficulty positioning. The right common femoral, triana perficial femoral and popliteal veins were compressible. Augmentation was normal. Flow was shown with in the deep calf vessels. IMPRESSION: Technically compromised exam but no evidence of deep venous thrombus within the right low er extremity. ACT 112: Negative or not required by law. Electronically signed by: Andrea Lockwood M.D. 12/06/2020 3:06 PM
--- NOTE | 2020-12-06 17:18 | History & Physical Report ---
Date of Service December 06, 2020 Assessment & Plan (1) Chest pain, precordial: Present on admission with chest pain associated with shortness of breath Chest pain relieved by nitrox3 Need to rule out ACS due to risk factors: Prior TX, diabetes, dyslipidemia, and hypertension EKG on admission showed new T wave changes On admission initial troponin negative, COVID-[address] chest showed no evidence of PE Received aspirin 81 mg x 4 in route Currently asymptomatic Her Last echo was 10/22 showed LV wall thickening is moderate increase. Left ventricular wall motion is normal. Ejection fraction 55 to 59% We will get a limited resting echo Will repeat EKG in a.m. We will trend cardiac enzyme Will check lipid panel in a.m. Cardiology consult Might consider dobutamine stress echo to perform, will defer to cardiology Cardiology on-call was notified and EKGs were sent to [facility] If patient pain will occur on troponin bump, will start on heparin drip (will be very cautious for bleeding due to recent hip surgery on 11/28) Will make n.p.o. after midnight continue aspirin Continue monitor closely in telemetry Right femur fracture S/P right trochanteric femoral nail on 11/28 Continue pain control Continue Lovenox for DVT prophylaxis PT/OT eval Fall precaution Right thigh swollen Mostly related to recent surgical procedure for right femoral fracture Venous Doppler of lower extremity showed no evidence of right lower extremity thrombus. DM type 2 Most recent hemoglobin A1c 8.1 on 11/27 Will hold metformin since pt had IV contrast On insulin sliding scale Lantus Continue monitor blood sugar Lung Nodule CTA chest showed 8mm nodule in subpleural aspect of the right lower lobe. Short-term follow-up in 4-6 weeks is suggested to document resolution. Left Adrenal Nodule CT showed small left adrenal nodule Will need outpatient follow DVT px on heparin subq Disposition Will discharge to [facility] for rehab History of Present Illness Chief Complaint: Chest pain Primary Care Provider: Henrry Crawley 75-year-old female with past medical history significant for diabetes, hypertension, obesity, dyslipidemia, TX about 7 years ago, S/P right trochanteric femoral nail for right femoral fracture was sent to the ER for chest pain. 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 Patient was recently discharged from [facility] on 12/01 for right femoral fracture status post right trochanteric femoral nail and [facility] This morning when patient started physical therapy she developed shortness of breath associated with chest pain. She felt a pressure on her chest like an elephant sitting on her, nonradiating associated with shortness of breath. Daughter said 7 years ago when she had her heart attack she did not have any chest pain. EMS was called and in route she received aspirin and nitrox3 that relieved the pain after a few minutes. Currently patient is pain-free. She said that she continued to have pain in her right thigh. she said that she feels fine now. EKG on admission showed new T wave inversion. Currently denies any chest pain, palpitation, dizziness, shortness of breath, and fever. Allergies Allergy/AdvReac Type Severity Reaction Status Date / Time No Known Allergies Allergy Verified 11/26/20 23:06 Home Medications Medication Instructions Recorded Confirmed Type aspirin 81 mg tablet,delayed 81 mg PO DAILY 02/14/19 12/06/20 History release pen needle, diabetic 32 gauge x #10 ea 02/14/19 04/02/20 History " Accu-Chek Lisbeth Plus Meter #1 ea NS 04/08/20 Rx blood sugar diagnostic #400 ea 04/08/20 Rx lancets #400 ea 04/08/20 Rx OneTouch Verio test strips #400 ea NS 04/10/20 Rx atorvastatin 20 mg tablet 20 mg PO QPM 90 Days #90 tab 04/10/20 12/06/20 Rx Lantus Solostar U-100 Insulin 15 unit SQ QAM 11/26/20 12/06/20 History insulin aspart U-100 [Novolog See Rx Instructions SQ DAILY PRN 11/26/20 12/06/20 History Flexpen U-100 Insulin] losartan 25 mg PO DAILY 11/27/20 12/06/20 History acetaminophen 650 mg PO Q4H PRN #60 tab 12/01/20 12/06/20 Rx cefdinir 300 mg PO BID 7 Days #14 cap 12/01/20 12/06/20 Rx enoxaparin 40 mg SUBCUT Q24H #4 ml 12/01/20 12/06/20 Rx oxycodone 5 mg PO Q4H PRN #10 tab 12/01/20 12/06/20 Rx polyethylene glycol 3350 [Miralax] 17 g PO DAILY PRN #30 ea 12/01/20 12/06/20 Rx bisacodyl 10 mg [place] DAILY 12/06/20 12/06/20 History docusate sodium 100 mg PO BID 12/06/20 12/06/20 History ferrous sulfate 325 mg PO BIDM 12/06/20 12/06/20 History lidocaine 2 patch TOPICAL QAM 12/06/20 12/06/20 History magnesium hydroxide 30 ml PO DAILY 12/06/20 12/06/20 History metformin 1,000 mg PO BIDM 12/06/20 12/06/20 History sennosides-docusate sodium 1 tab-cap PO QDL 12/06/20 12/06/20 History [Senna-S] Past Med/Surg History Medical History Acquired claw toe of left foot Acquired claw toe of right foot Anemia Callus Diabetes mellitus with diabetic polyneuropathy Hypertension Obesity Surgical History Amputated toe of right foot Social History Smoking Status: Never smoker Hx Alcohol Use: No Hx Substance Use: No Preferred Language: Uzbek Communication Ability: Effective Communication Tools: IPad Cytology Technologist Required: Yes Beliefs That Will Affect Care: None Current Living Situation: Family Feels Safe at Home: Yes Safety Concerns: Feels Safe At This Time Assistive Devices: Walker Review of Systems Review of Systems: All systems reviewed & are unremarkable except as noted in Subjective Physical Exam Physical Exam: General- No acute distress Head- atraumatic Eyes- PERRL, EOMI, ENT- oropharynx clear Neck- supple, no JVD Lungs- clear to auscultation Heart- regular rhythm; no murmur Abdomen- normal bowel sounds, soft, nontender Extremities- +right thigh tenderness and swelling Neuro- alert, oriented x 3; PERRL, EOMI; no facial palsy; no dysarthria Skin- warm & dry Results & Data Results & Data ([facility]) Vital Signs (Past 12 Hours) Vital Signs Temp Pulse Resp BP Pulse Ox 12/06/20 16:43 75 20 144/69 H 94 12/06/20 14:30 71 16 92 12/06/20 14:00 71 14 92 12/06/20 13:41 74 13 96 12/06/20 13:40 74 95 12/06/20 13:37 37 C 76 20 156/58 H 95 12/06/20 13:34 74 17 156/58 H 97 Diagnostic Findings RIGHT LOWER EXTREMITY VENOUS DOPPLER CLINICAL HISTORY: Dyspnea COMPARISON STUDY: No previous studies for comparison. TECHNIQUE: Sonography of the deep venous system of the right lower extremity was performed. Compression and augmentation were evaluated. FINDINGS: Exam was technically compromised given difficulty positioning. The right common femoral, superficial femoral and popliteal veins were compressible. Augmentation was normal. Flow was shown within the deep calf vessels. IMPRESSION: Technically compromised exam but no evidence of deep venous thrombus within the right lower extremity. ACT 112: Negative or not required by law. Electronically signed by: Andrea Lockwood M.D. 12/06/2020 3:06 PM Dictated: 12/06/20 1505Transcribed: 12/06/[address] ANGIOGRAM OF THE CHEST CLINICAL HISTORY: CP/SOB s/p hip surgery eval for PE COMPARISON STUDY: No previous studies for comparison. TECHNIQUE: Following the IV administration of mL of Optiray, CT angiogram of the thorax was performed from the thoracic inlet to the lung bases utilizing the pulmonary embolus protocol. Images are reviewed in the axial, sagittal, and coronal planes. IV contrast was administered without complication. MIP imaging was performed. A dose lowering technique was utilized adhering to the principles of ALARA. CT DOSE: 620.45 mGy.cm FINDINGS: There is adequate opacification within main pulmonary artery. Evaluation of peripheral branches of pulmonary arteries limited due to respiratory motion artifact. No evidence of central pulmonary embolus is seen. Pulmonary artery is normal in caliber. There is no right heart strain. There is mild four-chamber cardiomegaly. No significant pericardial effusion is seen. Evaluation is limited due to motion artifact. There is no significant axillary, supra clavicle or internal mammary lymphadenopathy seen. No significant mediastinal lymphadenopathy seen. Small hilar lymph nodes are seen bilaterally. Limited evaluation of the thyroid gland shows ill-defined hypoattenuating nodule within left thyroid lobe. Esophagus is patulous within its proximal aspect. Small fat-containing hiatal hernia is seen. Tracheobronchial tree is patent. Mild atelectasis is seen at dependent portions of bilateral lower lobes. No large infiltrates or consolidative lesions are seen. Diffuse peribronchial thickening is seen bilaterally most prominent within left lower lobe. Patchy areas of groundglass attenuation are seen throughout lung parenchyma. Evaluation is significantly limited due to motion artifact. -Possible 8 mm nodule in subpleural aspect of the superior segment of the right lower lobe (4/178 was) Limited evaluation of upper abdominal viscera shows hyper attenuating material within dependent portion of the gallbladder likely representing cholelithiasis. No evidence of cholecystitis is seen on current exam. Small left adrenal nodule measuring 1.7 cm is seen. Evaluation of osseous structures shows multilevel degenerative changes of the spine. IMPRESSION: No definite central pulmonary embolus is seen. Evaluation of peripheral branches of pulmonary artery is limited due to motion artifact. No dilatation of the main pulmonary artery. No right heart strain. Diffuse peribronchial cuffing and patchy areas of groundglass attenuation throughout bilateral lungs might represent pulmonary edema or infectious/postinfectious etiology. Mild four-chamber cardiomegaly. There are ill-defined hypoattenuating nodule within left thyroid lobe. Possible 8mm nodule in subpleural aspect of the right lower lobe. Short-term follow-up in 4-6 weeks is suggested to document resolution. Possible cholelithiasis. No evidence of cholecystitis. Small left adrenal nodule. Attention on follow-up imaging. ACT 112: Negative or not required by law. The above report was generated using voice recognition software. It may contain grammatical, syntax or spelling errors. Electronically signed by: Irasema Mendez DO 12/06/2020 2:46 PM Dictated: 12/06/20 1426Transcribed: 12/06/20 1426 Code Status & VTE Plan VTE Prophylaxis Plan VTE Prophylaxis will be ordered: Yes
[2020-12-06] MEDS ORDERED: GLUCAGON FOR INJ 1 MG VIAL SQ PRN (19:51)
[2020-12-06] MEDS ORDERED: DEXTROSE 50% 50 ML SYRINGE IV PRN (19:51)
[2020-12-06] MEDS ORDERED: GLUCOSE 40% GEL 15 GM TUBE PO PRN (19:51)
[2020-12-06] MEDS ORDERED: ONDANSETRON INJ 2 MG/ML 2 ML VIAL IV PRN (19:51)
[2020-12-06] MEDS ORDERED: CARBOHYDRATES FOR HYPOGLYCEMIA PO PRN (19:51)
[2020-12-06] MEDS ORDERED: POLYETHYLENE (MIRALAX) 17 GM PACK PO PRN (19:51)
[2020-12-06] MEDS ORDERED: ACETAMINOPHEN 325 MG TAB PO PRN (19:51)
[2020-12-06] MEDS ORDERED: GLUCOSE 10 TABS/TUBE PO PRN (19:51)
[2020-12-06] MEDS ORDERED: ENOXAPARIN INJ 40 MG/0.4 ML SYR SQ SCH (20:00)
[2020-12-06] MEDS: INSULIN ASPART 100 UNITS/ML 3 ML PEN SC SCH ×2 (20:00→23:42)
[2020-12-06] MEDS ORDERED: oxyCODONE HCL IR 5 MG TAB (IMMEDIATE RELEASE) PO PRN (20:01)
[2020-12-06] MEDS ORDERED: PHARMACY GLYCEMIC MGMT CONSULT PRN (20:01)
--- NOTE | 2020-12-06 20:41 | Pharmacy Report ---
Pharmacy Glycemic Short Note 2 - Date of Service December 06, 2020 - Glycemic Short BSG Results (Last 24 hours): 12/06/20 12/06/20 12/06/20 13:45 13:50 19:58 Glucose 112 H POC Glucose 77 POC Glucose (other) 118 H OUTPATIENT ANTIDIABETIC REGIMEN: * Novolog 5 units prior to large meals up to 10 units daily * Lantus 15 units QAM * Metformin 1000 mg BIDM * A1c 8.1%11/27/20 ASSESSMENT: * 75 yo female admitted with chest pain, past medical history including CAD, HTN, HLD, type 2 daibetes * BSGs have been within goal since admission. Will start novolog parameters between weight based stress of 1 and 2. * BSG this evening 77 mg/dL, diet now ordered, will resume lantus with AM dose PLAN FOR INPATIENT GLYCEMIC CONTROL: * Hold outpatient oral diabetes medications * Basal insulin * Lantus 15 units qAM * Bolus insulin * NovoLog per scale ACHS or Q6hrs while NPO * Goal Range: Low 110 mg/dL - High 140 mg/dL * Correction Factor: 30 mg/dL/unit * Nutritional / Prandial insulin per carb ratio of 1 unit per 10 grams CHO consumed
[2020-12-06] MEDS ORDERED: ATORVASTATIN 20 MG TAB PO SCH (21:00)
[2020-12-07 03:13] LABS: Hematocrit (blood only) 28.2 % (37-47); Mean Corpuscular Hemoglobin 25.9 pg (25-34); Mean Corpuscular Hgb Conc 31.9 g/dL (32-36); Mean Platelet Volume 9.5 fL (7.4-10.4); Platelet Count 595 K/uL (130-400); RDW Coefficient of Variation 19.6 % (11.5-14.5); Red Blood Count 3.48 M/uL (4.2-5.4); White Blood Count 9.39 K/uL (4.8-10.8)
[2020-12-07 03:32] LABS: Albumin Level 2.2 gm/dl (3.4-5.0); BUN Creatinine Ratio 12.3 (10-20); Calcium 7.7 mg/dl (8.5-10.1); Creatinine Clr Calc Pharmacy 75.6 ml/min; Est GFR (African American) 87.4 ml/min; Est GFR (Non-African American) 75.4 ml/min; Magnesium 1.7 mg/dl (1.8-2.4); Potassium 3.7 mmol/L (3.5-5.1)
[2020-12-07 03:37] LABS: Albumin Globulin Ratio 0.6 (0.9-2); Bilirubin,Total 0.4 mg/dl (0.2-1); Globulin 3.9 gm/dl (2.5-4.0); Total Protein 6.1 gm/dl (6.4-8.2)
[2020-12-07] MEDS: INSULIN ASPART 100 UNITS/ML 3 ML PEN SC SCH ×4 (04:14→17:13)
[2020-12-07] MEDS ORDERED: FERROUS SULFATE 325 MG TAB PO SCH (08:00)
[2020-12-07] MEDS ORDERED: MAGNESIUM SULFATE / D5W 1 GM/100 ML BAG IV ONE (08:15)
[2020-12-07] MEDS ORDERED: ASPIRIN 81 MG ECTAB PO SCH (09:00)
[2020-12-07] MEDS ORDERED: INSULIN GLARGINE SOLOSTAR 100 UNITS/ML 3 ML PEN SQ SCH ×2 (09:00)
[2020-12-07] MEDS ORDERED: LOSARTAN POTASSIUM 25 MG TAB PO SCH (09:00)
[2020-12-07] MEDS ORDERED: PERFLUTREN LIPID MICROSPHERE (DEFINITY) IV ONE (11:21)
--- NOTE | 2020-12-07 11:38 | Cardiology Consultation ---
Date of Consultation December 07, 2020 Assessment & Plan (1) Hypertension: (2) Aortic stenosis: (3) Anemia: (4) Abnormal electrocardiogram [ECG] [EKG]: Patient with one episode of chest pain yesterday participating in rehab post femur repair earlier this month. Developed CP/SOB. Symptoms resolved since admission. resolved with nitro. Found to be significant hypertensive on arrival. Troponin not elevated, but flat at 0.03. She remains chest pain free since admission. she has abnormal EKG with T wave inversions in inferior and anterior leads but we do not have prior for comparison. she also has underlying anemia in the post op setting. will update her echo this morning given history of aortic stenosis (moderate) earlier this year and r/o wall motion abnormalities. Recommend treating her underlying hypertension. Add carvedilol 6.25 mg BID and titrate as tolerated. Continue losartan, ASA, statin Not included to stress at this time, unless her symptoms worsen/return, given her recent orthopedic surgery and anemia that persists. Further recommendations pending review of echo and response to carvedilol for improved BP management. Case to be discussed with Dr. Perry Supervising Physician Co-Signing Physician Notes I have seen and evaluated the patient. I reviewed the medical record and discussed the case with Shannan Piter. I agree with the plan as outlined. When the echocardiogram is completed I will review however, if that study is unremarkable I do not believe any additional cardiac testing is indicated. History of Present Illness Reason for Consultation: Chest pain Requesting Physician: Dr. Castle Attending Physician: Dr. Perry History of Present Illness Patient is a 75-year-old female who was admitted to [facility] with complaints of chest pain occurring yesterday while at [facility] rehab participating in physical therapy. Patient's primary language is Icelandic. She is able to communicate in Libyan but limited. Her daughter was present at time of admiss ion yesterday to assist with translation and admission HPI. Records reviewed. Daughter is a family physician but I am not certain where she practices. Patient was recently admitted for a proximal femur fracture requiring orthopedic surgery. Postop she was significantly anemic. She was sent to [facility] for rehab. Apparently yesterday she developed substernal chest pain lasting several minutes associated with shortness of breath. EMS was summoned. Sublingual nitro was provided x3 with relief. She was brought to the emergency department for evaluation. EKG demonstrated possible T wave inversions in inferior and anterior leads. There was no prior EKG available for comparison per my review. Troponins were not significantly elevated. She was anemic with hemoglobin of 9.1, consistent with postop findings. She was hypertensive. It appears her home medications were resumed. Symptoms had resolved by the time she got to the ER without recurrence. She underwent chest CT which was unremarkable for acute PE. No DVT per venous duplex At time of consult, patient resting in bed comfortably. She does report right leg pain. She denies chest pain or unusual shortness of breath currently. She her blood pressure remains uncontrolled. Apparently physical therapy tried to assist her out of bed this morning and she was not able to ambulate. She denies orthopnea, PND, lower extremity edema. Apparently 7 years ago she suffered a myocardial infarction but details are unknown. She did have an echocardiogram as an outpatient in October 2020 which demonstrated preserved LV systolic function with moderate aortic stenosis. 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 Allergies Allergy/AdvReac Type Severity Reaction Status Date / Time No Known Allergies Allergy Verified 11/26/20 23:06 Home Medications Medication Instructions Recorded Confirmed Type aspirin 81 mg tablet,delayed 81 mg PO DAILY 02/14/19 12/06/20 History release pen needle, diabetic 32 gauge x #10 ea 02/14/19 04/02/20 History " Accu-Chek Lisbeth Plus Meter #1 ea NS 04/08/20 Rx blood sugar diagnostic #400 ea 04/08/20 Rx lancets #400 ea 04/08/20 Rx OneTouch Verio test strips #400 ea NS 04/10/20 Rx atorvastatin 20 mg tablet 20 mg PO QPM 90 Days #90 tab 04/10/20 12/06/20 Rx Lantus Solostar U-100 Insulin 15 unit SQ QAM 11/26/20 12/06/20 History insulin aspart U-100 [Novolog See Rx Instructions SQ DAILY PRN 11/26/20 12/06/20 History Flexpen U-100 Insulin] losartan 25 mg PO DAILY 11/27/20 12/06/20 History acetaminophen 650 mg PO Q4H PRN #60 tab 12/01/20 12/06/20 Rx cefdinir 300 mg PO BID 7 Days #14 cap 12/01/20 12/06/20 Rx enoxaparin 40 mg SUBCUT Q24H #4 ml 12/01/20 12/06/20 Rx oxycodone 5 mg PO Q4H PRN #10 tab 12/01/20 12/06/20 Rx polyethylene glycol 3350 [Miralax] 17 g PO DAILY PRN #30 ea 12/01/20 12/06/20 Rx bisacodyl 10 mg MA DAILY 12/06/20 12/06/20 History docusate sodium 100 mg PO BID 12/06/20 12/06/20 History ferrous sulfate 325 mg PO BIDM 12/06/20 12/06/20 History lidocaine 2 patch TOPICAL QAM 12/06/20 12/06/20 History magnesium hydroxide 30 ml PO DAILY 12/06/20 12/06/20 History metformin 1,000 mg PO BIDM 12/06/20 12/06/20 History sennosides-docusate sodium 1 tab-cap PO QDL 12/06/20 12/06/20 History [Senna-S] Patient History Medical History Acquired claw toe of left foot Acquired claw toe of right foot Anemia Callus Diabetes mellitus with diabetic polyneuropathy Hypertension Obesity Surgical History Amputated toe of right foot Social History Smoking Status: Never smoker Hx Alcohol Use: No Hx Substance Use: No Preferred Language: Icelandic Communication Ability: Effective Communication Tools: [employer] Engineer Required: Yes Beliefs That Will Affect Care: None Current Living Situation: Family Feels Safe at Home: Yes Safety Concerns: Feels Safe At This Time Assistive Devices: None Review of Systems Review of Systems: All systems reviewed & are unremarkable except as noted in HPI & below Physical Exam Constitutional: WD/WN, vitals as above + language barrier; no acute distress Eyes: PERRL, conjunctivae normal, anicteric sclerae Neck: trachea midline, no thyromegaly normal visual inspection Respiratory: normal respiratory effort, lungs clear to auscultation no respiratory distress Cardiovascular: Rate/Rhythm: regular rate and regular rhythm Heart Sounds: + murmur (II/) Vessels: no JVD Extremities: + edema (Trace pretibial and ankle edema b/l) Gastrointestinal (Abdomen): normal bowel sounds, soft, nontender, no hepatosplenomegaly Musculoskeletal: no cyanosis or clubbing, extremities motor strength 5/5 Neurologic: PERRL, EOMI, accommodation nl, no face palsy, no dysarthria Psychiatric: A+Ox3, euthymic affect Results & Data ([facility]) Vital Signs (Past 12 Hours) Vital Signs Temp Pulse Pulse Pulse Resp BP BP 12/07/20 11:00 12/07/20 10:30 72 12/07/20 10:11 73 12/07/20 07:38 37.0 C 76 18 176/80 H 12/07/20 06:44 36.7 C 73 18 163/79 H 12/07/20 03:06 36.8 C 73 18 166/83 H 12/06/20 23:38 36.6 C 70 19 147/82 H Pulse Ox Pulse Ox 12/07/20 11:00 93 12/07/20 10:30 12/07/20 10:11 12/07/20 07:38 97 12/07/20 06:44 93 12/07/20 03:06 95 12/06/20 23:38 95 Laboratory Results 12/07/20 12/07/20 12/07/20 Range/Units 11:33 07:35 04:10 WBC (4.8-10.8) K/uL RBC (4.2-5.4) M/uL Hgb (12.0-16.0) g/dL POC Hgb (12.0-16.0) g/dl Hct (37-47) % POC Hct (37-47) % MCV (80-100) fL MCH (25-34) pg MCHC (32-36) g/dL RDW Std Deviation (36.4-46.3) fL RDW Coeff of Franny (11.5-14.5) % Plt Count (130-400) K/uL MPV (7.4-10.4) fL Immature Gran % (Auto) % Neut % (Auto) % Lymph % (Auto) % [place] % (Auto) % Eos % (Auto) % Baso % (Auto) % Neut # (Auto) (1.4-6.5) K/uL Lymph # (Auto) (1.2-3.4) K/uL [place] # (Auto) (0.11-0.59) K/uL Eos # (Auto) (0-0.5) K/uL Baso # (Auto) (0-0.2) K/uL Immature Gran # (Auto) (0.00-0.02) K/uL PT (9.0-12.0) Seconds INR (0.9-1.1) APTT (21.0-31.0) Seconds PTT Ratio POC Sodium (135-144) mmol/L Sodium (136-145) mmol/L POC Potassium (3.3-5.0) mmol/L Potassium (3.5-5.1) mmol/L POC Chloride (101-112) mmol/L Chloride (98-107) mmol/L Carbon Dioxide (21-32) mmol/L POC Total CO2 (24-31) mmol/L Anion Gap (3-11) POC Anion Gap (16-25) mmol/L POC BUN (7-18) mg/dl BUN (7-18) mg/dl Creatinine (0.6-1.2) mg/dl POC Creatinine (0.6-1.3) mg/dl Est Cr Clr Drug Dosing Est GFR ( Amer) ml/min Est GFR (Non-Af Amer) ml/min BUN/Creatinine Ratio (10-20) Glucose (70-99) mg/dl POC Glucose 113 H 123 H 130 H (70-99) mg/dl POC Glucose (other) (70-99) mg/dl Calcium (8.5-10.1) mg/dl POC Ioniz Calcium Joseph (1.12-1.32) mmol/l Magnesium (1.8-2.4) mg/dl Total Bilirubin (0.2-1) mg/dl AST (15-37) U/L ALT (12-78) U/L Alkaline Phosphatase (45-117) U/L Troponin I (0-0.045) ng/ml NT-Pro-B Natriuret Pep (0-900) pg/ml Total Protein (6.4-8.2) gm/dl Albumin (3.4-5.0) gm/dl Globulin (2.5-4.0) gm/dl Albumin/Globulin Ratio (0.9-2) Triglycerides (0-150) mg/dl Cholesterol (0-200) mg/dl LDL Cholesterol, Calc mg/dl VLDL Cholesterol, Calc mg/dl HDL Cholesterol mg/dl Cholesterol/HDL Ratio COVID-19 Eval Order SARS-CoV-2 (PCR) (Negative) 12/07/20 12/07/20 12/07/20 Range/Units 02:57 02:57 02:57 WBC 9.39 (4.8-10.8) K/uL RBC 3.48 L (4.2-5.4) M/uL Hgb 9.0 L (12.0-16.0) g/dL POC Hgb (12.0-16.0) g/dl Hct 28.2 L (37-47) % POC Hct (37-47) % MCV 81.0 (80-100) fL MCH 25.9 (25-34) pg MCHC 31.9 L (32-36) g/dL RDW Std Deviation 57.0 H (36.4-46.3) fL RDW Coeff of Franny 19.6 H (11.5-14.5) % Plt Count 595 H (130-400) K/uL MPV 9.5 (7.4-10.4) fL Immature Gran % (Auto) % Neut % (Auto) % Lymph % (Auto) % [place] % (Auto) % Eos % (Auto) % Baso % (Auto) % Neut # (Auto) (1.4-6.5) K/uL Lymph # (Auto) (1.2-3.4) K/uL [place] # (Auto) (0.11-0.59) K/uL Eos # (Auto) (0-0.5) K/uL Baso # (Auto) (0-0.2) K/uL Immature Gran # (Auto) (0.00-0.02) K/uL PT (9.0-12.0) Seconds INR (0.9-1.1) APTT (21.0-31.0) Seconds PTT Ratio POC Sodium (135-144) mmol/L Sodium 140 (136-145) mmol/L POC Potassium (3.3-5.0) mmol/L Potassium 3.7 (3.5-5.1) mmol/L POC Chloride (101-112) mmol/L Chloride 105 (98-107) mmol/L Carbon Dioxide 29 (21-32) mmol/L POC Total CO2 (24-31) mmol/L Anion Gap 6.0 (3-11) POC Anion Gap (16-25) mmol/L POC BUN (7-18) mg/dl BUN 10 (7-18) mg/dl Creatinine 0.78 (0.6-1.2) mg/dl POC Creatinine (0.6-1.3) mg/dl Est Cr Clr Drug Dosing 75.6 Est GFR ( Amer) 87.4 ml/min Est GFR (Non-Af Amer) 75.4 ml/min BUN/Creatinine Ratio 12.3 (10-20) Glucose 115 H (70-99) mg/dl POC Glucose (70-99) mg/dl POC Glucose (other) (70-99) mg/dl Calcium 7.7 L (8.5-10.1) mg/dl POC Ioniz Calcium Joseph (1.12-1.32) mmol/l Magnesium 1.7 L (1.8-2.4) mg/dl Total Bilirubin 0.4 (0.2-1) mg/dl AST 34 (15-37) U/L ALT 26 (12-78) U/L Alkaline Phosphatase 63 (45-117) U/L Troponin I 0.028 (0-0.045) ng/ml NT-Pro-B Natriuret Pep (0-900) pg/ml Total Protein 6.1 L (6.4-8.2) gm/dl Albumin 2.2 L (3.4-5.0) gm/dl Globulin 3.9 (2.5-4.0) gm/dl Albumin/Globulin Ratio 0.6 L (0.9-2) Triglycerides 108 (0-150) mg/dl Cholesterol 103 (0-200) mg/dl LDL Cholesterol, Calc 58 mg/dl VLDL Cholesterol, Calc 22 mg/dl HDL Cholesterol 23 mg/dl Cholesterol/HDL Ratio 5 COVID-19 Eval Order SARS-CoV-2 (PCR) (Negative) 12/06/20 12/06/20 12/06/20 Range/Units 23:40 20:00 19:58 WBC (4.8-10.8) K/uL RBC (4.2-5.4) M/uL Hgb (12.0-16.0) g/dL POC Hgb (12.0-16.0) g/dl Hct (37-47) % POC Hct (37-47) % MCV (80-100) fL MCH (25-34) pg MCHC (32-36) g/dL RDW Std Deviation (36.4-46.3) fL RDW Coeff of Franny (11.5-14.5) % Plt Count (130-400) K/uL MPV (7.4-10.4) fL Immature Gran % (Auto) % Neut % (Auto) % Lymph % (Auto) % [place] % (Auto) % Eos % (Auto) % Baso % (Auto) % Neut # (Auto) (1.4-6.5) K/uL Lymph # (Auto) (1.2-3.4) K/uL [place] # (Auto) (0.11-0.59) K/uL Eos # (Auto) (0-0.5) K/uL Baso # (Auto) (0-0.2) K/uL Immature Gran # (Auto) (0.00-0.02) K/uL PT (9.0-12.0) Seconds INR (0.9-1.1) APTT (21.0-31.0) Seconds PTT Ratio POC Sodium (135-144) mmol/L Sodium (136-145) mmol/L POC Potassium (3.3-5.0) mmol/L Potassium (3.5-5.1) mmol/L POC Chloride (101-112) mmol/L Chloride (98-107) mmol/L Carbon Dioxide (21-32) mmol/L POC Total CO2 (24-31) mmol/L Anion Gap (3-11) POC Anion Gap (16-25) mmol/L POC BUN (7-18) mg/dl BUN (7-18) mg/dl Creatinine (0.6-1.2) mg/dl POC Creatinine (0.6-1.3) mg/dl Est Cr Clr Drug Dosing Est GFR ( Amer) ml/min Est GFR (Non-Af Amer) ml/min BUN/Creatinine Ratio (10-20) Glucose (70-99) mg/dl POC Glucose 78 77 (70-99) mg/dl POC Glucose (other) (70-99) mg/dl Calcium (8.5-10.1) mg/dl POC Ioniz Calcium Joseph (1.12-1.32) mmol/l Magnesium (1.8-2.4) mg/dl Total Bilirubin (0.2-1) mg/dl AST (15-37) U/L ALT (12-78) U/L Alkaline Phosphatase (45-117) U/L Troponin I 0.032 (0-0.045) ng/ml NT-Pro-B Natriuret Pep (0-900) pg/ml Total Protein (6.4-8.2) gm/dl Albumin (3.4-5.0) gm/dl Globulin (2.5-4.0) gm/dl Albumin/Globulin Ratio (0.9-2) Triglycerides (0-150) mg/dl Cholesterol (0-200) mg/dl LDL Cholesterol, Calc mg/dl VLDL Cholesterol, Calc mg/dl HDL Cholesterol mg/dl Cholesterol/HDL Ratio COVID-19 Eval Order SARS-CoV-2 (PCR) (Negative) 12/06/20 12/06/20 12/06/20 Range/Units 13:55 13:55 13:50 WBC (4.8-10.8) K/uL RBC (4.2-5.4) M/uL Hgb (12.0-16.0) g/dL POC Hgb (12.0-16.0) g/dl Hct (37-47) % POC Hct (37-47) % MCV (80-100) fL MCH (25-34) pg MCHC (32-36) g/dL RDW Std Deviation (36.4-46.3) fL RDW Coeff of Franny (11.5-14.5) % Plt Count (130-400) K/uL MPV (7.4-10.4) fL Immature Gran % (Auto) % Neut % (Auto) % Lymph % (Auto) % [place] % (Auto) % Eos % (Auto) % Baso % (Auto) % Neut # (Auto) (1.4-6.5) K/uL Lymph # (Auto) (1.2-3.4) K/uL [place] # (Auto) (0.11-0.59) K/uL Eos # (Auto) (0-0.5) K/uL Baso # (Auto) (0-0.2) K/uL Immature Gran # (Auto) (0.00-0.02) K/uL PT (9.0-12.0) Seconds INR (0.9-1.1) APTT (21.0-31.0) Seconds PTT Ratio POC Sodium (135-144) mmol/L Sodium (136-145) mmol/L POC Potassium (3.3-5.0) mmol/L Potassium (3.5-5.1) mmol/L POC Chloride (101-112) mmol/L Chloride (98-107) mmol/L Carbon Dioxide (21-32) mmol/L POC Total CO2 (24-31) mmol/L Anion Gap (3-11) POC Anion Gap (16-25) mmol/L POC BUN (7-18) mg/dl BUN (7-18) mg/dl Creatinine (0.6-1.2) mg/dl POC Creatinine (0.6-1.3) mg/dl Est Cr Clr Drug Dosing Est GFR ( Amer) ml/min Est GFR (Non-Af Amer) ml/min BUN/Creatinine Ratio (10-20) Glucose (70-99) mg/dl POC Glucose (70-99) mg/dl POC Glucose (other) (70-99) mg/dl Calcium (8.5-10.1) mg/dl POC Ioniz Calcium Joseph (1.12-1.32) mmol/l Magnesium (1.8-2.4) mg/dl Total Bilirubin (0.2-1) mg/dl AST (15-37) U/L ALT (12-78) U/L Alkaline Phosphatase (45-117) U/L Troponin I (0-0.045) ng/ml NT-Pro-B Natriuret Pep 2407 H (0-900) pg/ml Total Protein (6.4-8.2) gm/dl Albumin (3.4-5.0) gm/dl Globulin (2.5-4.0) gm/dl Albumin/Globulin Ratio (0.9-2) Triglycerides (0-150) mg/dl Cholesterol (0-200) mg/dl LDL Cholesterol, Calc mg/dl VLDL Cholesterol, Calc mg/dl HDL Cholesterol mg/dl Cholesterol/HDL Ratio COVID-19 Eval Order Covid19 at [facility] SARS-CoV-2 (PCR) NEGATIVE (Negative) 12/06/20 12/06/20 12/06/20 Range/Units 13:50 13:45 13:45 WBC 11.44 H (4.8-10.8) K/uL RBC 3.49 L (4.2-5.4) M/uL Hgb 9.1 L (12.0-16.0) g/dL POC Hgb 9.5 L (12.0-16.0) g/dl Hct 29.0 L (37-47) % POC Hct 28 L (37-47) % MCV 83.1 (80-100) fL MCH 26.1 (25-34) pg MCHC 31.4 L (32-36) g/dL RDW Std Deviation 58.8 H (36.4-46.3) fL RDW Coeff of Franny 19.7 H (11.5-14.5) % Plt Count 653 H (130-400) K/uL MPV 9.6 (7.4-10.4) fL Immature Gran % (Auto) 0.9 % Neut % (Auto) 75.6 % Lymph % (Auto) 13.5 % [place] % (Auto) 5.9 % Eos % (Auto) 3.8 % Baso % (Auto) 0.3 % Neut # (Auto) 8.63 H (1.4-6.5) K/uL Lymph # (Auto) 1.55 (1.2-3.4) K/uL [place] # (Auto) 0.68 H (0.11-0.59) K/uL Eos # (Auto) 0.44 (0-0.5) K/uL Baso # (Auto) 0.04 (0-0.2) K/uL Immature Gran # (Auto) 0.10 H (0.00-0.02) K/uL PT 10.5 (9.0-12.0) Seconds INR 1.0 (0.9-1.1) APTT 23.9 (21.0-31.0) Seconds PTT Ratio 0.9 POC Sodium 139 (135-144) mmol/L Sodium (136-145) mmol/L POC Potassium 3.8 (3.3-5.0) mmol/L Potassium (3.5-5.1) mmol/L POC Chloride 96 L (101-112) mmol/L Chloride (98-107) mmol/L Carbon Dioxide (21-32) mmol/L POC Total CO2 28 (24-31) mmol/L Anion Gap (3-11) POC Anion Gap 19.0 (16-25) mmol/L POC BUN 9 (7-18) mg/dl BUN (7-18) mg/dl Creatinine (0.6-1.2) mg/dl POC Creatinine 0.9 (0.6-1.3) mg/dl Est Cr Clr Drug Dosing Est GFR ( Amer) ml/min Est GFR (Non-Af Amer) ml/min BUN/Creatinine Ratio (10-20) Glucose (70-99) mg/dl POC Glucose (70-99) mg/dl POC Glucose (other) 118 H (70-99) mg/dl Calcium (8.5-10.1) mg/dl POC Ioniz Calcium Joseph 1.07 L (1.12-1.32) mmol/l Magnesium (1.8-2.4) mg/dl Total Bilirubin (0.2-1) mg/dl AST (15-37) U/L ALT (12-78) U/L Alkaline Phosphatase (45-117) U/L Troponin I (0-0.045) ng/ml NT-Pro-B Natriuret Pep (0-900) pg/ml Total Protein (6.4-8.2) gm/dl Albumin (3.4-5.0) gm/dl Globulin (2.5-4.0) gm/dl Albumin/Globulin Ratio (0.9-2) Triglycerides (0-150) mg/dl Cholesterol (0-200) mg/dl LDL Cholesterol, Calc mg/dl VLDL Cholesterol, Calc mg/dl HDL Cholesterol mg/dl Cholesterol/HDL Ratio COVID-19 Eval Order SARS-CoV-2 (PCR) (Negative) 12/06/20 Range/Units 13:45 WBC (4.8-10.8) K/uL RBC (4.2-5.4) M/uL Hgb (12.0-16.0) g/dL POC Hgb (12.0-16.0) g/dl Hct (37-47) % POC Hct (37-47) % MCV (80-100) fL MCH (25-34) pg MCHC (32-36) g/dL RDW Std Deviation (36.4-46.3) fL RDW Coeff of Franny (11.5-14.5) % Plt Count (130-400) K/uL MPV (7.4-10.4) fL Immature Gran % (Auto) % Neut % (Auto) % Lymph % (Auto) % [place] % (Auto) % Eos % (Auto) % Baso % (Auto) % Neut # (Auto) (1.4-6.5) K/uL Lymph # (Auto) (1.2-3.4) K/uL [place] # (Auto) (0.11-0.59) K/uL Eos # (Auto) (0-0.5) K/uL Baso # (Auto) (0-0.2) K/uL Immature Gran # (Auto) (0.00-0.02) K/uL PT (9.0-12.0) Seconds INR (0.9-1.1) APTT (21.0-31.0) Seconds PTT Ratio POC Sodium (135-144) mmol/L Sodium 140 (136-145) mmol/L POC Potassium (3.3-5.0) mmol/L Potassium 3.8 (3.5-5.1) mmol/L POC Chloride (101-112) mmol/L Chloride 103 (98-107) mmol/L Carbon Dioxide 30 (21-32) mmol/L POC Total CO2 (24-31) mmol/L Anion Gap 7.0 (3-11) POC Anion Gap (16-25) mmol/L POC BUN (7-18) mg/dl BUN 9 (7-18) mg/dl Creatinine 0.84 (0.6-1.2) mg/dl POC Creatinine (0.6-1.3) mg/dl Est Cr Clr Drug Dosing Not Reportable Est GFR ( Amer) 79.9 ml/min Est GFR (Non-Af Amer) 69.0 ml/min BUN/Creatinine Ratio 11.2 (10-20) Glucose 112 H (70-99) mg/dl POC Glucose (70-99) mg/dl POC Glucose (other) (70-99) mg/dl Calcium 7.9 L (8.5-10.1) mg/dl POC Ioniz Calcium Joseph (1.12-1.32) mmol/l Magnesium (1.8-2.4) mg/dl Total Bilirubin 0.7 (0.2-1) mg/dl AST 40 H (15-37) U/L ALT 28 (12-78) U/L Alkaline Phosphatase 62 (45-117) U/L Troponin I 0.034 (0-0.045) ng/ml NT-Pro-B Natriuret Pep (0-900) pg/ml Total Protein 6.6 (6.4-8.2) gm/dl Albumin 2.5 L (3.4-5.0) gm/dl Globulin 4.1 H (2.5-4.0) gm/dl Albumin/Globulin Ratio 0.6 L (0.9-2) Triglycerides (0-150) mg/dl Cholesterol (0-200) mg/dl LDL Cholesterol, Calc mg/dl VLDL Cholesterol, Calc mg/dl HDL Cholesterol mg/dl Cholesterol/HDL Ratio COVID-19 Eval Order SARS-CoV-2 (PCR) (Negative) Diagnostic Findings Repeat EKG this morning: NSr with inferior and anterior T wave inversions EKG on admission: NSR with inferior and anterior T wave inversions no prior available for comparison Venous duplex: IMPRESSION: Technically compromised exam but no evidence of deep venous thrombus within the right lower extremity. Chest Ct report reviewed from admission IMPRESSION: No definite central pulmonary embolus is seen. Evaluation of peripheral branches of pulmonary artery is limited due to motion artifact. No dilatation of the main pulmonary artery. No right heart strain. Diffuse peribronchial cuffing and patchy areas of groundglass attenuation throughout bilateral lungs might represent pulmonary edema or infectious/postinfectious etiology. Mild four-chamber cardiomegaly. There are ill-defined hypoattenuating nodule within left thyroid lobe. Possible 8mm nodule in subpleural aspect of the right lower lobe. Short-term follow-up in 4-6 weeks is suggested to document resolution. Possible cholelithiasis. No evidence of cholecystitis. Small left adrenal nodule. Attention on follow-up imaging. Prior outpatient echo dated 10/22/20: The examination is adequate to evaluate the referral indication. The LV wall thickness is moderately increased (concentric). The left ventricular wall motion is normal. The qualitative LV ejection fraction is 55-59% (normal). The aortic valve has three leaflets. The aortic valve is moderately calcified. Moderate aortic valve stenosis is present. There is moderate mitral annular calcification. Mitral stenosis is absent. Significant mitral regurgitation is absent. Medications Administered Current Inpatient Medications Acetaminophen (Acetaminophen 325 Mg Tab) 650 mg PO Q4H PRN PRN Reason: Moderate Pain Stop: 01/05/21 19:50 Last Admin: 12/07/20 09:18 Dose: 650 mg Documented by: Aspirin (Aspirin 81 Mg Ectab) 81 mg PO DAILY MARIAH Stop: 01/06/21 08:59 Last Admin: 12/07/20 09:09 Dose: 81 mg Documented by: Atorvastatin Calcium (Atorvastatin 20 Mg Tab) 20 mg PO QPM MARIAH Stop: 01/05/21 20:59 Last Admin: 12/06/20 21:51 Dose: 20 mg Documented by: Carvedilol (Carvedilol 6.25 Mg Tab) 6.25 mg PO BID MARIAH Stop: 01/06/21 20:59 Dextrose (Dextrose 50% 50 Ml Syringe) 25 - 50 ml IV UD PRN; Protocol PRN Reason: Hypoglycemia Protocol Stop: 01/05/21 19:50 Enoxaparin Sodium (Enoxaparin Inj 40 Mg/0.4 Ml Syr) 40 mg SQ Q24H MARIAH Stop: 01/05/21 19:59 Last Admin: 12/06/20 21:51 Dose: 40 mg Documented by: Ferrous Sulfate (Ferrous Sulfate 325 Mg Tab) 325 mg PO BIDM MARIAH Stop: 01/06/21 07:59 Last Admin: 12/07/20 09:09 Dose: 325 mg Documented by: Glucagon (Glucagon For Inj 1 Mg Vial) 1 mg SQ UD PRN; Protocol PRN Reason: Hypoglycemia Protocol Stop: 01/05/21 19:50 Glucose (Glucose 10 Tabs/Tube) 4 - 8 tabs PO UD PRN; Protocol PRN Reason: Hypoglycemia Protocol Stop: 01/05/21 19:50 Glucose (Glucose 40% Gel 15 Gm Tube) 15 - 30 gm PO UD PRN; Protocol PRN Reason: Hypoglycemia Protocol Stop: 01/05/21 19:50 Insulin Aspart (Insulin Aspart 100 Units/Ml 3 Ml Pen) 0 units SC ACHS [facility] Stop: 01/05/21 19:50 Last Admin: 12/07/20 09:11 Dose: Not Given Documented by: Insulin Glargine (Insulin Glargine Solostar 100 Units/Ml 3 Ml Pen) 10 units SQ QAM [facility]; Protocol Stop: 01/06/21 08:59 Last Admin: 12/07/20 09:09 Dose: 10 units Documented by: Losartan Potassium (Losartan Potassium 25 Mg Tab) 25 mg PO DAILY [facility] Stop: 01/06/21 08:59 Last Admin: 12/07/20 09:09 Dose: 25 mg Documented by: Miscellaneous (Carbohydrates For Hypoglycemia ) 15 - 30 gm PO UD PRN PRN Reason: Hypoglycemia Protocol Stop: 01/05/21 19:50 Miscellaneous Information (Pharmacy Glycemic Mgmt Consult) 1 ea N/A UD PRN; Protocol PRN Reason: Consult Stop: 01/05/21 20:00 Ondansetron HCl (Ondansetron Inj 2 Mg/Ml 2 Ml Vial) 4 mg IV Q4H PRN PRN Reason: Nausea And Vomiting Stop: 01/05/21 19:50 Oxycodone HCl (Oxycodone Hcl Ir 5 Mg Tab (Immediate Release)) 5 mg PO Q4H PRN PRN Reason: pain Stop: 12/20/20 20:00 Polyethylene Glycol (Polyethylene (Miralax) 17 Gm Pack) 17 gm PO DAILY PRN PRN Reason: constipation Stop: 01/05/21 19:50 (1) Anemia Anemia type: unspecified type Qualified Code(s): D64.9 - Anemia, unspecified (2) Aortic stenosis Cardiac valve disease etiology: nonrheumatic Qualified Code(s): I35.0 - Nonrheumatic aortic (valve) stenosis (3) Hypertension Hypertension type: essential hypertension Qualified Code(s): I10 - Essential (primary) hypertension
--- NOTE | 2020-12-07 13:19 | Hospitalist Progress Note ---
Date of Service December 07, 2020 Assessment & Plan (1) Chest pain, precordial: Present on admission with chest pain associated with shortness of breath Chest pain relieved by nitrox3 Need to rule out ACS due to risk factors: Prior [place], diabetes, dyslipidemia, and hypertension EKG on admission showed new T wave changes COVID-19 negative and troponinx3 negative CT chest showed no evidence of PE Received aspirin 81 mg x 4 in route Her Last echo was 10/22 showed LV wall thickening is moderate increase. Left ventricular wall motion is normal. Ejection fraction 55 to 59% If patient pain would reoccur or troponin bumped, plan was to start on heparin drip (will be very cautious for bleeding due to recent hip surgery on 11/28) Cardiology consult Starting on Carvedilol 6.25 mg BID No arrhythmia on tele monitor Continue aspirin, statin and carvedilol on discharge Echo done today show no significant change compared to the prior echo back in October. Left ventricular wall motion is normal. Moderate concentric left ventricular hypertrophy. Ejection fraction =>70% Ok from cardiology to discharge today on Carvedilol and aspirin 81 mg Hypertension BP elevated possible related to hospital setting Continue Losartan daily, consider to titrate Losartan to 50mg daily if bp continues to elevate Carvedilol added Continue monitor BP Right femur fracture S/P right trochanteric femoral nail on 11/28 Continue pain control Continue Lovenox for DVT prophylaxis Continue PT/OT eval Follow up with orthopedic Fall precaution Right thigh swollen Mostly related to recent surgical procedure for right femoral fracture Venous Doppler of lower extremity showed no evidence of right lower extremity thrombus. Anemia Hgb on discharge 7.9 Hgb improves to 9 Continue monitor CBC DM type 2 Most recent hemoglobin A1c 8.1 on 11/27 Continue to hold metformin since pt had IV contrast On insulin sliding scale and Lantus Continue monitor blood sugar Lung Nodule CTA chest showed 8mm nodule in subpleural aspect of the right lower lobe. Short-term follow-up in 4-6 weeks is suggested to document resolution. Left Adrenal Nodule CT showed small left adrenal nodule Will need outpatient follow DVT px on heparin subq Disposition Will discharge to [facility] for rehab Admission and Anticipated Discharge Date Admission Date: December 06, 2020 Subjective Pt was seen and examined for follow up of chest pain Lying in bed with no distress resting comfortable Pt said that she feels fine and does not have any chest pain Spoke to daughter and son today and providing with updates Denies any chest pain, palpitation, dizziness and SOB Review of Systems Review of Systems: All systems reviewed & are unremarkable except as noted in Subjective Physical Exam Physical Exam: General- No acute distress Head- atraumatic Eyes- PERRL, EOMI, ENT- oropharynx clear Neck- supple, no JVD Lungs- clear to auscultation Heart- regular rhythm; no murmur Abdomen- normal bowel sounds, soft, nontender Extremities- +right thigh tenderness and swelling, no erythema around the nahomi Neuro- alert, oriented x 3; PERRL, EOMI; no facial palsy; no dysarthria Skin- warm & dry Results & Data Results & Data ([facility]) Vital Signs (Past 12 Hours) Vital Signs Temp Pulse Pulse Resp BP BP Pulse Ox 12/07/20 11:35 37.3 C 72 18 154/75 H 94 12/07/20 11:00 12/07/20 10:30 72 12/07/20 10:11 73 12/07/20 07:38 37.0 C 76 18 176/80 H 97 12/07/20 06:44 36.7 C 73 18 163/79 H 93 12/07/20 03:06 36.8 C 73 18 166/83 H 95 Pulse Ox 12/07/20 11:35 12/07/20 11:00 93 12/07/20 10:30 12/07/20 10:11 12/07/20 07:38 12/07/20 06:44 12/07/20 03:06
--- NOTE | 2020-12-07 14:33 | Pharmacy Report ---
Pharmacy Glycemic Short Note 2 - Date of Service December 07, 2020 - Glycemic Short BSG Results (Last 24 hours): 12/06/20 12/06/20 12/07/20 19:58 23:40 02:57 Glucose 115 H POC Glucose 77 78 12/07/20 12/07/20 12/07/20 04:10 07:35 11:33 Glucose POC Glucose 130 H 123 H 113 H OUTPATIENT ANTIDIABETIC REGIMEN: * Novolog 5 units prior to large meals up to 10 units daily * Lantus 15 units QAM * Metformin 1000 mg BIDM * A1c 8.1%11/27/20 ASSESSMENT: 12/07/20: * Pt has been NPO today, so Lantus was given at a reduced dose this morning. * BSGs have been stable. 12/06 * 75 yo female admitted with chest pain, past medical history including CAD, HTN, HLD, type 2 daibetes * BSGs have been within goal since admission. Will start novolog parameters between weight based stress of 1 and 2. * BSG this evening 77 mg/dL, diet now ordered, will resume lantus with AM dose PLAN FOR INPATIENT GLYCEMIC CONTROL: * Hold outpatient oral diabetes medications * Basal insulin * Lantus 10 units qAM (while NPO) * will re-evaluate when diet is resumed/tolerated * Bolus insulin * NovoLog per scale ACHS or Q6hrs while NPO * Goal Range: Low 110 mg/dL - High 140 mg/dL * Correction Factor: 30 mg/dL/unit * Nutritional / Prandial insulin per carb ratio of 1 unit per 10 grams CHO consumed
--- NOTE | 2020-12-07 16:04 | Electrocardiogram Report ---
Test Reason : Blood Pressure : / mmHG Vent. Rate : 075 BPM Atrial Rate : 075 BPM P-R Int : 196 ms QRS Dur : 098 ms QT Int : 394 ms P-R-T Axes : 005 -32 -44 degrees QTc Int : 439 ms Normal sinus rhythm Left axis deviation Minimal voltage criteria for LVH, may be normal variant Nonspecific T wave abnormality Abnormal ECG When compared with ECG of 26-NOV-2020 22:30, T wave inversion now evident in Inferior leads T wave inversion now evident in Anterior leads Confirmed by Fabián David ([id number]) on 12/07/2020 4:04:15 PM Referred By: Confirmed By:Fabián David
[2020-12-07] MEDS ORDERED: LOPERAMIDE HCL 2 MG CAP PO STA (17:40)
[2020-12-07] MEDS ORDERED: carvediloL 6.25 MG TAB PO SCH (21:00)
--- NOTE | 2020-12-07 22:29 | Electrocardiogram Report ---
Test Reason : Blood Pressure : / mmHG Vent. Rate : 073 BPM Atrial Rate : 073 BPM P-R Int : 226 ms QRS Dur : 094 ms QT Int : 414 ms P-R-T Axes : 012 -29 -46 degrees QTc Int : 456 ms Sinus rhythm with 1st degree A-V block Nonspecific T wave abnormality Abnormal ECG When compared with ECG of 06-DEC-2020 13:37, MS interval has increased Confirmed by Fabián David ([id number]) on 12/07/2020 10:28:40 PM Referred By: [facility] Confirmed By:Fabián David
--- NOTE | 2020-12-08 09:55 | Discharge Summary ---
Date of Service December 07, 2020 Admission HPI Per Admitting Provider 75-year-old female with past medical history significant for diabetes, hypertension, obesity, dyslipidemia, CT about 7 years ago, S/P right trochanteric femoral nail for right femoral fracture was sent to the ER for chest pain. History obtained from daughter/ patient at bedside who is a family practice physician in [facility] was translated in Thai/Romanian. Patient was recently discharged from [facility] on 12/01 for right femoral fracture status post right trochanteric femoral nail and she was sent to [facility] for rehab. This morning when patient started physical therapy she developed shortness of breath associated with chest pain. She felt a pressure on her chest like an elephant sitting on her, nonradiating associated with shortness of breath. Daughter said 7 years ago when she had her heart attack she did not have any chest pain. EMS was called and in route she received aspirin and nitrox3 that relieved the pain after a few minutes. Currently patient is pain-free. She said that she continued to have pain in her right thigh. she said that she feels fine now. EKG on admission showed new T wave inversion. Currently denies any chest pain, palpitation, dizziness, shortness of breath, and fever. Admission Exam Per Admitting Provider General- No acute distress Head- atraumatic Eyes- PERRL, EOMI, ENT- oropharynx clear Neck- supple, no JVD Lungs- clear to auscultation Heart- regular rhythm; no murmur Abdomen- normal bowel sounds, soft, nontender Extremities- +right thigh tenderness and swelling Neuro- alert, oriented x 3; PERRL, EOMI; no facial palsy; no dysarthria Skin- warm & dry Principal Diagnosis Chest pain Hypertension Right femur fracture Right thigh swollen Anemia Diabetes Lung Nodule Left Adrenal Nodule Discharge Exam General- No acute distress Head- atraumatic Eyes- PERRL, EOMI, ENT- oropharynx clear Neck- supple, no JVD Lungs- clear to auscultation Heart- regular rhythm; no murmur Abdomen- normal bowel sounds, soft, nontender Extremities- +right thigh tenderness and swelling, no erythema around the nahomi Neuro- alert, oriented x 3; PERRL, EOMI; no facial palsy; no dysarthria Skin- warm & dry Discharge Data Allergies Allergy/AdvReac Type Severity Reaction Status Date / Time No Known Allergies Allergy Verified 11/26/20 23:06 Consultations 12/06/20 15:33 ED Decision to Admit Stat 12/06/20 19:51 Consult Cardiology Routine Ordered Studies 12/06/20 13:40 CT angio chest PE protocol Stat US venous doppler LE RT Stat RIGHT LOWER EXTREMITY VENOUS DOPPLER CLINICAL HISTORY: Dyspnea COMPARISON STUDY: No previous studies for comparison. TECHNIQUE: Sonography of the deep venous system of the right lower extremity was performed. Compression and augmentation were evaluated. FINDINGS: Exam was technically compromised given difficulty positioning. The right common femoral, superficial femoral and popliteal veins were compressible. Augmentation was normal. Flow was shown within the deep calf vessels. IMPRESSION: Technically compromised exam but no evidence of deep venous thrombus within the right lower extremity. ACT 112: Negative or not required by law. Electronically signed by: Andrea Lockwood M.D. 12/06/2020 3:06 PM Dictated: 12/06/20 1505Transcribed: 12/06/[address] ANGIOGRAM OF THE CHEST CLINICAL HISTORY: CP/SOB s/p hip surgery eval for PE COMPARISON STUDY: No previous studies for comparison. TECHNIQUE: Following the IV administration of mL of Optiray, CT angiogram of the thorax was performed from the thoracic inlet to the lung bases utilizing the pulmonary embolus protocol. Images are reviewed in the axial, sagittal, and coronal planes. IV contrast was administered without complication. MIP imaging was performed. A dose lowering technique was utilized adhering to the principles of ALARA. CT DOSE: 620.45 mGy.cm FINDINGS: There is adequate opacification within main pulmonary artery. Evaluation of peripheral branches of pulmonary arteries limited due to respiratory motion artifact. No evidence of central pulmonary embolus is seen. Pulmonary artery is normal in caliber. There is no right heart strain. There is mild four-chamber cardiomegaly. No significant pericardial effusion is seen. Evaluation is limited due to motion artifact. There is no significant axillary, supra clavicle or internal mammary lymphadenopathy seen. No significant mediastinal lymphadenopathy seen. Small hilar lymph nodes are seen bilaterally. Limited evaluation of the thyroid gland shows ill-defined hypoattenuating nodule within left thyroid lobe. Esophagus is patulous within its proximal aspect. Small fat-containing hiatal h ernia is seen. Tracheobronchial tree is patent. Mild atelectasis is seen at dependent portions of bilateral lower lobes. No large infiltrates or consolidative lesions are seen. Diffuse peribronchial thickening is seen bilaterally most prominent within left lower lobe. Patchy areas of groundglass attenuation are seen throughout lung parenchyma. Evaluation is significantly limited due to motion artifact. -Possible 8 mm nodule in subpleural aspect of the superior segment of the right lower lobe (4/178 was) Limited evaluation of upper abdominal viscera shows hyper attenuating material within dependent portion of the gallbladder likely representing cholelithiasis. No evidence of cholecystitis is seen on current exam. Small left adrenal nodule measuring 1.7 cm is seen. Evaluation of osseous structures shows multilevel degenerative changes of the spine. IMPRESSION: No definite central pulmonary embolus is seen. Evaluation of peripheral branches of pulmonary artery is limited due to motion artifact. No dilatation of the main pulmonary artery. No right heart strain. Diffuse peribronchial cuffing and patchy areas of groundglass attenuation throughout bilateral lungs might represent pulmonary edema or infectious/postinfectious etiology. Mild four-chamber cardiomegaly. There are ill-defined hypoattenuating nodule within left thyroid lobe. Possible 8mm nodule in subpleural aspect of the right lower lobe. Short-term follow-up in 4-6 weeks is suggested to document resolution. Possible cholelithiasis. No evidence of cholecystitis. Small left adrenal nodule. Attention on follow-up imaging. ACT 112: Negative or not required by law. The above report was generated using voice recognition software. It may contain grammatical, syntax or spelling errors. Electronically signed by: Irasema Mendez DO 12/06/2020 2:46 PM Dictated: 12/06/20 1426Transcribed: 12/06/20 1426 Hospital Course (1) Chest pain, precordial: Present on admission with chest pain associated with shortness of breath Chest pain relieved by nitrox3 Need to rule out ACS due to risk factors: Prior CT, diabetes, dyslipidemia, and hypertension EKG on admission showed new T wave changes COVID-19 negative and troponinx3 negative CT chest showed no evidence of PE Received aspirin 81 mg x 4 in route Her Last echo was 10/22 showed LV wall thickening is moderate increase. Left ventricular wall motion is normal. Ejection fraction 55 to 59% If patient pain would reoccur or troponin bumped, plan was to start on heparin drip (will be very cautious for bleeding due to recent hip surgery on 11/28) Cardiology consult Starting on Carvedilol 6.25 mg BID No arrhythmia on tele monitor Continue aspirin, statin and carvedilol on discharge Echo done today show no significant change compared to the prior echo back in October. Left ventricular wall motion is normal. Moderate concentric left ventricular hypertrophy. Ejection fraction =>70% Ok from cardiology to discharge today on Carvedilol and aspirin 81 mg Hypertension BP elevated possible related to hospital setting Continue Losartan daily, consider to titrate Losartan to 50mg daily if bp continues to elevate Carvedilol added Continue monitor BP Right femur fracture S/P right trochanteric femoral nail on 11/28 Continue pain control Continue Lovenox for DVT prophylaxis Continue PT/OT eval Follow up with orthopedic Fall precaution Right thigh swollen Mostly related to recent surgical procedure for right femoral fracture Venous Doppler of lower extremity showed no evidence of right lower extremity thrombus. Anemia Hgb on discharge 7.9 Hgb improves to 9 Continue monitor CBC DM type 2 Most recent hemoglobin A1c 8.1 on 11/27 Continue to hold metformin since pt had IV contrast On insulin sliding scale and Lantus Continue monitor blood sugar Lung Nodule CTA chest showed 8mm nodule in subpleural aspect of the right lower lobe. Short-term follow-up in 4-6 weeks is suggested to document resolution. Left Adrenal Nodule CT showed small left adrenal nodule Will need outpatient follow DVT px on heparin subq Disposition Will discharge to [facility] for rehab Total Time Total Time Spent Total Time Spent (In Minutes): 40 minutes Total Time Includes: Examination of the Patient, Discharge Planning, Medication Reconciliation, Communication With Other Providers and Other Discharge Plan Discharge Items Patient Disposition: Transfer Inpatient Rehab Fac Reason For Visit: CHEST PAIN Discharge Diagnosis: Chest pain Hypertension Right femur fracture Right thigh swollen Anemia Diabetes Lung Nodule Left Adrenal Nodule Condition on Discharge: Good Activity: As commented below Weightbearing: Right partial and Right toe touch Non-emergency contact: Primary Care Provider Call non-emergency contact if: you have any medication questions and your symptoms worsen Follow-up/Referrals: [facility] [Primary Care Provider] - Diet: Carb Consistent or DM2 Addtl Attending Provider Instructions: Follow up with primary care provider at [facility] rehab Follow up with orthopedic Please call [facility] at [phone] to schedule a follow up appointment 12-14 days from the date of your surgery with Dr. Delaney. Continue physical and occupational therapy Fall precaution You will need a repeat Cat scan of the chest in 2 -3 months to follow the 8 mm nodule found on the right lower lung during the recent CT chest. Outpatient follow up for the left adrenal nodule with repeat imaging Continue to hold Metformin due to contrast during the CT chest. Ok to resume on Monday Continue to monitor your blood pressure ( Your physician will titrate the your blood pressure medication if blood pressure not control ) Monitor for abnormal bleeding while taking lovenox and aspirin Recommend to give the narcotic or tylenol before working with physical therapy please hold narcotic if you become lethargy or drowsiness You are to ambulate with a walker or crutches for approximately 6 weeks. B. You are TOE TOUCH WEIGHT BEARING on your operative lower extremity for at least 6 weeks. C. Wear low heeled shoes with non-slip soles D. Be sure that your floors are free of things that could trip you throw rugs, electrical cords, and small objects. Avoid wet and waxed floors, especially with crutches/walker/cane. E. Try to walk several times a day with rest periods between. Pending Studies at Discharge: No Stand-Alone Forms: [facility] Skilled Items Patient informed of condition?: Yes DNR: No Discharge Level of Care: Acute rehab Communicable Disease: No Discharge Prognosis: Stable Lines: None Urinary Catheter: No Medications and DC Order Prescriptions: New carvedilol 6.25 mg Tablet 6.25 mg PO BID Qty: 60 RF: 0 loperamide 2 mg tablet 2 mg PO Q12H PRN (Reason: diarrhea) Qty: 30 RF: 0 Continued atorvastatin 20 mg tablet 20 mg PO QPM 90 Days Qty: 90 RF: 1 aspirin [Adult Low Dose Aspirin] 81 mg tablet,delayed release (DR/EC) 81 mg PO DAILY RF: 0 insulin aspart U-100 [Novolog Flexpen U-100 Insulin] 100 unit/mL (3 mL) insulin pen See Rx Instructions SQ DAILY PRN (Reason: DEPENDS ON BSG WITH MEALS) RF: 0 Lantus Solostar U-100 Insulin 100 unit/mL (3 mL) insulin pen 15 unit SQ QAM RF: 0 losartan 25 mg tablet 25 mg PO DAILY RF: 0 enoxaparin 40 mg/0.4 mL Syringe 40 mg subcut Q24H Qty: 4 RF: 0 acetaminophen 325 mg Tablet 650 mg PO Q4H PRN (Reason: fever or pain) Qty: 60 RF: 0 polyethylene glycol 3350 [Miralax] 17 gram Powder In Packet 17 g PO DAILY PRN (Reason: constipation) Qty: 30 RF: 0 ferrous sulfate 325 mg (65 mg iron) Tablet 325 mg PO BIDM RF: 0 lidocaine 5 % Adhesive Patch,Medicated 2 patch TOPICAL QAM RF: 0 metformin 500 mg tablet 1,000 mg PO BIDM RF: 0 Changed sennosides-docusate sodium [Senna-S] 8.6-50 mg Tablet 1 tab-cap PO QDL PRN (Reason: constipation) Qty: 0 RF: 0 bisacodyl 10 mg Suppository 10 mg [place] DAILY PRN (Reason: constipation) Qty: 0 RF: 0 docusate sodium 100 mg Capsule 100 mg PO BID PRN (Reason: constipation) Qty: 0 RF: 0 oxycodone 5 mg Tablet 5 mg PO Q8H PRN (Reason: pain) Qty: 10 RF: 0 magnesium hydroxide 2,400 mg/10 mL Suspension 30 ml PO DAILY PRN (Reason: constipation) Qty: 0 RF: 0 Discontinued cefdinir 300 mg capsule 300 mg PO BID 7 Days Qty: 14 RF: 0 Discharge Orders: Discharge Order (Routine); Ordered 12/07/20 Ordered By: Zuly Castle Admission Data Admit Date/Time: 12/06/20 16:19 Attending Provider: Zuly Castle Admit Provider: Zuly Castle Primary Care Provider: Denisa,[facility] Other Providers: Zuly Castle ; Wyatt Perry ; [facility] Other Interventions: Discharge Summary Assessment (RN) Last Done: 12/07/20 17:44
== END 2020-12-07 18:10 ==
LOC: ED 13:30 → 2S 13:30